=== PATIENT | female | born 1970 | race Caucasian/White ===

== ENCOUNTER 2017-01-29 22:20 | Emergency (ER) | payer SELFPAY ==
--- OUTSIDE RECORDS SUMMARY | 2017-01-31 17:41 | XMS REPORT | Continuity of Care Document ---
Author Author [facility] Organization [facility] Address Unknown Phone Unavailable Care Team Providers Care Restrike Hammer Operator Name Role Phone Self, Referral PCP Unavailable Source Comments Some departments are not documenting in the electronic medical record. If you do not see the information that you expected, contact Release of Information in the Health Information Management department at [phone] for further assistance in locating additional records.[facility] Active Allergies and Adverse Reactions Allergen Noted Date Severity Reactions Comments Hydrocodone 10/17/2008 ITCHING Percocet 10/29/2008 Current Medications Prescription Sig. Disp. Refills Start End Date Status Date DEPAKOTE ER 500 mg Tb24 Take 750 mg by mouth Active Daily. simvastatin (ZOCOR) 40 mg Take 1 Tab by mouth At 30 1 06/24/20 Active tablet Bedtime Daily. [address] (CYMBALTA) Take 1 Cap by mouth 30 0 06/24/20 Active 30 mg capsule Daily. 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 Complex Partial Tremor 06/19/2009 Accidental falls 06/19/2009 Resolved Problems Problem Noted Date Resolved Date Cocaine dependence in remission (HCC) 06/19/2009 06/24/2009 Alcohol dependence, in remission 06/19/2009 06/24/2009 Nocturnal enuresis 06/19/2009 06/24/2009 Social History Tobacco Use Types Packs/Day Years Used Date Former Smoker Cigarettes 0.25 18 Comments: Jun 16 Alcohol Use Drinks/Week oz/Week Comments No Last Filed Vital Signs Vital Sign Reading Time Taken Blood Pressure 137/76 08/05/2009 10:02 AM FISHER CLAM Pulse 82 08/05/2009 10:02 AM FISHER CLAM Temperature 36.6 C (97.8 F) 08/05/2009 8:00 AM FISHER CLAM Respiratory Rate - - Height 1.651 m (5' 5") 06/17/2009 10:14 PM FISHER CLAM Weight 120.5 kg (265 lb 10.5 oz) 06/17/2009 10:14 PM FISHER CLAM Body Mass Index 44.21 06/17/2009 10:14 PM FISHER CLAM Oxygen Saturation 94% 08/05/2009 10:02 AM FISHER CLAM Plan of Care Health Maintenance Due Date Last Done Comments Physical (Comprehensive) 1979 Exam Pertussis Vaccine 1983 Tetanus Vaccine 1989 Cervical Cancer Screening 1993 Breast Cancer Screening 2012 Influenza Vaccine 04/08/2017 Results from Last 3 Months Not on file
== END 2017-01-29 22:43 | disposition left against medical advice (07) ==
LOC: ER 22:24
DX: K31.9 Disease of stomach and duodenum, unspecified (principal); Z53.21 Procedure and treatment not carried out due to patient leaving prior to being seen by health care provider

== ENCOUNTER 2017-03-26 23:32 | Emergency (ER) | payer SELFPAY ==
[~2017-03-26] VITALS: Ht 165.1 cm; Wt 108.9 kg
[2017-03-27 00:42] LABS: BASOPHILS % (AUTO) 0 % (0-10); EOSINOPHILS # (AUTO) 0.2 10^3/uL (0.0-0.3); EOSINOPHILS % (AUTO) 2 % (0-10); LYMPHOCYTES # (AUTO) 1.5 X 10^3 (1.0-4.0); LYMPHOCYTES % (AUTO) 17 % (12-44); MEAN CORPUSCULAR HEMOGLOBIN 27 PG (25-34); MEAN CORPUSCULAR HGB CONC 32 G/DL (32-36); MEAN CORPUSCULAR VOLUME 85 FL (80-99); MEAN PLATELET VOLUME 11.3 FL (7.4-10.4); MONOCYTES # (AUTO) 0.5 X 10^3 (0.0-1.0); MONOCYTES % (AUTO) 6 % (0-12); NEUTROPHILS # (AUTO) 6.6 X 10^3 (1.8-7.8); NEUTROPHILS % (AUTO) 76 % (42-75); PLATELET COUNT 245 10^3/uL (130-400); RED BLOOD COUNT 4.71 10^6/uL (4.35-5.85); RED CELL DISTRIBUTION WIDTH 15.1 % (10.0-14.5); WHITE BLOOD COUNT 8.7 10^3/uL (4.3-11.0)
[2017-03-27] MEDS ORDERED: ONDANSETRON 4 MG/2 ML (SDV) Z0FRAN IVP ONE (00:45)
[2017-03-27 00:57] LABS: ALANINE AMINOTRANSFERASE 38 U/L (0-55); ALBUMIN 3.9 GM/DL (3.2-4.5); ANION GAP 15 MMOL/L (5-14); ASPARTATE AMINO TRANSFERASE 26 U/L (5-34); BILIRUBIN,TOTAL 0.2 MG/DL (0.1-1.0); BLOOD UREA NITROGEN 16 MG/DL (7-18); BUN/CREATININE RATIO 21; CALCIUM 9.1 MG/DL (8.5-10.1); CARBON DIOXIDE 19 MMOL/L (21-32); CHLORIDE 103 MMOL/L (98-107); CREATININE SERUM 0.77 MG/DL (0.60-1.30); GFR ESTIMATED > 60; GLUCOSE 100 MG/DL (70-105); POTASSIUM 4.2 MMOL/L (3.6-5.0); SODIUM 137 MMOL/L (135-145); TOTAL PROTEIN 7.5 GM/DL (6.4-8.2)
[2017-03-27] MEDS ORDERED: HYOSCYAMINE 0.125 MG (LEVSIN) TAB SL ONE (01:00)
[2017-03-27 01:20] LABS: hs C REACTIVE PROTEIN 2.27 MG/DL (0.00-0.50)
[2017-03-27] MEDS ORDERED: KETOROLAC 30 MG/ML VIAL IVP ONE (02:00)
[2017-03-27] MEDS ORDERED: methylPREDNISolone 125 MG (Solu-MEDROL) VIAL IVP ONE (02:00)
[2017-03-27] MEDS ORDERED: metroNIDAZOLE 500 MG (FLAGYL) TAB PO ONE (02:00)
[2017-03-27] MEDS ORDERED: CIPROFLOXACIN 500 MG (CIPRO) TABLET PO ONE (02:00)
[2017-03-27] MEDS ORDERED: METR500T PO (02:04)
[2017-03-27] MEDS ORDERED: CIPR-225 PO (02:04)
[2017-03-27] MEDS ORDERED: PRD20T PO (02:05)
--- NOTE | 2017-03-27 02:05 | ED GI ---
General Chief Complaint: Abdominal/GI Problems Stated Complaint: AB PAIN DIARRHEA VOMTING Nursing Triage Note: PT C/O N/V/D AND ABD PAIN X 7 DAYS. SHE REPORTS SHE HAS BEEN SEEN AND TX BY CHRISTOPHER POOL LAST NOC. PT REPORTS NO IMPROVEMENT. Sepsis Screen: No Definite Risk Source of Information: Patient, Old Records Exam Limitations: No Limitations History of Present Illness Time Seen By Provider: 00:34 Initial Comments This 46-year-old woman presents to the emergency room with complaints of diarrhea, nausea, vomiting, abdominal cramping, and belching 1 week. She denies any fever. She was evaluated at [facility] yesterday. She questions gallbladder disease. Labs and CT were performed. She states she had a bad urinary tract infection. She received an injection of antibiotic but no prescription to go home according to her report. Patient denies sexual activity with men. She reports that her doctor questions Crohn's disease but no official diagnosis has been made. Allergies and Home Medications Allergies Coded Allergies: ondansetron (Verified Allergy, Mild, 03/27/17) Itching at injection site with injectable form only. Oral form well tolerated. hydrocodone (Verified Allergy, Unknown, 03/27/17) Home Medications Ciprofloxacin HCl 500 Mg Tablet, 500 MG PO BID, #14 Prescribed by: LATIA BERGER on 03/27/17 0204 Hyoscyamine Sulfate 0.125 Mg Tab.subl, 0.125 MG SL Q4H PRN for CRAMPS, #10 Prescribed by: LATIA BERGER on 03/27/17 0216 Metronidazole 500 Mg Tablet, 500 MG PO TID, #20 Prescribed by: LATIA BERGER on 03/27/17 0204 Ondansetron 4 Mg Tab.rapdis, 4 MG SL Q4H PRN for NAUSEA/VOMITING-1ST LINE, #10 Prescribed by: LATIA BERGER on 03/27/17 0216 Prednisone 20 Mg Tab, 20 MG PO DAILY, #4 Prescribed by: LATIA BERGER on 03/27/17 0205 Review of Systems Constitutional: no symptoms reported EENTM: No Symptoms Reported Respiratory: No Symptoms Reported Cardiovascular: No Symptoms Reported Gastrointestinal: See HPI Genitourinary: No Symptoms Reported Musculoskeletal: no symptoms reported Skin: no symptoms reported Psychiatric/Neurological: No Symptoms Reported Endocrine: No Symptoms Reported Past Aigwosr-Wbvikz-Cngnlj Hx Patient Social History Alcohol Use: Denies Use Recreational Drug Use: No Smoking Status: Never a Smoker 2nd Hand Smoke Exposure: No Recent Foreign Travel: No Contact w/Someone Who Travel: No Recent Infectious Disease Expo: No Surgeries HX Surgeries: Yes Surgeries: Tonsillectomy Respiratory Hx Respiratory Disorders: No Cardiovascular Hx Cardiac Disorders: Yes Cardiac Disorders: Hypertension Neurological Hx Neurological Disorders: No Reproductive System : No Genitourinary Hx Genitourinary Disorders: No Gastrointestinal Hx Gastrointestinal Disorders: Yes (Questionable Crohn's disease) Musculoskeletal Hx Musculoskeletal Disorders: No Endocrine Hx Endocrine Disorders: No HEENT HX ENT Disorders: No Cancer Hx Cancer: No Psychosocial Hx Psychiatric Problems: Yes Behavioral Health Disorders: ADD/ADHD, Anxiety, Depression Integumentary HX Skin/Integumentary Disorder: No Family Medical History Significant Family History: GI Disease (Crohn's disease) Physical Exam Vital Signs Capillary Refill : Less Than 3 Seconds General Appearance: WD/WN, no apparent distress HEENT: PERRL/EOMI, normal ENT inspection, pharynx normal Neck: normal inspection Respiratory: lungs clear, normal breath sounds, no respiratory distress, no accessory muscle use Cardiovascular: regular rate, rhythm, no edema, no murmur Gastrointestinal: normal bowel sounds, soft, tenderness Extremities: normal inspection, no pedal edema, normal capillary refill Back: normal inspection Neurologic/Psychiatric: secretary of state II-XII nml as tested, no motor/sensory deficits, alert, normal mood/affect, oriented x 3 Skin: normal color, warm/dry Progress/Results/Core Measures Results/Orders Lab Results Laboratory Tests Test 03/26/17 23:53 Range/Units White Blood Count 8.7 4.3-11.0 10^3/uL Red Blood Count 4.71 4.35-5.85 10^6/uL Hemoglobin 12.7 11.5-16.0 G/DL Hematocrit 40 35-52 % Mean Corpuscular Volume 85 80-99 FL Mean Corpuscular Hemoglobin 27 25-34 PG Mean Corpuscular Hemoglobin Concent 32 32-36 G/DL Red Cell Distribution Width 15.1 H 10.0-14.5 % Platelet Count 245 130-400 10^3/uL Mean Platelet Volume 11.3 H 7.4-10.4 FL Neutrophils (%) (Auto) 76 H 42-75 % Lymphocytes (%) (Auto) 17 12-44 % Monocytes (%) (Auto) 6 0-12 % Eosinophils (%) (Auto) 2 0-10 % Basophils (%) (Auto) 0 0-10 % Neutrophils # (Auto) 6.6 1.8-7.8 X 10^3 Lymphocytes # (Auto) 1.5 1.0-4.0 X 10^3 Monocytes # (Auto) 0.5 0.0-1.0 X 10^3 Eosinophils # (Auto) 0.2 0.0-0.3 10^3/uL Basophils # (Auto) 0.0 0.0-0.1 10^3/uL Erythrocyte Sedimentation Rate 23 H 0-20 MM/HR Sodium Level 137 135-145 MMOL/L Potassium Level 4.2 3.6-5.0 MMOL/L Chloride Level 103 98-107 MMOL/L Carbon Dioxide Level 19 L 21-32 MMOL/L Anion Gap 15 H 5-14 MMOL/L Blood Urea Nitrogen 16 7-18 MG/DL Creatinine 0.77 0.60-1.30 MG/DL Estimat Glomerular Filtration Rate > 60 BUN/Creatinine Ratio 21 Glucose Level 100 70-105 MG/DL Calcium Level 9.1 8.5-10.1 MG/DL Magnesium Level 2.0 1.8-2.4 MG/DL Total Bilirubin 0.2 0.1-1.0 MG/DL Aspartate Amino Transf (AST/SGOT) 26 5-34 U/L Alanine Aminotransferase (ALT/SGPT) 38 0-55 U/L Alkaline Phosphatase 91 40-136 U/L C-Reactive Protein High Sensitivity 2.27 H 0.00-0.50 MG/DL Total Protein 7.5 6.4-8.2 GM/DL Albumin 3.9 3.2-4.5 GM/DL Lipase 15 8-78 U/L Micro Results Microbiology 03/27/17 Fecal Leukocyte Stain - Final, Complete 03/27/17 Stool Culture - Final, Complete Negative for Salmonella... 03/27/17 C. difficile GDH Antigen & Toxins - Final, Complete My Orders Orders - LATIA ROYAL MD Cbc With Automated Diff (03/27/17 00:34) Comprehensive Metabolic Panel (03/27/17 00:34) Magnesium (03/27/17 00:34) Saline Lock/Iv-Start (03/27/17 00:34) Ondansetron Injection (Zofran Injectio (03/27/17 00:45) Hs C Reactive Protein (03/27/17 01:00) Lipase (03/27/17 01:00) Erythrocyte Sedimentation Rate (03/27/17 01:00) Hyoscyamine Sl Tablet (Levsin Sl Tablet) (03/27/17 01:00) Stool Culture (03/27/17 01:00) Fecal Wbc (03/27/17 01:00) C Difficile Ag + Toxin A/B. (03/27/17 01:00) Ciprofloxacin Tablet (Cipro Tablet) (03/27/17 02:00) Metronidazole Tablet (Flagyl Tablet) (03/27/17 02:00) Ketorolac Injection (Toradol Injection) (03/27/17 02:00) Methylprednisolone Sod Succ (Solu-Medrol (03/27/17 02:00) Iv Push Gate Technician Ed (03/26/17 ) Medications Given in ED Vital Signs/I&O Blood Pressure Mean: 97 Progress Note : Progress Note She was treated with Levsin, Zofran, and Toradol. Patient was thought to possibly have inflammatory bowel disease. She was given Cipro, Flagyl, and Solu -Medrol. Departure Impression Impression: Primary Impression: Diarrhea Qualified Codes: R19.7 - Diarrhea, unspecified Additional Impressions: Abdominal pain Qualified Codes: R10.9 - Unspecified abdominal pain Nausea and vomiting Qualified Codes: R11.2 - Nausea with vomiting, unspecified Disposition: 01 HOME, SELF-CARE Condition: Improved Departure-Patient Inst. Decision time for Depature: 01:50 Referrals: NO,LOCAL PHYSICIAN (PCP/Family) Primary Care Physician Patient Instructions: Acute Abdomen (Belly Pain), Adult (DC), Diarrhea in Adolescents and Adults Add. Discharge Instructions: Drink plenty of clear liquids. Gradually advance your diet with small quantities of bland food as tolerated. Use your antibiotics and steroids ( prednisone) as prescribed. Follow-up with your primary care provider as soon as possible and review of culture results. Discuss screening for Crohn's disease and colonoscopy with your primary care provider. Return to the emergency room if symptoms worsen. For management of symptoms, you may use Zofran (ondansetron) for nausea and vomiting and Levsin (hyoscyamine) to slow diarrhea and treat cramping. Use Tylenol up to 1000 mg every 6 hours as needed for pain. All discharge instructions reviewed with patient and/or family. Voiced understanding. Scripts Ondansetron (Zofran Odt) 4 Mg Tab.rapdis 4 MG SL Q4H Y for NAUSEA/VOMITING-1ST LINE, #10 TAB Prov: LATIA ROYAL MD 03/27/17 Hyoscyamine Sulfate (Levsin-Sl) 0.125 Mg Tab.subl 0.125 MG SL Q4H Y for CRAMPS, #10 TAB Prov: LATIA ROYAL MD 03/27/17 Prednisone (Prednisone) 20 Mg Tab 20 MG PO DAILY, #4 TAB Prov: LATIA ROYAL MD 03/27/17 Metronidazole (Flagyl) 500 Mg Tablet 500 MG PO TID, #20 TAB Prov: LATIA ROYAL MD 03/27/17 Ciprofloxacin HCl (Cipro) 500 Mg Tablet 500 MG PO BID, #14 TAB Prov: LATIA ROYAL MD 03/27/17 LATIA ROYAL MD Mar 27, 2017 02:05
[2017-03-27 02:16] VITALS: BP 131/80
[2017-03-27] MEDS ORDERED: HYOS0.1283 SL (02:16)
[2017-03-27] MEDS ORDERED: ONDA4TAB8 SL (02:16)
== END 2017-03-27 02:16 | disposition home or self-care (01) ==
LOC: EDUNIT# 23:32 → ER 23:35
DX: R11.12 Projectile vomiting (principal); R10.9 Unspecified abdominal pain; R19.7 Diarrhea, unspecified
CPT/HCPCS: 36415; 80053; 83690; 83735; 85025; 85652; 86141; 87045; 87046; 87324; 87449; 89055; 96374; 96375

== ENCOUNTER 2017-04-24 18:35 | Emergency (ER) | payer SELFPAY ==
[~2017-04-24] VITALS: Ht 165.1 cm; Wt 108.9 kg
[~2017-04-24 18:35] MED LIST: CIPR-225 PO; HYOS0.1283 SL; METR500T PO; ONDA4TAB8 SL; PRD20T PO
--- OUTSIDE RECORDS SUMMARY | 2017-04-24 18:40 | XMS REPORT | Referral Summary ---
Author Author [facility] Organization [facility] Address Unknown Phone Unavailable Encounter [facility] [id number] Date(s): 02/19/17 - 02/19/17 [facility] [address] [place] [id number] Discharge Diagnosis: Strain of cervical portion of right trapezius muscle Discharge Disposition: 01 O/P Home Attending Physician: Jacobo Chua MD Admitting Physician: Jacobo Chua MD Vital Signs 1 2 3 Most recent to oldest [Reference Range]: 5.41 ft (02/19/17 5:41 AM) Height FT 165 cm (02/19/17 8:38 AM) 165 cm (02/19/17 7:51 AM) 165 cm (02/19/17 7:02 AM) Height 247.14 lb (02/19/17 5:41 AM) Weight LBS 112.1 kg (02/19/17 5:41 AM) Weight, Measured 138 / 88 (02/19/17 8:38 AM) 127 / 89 (02/19/17 7:51 AM) 144 / 93 (02/19/17 7:03 AM) Blood Pressure Display 41.18 (02/19/17 8:38 AM) 41.18 (02/19/17 7:51 AM) 41.18 (02/19/17 7:03 AM) BMI 58 bpm *LOW* (02/19/17 8:38 AM) 65 bpm (02/19/17 7:51 AM) 61 bpm (02/19/17 7:02 AM) Peripheral Pulse Rate [60-100 bpm] 36.3 DegC (02/19/17 5:41 AM) Temperature Oral [35.8-37.3 DegC] Problem List No data available for this section Allergies, Adverse Reactions, Alerts Substance Reaction Severity Status HYDROcodone Active Medications Cymbalta 60 mg oral delayed release capsule Start Date: 09/16/11 Status: Ordered Depakote ER 500 mg oral tablet, extended release 1,000 mg=2 tab, PO, qDay, # 90 tab Start Date: 09/16/11 Status: Ordered Flexeril 10 mg oral tablet 10 mg=1 tab, PO, TID, for spasm, # 20 tab, 0 Refill(s) Start Date: 02/19/17 Stop Date: 03/21/17 Status: Ordered lisinopril 20 mg, PO, BID, # 60 tab, 0 Refill(s) Start Date: 02/19/17 Status: Ordered Percocet 5/325 oral tablet See Instructions, 1-2 tabs PO q4-6hrs as needed for pain, # 15 tab, 0 Refill(s) Start Date: 02/19/17 Stop Date: 02/21/17 Status: Ordered traZODone Start Date: 09/16/11 Status: Ordered Xanax Start Date: 09/16/11 Status: Ordered Results No data available for this section Immunizations No data available for this section Procedures No data available for this section Social History Social History Type Response Smoking Status Never smoker Functional Status COGNITIVE 02/19/17 Orientation Oriented x 3 Assessment and Plan No data available for this section Hospital Discharge Instructions Patient Education Cervical Sprain, Nuzr-[id number] Follow Up Care 02/19/2017 05:36:34 With: Follow up with primary care provider Address: Unknown When: 7-10 days Comments: Call the office to schedule follow up if needed for persistant pain. Return to ED for worsening symptoms/any numbness or tingling or weakness or vision changes/fever/chills. Ibuprofen 800mg by mouth every 8 hours as needed for pain.
--- OUTSIDE RECORDS SUMMARY | 2017-04-24 18:40 | XMS REPORT | Clinical Summary ---
Author Author [facility] Organization [facility] Address Unknown Phone Unavailable Care Team Providers Care Turntable Worker Name Role Phone PCP Unavailable Source Comments Some departments are not documenting in the electronic medical record. If you do not see the information that you expected, contact Release of Information in the Health Information Management department at [phone] for further assistance in locating additional records.[facility] Allergies Active Allergy Reactions Severity Noted Date Comments Hydrocodone ITCHING 10/17/2008 Oxycodone-Acetaminophen 10/29/2008 Current Medications Prescription Sig. Disp. Refills [...] 16 Alcohol Use Drinks/Week oz/Week Comments No Sex Assigned at Date Recorded Not on file Last Filed Vital Signs Vital Sign Reading Time Taken Blood Pressure 137/76 08/05/2009 10:02 AM CRAFT DEMONSTRATOR Pulse 82 08/05/2009 10:02 AM CRAFT DEMONSTRATOR Temperature 36.6 C (97.8 F) 08/05/2009 8:00 AM CRAFT DEMONSTRATOR Respiratory Rate - - Oxygen Saturation 94% 08/05/2009 10:02 AM CRAFT DEMONSTRATOR Inhaled Oxygen - - Concentration Weight 120.5 kg (265 lb 10.5 oz) 06/17/2009 10:14 PM CRAFT DEMONSTRATOR Height 165.1 cm (5' 5") 06/17/2009 10:14 PM CRAFT DEMONSTRATOR Body Mass Index 44.21 06/17/2009 10:14 PM CRAFT DEMONSTRATOR Plan of Treatment Health Maintenance Due Date Last Done Comments PHYSICAL (COMPREHENSIVE) 1979 EXAM PERTUSSIS VACCINE 1983 TETANUS VACCINE 1989 CERVICAL CANCER SCREENING 2002 BREAST CANCER SCREENING 2012 INFLUENZA VACCINE 05/08/2017 Results Not on filefrom Last 3 Months
[2017-04-24] MEDS ORDERED: KETOROLAC 30 MG/ML VIAL ONE (19:24)
--- NOTE | 2017-04-24 19:28 | ED Abdominal Pain ---
General Chief Complaint: Abdominal/GI Problems Stated Complaint: ABD/SIDE PAIN Source of Information: Patient Exam Limitations: No Limitations History of Present Illness Time Seen By Provider: 19:23 Initial Comments Patient presents to ER by private conveyance with her significant other with chief complaint that she is having abdominal pain all over. Mild amount of nausea and anorexia. She's been having this off and on no pattern since September 2016. She's been seen in the ER had a CAT scan that was told that time she had 2 polyps. 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 She is been told that she probably has irritable bowel versus inflammatory bowel disease. She is not on any medications at the moment. She is not sexually active with men. She is not on control. She denies any dysuria or fevers however persisted she's been chilling today. She was seen earlier today and [place], [place] at the ER and was told they were concerned for her gallbladder but they did not have the ability to do an ultrasound so she came down here to get an ultrasound. She's never had her gallbladder ultrasounded and does not remember anything about it being said on the CAT scan in the past. She denies being distended, diarrhea or constipation although she has occasional bouts of diarrhea and constipation. She took some MiraLAX today to see if that would help her abdominal pain. The patient states Allergies and Home Medications Allergies Coded Allergies: ondansetron (Verified Allergy, Mild, 03/27/17) Itching at injection site with injectable form only. Oral form well tolerated. hydrocodone (Verified Allergy, Unknown, 03/27/17) Home Medications No Active Prescriptions or Reported Meds Review of Systems Constitutional: chills, No diaphoresis, No fever, No malaise EENTM: No Blurred Vision, No Double Vision Respiratory: Denies Cough, SOA With Exertion Cardiovascular: Denies Chest Pain Gastrointestinal: See HPI, Denies Abdomen Distended, Abdominal Pain, Constipated, Diarrhea, Nausea, Poor Appetite, Denies Vomiting Genitourinary: Denies Burning, Denies Discharge Musculoskeletal: No back pain, No joint pain Skin: No pruritus, No rash Psychiatric/Neurological: Denies Headache, Denies Numbness, Denies Paresthesia Past Vwzwbbx-Qiimdx-Mlchfm Hx Patient Social History Alcohol Use: Denies Use Recreational Drug Use: No Smoking Status: Never a Smoker 2nd Hand Smoke Exposure: No Recent Foreign Travel: No Contact w/Someone Who Travel: No Recent Hopitalizations: Yes ([facility] visits) Immunizations Up To Date Tetanus Booster (TDap): Unknown Seasonal Allergies Seasonal Allergies: No Surgeries History of Surgeries: Yes (egd/colonoscopy) Surgeries: Tonsillectomy Respiratory History of Respiratory Disorde: No Cardiovascular History of Cardiac Disorders: Yes Cardiac Disorders: Hypertension Neurological History of Neurological Disord: No Genitourinary History of Genitourinary Disor: No Gastrointestinal History of Gastrointestinal Di: Yes (Questionable Crohn's disease) Gastrointestinal Disorders: Colitis, Chronic Constipation, Chronic Diarrhea Musculoskeletal History of Musculoskeletal Dis: No Endocrine History of Endocrine Disorders: No HEENT History of HEENT Disorders: No Cancer History of Cancer: No Psychosocial History of Psychiatric Problem: Yes Behavioral Health Disorders: ADD/ADHD, Anxiety, Depression Integumentary History of Skin or Integumenta: No Family Medical History Significant Family History: GI Disease Physical Exam Vital Signs VS - Last 72 Hours, by Label 04/24/17 04/24/17 19:19 19:34 Temp 97.8 97.8 Pulse 72 Resp 16 B/P (MAP) 149/92 Pulse Ox 95 O2 Delivery Room Air Capillary Refill : General Appearance: WD/WN, mild distress HEENT: PERRL/EOMI, pharynx normal Neck: non-tender, normal inspection Respiratory: chest non-tender, lungs clear, normal breath sounds, no respiratory distress Cardiovascular: normal peripheral pulses, regular rate, rhythm, no edema Peripheral Pulses: 2+ Radial Pulses (R), 2+ Radial Pulses (L) Gastrointestinal: normal bowel sounds, soft, tenderness (right upper quadrant, epigastric, left upper quadrant, left lower quadrant.) Extremities: normal range of motion, normal inspection, no pedal edema, normal capillary refill Back: normal inspection, CVA tenderness (R) Neurologic/Psychiatric: alert, oriented x 3 Skin: normal color, warm/dry Progress/Results/Core Measures Results/Orders Lab Results Laboratory Tests Test 04/24/17 19:25 04/24/17 19:35 Range/Units Urine Color YELLOW Urine Clarity CLEAR Urine pH 5 5-9 Urine Specific [place] 1.025 H 1.016-1.022 Urine Protein 1+ H NEGATIVE Urine Glucose (UA) NEGATIVE NEGATIVE Urine Ketones NEGATIVE NEGATIVE Urine Nitrite NEGATIVE NEGATIVE Urine Bilirubin NEGATIVE NEGATIVE Urine Urobilinogen NORMAL NORMAL MG/DL Urine Leukocyte Esterase 1+ H NEGATIVE Urine RBC (Auto) NEGATIVE NEGATIVE Urine RBC NONE /HPF Urine WBC 0-2 /HPF Urine Squamous Epithelial Cells 5-10 /HPF Urine Crystals NONE /LPF Urine Bacteria TRACE /HPF Urine Casts NONE /LPF Urine Mucus NEGATIVE /LPF Urine Culture Indicated NO White Blood Count 8.8 4.3-11.0 10^3/uL Red Blood Count 4.15 L 4.35-5.85 10^6/uL Hemoglobin 11.3 L 11.5-16.0 G/DL Hematocrit 36 35-52 % Mean Corpuscular Volume 86 80-99 FL Mean Corpuscular Hemoglobin 27 25-34 PG Mean Corpuscular Hemoglobin Concent 32 32-36 G/DL Red Cell Distribution Width 14.5 10.0-14.5 % Platelet Count 253 130-400 10^3/uL Mean Platelet Volume 10.7 H 7.4-10.4 FL Neutrophils (%) (Auto) 61 42-75 % Lymphocytes (%) (Auto) 30 12-44 % Monocytes (%) (Auto) 7 0-12 % Eosinophils (%) (Auto) 2 0-10 % Basophils (%) (Auto) 0 0-10 % Neutrophils # (Auto) 5.3 1.8-7.8 X 10^3 Lymphocytes # (Auto) 2.6 1.0-4.0 X 10^3 Monocytes # (Auto) 0.6 0.0-1.0 X 10^3 Eosinophils # (Auto) 0.2 0.0-0.3 10^3/uL Basophils # (Auto) 0.0 0.0-0.1 10^3/uL Sodium Level 138 135-145 MMOL/L Potassium Level 3.9 3.6-5.0 MMOL/L Chloride Level 103 98-107 MMOL/L Carbon Dioxide Level 26 21-32 MMOL/L Anion Gap 9 5-14 MMOL/L Blood Urea Nitrogen 21 H 7-18 MG/DL Creatinine 0.88 0.60-1.30 MG/DL Estimat Glomerular Filtration Rate > 60 BUN/Creatinine Ratio 24 Glucose Level 131 H 70-105 MG/DL Calcium Level 8.6 8.5-10.1 MG/DL Total Bilirubin 0.2 0.1-1.0 MG/DL Aspartate Amino Transf (AST/SGOT) 28 5-34 U/L Alanine Aminotransferase (ALT/SGPT) 52 0-55 U/L Alkaline Phosphatase 82 40-136 U/L Total Protein 6.6 6.4-8.2 GM/DL Albumin 3.5 3.2-4.5 GM/DL Lipase 25 8-78 U/L My Orders Orders - ZAINAB LANCE Ketorolac Injection (Toradol Injection) (04/24/17 19:30) Promethazine Injection (Phenergan Injec (04/24/17 19:30) Ct Abdomen/Pelvis W (04/24/17 19:23) Cbc With Automated Diff (04/24/17 19:23) Comprehensive Metabolic Panel (04/24/17 19:23) Lipase (04/24/17 19:23) Ua Culture If Indicated (04/24/17 19:23) Urine Bedside (04/24/17 19:23) Iohexol Injection (Omnipaque 350 Mg/Ml 1 (04/24/17 19:30) Ns (Ivpb) (Sodium Chloride 0.9% Ivpb Bag (04/24/17 19:30) Ketorolac Injection (Toradol Injection) (04/24/17 19:30) Saline Lock/Iv-Start (04/24/17 19:28) Ketorolac Injection (Toradol Injection) (04/24/17 19:24) Medications Given in ED Current Medications Medications Dose Ordered Sig/Angeles Route Start Time Stop Time Status Last Admin Dose Admin Iohexol 100 ml ONCE ONCE IV 04/24/17 19:30 04/24/17 19:31 UNV 04/24/17 19:57 100 ML Ketorolac Tromethamine 15 mg ONCE ONCE IVP 04/24/17 19:30 04/24/17 19:31 DC 04/24/17 19:34 15 MG Promethazine HCl 25 mg ONCE ONCE IM 04/24/17 19:30 04/24/17 19:31 DC 04/24/17 19:34 25 MG Sodium Chloride 100 ml ONCE ONCE IV 04/24/17 19:30 04/24/17 19:31 UNV 04/24/17 19:57 100 ML Vital Signs/I&O Vital Sign - Last 12Hours 04/24/17 04/24/17 19:19 19:34 Temp 97.8 97.8 Pulse 72 Resp 16 B/P (MAP) 149/92 Pulse Ox 95 O2 Delivery Room Air Progress Note : Time: 20:04 Progress Note Clinical exam is not very consistent with gallbladder however she has Antony's positive and you could be to treat is unrelated that she has IBD/IBS and gallbladder disease so we'll obtain a CAT scan as her body habitus may limit the usefulness of an ultrasound at this time. The things in the differential include colitis, pancreatitis. Diagnostic Imaging Diagonstic Imaging: CT Plain Films/CT/US/NM/MRI: abdomen, pelvis (with contrast) Comments VIA [facility]. [place], [place] NAME: KLEVER RODRIGUEZ [facility] REC#: [id number] PT STATUS: REG ER : 1970 PHYSICIAN: ZAINAB LANCE MD ADMIT DATE: 04/24/17/ER Draft Date of Exam:04/24/17 CT ABDOMEN/PELVIS W PROCEDURE: CT abdomen and pelvis with contrast. TECHNIQUE: Multiple contiguous axial images were obtained through the abdomen and pelvis after administration of intravenous contrast. INDICATION: Nausea, abdominal pain, diarrhea COMPARISON: None FINDINGS: There is some thickening of the pleura posterior lung bases. There is a 10 mm benign-appearing nodule left lung base. Recommend followup in [address] chest. There is no pleural effusion. There is fatty liver present. The gallbladder, spleen, pancreas, adrenal glands, kidneys, vascular structures and small bowel are normal. There is no significant constipation. There is no inflammatory process. The appendix is normal. Distal ureters and urinary bladder are grossly normal. The uterus is intact. No inflammatory change or lymphadenopathy is seen. There is no free air or free fluid. Osseous structures are age-appropriate. IMPRESSION: 1. Nonspecific pleural thickening with a 10 mm benign-appearing nodule left lung base. Recommend [address] chest. 2. No acute abnormalities within the abdomen or pelvis. Specifically, no inflammatory change identified. 3. Normal appendix. 4. No significant constipation. Dictated on workstation # [id number] Dict: 04/24/172008 Trans: 04/24/17 [facility] [id number] Interpreted by: RENATE QUINTEROS Electronically signed by: Reviewed: Reviewed by Me Departure Impression Impression: Primary Impression: Abdominal pain Qualified Codes: R10.84 - Generalized abdominal pain Disposition: HOME, SELF-CARE Condition: Stable Departure-Patient Inst. Decision time for Depature: 20:33 Referrals: NO,LOCAL PHYSICIAN (PCP/Family) Primary Care Physician Patient Instructions: Irritable Bowel Syndrome (DC) Add. Discharge Instructions: Ibuprofen 800 mg every 8 hours, or Tylenol 1000 g every 8 hours, or Naprosyn 2 capsules twice a day for your pain. Do not mix Naprosyn and ibuprofen as the same class. If he started having bad acid reflux you need to discontinue the use of your Naprosyn and ibuprofen and just rule out Tylenol and then see your primary care physician for regular medications. You'll need to follow up with your primary care physician as soon as possible to get your workup done so that you can get your discomfort under control. Her gallbladder and appendix look okay on the scan today. Continue to use your home Zofran as it is prescribed to control your nausea. Plan on following up the one centimeter nodule in your lung in about 3-4 months with another scan that you can get scheduled at your primary care physician's office. All discharge instructions reviewed with patient and/or family. Voiced understanding. Scripts No Active Prescriptions or Reported Meds ZAINAB LANCE Apr 24, 2017 19:28
[2017-04-24] MEDS ORDERED: KETOROLAC 15 MG/ML VIAL IVP ONE (19:30)
[2017-04-24] MEDS ORDERED: KETOROLAC 30 MG/ML VIAL IVP ONE (19:30)
[2017-04-24] MEDS ORDERED: NS 100 ML (IVPB) BAG IV ONE (19:30)
[2017-04-24] MEDS ORDERED: PROMETHAZINE INJ 25 MG/ML (PHENERGAN) AMP IM ONE (19:30)
[2017-04-24] MEDS ORDERED: IOHEXOL 350 MG/ML 100 ML (OMNIPAQUE 350) VIAL IV ONE (19:30)
[2017-04-24 19:33] LABS: BILIRUBIN,URINE NEGATIVE (NEGATIVE); KETONES,URINE NEGATIVE (NEGATIVE); LEUKOCYTE ESTERASE ,URINE 1+ (NEGATIVE); NITRITE,URINE NEGATIVE (NEGATIVE); PH,URINE 5 (5-9); PROTEIN,URINE 1+ (NEGATIVE); UROBILINOGEN,URINE NORMAL (NORMAL)
[2017-04-24 19:44] LABS: WBC,URINE 0-2 /HPF
[2017-04-24 19:52] LABS: BASOPHILS % (AUTO) 0 % (0-10); EOSINOPHILS # (AUTO) 0.2 10^3/uL (0.0-0.3); EOSINOPHILS % (AUTO) 2 % (0-10); LYMPHOCYTES # (AUTO) 2.6 X 10^3 (1.0-4.0); LYMPHOCYTES % (AUTO) 30 % (12-44); MEAN CORPUSCULAR HEMOGLOBIN 27 PG (25-34); MEAN CORPUSCULAR HGB CONC 32 G/DL (32-36); MEAN CORPUSCULAR VOLUME 86 FL (80-99); MEAN PLATELET VOLUME 10.7 FL (7.4-10.4); MONOCYTES # (AUTO) 0.6 X 10^3 (0.0-1.0); MONOCYTES % (AUTO) 7 % (0-12); NEUTROPHILS # (AUTO) 5.3 X 10^3 (1.8-7.8); NEUTROPHILS % (AUTO) 61 % (42-75); PLATELET COUNT 253 10^3/uL (130-400); RED BLOOD COUNT 4.15 10^6/uL (4.35-5.85); RED CELL DISTRIBUTION WIDTH 14.5 % (10.0-14.5); WHITE BLOOD COUNT 8.8 10^3/uL (4.3-11.0)
[2017-04-24 20:12] LABS: ALANINE AMINOTRANSFERASE 52 U/L (0-55); ALBUMIN 3.5 GM/DL (3.2-4.5); ANION GAP 9 MMOL/L (5-14); ASPARTATE AMINO TRANSFERASE 28 U/L (5-34); BILIRUBIN,TOTAL 0.2 MG/DL (0.1-1.0); BLOOD UREA NITROGEN 21 MG/DL (7-18); BUN/CREATININE RATIO 24; CALCIUM 8.6 MG/DL (8.5-10.1); CARBON DIOXIDE 26 MMOL/L (21-32); CHLORIDE 103 MMOL/L (98-107); CREATININE SERUM 0.88 MG/DL (0.60-1.30); GFR ESTIMATED > 60; GLUCOSE 131 MG/DL (70-105); LIPASE 25 U/L (8-78); POTASSIUM 3.9 MMOL/L (3.6-5.0); SODIUM 138 MMOL/L (135-145); TOTAL PROTEIN 6.6 GM/DL (6.4-8.2)
--- NOTE | 2017-04-24 20:19 | Diagnostic Imaging Report ---
PROCEDURE: CT abdomen and pelvis with contrast. TECHNIQUE: Multiple contiguous axial images were obtained through the abdomen and pelvis after administration of intravenous contrast. INDICATION: Nausea, abdominal pain, diarrhea COMPARISON: None FINDINGS: There is some thickening of the pleura posterior lung bases. There is a 10 mm benign-appearing nodule left lung base. Recommend followup in [address] chest. There is no pleural effusion. There is fatty liver present. The gallbladder, spleen, pancreas, adrenal glands, kidneys, vascular structures and small bowel are normal. There is no significant constipation. There is no inflammatory process. The appendix is normal. Distal ureters and urinary bladder are grossly normal. The uterus is intact. No inflammatory change or lymphadenopathy is seen. There is no free air or free fluid. Osseous structures are age-appropriate. IMPRESSION: 1. Nonspecific pleural thickening with a 10 mm benign-appearing nodule left lung base. Recommend [address] chest. 2. No acute abnormalities within the abdomen or pelvis. Specifically, no inflammatory change identified. 3. Normal appendix. 4. No significant constipation. Dictated by: Dictated on workstation # [id number]
[2017-04-24 21:08] VITALS: BP 148/97
== END 2017-04-24 20:50 | disposition home or self-care (01) ==
LOC: EDUNIT# 18:35 → ER 18:36
DX: R10.11 Right upper quadrant pain (principal); R10.13 Epigastric pain; R10.12 Left upper quadrant pain; R10.32 Left lower quadrant pain; I10 Essential (primary) hypertension; F90.9 Attention-deficit hyperactivity disorder, unspecified type; F41.9 Anxiety disorder, unspecified; F32.9 Major depressive disorder, single episode, unspecified; Z87.19 Personal history of other diseases of the digestive system; Z90.89 Acquired absence of other organs
CPT/HCPCS: 36415; 74177; 80053; 81000; 83690; 84703; 85025

== ENCOUNTER → 2018-01-06 | Outpatient (CLI) | payer SELFPAY ==
[~2018-01-06] MED LIST changes: +CATHETER FLUSH 10 ML SYR IV PRN; +IOHEXOL 350 MG/ML 100 ML (OMNIPAQUE 350) VIAL IV ONE; +NS 250 ML (IVPB) BAG IV ONE; +RECEIVED CONTRAST (Hold Metformin) IV SCH
--- NOTE | 2018-01-06 12:51 | Diagnostic Imaging Report ---
PROCEDURE: CT abdomen and pelvis with contrast. TECHNIQUE: Multiple contiguous axial images were obtained through the abdomen and pelvis after administration of intravenous contrast. INDICATION: Right-sided abdominal pain. COMPARISON: Comparison is made with prior CT abdomen and pelvis from 04/24/2017. FINDINGS: The lung bases are clear. There is generalized low density throughout the liver, consistent with hepatic steatosis. No discrete liver mass is identified. The gallbladder is unremarkable. The pancreas and spleen are unremarkable. No adrenal mass is detected. The kidneys are unremarkable. The aorta is nonaneurysmal. No abdominal or pelvic lymphadenopathy is seen. The small and large bowel loops are normal in caliber. There is no ascites. The bladder and uterus are unremarkable. Bony structures appear nonacute. IMPRESSION: 1. Hepatic steatosis. 2. No acute feature in the abdomen or pelvis is identified. Attempts were made to call this report to Dalia Katz, nurse practitioner, however this was unsuccessful. Dictated by: Dictated on workstation # [id number]
== END ==
LOC: RAD 11:35
PROVIDERS: ATTEND Nurse Practitioner Primary Care
DX: K76.0 Fatty (change of) liver, not elsewhere classified (principal); K56.7 Ileus, unspecified
CPT/HCPCS: 74177

== ENCOUNTER 2018-01-09 21:46 | Emergency (ER) | payer SELFPAY ==
[~2018-01-09] VITALS: Ht 165.1 cm; Wt 113.4 kg
[~2018-01-09 21:46] MED LIST changes: -CATHETER FLUSH 10 ML SYR IV PRN; -IOHEXOL 350 MG/ML 100 ML (OMNIPAQUE 350) VIAL IV ONE; -NS 250 ML (IVPB) BAG IV ONE; -RECEIVED CONTRAST (Hold Metformin) IV SCH
--- OUTSIDE RECORDS SUMMARY | 2018-01-09 21:51 | XMS REPORT | Clinical Summary ---
Author Author [facility] Organization [facility] Address Unknown Phone Unavailable Care Team Providers Care Health Insurance Sales Agent Name Role Phone Self, Referral PCP Unavailable Ariana Dempsey Unavailable Sanna Fields RN Unavailable Unavailable Puma Lyles RN Unavailable Unavailable Damaris Ragsdale RN Unavailable Unavailable Source Comments Some departments are not documenting in the electronic medical record. If you do not see the information that you expected, contact Release of Information in the Health Information Management department at [phone] for further assistance in locating additional records.[facility] Allergies Active Allergy Reactions Severity Noted Date [...] Taken Blood Pressure 137/76 08/05/2009 10:02 AM DRAFTER PATENT Pulse 82 08/05/2009 10:02 AM DRAFTER PATENT Temperature 36.6 C (97.8 F) 08/05/2009 8:00 AM DRAFTER PATENT Respiratory Rate - - Oxygen Saturation 94% 08/05/2009 10:02 AM DRAFTER PATENT Inhaled Oxygen - - Concentration Weight 120.5 kg (265 lb 10.5 oz) 06/17/2009 10:14 PM DRAFTER PATENT Height 165.1 cm (5' 5") 06/17/2009 10:14 PM DRAFTER PATENT Body Mass Index 44.21 06/17/2009 10:14 PM DRAFTER PATENT Plan of Treatment Health Maintenance Due Date Last Done Comments PHYSICAL (COMPREHENSIVE) 1979 EXAM PERTUSSIS VACCINE 1983 HIV SCREENING 1987 TETANUS VACCINE 1989 CERVICAL CANCER SCREENING 2002 BREAST CANCER SCREENING 2012 INFLUENZA VACCINE 05/08/2018 Results Not on filefrom Last 3 Months
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
[2018-01-09] MEDS ORDERED: LACTATED RINGERS 1,000 ML IV ONE (22:10)
[2018-01-09] MEDS ORDERED: KETOROLAC 30 MG/ML VIAL ONE (22:19)
[2018-01-09 22:21] LABS: BASOPHILS % (AUTO) 0 % (0-10); EOSINOPHILS # (AUTO) 0.3 10^3/uL (0.0-0.3); EOSINOPHILS % (AUTO) 3 % (0-10); HEMATOCRIT 42 % (35-52); LYMPHOCYTES # (AUTO) 2.4 X 10^3 (1.0-4.0); LYMPHOCYTES % (AUTO) 24 % (12-44); MEAN CORPUSCULAR HEMOGLOBIN 29 PG (25-34); MEAN CORPUSCULAR HGB CONC 34 G/DL (32-36); MEAN CORPUSCULAR VOLUME 87 FL (80-99); MEAN PLATELET VOLUME 10.5 FL (7.4-10.4); MONOCYTES # (AUTO) 0.5 X 10^3 (0.0-1.0); MONOCYTES % (AUTO) 5 % (0-12); NEUTROPHILS # (AUTO) 6.7 X 10^3 (1.8-7.8); NEUTROPHILS % (AUTO) 68 % (42-75); PLATELET COUNT 301 10^3/uL (130-400); RED BLOOD COUNT 4.81 10^6/uL (4.35-5.85); RED CELL DISTRIBUTION WIDTH 14.9 % (10.0-14.5); WHITE BLOOD COUNT 9.9 10^3/uL (4.3-11.0)
--- NOTE | 2018-01-09 22:21 | ED Abdominal Pain ---
General Stated Complaint: GI PROBLEMS, KNOTS ON L SIDE Source of Information: Patient, Other (gf) Exam Limitations: No Limitations History of Present Illness Date Seen by Provider: Jan 09, 2018 Time Seen by Provider: 22:08 Initial Comments Patient presents to ER by private conveyance with a chief complaint that she is having some abdominal pain started tonight and feeling of a new not on the left abdominal wall wasn't there before. She says she's been having problems with her bowels for the past year and a half. She was told she might have irritable bowel versus inflammatory bowel disease. Her primary care provider is setting her up to get an colonoscopy done. She's had no surgeries on her abdomen nor she ever had a scope. She says last week from Tuesday to Tuesday she did not bowel movements today started some MiraLAX and that got her to have bowel movements. Her last bowel moment was this morning and normal formed. She's not having any nausea or vomiting although in the past she has had ileus 2. Because of this and having vomited feculent material in the past she does not have an appetite and has not wanted to eat or drink when her belly hurts. She has a history of neck pain for which she's been using gabapentin in the past as well as NSAIDs which led to some gastritis so she doesn't use NSAIDs anymore. She does however use topical Voltaren. She's not having any fevers or chills, chest pain, cough or shortness of breath. She admits to a history of hypertension. Her pain is made worse by bending over on the left side, jarring her belly or pushing on the abdominal wall the left side. Allergies and Home Medications Allergies Coded Allergies: ondansetron (Verified Allergy, Mild, 03/27/17) Itching at injection site with injectable form only. Oral form well tolerated. hydrocodone (Verified Allergy, Unknown, 03/27/17) Patient Home Medication List Home Medication List Reviewed: Yes Review of Systems Constitutional: No chills, No fever, No malaise EENTM: No Blurred Vision, No Double Vision Respiratory: Denies Cough, Denies Shortness of Air Cardiovascular: Denies Chest Pain, Denies Edema, Denies Syncope Gastrointestinal: Denies Constipated, Denies Diarrhea, Denies Nausea; Poor Appetite, Poor Fluid Intake Genitourinary: Denies Burning, Denies Discharge, Denies Drainage Musculoskeletal: No back pain, No joint pain Skin: No pruritus, No rash Psychiatric/Neurological: Denies Headache, Denies Numbness, Denies Paresthesia Past Jkuerzn-Mxwisy-Ypjakk Hx Patient Social History Alcohol Use: Denies Use Recreational Drug Use: No Smoking Status: Former Smoker 2nd Hand Smoke Exposure: No Recent Foreign Travel: No Contact w/Someone Who Travel: No Recent Hopitalizations: Yes (multple e.d. visits) Immunizations Up To Date Tetanus Booster (TDap): Unknown Seasonal Allergies Seasonal Allergies: No Past Medical History Surgeries: Yes (egd/colonoscopy) Tonsillectomy Respiratory: No Cardiac: Yes Hypertension Neurological: No Genitourinary: No Gastrointestinal: Yes (Questionable Crohn's disease) Colitis, Chronic Constipation, Chronic Diarrhea Musculoskeletal: No Endocrine: No HEENT: No Cancer: No Psychosocial: Yes ADD/ADHD, Anxiety, Depression Integumentary: No Family Medical History GI Disease Physical Exam Vital Signs Vital Signs - First Documented 01/09/18 21:56 Temp 98.5 Pulse 96 Resp 20 B/P (MAP) 139/108 (118) Pulse Ox 96 O2 Delivery Room Air Capillary Refill : General Appearance: WD/WN, no apparent distress, obese HEENT: PERRL/EOMI, normal ENT inspection, TMs normal, pharynx normal Neck: non-tender, full range of motion, supple, normal inspection Respiratory: chest non-tender, lungs clear, normal breath sounds, no respiratory distress, no accessory muscle use Cardiovascular: normal peripheral pulses, regular rate, rhythm, no edema Peripheral Pulses: 2+ Radial Pulses (R), 2+ Radial Pulses (L) Gastrointestinal: normal bowel sounds, soft, no organomegaly, tenderness ( Tenderness palpable over the left upper quadrant. She has a small nodule on the abdominal wall that could be a fat containing hernial sac approximately 3 x 4 centimeter) Back: normal inspection, no vertebral tenderness Neurologic/Psychiatric: alert, normal mood/affect, oriented x 3 Skin: normal color, warm/dry Focused Exam Lactate Level 01/09/18 22:12: Lactic Acid Level 1.64 Lactic Acid Level Laboratory Tests Test 01/09/18 22:12 Lactic Acid Level 1.64 MMOL/L (0.50-2.00) Progress/Results/Core Measures Results/Orders Lab Results Laboratory Tests Test 01/09/18 22:12 01/09/18 22:14 Range/Units White Blood Count 9.9 4.3-11.0 10^3/uL Red Blood Count 4.81 4.35-5.85 10^6/uL Hemoglobin 14.0 11.5-16.0 G/DL Hematocrit 42 35-52 % Mean Corpuscular Volume 87 80-99 FL Mean Corpuscular Hemoglobin 29 25-34 PG Mean Corpuscular Hemoglobin Concent 34 32-36 G/DL Red Cell Distribution Width 14.9 H 10.0-14.5 % Platelet Count 301 130-400 10^3/uL Mean Platelet Volume 10.5 H 7.4-10.4 FL Neutrophils (%) (Auto) 68 42-75 % Lymphocytes (%) (Auto) 24 12-44 % Monocytes (%) (Auto) 5 0-12 % Eosinophils (%) (Auto) 3 0-10 % Basophils (%) (Auto) 0 0-10 % Neutrophils # (Auto) 6.7 1.8-7.8 X 10^3 Lymphocytes # (Auto) 2.4 1.0-4.0 X 10^3 Monocytes # (Auto) 0.5 0.0-1.0 X 10^3 Eosinophils # (Auto) 0.3 0.0-0.3 10^3/uL Basophils # (Auto) 0.0 0.0-0.1 10^3/uL Sodium Level 136 135-145 MMOL/L Potassium Level 4.0 3.6-5.0 MMOL/L Chloride Level 102 98-107 MMOL/L Carbon Dioxide Level 21 21-32 MMOL/L Anion Gap 13 5-14 MMOL/L Blood Urea Nitrogen 17 7-18 MG/DL Creatinine 0.81 0.60-1.30 MG/DL Estimat Glomerular Filtration Rate > 60 BUN/Creatinine Ratio 21 Glucose Level 105 70-105 MG/DL Lactic Acid Level 1.64 0.50-2.00 MMOL/L Calcium Level 9.5 8.5-10.1 MG/DL Magnesium Level 2.5 H 1.8-2.4 MG/DL Total Bilirubin 0.3 0.1-1.0 MG/DL Aspartate Amino Transf (AST/SGOT) 13 5-34 U/L Alanine Aminotransferase (ALT/SGPT) 17 0-55 U/L Alkaline Phosphatase 99 40-136 U/L C-Reactive Protein High Sensitivity 0.75 H 0.00-0.50 MG/DL Total Protein 7.9 6.4-8.2 GM/DL Albumin 4.3 3.2-4.5 GM/DL Lipase 42 8-78 U/L Serum Test, Qualitative NEGATIVE NEGATIVE Monoscreen NEGATIVE NEGATIVE Urine Color YELLOW Urine Clarity SLIGHTLY CLOUDY Urine pH 6 5-9 Urine Specific Provencal 1.015 L 1.016-1.022 Urine Protein 1+ H NEGATIVE Urine Glucose (UA) NEGATIVE NEGATIVE Urine Ketones NEGATIVE NEGATIVE Urine Nitrite NEGATIVE NEGATIVE Urine Bilirubin NEGATIVE NEGATIVE Urine Urobilinogen NORMAL NORMAL MG/DL Urine Leukocyte Esterase 1+ H NEGATIVE Urine RBC (Auto) 5+ H NEGATIVE Urine RBC 5-10 H /HPF Urine WBC 2-5 /HPF Urine Squamous Epithelial Cells 25-50 H /HPF Urine Crystals NONE /LPF Urine Bacteria FEW H /HPF Urine Casts NONE /LPF Urine Mucus NEGATIVE /LPF Urine Culture Indicated NO Urine Opiates Screen NEGATIVE NEGATIVE Urine Oxycodone Screen NEGATIVE NEGATIVE Urine Methadone Screen NEGATIVE NEGATIVE Urine Propoxyphene Screen NEGATIVE NEGATIVE Urine Barbiturates Screen NEGATIVE NEGATIVE Ur Tricyclic Antidepressants Screen NEGATIVE NEGATIVE Urine Phencyclidine Screen NEGATIVE NEGATIVE Urine Amphetamines Screen NEGATIVE NEGATIVE Urine Methamphetamines Screen NEGATIVE NEGATIVE Urine Benzodiazepines Screen POSITIVE H NEGATIVE Urine Cocaine Screen NEGATIVE NEGATIVE Urine Cannabinoids Screen POSITIVE H NEGATIVE My Orders Orders - ZAINAB LANCE Cbc With Automated Diff (01/09/18 22:10) Comprehensive Metabolic Panel (01/09/18 22:10) Hs C Reactive Protein (01/09/18 22:10) Drug Screen Stat (Urine) (01/09/18 22:10) Hcg,Qualitative Serum (01/09/18 22:10) Lactic Acid Analyzer (01/09/18 22:10) Lipase (01/09/18 22:10) Magnesium (01/09/18 22:10) Monotest (01/09/18 22:10) Ua Culture If Indicated (01/09/18 22:10) Abdomen/Kub 1view (01/09/18 22:10) Saline Lock/Iv-Start (01/09/18 22:10) Lactated Ringers (Lr 1000 Ml Iv Solution (01/09/18 22:10) Ketorolac Injection (Toradol Injection) (01/09/18 22:19) Ketorolac Injection (Toradol Injection) (01/09/18 22:30) Medications Given in ED Current Medications Medications Dose Ordered Sig/Angeles Route Start Time Stop Time Status Last Admin Dose Admin Ketorolac Tromethamine 15 mg ONCE ONCE IVP 01/09/18 22:30 01/09/18 22:31 DC 01/09/18 22:20 15 MG Lactated Ringer's 1,000 ml @ 0 mls/hr Q0M ONCE IV 01/09/18 22:10 01/09/18 22:16 DC 01/09/18 22:20 1,000 MLS/HR Vital Signs/I&O 01/09/18 21:56 Temp 98.5 Pulse 96 Resp 20 B/P (MAP) 139/108 (118) Pulse Ox 96 O2 Delivery Room Air Progress Progress Note #1: Time: :20 Progress Note Possible abdominal wall hernia which could contribute to her history of ileus or obstruction. We'll obtain some labs and if they are unremarkable and her pain is improved with Toradol and we'll let her go home and do an outpatient workup. We have discussed doing a CT scan and she says she was just at [facility] last week and they did a CT scan for abdominal pain and was negative. We'll do a set of plain films to assess bowel shadows. Progress Note #2: Time: 23:20 Progress Note Her pain did improve. She's not having any nausea. Her labs are unremarkable. I think it be reasonable for her to follow up outpatient with her primary care doctor and if the mass in her abdominal wall persist she can consider an ultrasound. Diagnostic Imaging Diagonstic Imaging: Xray Plain Films/CT/US/NM/MRI: abdomen (kub) Comments Nonspecific bowel gas pattern. No acute osseous abdomen only. No obvious transition point or evidence of ileus/bowel obstruction. Reviewed: Reviewed by Me Departure Impression Primary Impression: Abdominal wall pain Disposition: 01 HOME, SELF-CARE Condition: Improved Departure-Patient Inst. Decision time for Depature: 23:21 Referrals: [facility]/JARAD (PCP) Primary Care Physician EZEQUIEL CHAVIRA APRN (Family) Primary Care Physician Patient Instructions: Abdominal Wall Defect Add. Discharge Instructions: Please follow-up with your primary care doctor for further evaluation and outpatient of your abdominal wall tenderness. We could consider an ultrasound. Copy Copies To 1: ELEAZAR CORTÉS TITUS J Jan 09, 2018 22:21
[2018-01-09 22:30] LABS: BILIRUBIN,URINE NEGATIVE (NEGATIVE); CLARITY,URINE SLIGHTLY CLOUDY; COLOR,URINE YELLOW; GLUCOSE, URINE (UA) NEGATIVE (NEGATIVE); KETONES,URINE NEGATIVE (NEGATIVE); LEUKOCYTE ESTERASE ,URINE 1+ (NEGATIVE); NITRITE,URINE NEGATIVE (NEGATIVE); PH,URINE 6 (5-9); PROTEIN,URINE 1+ (NEGATIVE); UROBILINOGEN,URINE NORMAL (NORMAL)
[2018-01-09] MEDS ORDERED: KETOROLAC 30 MG/ML VIAL IVP ONE (22:30)
[2018-01-09 22:39] LABS: ALANINE AMINOTRANSFERASE 17 U/L (0-55); ALBUMIN 4.3 GM/DL (3.2-4.5); ALKALINE PHOSPHATASE 99 U/L (40-136); BILIRUBIN,TOTAL 0.3 MG/DL (0.1-1.0); BUN/CREATININE RATIO 21; CALCIUM 9.5 MG/DL (8.5-10.1); CARBON DIOXIDE 21 MMOL/L (21-32); CHLORIDE 102 MMOL/L (98-107); CREATININE SERUM 0.81 MG/DL (0.60-1.30); GFR ESTIMATED > 60; GLUCOSE 105 MG/DL (70-105); LIPASE 42 U/L (8-78); MAGNESIUM 2.5 MG/DL (1.8-2.4); SODIUM 136 MMOL/L (135-145); TOTAL PROTEIN 7.9 GM/DL (6.4-8.2)
[2018-01-09 22:46] LABS: AMPHETAMINE SCREEN, URINE NEGATIVE (NEGATIVE); BARBITURATE SCREEN URINE NEGATIVE (NEGATIVE); BENZODIAZEPINES SCREEN URINE POSITIVE (NEGATIVE); CANNABINOID SCREEN, URINE POSITIVE (NEGATIVE); COCAINE SCREEN URINE NEGATIVE (NEGATIVE); METHADONE STAT NEGATIVE (NEGATIVE); METHAMPHETAMINE SCREEN URINE S NEGATIVE (NEGATIVE); OPIATE SCREEN URINE NEGATIVE (NEGATIVE); OXYCODONE STAT NEGATIVE (NEGATIVE); PROPOXYPHENE STAT NEGATIVE (NEGATIVE); TRICYCLIC ANTIDEPRESSANTS SCRE NEGATIVE (NEGATIVE)
[2018-01-09 22:49] LABS: BACTERIA,URINE FEW /HPF; SQUAMOUS EPITHELIAL CELL,UR 25-50 /HPF
[2018-01-09 23:27] VITALS: BP 109/79
--- NOTE | 2018-01-10 07:04 | Diagnostic Imaging Report ---
Indication: Left-sided abdominal pain. Comparison: None. Findings: Two views demonstrate minimal constipation. There is no obstruction or ileus. No abnormal calcifications are seen. No large pockets of free air are identified Impression: Minimal constipation. Dictated by: Dictated on workstation # [id number]
== END 2018-01-09 23:27 | disposition home or self-care (01) ==
LOC: EDUNIT# 21:46 → ER 21:48
DX: R10.84 Generalized abdominal pain (principal); F12.90 Cannabis use, unspecified, uncomplicated; I10 Essential (primary) hypertension; F90.9 Attention-deficit hyperactivity disorder, unspecified type; F41.9 Anxiety disorder, unspecified; F32.9 Major depressive disorder, single episode, unspecified; Z90.89 Acquired absence of other organs; Z87.891 Personal history of nicotine dependence; Z88.5 Allergy status to narcotic agent; Z87.19 Personal history of other diseases of the digestive system
CPT/HCPCS: 36415; 74018; 80053; 80306; 81000; 83605; 83690; 83735; 84703; 85025; 86141; 86308; 96361; 96374

== ENCOUNTER 2018-08-25 14:52 | Emergency (ER) | payer SELFPAY ==
[~2018-08-25] VITALS: Ht 162.6 cm; Wt 122.5 kg
--- OUTSIDE RECORDS SUMMARY | 2018-08-25 14:57 | XMS REPORT | Referral Summary ---
Author Author [facility] Organization [facility] Address Unknown Phone Unavailable Care Team Providers Care Incident Analyst Name Role Phone Stefano Chaudhry PCP Encounter Hospital Date(s): 05/02/18 - 05/02/18 [facility] [address] [place] [address] [phone] Encounter Diagnosis Strain of left trapezius muscle (Discharge Diagnosis) - 05/02/18 Discharge Disposition: 01 O/P Home Attending Physician: Nataly Thayer Admitting Physician: Nataly Thayer Vital Signs Most recent to 1 2 oldest [Reference Range]: Height FT 5.41 ft (05/02/18 5:08 PM) Height 165 cm (05/02/18 5:08 PM) Weight LBS 272.05 lb (05/02/18 5:08 PM) Blood Pressure 120 / 81 159 / 96 Display (05/02/18 6:54 PM) (05/02/18 5:11 PM) BMI 45.33 (05/02/18 5:11 PM) Peripheral Pulse 87 bpm 93 bpm Rate [60-100 bpm] (05/02/18 6:52 PM) (05/02/18 5:08 PM) Temperature Oral 36.9 DegC 36.7 DegC [35.8-37.3 DegC] (05/02/18 6:52 PM) (05/02/18 5:08 PM) Problem List No data available for this section Allergies, Adverse Reactions, Alerts Substance Reaction Severity Status Zofran1 Active HYDROcodone Active 1Zofran IV push. Medications Adderall 0 Refill(s) Start Date: 09/30/17 Status: Ordered Effexor XR 0 Refill(s) Start Date: 09/30/17 Status: Ordered hyoscyamine 0 Refill(s) Start Date: 09/08/17 Status: Ordered lisinopril 20 mg, PO, BID, # 60 tab, 0 Refill(s) Start Date: 02/19/17 Status: Ordered Ultram 50 mg oral tablet 50 mg=1 tab, PO, q6hr, for pain, # 10 tab, 0 Refill(s) Start Date: 05/02/18 Stop Date: 06/01/18 Status: Ordered Xanax Start Date: 09/16/11 Status: Ordered Zofran 0 Refill(s) Start Date: 09/30/17 Status: Ordered Results No data available for this section Immunizations No data available for this section Procedures No data available for this section Social History Social History Type Response Smoking Status Never smoker entered on: 05/02/18 Functional Status COGNITIVE 05/02/18 Orientation Oriented x 3 Assessment and Plan No data available for this section Hospital Discharge Instructions Patient Education Muscle Strain Follow Up Care 05/02/2018 16:47:02 With: Stefano Chaudhry Address: [address] [place] [address] [place] [address] [phone] Business (1) When: This week Comments: Call the office to schedule follow up TAKE FLEXERIL 1/2 TAB EVERY 8 HOURS FOR 2-3 DAYS ULTRAM PRESCRIBED IBUPROFEN, TAKE ONLY DIRECTED Return to ED IF SYMPTOMS CHANGE, WORSEN, PERSIST OR CONCERNS HEAT, REST AVOID ACTIVITIES THAT CAUSE WORSENING PAIN
--- OUTSIDE RECORDS SUMMARY | 2018-08-25 14:57 | XMS REPORT | Referral Summary ---
Author Author [facility] Organization [facility] Address Unknown Phone Unavailable Care Team Providers Care Foundation Drill Operator Name Role Phone Stefano Chaudhry PCP Encounter Hospital Date(s): 09/07/17 - 09/08/17 [facility] [address] [place] [address] Discharge Diagnosis: Neck strain Discharge Disposition: O/P Home Attending Physician: Denny De Admitting Physician: Denny De Vital Signs Most recent to 1 2 oldest [Reference Range]: Height FT 5.41 ft (09/07/17 10:10 PM) Height 165 cm (09/07/17 10:10 PM) Weight LBS 261.91 lb (09/07/17 10:10 PM) Weight, Measured 118.8 kg (09/07/17 10:10 PM) Blood Pressure 132 / 89 Display (09/07/17 10:15 PM) BMI 43.64 (09/07/17 10:15 PM) Peripheral Pulse 67 bpm 81 bpm Rate [60-100 bpm] (09/08/17 1:17 AM) (09/07/17 10:10 PM) Temperature Oral 36.1 DegC 36.6 DegC [35.8-37.3 DegC] (09/08/17 1:17 AM) (09/07/17 10:10 PM) Problem List No data available for this section Allergies, Adverse Reactions, Alerts Substance Reaction Severity Status HYDROcodone Active Medications Cymbalta 60 mg oral delayed release capsule Start Date: 09/16/11 Status: Ordered Depakote ER 500 mg oral tablet, extended release 1,000 mg=2 tab, PO, qDay, # 90 tab Start Date: 09/16/11 Status: Ordered esoMEPRAZOLE 0 Refill(s) Start Date: 09/08/17 Status: Ordered Flexeril 10 mg oral tablet 10 mg=1 tab, PO, TID, X 5 day, # 15 tab, 0 Refill(s) Start Date: 09/08/17 Stop Date: 09/13/17 Status: Ordered hyoscyamine 0 Refill(s) Start Date: 09/08/17 Status: Ordered lisinopril 20 mg, PO, BID, # 60 tab, 0 Refill(s) Start Date: 02/19/17 Status: Ordered traMADol 50 mg oral tablet 50 mg=1 tab, PO, q8hr, for pain, X 5 day, # 15 tab, 0 Refill(s) Start Date: 09/08/17 Stop Date: 09/13/17 Status: Ordered traZODone Start Date: 09/16/11 Status: Ordered Xanax Start Date: 09/16/11 Status: Ordered Results No data available for this section Immunizations No data available for this section Procedures No data available for this section Social History Social History Type Response Smoking Status Never smoker Functional Status COGNITIVE 09/08/17 Orientation Oriented x 3 Assessment and Plan No data available for this section Hospital Discharge Instructions Patient Education Cervical Sprain Follow Up Care 09/07/2017 21:53:29 With: Return to Emergency Department Address: Unknown When: As Needed With: Stefano Chaudhry Address: [address] [place] [address] [place] [address] [phone] Business (1) When: 7-10 days Comments: Medications as directed. Rest and ice affected area.
--- OUTSIDE RECORDS SUMMARY | 2018-08-25 14:57 | XMS REPORT ---
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 Active 407229716 Problem Constipation, unspecified constipation type K59.00 Active 70877870 Problem Generalized anxiety disorder F41.1 Active 88004688 Problem Other chronic pain G89.29 Active 32950669 Problem Cervical spondylitis M46.92 Active 063955054 Problem Bipolar affective disorder, currently depressed, mild F31.31 Active 182143894 Problem Cannabis use disorder, mild, abuse F12.10 Active 05125587 Problem Cocaine use disorder F14.10 Active 169858330 Problem Right upper quadrant abdominal pain R10.11 Active 326005194 Problem Obesities, morbid E66.01 Active 408759132 Problem Alcohol use disorder, severe, 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 Active 77319011 ALLERGIES Substance Reaction Event Type Date Status Zofran IV use caused rash Drug Allergy Jan, Active Hydrocodone-Acetaminophen itching Drug Allergy Jan, Active ENCOUNTERS Encounter Location Date Diagnosis [facility] [id number] [place] [phone] Jan, Bipolar affective disorder, currently depressed, mild F31.31 ; Obesities, morbid E66.01 ; Cocaine use disorder F14.10 ; Alcohol use disorder, severe, 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 ; Cannabis use disorder, mild, abuse F12.10 and BMI 40.0-44.9, adult Z68.41 [facility] [id number] [address] Jan, [facility] [id number] [place] [address] Jan, Right lower quadrant abdominal pain R10.31 ; Right upper quadrant abdominal pain R10.11 ; Ileus K56.7 ; Constipation, unspecified constipation type K59.00 and BMI 40.0-44.9, adult Z68.41 [place] [id number] [place] [address] December, [place] [address] [address] December, Cervicalgia M54.2 ; Other chronic pain G89.29 ; Cervical radiculopathy M54.12 ; Constipation, unspecified constipation type K59.00 ; Generalized anxiety disorder F41.1 ; Moderate depressive disorder F32.9 and BMI 40.0-44.9, adult Z68.41 [place] [address] [address] December, [facility] [place] [address] [address] December, Rib pain on right side R07.81 [facility] [address] [address] December, Acute pain of left shoulder M25.512 ; Left wrist pain M25.532 and Syncope and collapse R55 [place] [address] [address] December, [place] [address] [address] Nov, BMI 40.0-44.9, adult Z68.41 ; Other chronic pain G89.29 ; Cervicalgia M54.2 and Cervical spondylitis M46.92 [facility] [address] [address] Sep, Acute pain of left shoulder M25.512 ; Fall, initial encounter W19.XXXA ; Cervical pain (neck) M54.2 and BMI 45.0-49.9, adult Z68.42 [facility] [address] [facility] [id number] [place] [address] May, Acute nonintractable headache, unspecified headache type R51 [facility] [address] [facility] [id number] [place] [id number] May, Contusion of rib on right side, initial encounter S20.211A and Mild concussion, without loss of consciousness, initial encounter S06.0X0A IMMUNIZATIONS No Known Immunizations SOCIAL HISTORY Never Assessed REASON FOR VISIT intake-Jeff HERNANDEZ, CONTRACT- if stimulant is continued PLAN OF CARE Activity Details Follow Up 4 Weeks Reason: VITAL SIGNS Height 65 in 2018-02-01 Weight 256.8 lbs 2018-02-01 Heart Rate 94 bpm 2018-02-01 Respiratory Rate 20 2018-02-01 BMI 42.73 kg/m2 2018-02-01 Blood pressure systolic 122 mmHg 2018-02-01 Blood pressure diastolic 80 mmHg 2018-02-01 MEDICATIONS Medication Instructions Dosage Frequency Start Date End Date Duration Status Gabapentin 100 mg Orally 2 times a day 1 capsule 12h Active Zofran 4 MG Orally Once a day 2 tablets 24h Active Lisinopril 10 MG Orally Once a day 1 tablet 24h Active Venlafaxine HCl ER 150 MG Orally Once a day 1 capsule with food 24h Active Voltaren 1 % Active Polyethylene Glycol 3350 17 gm/dose Orally Once a day, disolved in liquid 17 gram Jan, Jun, 30 days Active L-Methylfolate Active Ranitidine HCl 150 MG Orally twice a day 1 capsule 12h Jan, 90 days Active Trileptal 300 MG Orally Twice a day 1 tablet Jan, 30 day(s ) Active RESULTS No Results PROCEDURES No Known procedures INSTRUCTIONS MEDICATIONS ADMINISTERED No Known Medications MEDICAL (GENERAL) HISTORY Type Description Date Medical History Degenerated cervical vertebrae Medical History Arthritis Medical History Suicidal ideation-attempt by asphyxiation 2008-[facility] admit Medical History hx of seizures and per previous records has had one alcohol withdrawal seizure Medical History HTN Medical History hypercholesterolemia Surgical History tonsillectomy 1975 Hospitalization History Psychiatric Hospitalization 06/2017
--- OUTSIDE RECORDS SUMMARY | 2018-08-25 14:57 | XMS REPORT | Referral Summary ---
Author Author [facility] Organization [facility] Address Unknown Phone Unavailable Care Team Providers Care Senior Accounting Manager Name Role Phone Stefano Chaudhry PCP Encounter Hospital [facility] [phone] Date(s): 09/30/17 - 09/30/17 [facility] [address] [place] [address] Discharge Diagnosis: Trapezius muscle spasm Discharge Diagnosis: Neck pain Discharge Diagnosis: History of obesity Discharge Diagnosis: History of depression Discharge Diagnosis: History of anxiety Discharge Disposition: 01 O/P Home Attending Physician: Deacon Bar MD Admitting Physician: Deacon Bar MD Vital Signs 1 2 3 Most recent to oldest [Reference Range]: 254.19 lb (09/30/17 5:13 AM) Weight LBS 115.3 kg (09/30/17 5:13 AM) Weight, Measured 143 / 77 (09/30/17 5:53 AM) 135 / 76 (09/30/17 5:16 AM) Blood Pressure Display 89 bpm (09/30/17 6:59 AM) 85 bpm (09/30/17 6:53 AM) 90 bpm (09/30/17 6:48 AM) Peripheral Pulse Rate [60-100 bpm] 36.7 DegC (09/30/17 5:13 AM) Temperature Oral [35.8-37.3 DegC] Problem List No data available for this section Allergies, Adverse Reactions, Alerts Substance Reaction Severity Status HYDROcodone Active Zofran1 Active 1Zofran IV push. Medications Adderall 0 Refill(s) Start Date: 09/30/17 Status: Ordered Effexor XR 0 Refill(s) Start Date: 09/30/17 Status: Ordered Flexeril 10 mg oral tablet 10 mg=1 tab, PO, TID, for spasm, X 3 day, # 9 tab, 0 Refill(s) Start Date: 09/30/17 Stop Date: 10/03/17 Status: Ordered hyoscyamine 0 Refill(s) Start Date: 09/08/17 Status: Ordered lisinopril 20 mg, PO, BID, # 60 tab, 0 Refill(s) Start Date: 02/19/17 Status: Ordered Percocet 5/325 oral tablet 1 to 2 tab, PO, q6hr, X 3 Day(s) day, # 12 tab, 0 Refill(s) Start Date: 09/30/17 Stop Date: 10/03/17 Status: Ordered Xanax Start Date: 09/16/11 Status: Ordered Zofran 0 Refill(s) Start Date: 09/30/17 Status: Ordered Results No data available for this section Immunizations No data available for this section Procedures No data available for this section Social History Social History Type Response Smoking Status Never smoker Functional Status COGNITIVE 09/30/17 Orientation Oriented x 3 Assessment and Plan No data available for this section Hospital Discharge Instructions Patient Education Muscle Cramps and Spasms Follow Up Care 09/30/2017 05:07:39 With: Efra Pizano Address: [address] [place], [place] [address] [place] [phone] Business (1) When: 7-10 days Comments: SPINE SURGEON for surgical eval With: Anthony Pressley Address: [address] [facility] [address] [place] [address] Business (1) When: 7-10 days Comments: PAIN MANAGEMENT for evaluation of injections With: Stefano Chaudhry Address: [facility] [place] [phone] Business (1) When: 7-10 days
--- OUTSIDE RECORDS SUMMARY | 2018-08-25 14:57 | XMS REPORT | Clinical Summary ---
Author Author [facility] Organization [facility] Address Unknown Phone Unavailable Care Team Providers Care Plant Supervisor Name Role Phone Self, Referral PCP Unavailable Ariana Dempsey Unavailable Sanna Fields RN Unavailable Unavailable Puma Lyles RN Unavailable Unavailable Damaris Ragsdale RN Unavailable Unavailable Source Comments Some departments are not documenting in the electronic medical record. If you do not see the information that you expected, contact Release of Information in the Health Information Management department at [phone] for further assistance in locating additional records.[facility] Allergies Comments Active Allergy Reactions Severity Noted Date Hydrocodone ITCHING 10/17/2008 Oxycodone-Acetaminophen 10/29/2008 Medications End Date Status Medication Sig Dispensed Refills Start Date Active DEPAKOTE ER 500 mg Tb24 Take 750 mg 0 by mouth Daily. Active simvastatin (ZOCOR) 40 mg Take 1 Tab by 30 1 tablet mouth At 9 Bedtime Daily. Active duloxetine DR (CYMBALTA) Take 1 Cap by 30 0 30 mg capsule mouth Daily. 9 Active Problems Problem Noted Date Spells 06/27/2009 Dyslipidemia 06/19/2009 Nicotine dependence 06/19/2009 Mood disorder in conditions classified elsewhere 06/19/2009 Seizure disorder 06/19/2009 Overview: Likely Non-Epileptic Seizure vs. Complex Partial Tremor 06/19/2009 Accidental falls 06/19/2009 Resolved Problems Problem Noted Date Resolved Date Cocaine dependence in remission 06/19/2009 06/24/2009 Alcohol dependence, in remission 06/19/2009 06/24/2009 Nocturnal enuresis 06/19/2009 06/24/2009 Social History Date Tobacco Use Types Packs/Day Years Used Former Smoker Cigarettes 0.25 18 Comments: Jun 16 Alcohol Use Drinks/Week oz/Week Comments No Sex Assigned at Date Recorded Not on file Industry Job Start Date Occupation Not on file Not on file Not on file Travel End Travel History Travel Start No recent travel history available. Last Filed Vital Signs Time Taken Vital Sign Reading 08/05/2009 10:02 AM METAL CONTROL COORDINATOR Blood Pressure 137/76 08/05/2009 10:02 AM METAL CONTROL COORDINATOR Pulse 82 08/05/2009 8:00 AM METAL CONTROL COORDINATOR Temperature 36.6 C (97.8 F) - Respiratory Rate - 08/05/2009 10:02 AM METAL CONTROL COORDINATOR Oxygen Saturation 94% - Inhaled Oxygen - Concentration 06/17/2009 10:14 PM METAL CONTROL COORDINATOR Weight 120.5 kg (265 lb 10.5 oz) 06/17/2009 10:14 PM METAL CONTROL COORDINATOR Height 165.1 cm (5' 5") 06/17/2009 10:14 PM METAL CONTROL COORDINATOR Body Mass Index 44.21 Plan of Treatment Health Maintenance Due Date Last Done Comments PHYSICAL (COMPREHENSIVE) 1979 EXAM HIV SCREENING 1987 DTAP/TDAP VACCINES (1 - 1990 Tdap) CERVICAL CANCER SCREENING 2002 BREAST CANCER SCREENING 2012 INFLUENZA VACCINE 03/08/2018 Results Not on filefrom Last 3 Months
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
--- OUTSIDE RECORDS SUMMARY | 2018-08-25 14:58 | XMS REPORT ---
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 Active 277147693 Problem Constipation, unspecified constipation type K59.00 Active 73023141 Problem Generalized anxiety disorder F41.1 Active 41428044 Problem Other chronic pain G89.29 Active 39902557 Problem Cervical spondylitis M46.92 Active 462472467 Problem Bipolar affective disorder, currently depressed, mild F31.31 Active 683192681 Problem Cannabis use disorder, mild, abuse F12.10 Active 91413194 Problem Cocaine use disorder F14.10 Active 033985693 Problem Right upper quadrant abdominal pain R10.11 Active 256619260 Problem Obesities, morbid E66.01 Active 493756500 Problem Alcohol use disorder, severe, 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 Active 58391768 ALLERGIES Substance Reaction Event Type Date Status Zofran rash Drug Allergy Nov, Active Hydrocodone-Acetaminophen itching Drug Allergy Nov, Active ENCOUNTERS Encounter Location Date Diagnosis [facility] [id number] [place] [address] Jan, Bipolar affective disorder, currently depressed, mild F31.31 ; Obesities, morbid E66.01 ; Cocaine use disorder F14.10 ; Alcohol use disorder, severe, 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 ; Cannabis use disorder, mild, abuse F12.10 and BMI 40.0-44.9, adult Z68.41 [facility] [id number] [address] Jan, [facility] [id number] [place] [address] Jan, Right lower quadrant abdominal pain R10.31 ; Right upper quadrant abdominal pain R10.11 ; Ileus K56.7 ; Constipation, unspecified constipation type K59.00 and BMI 40.0-44.9, adult Z68.41 [place] [id number] [place] [address] December, [address] [address] December, Cervicalgia M54.2 ; Other chronic pain G89.29 ; Cervical radiculopathy M54.12 ; Constipation, unspecified constipation type K59.00 ; Generalized anxiety disorder F41.1 ; Moderate depressive disorder F32.9 and BMI 40.0-44.9, adult Z68.41 [place] [id number] [place] [address] December, [facility] [address] [address] December, Rib pain on right side R07.81 [facility] [address] [address] December, Acute pain of left shoulder M25.512 ; Left wrist pain M25.532 and Syncope and collapse R55 [place] [place] [id number] [place] [address] December, [address] [address] Nov, BMI 40.0-44.9, adult Z68.41 ; Other chronic pain G89.29 ; Cervicalgia M54.2 and Cervical spondylitis M46.92 [facility] [address] [address] Sep, Acute pain of left shoulder M25.512 ; Fall, initial encounter W19.XXXA ; Cervical pain (neck) M54.2 and BMI 45.0-49.9, adult Z68.42 [facility] [address] [place] [address] May, Acute nonintractable headache, unspecified headache type R51 [facility] [address] [facility] [id number] [address] May, Contusion of rib on right side, initial encounter S20.211A and Mild concussion, without loss of consciousness, initial encounter S06.0X0A IMMUNIZATIONS Vaccine Route Administration Date Status DEXAMETHASONE 4MG/ML (PER 1 MG) IM Intramuscular December 05, 2017 Administered KENALOG 40 MG/ML (PER 10 MG) IM Intramuscular December 05, 2017 Administered SOCIAL HISTORY Never Assessed REASON FOR VISIT Neck pain x5 months. Currently taking Diclofenac and Tylenol for pain. Last took Diclofenac at 09:00 this am. When patient was 32 years of age she was given injections in her neck for pain related to the herniation of her cervical vertebrae - pt states the effect of the injections have worn off and she is experiencing pain. One month ago pt was seen by physician who diagnosed degeneration of her cervical vertebrae - pt can not identify which vertebrae. delfin PLAN OF CARE Activity Details Follow Up 2-4 weeks Reason:establish care VITAL SIGNS Height 65 in 2017-12-05 Weight 260.9 lbs 2017-12-05 Temperature 98.2 degrees Fahrenheit 2017-12-05 Heart Rate 90 bpm 2017-12-05 Respiratory Rate 18 2017-12-05 BMI 43.41 kg/m2 2017-12-05 Blood pressure systolic 128 mmHg 2017-12-05 Blood pressure diastolic 88 mmHg 2017-12-05 MEDICATIONS Medication Instructions Dosage Frequency Start Date End Date Duration Status Adderall 10 MG Orally Once a day 1 tablet in the morning 24h Active Voltaren 1 % Active Cyclobenzaprine HCl 10 MG Orally Three times a day 1 tablet as needed 8h December, 30 days Active Diclofenac Active Lisinopril 10 MG Orally Once a day 1 tablet 24h Active Alprazolam Active Diazepam Active Zofran 4 MG Orally Once a day 2 tablets 24h Active RESULTS No Results PROCEDURES Procedure Date Ordered Result Body Site DEXAMETHASONE 4MG/ML (PER 1 MG) December 05, 2017 THER/PROPH/DIAG INJ, SC/IM December 05, 2017 KENALOG 40 MG/ML (PER 10 MG) December 05, 2017 INSTRUCTIONS MEDICATIONS ADMINISTERED No Known Medications MEDICAL (GENERAL) HISTORY Type Description Date Medical History Degenerated cervical vertebrae Medical History Arthritis Medical History Suicidal ideation-attempt by asphyxiation 2008-[facility] admit Medical History hx of seizures and per previous records has had one alcohol withdrawal seizure Medical History HTN Medical History hypercholesterolemia Surgical History tonsillectomy 1975 Hospitalization History Psychiatric Hospitalization 06/2017
--- OUTSIDE RECORDS SUMMARY | 2018-08-25 14:58 | XMS REPORT ---
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 Active 010557263 Problem Constipation, unspecified constipation type K59.00 Active 51739300 Problem Generalized anxiety disorder F41.1 Active 49087950 Problem Other chronic pain G89.29 Active 62565714 Problem Cervical spondylitis M46.92 Active 650838556 Problem Bipolar affective disorder, currently depressed, mild F31.31 Active 910028949 Problem Cannabis use disorder, mild, abuse F12.10 Active 66115101 Problem Cocaine use disorder F14.10 Active 288079105 Problem Right upper quadrant abdominal pain R10.11 Active 994702489 Problem Obesities, morbid E66.01 Active 181828135 Problem Alcohol use disorder, severe, 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 Active 22056542 ALLERGIES Substance Reaction Event Type Date Status Zofran rash Drug Allergy December, Active Hydrocodone-Acetaminophen itching Drug Allergy December, Active ENCOUNTERS Encounter Location Date Diagnosis [facility] [address] [place] [address] Jan, Bipolar affective disorder, currently depressed, mild F31.31 ; Obesities, morbid E66.01 ; Cocaine use disorder F14.10 ; Alcohol use disorder, severe, 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 ; Cannabis use disorder, mild, abuse F12.10 and BMI 40.0-44.9, adult Z68.41 [facility] [id number] [address] Jan, [facility] [address] [place] [address] Jan, Right lower quadrant abdominal pain R10.31 ; Right upper quadrant abdominal pain R10.11 ; Ileus K56.7 ; Constipation, unspecified constipation type K59.00 and BMI 40.0-44.9, adult Z68.41 [place] [id number] [place] [address] December, [place] [address] [address] December, Cervicalgia M54.2 ; Other chronic pain G89.29 ; Cervical radiculopathy M54.12 ; Constipation, unspecified constipation type K59.00 ; Generalized anxiety disorder F41.1 ; Moderate depressive disorder F32.9 and BMI 40.0-44.9, adult Z68.41 [place] [id number] [place] [address] December, [facility] [place] [address] [address] December, Rib pain on right side R07.81 [facility] [address] [address] December, Acute pain of left shoulder M25.512 ; Left wrist pain M25.532 and Syncope and collapse R55 [place] [id number] [place] [address] December, [place] [address] [address] Nov, BMI 40.0-44.9, adult Z68.41 ; Other chronic pain G89.29 ; Cervicalgia M54.2 and Cervical spondylitis M46.92 [facility] [address] [address] Sep, Acute pain of left shoulder M25.512 ; Fall, initial encounter W19.XXXA ; Cervical pain (neck) M54.2 and BMI 45.0-49.9, adult Z68.42 [facility] [address] [facility] [place] [id number] [address] May, Acute nonintractable headache, unspecified headache type R51 [facility] [address] [facility] [place] [place] [id number] [place] [address] May, Contusion of rib on right side, initial encounter S20.211A and Mild concussion, without loss of consciousness, initial encounter S06.0X0A IMMUNIZATIONS No Known Immunizations SOCIAL HISTORY Never Assessed REASON FOR VISIT side pain Pt fell this morning and hit her R side against a table she is now having pain on that right side, states it even hurts to take a deep breath DAVID Betancourt PLAN OF CARE Activity Details Follow Up has appointment to establish on January 03 Reason: VITAL SIGNS Height 65 in 2017-12-29 Weight 257.4 lbs 2017-12-29 Temperature 97.5 degrees Fahrenheit 2017-12-29 Heart Rate 96 bpm 2017-12-29 Respiratory Rate 20 2017-12-29 Oximetry 97 % 2017-12-29 BMI 42.83 kg/m2 2017-12-29 Blood pressure systolic 122 mmHg 2017-12-29 Blood pressure diastolic 80 mmHg 2017-12-29 MEDICATIONS Medication Instructions Dosage Frequency Start Date End Date Duration Status Ibuprofen 800 MG Orally Three times a day 1 tablet with food or milk as needed 8h December, Active Adderall 10 MG Orally Once a day 1 tablet in the morning 24h Active Lisinopril 10 MG Orally Once a day 1 tablet 24h Active Alprazolam 1 MG Orally Twice a day 1 tablet 12h Active Cyclobenzaprine HCl 10 MG Orally Three times a day 1 tablet as needed 8h December, 30 days Active Diazepam 10 MG Orally at bedtime 1 tablet as needed Active Voltaren 1 % Active Zofran 4 MG Orally Once a day 2 tablets 24h Active RESULTS Name Result Date Reference Range Xray : Rib Series, Right (IN HOUSE) 2017-12-29 PROCEDURES Procedure Date Ordered Result Body Site X-RAY EXAM OF RIBS December 29, 2017 INSTRUCTIONS MEDICATIONS ADMINISTERED No Known Medications MEDICAL (GENERAL) HISTORY Type Description Date Medical History Degenerated cervical vertebrae Medical History Arthritis Medical History Suicidal ideation-attempt by asphyxiation 2008-[facility] admit Medical History hx of seizures and per previous records has had one alcohol withdrawal seizure Medical History HTN Medical History hypercholesterolemia Surgical History tonsillectomy 1975 Hospitalization History Psychiatric Hospitalization 06/2017
--- OUTSIDE RECORDS SUMMARY | 2018-08-25 14:58 | XMS REPORT ---
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 Active 908546017 Problem Constipation, unspecified constipation type K59.00 Active 07703487 Problem Generalized anxiety disorder F41.1 Active 33490127 Problem Other chronic pain G89.29 Active 01315670 Problem Cervical spondylitis M46.92 Active 028515687 Problem Bipolar affective disorder, currently depressed, mild F31.31 Active 869441525 Problem Cannabis use disorder, mild, abuse F12.10 Active 66809057 Problem Cocaine use disorder F14.10 Active 923765819 Problem Right upper quadrant abdominal pain R10.11 Active 390323409 Problem Obesities, morbid E66.01 Active 977483662 Problem Alcohol use disorder, severe, 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 Active 43016232 ALLERGIES No Information ENCOUNTERS Encounter Location Date Diagnosis [facility] [address] [place] [address] Jan, Bipolar affective disorder, currently depressed, mild F31.31 ; Obesities, morbid E66.01 ; Cocaine use disorder F14.10 ; Alcohol use disorder, severe, 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 ; Cannabis use disorder, mild, abuse F12.10 and BMI 40.0-44.9, adult Z68.41 [facility] [id number] [place] [address] Jan, [facility] [id number] [place] [address] Jan, Right lower quadrant abdominal pain R10.31 ; Right upper quadrant abdominal pain R10.11 ; Ileus K56.7 ; Constipation, unspecified constipation type K59.00 and BMI 40.0-44.9, adult Z68.41 [place] [id number] [place] [address] December, [place] [address] [address] December, Cervicalgia M54.2 ; Other chronic pain G89.29 ; Cervical radiculopathy M54.12 ; Constipation, unspecified constipation type K59.00 ; Generalized anxiety disorder F41.1 ; Moderate depressive disorder F32.9 and BMI 40.0-44.9, adult Z68.41 [place] [address] [address] December, [facility] [address] [address] December, Rib pain on right side R07.81 [facility] [address] [address] December, Acute pain of left shoulder M25.512 ; Left wrist pain M25.532 and Syncope and collapse R55 [address] [address] December, [place] [id number] [place] [address] Nov, BMI 40.0-44.9, adult Z68.41 ; Other chronic pain G89.29 ; Cervicalgia M54.2 and Cervical spondylitis M46.92 [facility] [place] [id number] [place] [address] Sep, Acute pain of left shoulder M25.512 ; Fall, initial encounter W19.XXXA ; Cervical pain (neck) M54.2 and BMI 45.0-49.9, adult Z68.42 [facility] [address] [address] May, Acute nonintractable headache, unspecified headache type R51 [facility] [address] [facility] [id number] [place] [address] May, 2017 Contusion of rib on right side, initial encounter S20.211A and Mild concussion, without loss of consciousness, initial encounter S06.0X0A IMMUNIZATIONS No Known Immunizations SOCIAL HISTORY Never Assessed REASON FOR VISIT Medication question PLAN OF CARE VITAL SIGNS MEDICATIONS No Known Medications RESULTS No Results PROCEDURES No Known procedures INSTRUCTIONS MEDICATIONS ADMINISTERED No Known Medications MEDICAL (GENERAL) HISTORY Type Description Date Medical History Degenerated cervical vertebrae Medical History Arthritis Medical History Suicidal ideation-attempt by asphyxiation 2008-[facility] admit Medical History hx of seizures and per previous records has had one alcohol withdrawal seizure Medical History HTN Medical History hypercholesterolemia Surgical History tonsillectomy 1975 Hospitalization History Psychiatric Hospitalization 06/2017
--- OUTSIDE RECORDS SUMMARY | 2018-08-25 14:58 | XMS REPORT ---
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 Active 628976449 Problem Constipation, unspecified constipation type K59.00 Active 39296042 Problem Generalized anxiety disorder F41.1 Active 56421554 Problem Other chronic pain G89.29 Active 44996253 Problem Cervical spondylitis M46.92 Active 841435839 Problem Bipolar affective disorder, currently depressed, mild F31.31 Active 124228327 Problem Cannabis use disorder, mild, abuse F12.10 Active 93270263 Problem Cocaine use disorder F14.10 Active 959481985 Problem Right upper quadrant abdominal pain R10.11 Active 157330982 Problem Obesities, morbid E66.01 Active 126377165 Problem Alcohol use disorder, severe, 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 Active 84024898 ALLERGIES No Information ENCOUNTERS Encounter Location Date Diagnosis [facility] [id number] [place] [address] Jan, Bipolar affective disorder, currently depressed, mild F31.31 ; Obesities, morbid E66.01 ; Cocaine use disorder F14.10 ; Alcohol use disorder, severe, 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 ; Cannabis use disorder, mild, abuse F12.10 and BMI 40.0-44.9, adult Z68.41 [facility] [address] [place] [id number] [place] [address] Jan, [facility] [id number] [place] [address] Jan, Right lower quadrant abdominal pain R10.31 ; Right upper quadrant abdominal pain R10.11 ; Ileus K56.7 ; Constipation, unspecified constipation type K59.00 and BMI 40.0-44.9, adult Z68.41 [place] [address] [address] December, [place] [address] [address] December, Cervicalgia M54.2 ; Other chronic pain G89.29 ; Cervical radiculopathy M54.12 ; Constipation, unspecified constipation type K59.00 ; Generalized anxiety disorder F41.1 ; Moderate depressive disorder F32.9 and BMI 40.0-44.9, adult Z68.41 [place] [address] [address] December, [facility] [address] [address] December, Rib pain on right side R07.81 [facility] [address] [address] December, Acute pain of left shoulder M25.512 ; Left wrist pain M25.532 and Syncope and collapse R55 [address] [address] December, [place] [address] [address] Nov, BMI 40.0-44.9, adult Z68.41 ; Other chronic pain G89.29 ; Cervicalgia M54.2 and Cervical spondylitis M46.92 [facility] [address] [address] Sep, Acute pain of left shoulder M25.512 ; Fall, initial encounter W19.XXXA ; Cervical pain (neck) M54.2 and BMI 45.0-49.9, adult Z68.42 [facility] [address] [address] May, Acute nonintractable headache, unspecified headache type R51 [facility] [address] [facility] [id number] [address] May, Contusion of rib on right side, initial encounter S20.211A and Mild concussion, without loss of consciousness, initial encounter S06.0X0A IMMUNIZATIONS No Known Immunizations SOCIAL HISTORY Never Assessed REASON FOR VISIT CT Results PLAN OF CARE VITAL SIGNS MEDICATIONS No Known Medications RESULTS No Results PROCEDURES No Known procedures INSTRUCTIONS MEDICATIONS ADMINISTERED No Known Medications MEDICAL (GENERAL) HISTORY Type Description Date Medical History Degenerated cervical vertebrae Medical History Arthritis Medical History Suicidal ideation-attempt by asphyxiation 2008-[facility] admit Medical History hx of seizures and per previous records has had one alcohol withdrawal seizure Medical History HTN Medical History hypercholesterolemia Surgical History tonsillectomy 1975 Hospitalization History Psychiatric Hospitalization 06/2017
--- OUTSIDE RECORDS SUMMARY | 2018-08-25 14:58 | XMS REPORT ---
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 Active 159777449 Problem Constipation, unspecified constipation type K59.00 Active 13107219 Problem Generalized anxiety disorder F41.1 Active 30367444 Problem Other chronic pain G89.29 Active 09906998 Problem Cervical spondylitis M46.92 Active 047208227 Problem Bipolar affective disorder, currently depressed, mild F31.31 Active 235265982 Problem Cannabis use disorder, mild, abuse F12.10 Active 86570623 Problem Cocaine use disorder F14.10 Active 371485972 Problem Right upper quadrant abdominal pain R10.11 Active 047896887 Problem Obesities, morbid E66.01 Active 806855609 Problem Alcohol use disorder, severe, 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 Active 54280615 ALLERGIES Substance Reaction Event Type Date Status Zofran rash Drug Allergy December, Active Hydrocodone-Acetaminophen itching Drug Allergy December, Active ENCOUNTERS Encounter Location Date Diagnosis [facility] [place] [address] [place] [address] Jan, Bipolar affective disorder, currently depressed, mild F31.31 ; Obesities, morbid E66.01 ; Cocaine use disorder F14.10 ; Alcohol use disorder, severe, 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 ; Cannabis use disorder, mild, abuse F12.10 and BMI 40.0-44.9, adult Z68.41 [facility] [place] [address] [place] [address] [id number] [address] Jan, [facility] [place] [address] [place] [address] [id number] [place] [address] Jan, Right lower quadrant abdominal pain R10.31 ; Right upper quadrant abdominal pain R10.11 ; Ileus K56.7 ; Constipation, unspecified constipation type K59.00 and BMI 40.0-44.9, adult Z68.41 [place] [address] [place] [id number] [place] [address] December, [place] [address] [address] December, Cervicalgia M54.2 ; Other chronic pain G89.29 ; Cervical radiculopathy M54.12 ; Constipation, unspecified constipation type K59.00 ; Generalized anxiety disorder F41.1 ; Moderate depressive disorder F32.9 and BMI 40.0-44.9, adult Z68.41 [place] [address] [address] December, [facility] [place] [address] [address] December, Rib pain on right side R07.81 [facility] [address] [address] December, Acute pain of left shoulder M25.512 ; Left wrist pain M25.532 and Syncope and collapse R55 [place] [address] [address] December, [place] [address] [address] Nov, BMI 40.0-44.9, adult Z68.41 ; Other chronic pain G89.29 ; Cervicalgia M54.2 and Cervical spondylitis M46.92 [facility] [address] [address] Sep, Acute pain of left shoulder M25.512 ; Fall, initial encounter W19.XXXA ; Cervical pain (neck) M54.2 and BMI 45.0-49.9, adult Z68.42 [facility] [address] [facility] [id number] [place] [address] May, Acute nonintractable headache, unspecified headache type R51 [facility] [address] [facility] [id number] [place] [address] May, Contusion of rib on right side, initial encounter S20.211A and Mild concussion, without loss of consciousness, initial encounter S06.0X0A IMMUNIZATIONS No Known Immunizations SOCIAL HISTORY Never Assessed REASON FOR VISIT Establish care----DBennettRN, joint pain, neck, back, bilateral knees PLAN OF CARE Activity Details Follow Up 2 Months Reason:Neck pain Pending Test MRI : Cervical w/o Contrast VITAL SIGNS Height 65 in 2018-01-03 Weight 260 lbs 2018-01-03 Temperature 98.2 degrees Fahrenheit 2018-01-03 Heart Rate 70 bpm 2018-01-03 Respiratory Rate 20 2018-01-03 BMI 43.26 kg/m2 2018-01-03 Blood pressure systolic 138 mmHg 2018-01-03 Blood pressure diastolic 86 mmHg 2018-01-03 MEDICATIONS Medication Instructions Dosage Frequency Start Date End Date Duration Status Zofran 4 MG Orally Once a day 2 tablets 24h Active Voltaren 1 % Active Adderall 10 MG Orally Once a day 1 tablet in the morning 24h Active Ibuprofen 800 MG Orally Three times a day 1 tablet with food or milk as needed 8h December, Active Lisinopril 10 MG Orally Once a day 1 tablet 24h Active Venlafaxine HCl ER 150 MG Orally Once a day 1 capsule with food 24h Active Gabapentin 100 mg Orally 2 times a day 1 capsule 12h Active Cyclobenzaprine HCl 10 MG Orally Three times a day 1 tablet as needed 8h December, 30 days Active Alprazolam 1 MG Orally Twice a day 1 tablet 12h Active Diazepam 10 MG Orally at bedtime 1 tablet as needed Active RESULTS No Results PROCEDURES No Known [...]
--- OUTSIDE RECORDS SUMMARY | 2018-08-25 14:58 | XMS REPORT ---
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 Active 528485709 Problem Constipation, unspecified constipation type K59.00 Active 11077138 Problem Generalized anxiety disorder F41.1 Active 70363787 Problem Other chronic pain G89.29 Active 16454859 Problem Cervical spondylitis M46.92 Active 865570938 Problem Bipolar affective disorder, currently depressed, mild F31.31 Active 890804927 Problem Cannabis use disorder, mild, abuse F12.10 Active 18079729 Problem Cocaine use disorder F14.10 Active 429662222 Problem Right upper quadrant abdominal pain R10.11 Active 603111293 Problem Obesities, morbid E66.01 Active 612014539 Problem Alcohol use disorder, severe, 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 Active 00398868 ALLERGIES No Information ENCOUNTERS Encounter Location Date Diagnosis [address] [place] [address] Jan, Bipolar affective disorder, currently depressed, mild F31.31 ; Obesities, morbid E66.01 ; Cocaine use disorder F14.10 ; Alcohol use disorder, severe, 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 ; Cannabis use disorder, mild, abuse F12.10 and BMI 40.0-44.9, adult Z68.41 [address] [place] [address] Jan, [address] [place] [address] Jan, Right lower quadrant abdominal pain R10.31 ; Right upper quadrant abdominal pain R10.11 ; Ileus K56.7 ; Constipation, unspecified constipation type K59.00 and BMI 40.0-44.9, adult Z68.41 [place] [address] [address] December, [place] [address] [address] December, Cervicalgia M54.2 ; Other chronic pain G89.29 ; Cervical radiculopathy M54.12 ; Constipation, unspecified constipation type K59.00 ; Generalized anxiety disorder F41.1 ; Moderate depressive disorder F32.9 and BMI 40.0-44.9, adult Z68.41 [place] [address] [address] December, [facility] [address] [address] December, Rib pain on right side R07.81 [facility] [address] [address] December, Acute pain of left shoulder M25.512 ; Left wrist pain M25.532 and Syncope and collapse R55 [address] [address] December, [place] [address] [address] Nov, BMI 40.0-44.9, adult Z68.41 ; Other chronic pain G89.29 ; Cervicalgia M54.2 and Cervical spondylitis M46.92 [facility] [address] [address] Sep, Acute pain of left shoulder M25.512 ; Fall, initial encounter W19.XXXA ; Cervical pain (neck) M54.2 and BMI 45.0-49.9, adult Z68.42 [facility] [address] [address] May, Acute nonintractable headache, unspecified headache type R51 [facility] IN [facility] [address] [facility] [id number] [place] [address] May, Contusion of rib on right side, initial encounter S20.211A and Mild concussion, without loss of consciousness, initial encounter S06.0X0A IMMUNIZATIONS No Known Immunizations SOCIAL HISTORY Never Assessed REASON FOR VISIT xray results PLAN OF CARE VITAL SIGNS MEDICATIONS No Known Medications RESULTS No Results PROCEDURES No Known procedures INSTRUCTIONS MEDICATIONS ADMINISTERED No Known Medications MEDICAL (GENERAL) HISTORY Type Description Date Medical History Degenerated cervical vertebrae Medical History Arthritis Medical History Suicidal ideation-attempt by asphyxiation 2008-[facility] admit Medical History hx of seizures and per previous records has had one alcohol withdrawal seizure Medical History HTN Medical History hypercholesterolemia Surgical History tonsillectomy 1975 Hospitalization History Psychiatric Hospitalization 06/2017
--- OUTSIDE RECORDS SUMMARY | 2018-08-25 14:58 | XMS REPORT ---
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 Active 190078190 Problem Constipation, unspecified constipation type K59.00 Active 26838163 Problem Generalized anxiety disorder F41.1 Active 11139620 Problem Other chronic pain G89.29 Active 74409774 Problem Cervical spondylitis M46.92 Active 909363849 Problem Bipolar affective disorder, currently depressed, mild F31.31 Active 151382568 Problem Cannabis use disorder, mild, abuse F12.10 Active 05901965 Problem Cocaine use disorder F14.10 Active 366366999 Problem Right upper quadrant abdominal pain R10.11 Active 957427742 Problem Obesities, morbid E66.01 Active 349701572 Problem Alcohol use disorder, severe, 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 Active 74065206 ALLERGIES Substance Reaction Event Type Date Status Zofran rash Drug Allergy Jan, Active Hydrocodone-Acetaminophen itching Drug Allergy Jan, Active ENCOUNTERS Encounter Location Date Diagnosis [facility] [address] [place] [address] Jan, Bipolar affective disorder, currently depressed, mild F31.31 ; Obesities, morbid E66.01 ; Cocaine use disorder F14.10 ; Alcohol use disorder, severe, 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 ; Cannabis use disorder, mild, abuse F12.10 and BMI 40.0-44.9, adult Z68.41 [facility] [address] [id number] [address] Jan, [facility] [address] [place] [id number] [place] [address] Jan, Right lower quadrant abdominal pain R10.31 ; Right upper quadrant abdominal pain R10.11 ; Ileus K56.7 ; Constipation, unspecified constipation type K59.00 and BMI 40.0-44.9, adult Z68.41 [place] [address] [place] [id number] [place] [address] December, [place] [address] [address] December, Cervicalgia M54.2 ; Other chronic pain G89.29 ; Cervical radiculopathy M54.12 ; Constipation, unspecified constipation type K59.00 ; Generalized anxiety disorder F41.1 ; Moderate depressive disorder F32.9 and BMI 40.0-44.9, adult Z68.41 [place] [address] [address] December, [facility] [place] [address] [address] December, Rib pain on right side R07.81 [facility] [address] [address] December, Acute pain of left shoulder M25.512 ; Left wrist pain M25.532 and Syncope and collapse R55 [place] [address] [address] December, [place] [address] [address] Nov, BMI 40.0-44.9, adult Z68.41 ; Other chronic pain G89.29 ; Cervicalgia M54.2 and Cervical spondylitis M46.92 [facility] [address] [address] Sep, Acute pain of left shoulder M25.512 ; Fall, initial encounter W19.XXXA ; Cervical pain (neck) M54.2 and BMI 45.0-49.9, adult Z68.42 [facility] [address] [facility] [id number] [place] [address] May, Acute nonintractable headache, unspecified headache type R51 [facility] [address] [facility] [id number] [place] [address] May, Contusion of rib on right side, initial encounter S20.211A and Mild concussion, without loss of consciousness, initial encounter S06.0X0A IMMUNIZATIONS No Known Immunizations SOCIAL HISTORY Never Assessed REASON FOR VISIT Liz VALLECILLO f/u-DAVID Ying, another illius PLAN OF CARE Activity Details Follow Up 2 Weeks, unl;ess CT + Reason: VITAL SIGNS Height 65 in 2018-01-06 Weight 258 lbs 2018-01-06 Temperature 98.6 degrees Fahrenheit 2018-01-06 Heart Rate 88 bpm 2018-01-06 Respiratory Rate 20 2018-01-06 BMI 42.93 kg/m2 2018-01-06 Blood pressure systolic 116 mmHg 2018-01-06 Blood pressure diastolic 90 mmHg 2018-01-06 MEDICATIONS Medication Instructions Dosage Frequency Start Date End Date Duration Status Adderall 10 MG Orally Once a day 1 tablet in the morning 24h Active Venlafaxine HCl ER 150 MG Orally Once a day 1 capsule with food 24h Active Lisinopril 10 MG Orally Once a day 1 tablet 24h Active Diazepam 10 MG Orally at bedtime 1 tablet as needed Active Ranitidine HCl 150 MG Orally twice a day 1 capsule 12h Jan, 90 days Active Voltaren 1 % Active Polyethylene Glycol 3350 17 gm/dose Orally Once a day, disolved in liquid 17 gram Jan, Jun, 30 days Active Gabapentin 100 mg Orally 2 times a day 1 capsule 12h Active Zofran 4 MG Orally Once a day 2 tablets 24h Active Alprazolam 1 MG Orally Twice a day 1 tablet 12h Active RESULTS Name Result Date Reference Range CT Scan : Abdomen & Pelvis w/ Contrast 2018-01-06 PROCEDURES No Known procedures INSTRUCTIONS MEDICATIONS ADMINISTERED No Known Medications MEDICAL (GENERAL) HISTORY Type Description Date Medical History Degenerated cervical vertebrae Medical History Arthritis Medical History Suicidal ideation-attempt by asphyxiation 2008-[facility] admit Medical History hx of seizures and per previous records has had one alcohol withdrawal seizure Medical History HTN Medical History hypercholesterolemia Surgical History tonsillectomy 1975 Hospitalization History Psychiatric Hospitalization 06/2017
--- OUTSIDE RECORDS SUMMARY | 2018-08-25 14:58 | XMS REPORT ---
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 Active 347599247 Problem Constipation, unspecified constipation type K59.00 Active 11772185 Problem Generalized anxiety disorder F41.1 Active 17365057 Problem Other chronic pain G89.29 Active 11790812 Problem Cervical spondylitis M46.92 Active 157092557 Problem Bipolar affective disorder, currently depressed, mild F31.31 Active 973100413 Problem Cannabis use disorder, mild, abuse F12.10 Active 52880929 Problem Cocaine use disorder F14.10 Active 691827525 Problem Right upper quadrant abdominal pain R10.11 Active 050869103 Problem Obesities, morbid E66.01 Active 302427695 Problem Alcohol use disorder, severe, 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 Active 83420236 ALLERGIES Substance Reaction Event Type Date Status Zofran rash Drug Allergy December, Active Hydrocodone-Acetaminophen itching Drug Allergy December, Active ENCOUNTERS Encounter Location Date Diagnosis [facility] [id number] [place] [phone] Jan, Bipolar affective disorder, currently depressed, mild F31.31 ; Obesities, morbid E66.01 ; Cocaine use disorder F14.10 ; Alcohol use disorder, severe, 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 ; Cannabis use disorder, mild, abuse F12.10 and BMI 40.0-44.9, adult Z68.41 [facility] [address] [place] [id number] [place] [address] Jan, [facility] [id number] [place] [address] Jan, Right lower quadrant abdominal pain R10.31 ; Right upper quadrant abdominal pain R10.11 ; Ileus K56.7 ; Constipation, unspecified constipation type K59.00 and BMI 40.0-44.9, adult Z68.41 [place] [address] [place] [id number] [place] [address] December, [address] [address] December, Cervicalgia M54.2 ; Other chronic pain G89.29 ; Cervical radiculopathy M54.12 ; Constipation, unspecified constipation type K59.00 ; Generalized anxiety disorder F41.1 ; Moderate depressive disorder F32.9 and BMI 40.0-44.9, adult Z68.41 [place] [address] [address] December, [facility] [address] [address] December, Rib pain on right side R07.81 [facility] [address] [address] December, Acute pain of left shoulder M25.512 ; Left wrist pain M25.532 and Syncope and collapse R55 [address] [address] December, [address] [address] Nov, BMI 40.0-44.9, adult Z68.41 ; Other chronic pain G89.29 ; Cervicalgia M54.2 and Cervical spondylitis M46.92 [facility] [address] [address] Sep, Acute pain of left shoulder M25.512 ; Fall, initial encounter W19.XXXA ; Cervical pain (neck) M54.2 and BMI 45.0-49.9, adult Z68.42 [facility] [address] [facility] [id number] [place] [address] May, Acute nonintractable headache, unspecified headache type R51 [facility] [address] [facility] [id number] [place] [address] May, Contusion of rib on right side, initial encounter S20.211A and Mild concussion, without loss of consciousness, initial encounter S06.0X0A IMMUNIZATIONS No Known Immunizations SOCIAL HISTORY Never Assessed REASON FOR VISIT Dizziness---things are off balance not spinning, fallen 3 times in 4 days, pain in left wrist and shoulder, light headed---SEVERO pérez PLAN OF CARE Activity Details Follow Up keep scheduled establish care appointment Reason: VITAL SIGNS Height 65 in 2017-12-24 Weight 258.2 lbs 2017-12-24 Temperature 98.2 degrees Fahrenheit 2017-12-24 Heart Rate 94 bpm 2017-12-24 Respiratory Rate 18 2017-12-24 BMI 42.96 kg/m2 2017-12-24 Blood pressure systolic 158 mmHg 2017-12-24 Blood pressure diastolic 82 mmHg 2017-12-24 MEDICATIONS Medication Instructions Dosage Frequency Start Date End Date Duration Status Cyclobenzaprine HCl 10 MG Orally Three times a day 1 tablet as needed 8h December, 30 days Active Lisinopril 10 MG Orally Once a day 1 tablet 24h Active Diazepam 10 MG Orally at bedtime 1 tablet as needed Active Adderall 10 MG Orally Once a day 1 tablet in the morning 24h Active Zofran 4 MG Orally Once a day 2 tablets 24h Active Alprazolam 1 MG Orally Twice a day 1 tablet 12h Active Voltaren 1 % Active RESULTS No Results PROCEDURES No Known procedures INSTRUCTIONS MEDICATIONS ADMINISTERED No Known Medications MEDICAL (GENERAL) HISTORY Type Description Date Medical History Degenerated cervical vertebrae Medical History Arthritis Medical History Suicidal ideation-attempt by asphyxiation 2008-[facility] admit Medical History hx of seizures and per previous records has had one alcohol withdrawal seizure Medical History HTN Medical History hypercholesterolemia Surgical History tonsillectomy 1975 Hospitalization History Psychiatric Hospitalization 06/2017
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
[2018-08-25] MEDS ORDERED: KETOROLAC 60 MG/2 ML VIAL IM ONE (15:15)
[2018-08-25] MEDS ORDERED: ORPHENADRINE 60 MG/2 ML (NORFLEX) AMP IM ONE (15:15)
--- NOTE | 2018-08-25 15:36 | ED Neck-Back Pain/Injury ---
General Chief Complaint: Head/Cervical Problems Stated Complaint: NECK PAIN Source of Information: Patient Exam Limitations: No Limitations History of Present Illness Date Seen by Provider: Aug 25, 2018 Time Seen by Provider: 15:10 Initial Comments 47-year-old female who presents to the emergency room with complaints of neck soreness and stiffness that she woke up with this morning. She reports she's been doing a little bit more physical activity with moving into her new home and reports that she thinks she strained her neck picking up boxes. Denies traumatic injury. Denies hitting her head. Location: C-Spine Timing/Duration: 12 Hours Pain/Injury Location: Neck Associated Symptoms: denies symptoms Allergies and Home Medications Allergies Coded Allergies: ondansetron (Verified Allergy, Mild, 03/27/17) Itching at injection site with injectable form only. Oral form well tolerated. hydrocodone (Verified Allergy, Unknown, 03/27/17) Home Medications Cyclobenzaprine HCl 10 Mg Tablet, 10 MG PO Q8H Prescribed by: CINDY NAYLOR on 08/25/18 1645 Prednisone 20 Mg Tab, 40 MG PO DAILY Prescribed by: CINDY NAYLOR on 08/25/18 1645 Patient Home Medication List Home Medication List Reviewed: Yes Review of Systems Constitutional: no symptoms reported, see HPI Musculoskeletal: see HPI, muscle stiffness, neck pain All Other Systems Reviewed Negative Unless Noted: Yes Past Pwfnmaz-Ydsuvg-Unwjhx Hx Past Med/Social Hx: Reviewed Nursing Past Med/Soc Hx Patient Social History 2nd Hand Smoke Exposure: No Recent Foreign Travel: No Contact w/Someone Who Travel: No Recent Hopitalizations: Yes (multple e.d. visits) Immunizations Up To Date Tetanus Booster (TDap): Unknown Seasonal Allergies Seasonal Allergies: No Past Medical History Surgeries: Yes (egd/colonoscopy) Tonsillectomy Respiratory: No Cardiac: Yes Hypertension Neurological: No Genitourinary: No Gastrointestinal: Yes (Questionable Crohn's disease) Colitis, Chronic Constipation, Chronic Diarrhea Musculoskeletal: No Endocrine: No HEENT: No Cancer: No Psychosocial: Yes ADD/ADHD, Anxiety, Depression Integumentary: No Family Medical History Reviewed Nursing Family Hx GI Disease Physical Exam Vital Signs Vital Signs - First Documented 08/25/18 15:00 Temp 97.5 Pulse 102 Resp 20 B/P (MAP) 163/105 (124) Pulse Ox 96 Capillary Refill : Height, Weight, BMI Height: 5'5.00" Weight: 250lbs. oz. 113.014502eu; BMI Method:Stated General Appearance: No Apparent Distress, WD/WN Neck: Normal Inspection, Non Tender, Limited Range of Motion (muscle stiffness) ; No Tender Lateral, No Tender Midline Cardiovascular: Regular Rate, Rhythm, No Edema, No Gallop, No JVD, No Murmur, Normal Peripheral Pulses Respiratory: Chest Non Tender, Lungs Clear, Normal Breath Sounds, No Accessory Muscle Use, No Respiratory Distress, Accessory Muscle Use Neurologic/Psychiatric: Alert, Oriented x3, Normal Mood/Affect Skin: Normal Color, Warm/Dry Progress/Results/Core Measures Results/Orders My Orders Orders - BERNOT,CINDY Orphenadrine Injection (Norflex Injectio (08/25/18 15:15) Ketorolac Injection (Toradol Injection) (08/25/18 15:15) Medications Given in ED Vital Signs/I&O 08/25/18 08/25/18 15:00 16:52 Temp 97.5 97.5 Pulse 102 102 Resp 20 20 B/P (MAP) 163/105 (124) 163/105 (124) Pulse Ox 96 96 Progress Progress Note : Time: 16:44 Progress Note I have seen and evaluated the patient. She had mild relief of muscle stiffness after medication administration. She agrees with plans to go home and rest. Plan of care, plans for discharge, return precautions were all discussed and she is in agreement. Departure Impression Primary Impression: Sprain of cervical neck Disposition: 01 HOME, SELF-CARE Condition: Stable/Unchanged Departure-Patient Inst. Decision time for Depature: 16:44 Ref[place]: [facility] [place] Primary Care Physician EZEQUIEL CHAVIRA APRN (Family) Primary Care Physician Patient Instructions: Cervical Muscle Strain (DC) Add. Discharge Instructions: Tylenol and ibuprofen as directed by the bottle for pain relief. Take medications as directed. You may alternate ice and heat at 20 minute intervals. Topical icy hot may be also beneficial. Follow-up with her primary care provider within 1 week for recheck. Return back to the emergency room for worsening symptoms or concerns as needed. All discharge instructions reviewed with patient and/or family. Voiced understanding. Scripts Cyclobenzaprine HCl (Cyclobenzaprine HCl) 10 Mg Tablet 10 MG PO Q8H, #10 TAB Prov: CINDY NAYLOR 08/25/18 Prednisone (Prednisone) 20 Mg Tab 40 MG PO DAILY, #10 TAB Prov: CINDY NAYLOR 08/25/18 CINDY NAYLOR Aug 25, 2018 15:36
[2018-08-25] MEDS ORDERED: CYCL10TA9 PO (16:45)
[2018-08-25] MEDS ORDERED: PRD20T PO (16:45)
[2018-08-25 16:52] VITALS: BP 163/105
== END 2018-08-25 17:00 | disposition home or self-care (01) ==
LOC: EDUNIT# 14:52 → ER 14:53
DX: S13.4XXA Sprain of ligaments of cervical spine, initial encounter (principal); I10 Essential (primary) hypertension; F90.9 Attention-deficit hyperactivity disorder, unspecified type; F98.8 Other specified behavioral and emotional disorders with onset usually occurring in childhood and adolescence; F41.9 Anxiety disorder, unspecified; F32.9 Major depressive disorder, single episode, unspecified; Z87.19 Personal history of other diseases of the digestive system; Z88.5 Allergy status to narcotic agent; Z88.8 Allergy status to other drugs, medicaments and biological substances; Z79.52 Long term (current) use of systemic steroids; Z90.89 Acquired absence of other organs; X58.XXXA Exposure to other specified factors, initial encounter
CPT/HCPCS: 99284

== ENCOUNTER 2018-09-28 02:03 | Emergency (ER) | payer SELFPAY ==
[~2018-09-28] VITALS: Ht 162.6 cm; Wt 127.0 kg
[~2018-09-28 02:03] MED LIST changes: +CYCL10TA9 PO
--- OUTSIDE RECORDS SUMMARY | 2018-09-28 02:09 | XMS REPORT | Clinical Summary ---
Author Author [facility] Organization [facility] Address Unknown Phone Unavailable Care Team Providers Care Pigment Pumper Name Role Phone Self, Referral PCP Unavailable Ariana Dempsey Unavailable Sanna Fields RN Unavailable Unavailable Puma Lyles RN Unavailable Unavailable Damaris Ragsdale RN Unavailable Unavailable Source Comments Some departments are not documenting in the electronic medical record. If you do not see the information that you expected, contact Release of Information in the Health Information Management department at [phone] for further assistance in locating additional records.[facility] Allergies Comments Active Allergy Reactions Severity Noted [...] Taken Vital Sign Reading 08/05/2009 10:02 AM SAMPLE DYE MIXER Blood Pressure 137/76 08/05/2009 10:02 AM SAMPLE DYE MIXER Pulse 82 08/05/2009 8:00 AM SAMPLE DYE MIXER Temperature 36.6 C (97.8 F) - Respiratory Rate - 08/05/2009 10:02 AM SAMPLE DYE MIXER Oxygen Saturation 94% - Inhaled Oxygen - Concentration 06/17/2009 10:14 PM SAMPLE DYE MIXER Weight 120.5 kg (265 lb 10.5 oz) 06/17/2009 10:14 PM SAMPLE DYE MIXER Height 165.1 cm (5' 5") 06/17/2009 10:14 PM SAMPLE DYE MIXER Body Mass Index 44.21 Plan of Treatment Health Maintenance Due Date Last Done Comments PHYSICAL (COMPREHENSIVE) 1979 EXAM HIV SCREENING 1987 DTAP/TDAP VACCINES (1 - 1990 Tdap) CERVICAL CANCER SCREENING 2002 BREAST CANCER SCREENING 2012 INFLUENZA VACCINE 03/08/2018 Results Not on filefrom Last 3 Months
--- OUTSIDE RECORDS SUMMARY | 2018-09-28 02:10 | XMS REPORT | Continuity of Care Document ---
Author Author [facility] Address Unknown Phone Unavailable Allergies Active Description Code Type Severity Reaction Onset Reported/Identified Relationship to Patient Clinical Status Yes HYDROcodone Drug N/A N/A Yes Zofran Drug N/A N/ A Yes hydrocodone [id number] Drug Allergy Unknown N/A 03/27/2017 Yes ondansetron [id number] Drug Allergy Mild N/A 03/27/2017 Medications Medication [...] LIVER, NOT ELSEWHERE C 05/15/2018 EZEQUIEL CHAVIRA ARC FURNACE OPERATOR Ot K56.7 ILEUS, UNSPECIFIED 05/15/2018 EZEQUIEL CHAVIRA ARC FURNACE OPERATOR Ot K76.0 FATTY (CHANGE OF) LIVER, NOT ELSEWHERE C 05/15/2018 EZEQUIEL CHAVIRA ARC FURNACE OPERATOR Ot K56.7 ILEUS, UNSPECIFIED 05/15/2018 EZEQUIEL CHAVIRA ARC FURNACE OPERATOR Ot K76.0 FATTY (CHANGE OF) LIVER, NOT ELSEWHERE C 08/25/2018 EZEQUIEL CHAVIRA ARC FURNACE OPERATOR Ot K56.7 ILEUS, UNSPECIFIED 08/25/2018 EZEQUIEL CHAVIRA ARC FURNACE OPERATOR Ot K76.0 FATTY (CHANGE OF) LIVER, NOT ELSEWHERE C 08/28/2018 CINDY NAYLOR Ot F32.9 MAJOR DEPRESSIVE DISORDER, SINGLE EPISOD 08/28/2018 CINDY NAYLOR Ot F41.9 ANXIETY DISORDER, UNSPECIFIED 08/28/2018 CINDY NAYLOR Ot F90.9 ATTENTION-DEFICIT HYPERACTIVITY DISORDER 08/28/2018 CINDY NAYLOR Ot F98.8 OT BEHAV/EMOTN DISORD W ONSET USLY OCCU 08/28/2018 CINDY NAYLOR Ot I10 ESSENTIAL (PRIMARY) HYPERTENSION 08/28/2018 CINDY NAYLOR Ot M54.2 CERVICALGIA 08/28/2018 CINDY NAYLOR Ot S13.4XXA SPRAIN OF LIGAMENTS OF CERVICAL SPINE, I 08/28/2018 CINDY NAYLOR Ot X58.XXXA EXPOSURE TO OTHER SPECIFIED FACTORS, INI 08/28/2018 CINDY NAYLOR Ot Z79.52 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 BODY DETAILER (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 STER 08/28/2018 CINDY NAYLOR Ot Z87.19 PERSONAL HISTORY OF OTHER DISEASES OF TH 08/28/2018 CINDY NAYLOR Ot Z88.5 ALLERGY STATUS TO NARCOTIC AGENT STATUS 08/28/2018 CINDY NAYLOR Ot Z88.8 ALLERGY STATUS TO OT DRUG/MEDS/BIOL SUB 08/28/2018 CINDY NAYLOR Ot Z90.89 ACQUIRED ABSENCE OF OTHER ORGANS Procedures Code [place] [address] Therapeutic, prophylactic, or diagnostic URSULA POLK 02/19/2017 77986 Therapeutic, prophylactic, or diagnostic URSULA POLK 02/19/2017 73246 Therapeutic, prophylactic, or diagnostic URSULA POLK 02/19/2017 14438 Emergency department visit for the ruiz POLK, URSULA 02/19/2017 73641 Emergency department visit for the ruiz POLK URSULA 09/07/2017 03762 Therapeutic, prophylactic, or diagnostic URSULA POLK 09/30/2017 10720 Emergency department visit for the ruiz POLK URSULA 09/30/2017 99718 Emergency department visit for the ruiz POLK URSULA 05/02/2018 61302 Dressings and/or debridement of partial- URSULA POLK 2017 43640 Immunization administration (includes pe URSULA POLK 05/10/2018 38412 Therapeutic, prophylactic, or diagnostic URSULA POLK 05/10/2018 50007 Emergency department visit for the ruiz POLK URSULA 05/10/2018 Results Test Result Range Complete [...] Status Pt. Type Provider Facility Loc./Unit Complaint [id number] 05/10/2018 09:43:00 05/10/2018 11:45:00 DIS Emergency [facility] ER Burn [id number] 05/02/2018 16:45:00 05/02/2018 18:54:00 [id number] 09/30/2017 05:07:00 09/30/2017 07:12:00 DIS Emergency [facility] ER General Medical [id number] 09/07/2017 21:53:00 09/08/2017 02:12:00 DIS Emergency Luis [facility] General Medical [id number] 02/19/2017 05:35:00 02/19/2017 08:40:00 DIS Emergency [facility] ER Back Pain [id number] 09/30/2017 05:33:28 Document Registration [id number] 08/25/2018 14:53:00 08/25/2018 17:00:00 DIS Outpatient CINDY NAYLOR [facility] ER NECK PAIN [id number] 01/09/2018 21:48:00 01/09/2018 23:27:00 DIS Emergency ZAINAB LANCE MD [facility] ER GI PROBLEMS, KNOTS ON L SIDE [id number] 01/06/2018 11:35:00 01/06/2018 23:59:59 CLS Outpatient EZEQUIEL CHAVIRA APRN [facility] RAD RLQ ABD PAIN,RUQ ABD PAIN,LLEUS,CONSTIPATION [id number] 04/24/2017 18:36:00 04/24/2017 20:50:00 DIS Emergency ZAINAB LANCE MD [facility] ER ABD/SIDE PAIN [id number] 03/26/2017 23:35:00 03/27/2017 02:16:00 DIS Emergency GENNY ENG, LATIA Bernard [facility] ER AB PAIN DIARRHEA VOMTING [id number] 01/29/2017 22:24:00 01/29/2017 22:43:00 DIS Emergency NIDHI DOKRISH [facility] ER STOMACH ISSUES [id number] 02/01/2018 16:00:00 02/01/2018 23:59:59 CLS Outpatient EZEQUIEL CHAVIRA [facility]
[2018-09-28] MEDS ORDERED: ANTACID SUSP 30 ML UDC (MYLANTA) PO ONE (02:30)
[2018-09-28] MEDS ORDERED: ONDANSETRON 4 MG (ZOFRAN) ORAL DISSOLVE TAB PO ONE (02:30)
[2018-09-28] MEDS ORDERED: LIDOCAINE 2% VISCOUS 15 ML UDC PO ONE (02:30)
[2018-09-28] MEDS ORDERED: DICY20TA10 PO (03:07)
[2018-09-28] MEDS ORDERED: FAMO-119 PO (03:07)
[2018-09-28 03:18] VITALS: BP 165/76
--- NOTE | 2018-09-28 09:18 | ED Respiratory ---
General Chief Complaint: Respiratory Problems Stated Complaint: CONGESTION,SOA Nursing Triage Note: Sternal pain and shortness of air Exam Limitations: no limitations History of Present Illness Date Seen by Provider: Sep 28, 2018 Time Seen by Provider: 21:50 Initial Comments Patient is a 48-year-old female who presents with multiple complaints. Reports intermittent abdominal pain and epigastric region radiating to chest the past 3 hours. Symptoms began after eating dinner and lying down for sleep. Also reports nausea and vomiting with diarrhea which is been ongoing for approximately 10 days. She's been I and twice at [facility] for the same. She was prescribed Zofran and states her nausea is now improved but has had occasional diarrhea. Has long-standing history of irritable bowel syndrome and reflux disease. Patient is not currently on medications for either. Denies fever chills, sweats. No urinary frequency urgency or burning. No dysuria or hematuria. No other acute symptoms or complaints. No prior abdominal surgeries. Timing/Duration: changing over time, intermittent Severity: mild Prior Episodes/Possible Cause: no prior episodes Modifying Factors: Improves With Lying Down Allergies and Home Medications Allergies Coded Allergies: ondansetron (Verified Allergy, Mild, 03/27/17) Itching at injection site with injectable form only. Oral form well tolerated. hydrocodone (Verified Allergy, Unknown, 03/27/17) Home Medications Cyclobenzaprine HCl 10 Mg Tablet, 10 MG PO Q8H Prescribed by: CINDY NAYLOR on 08/25/18 1645 Dicyclomine HCl 20 Mg Tablet, 20 MG PO Q6H Prescribed by: WAQAS BENZ on 09/28/18 0307 Famotidine 20 Mg Tablet, 20 MG PO BID Prescribed by: WAQAS BENZ on 09/28/18 030 Prednisone 20 Mg Tab, 40 MG PO DAILY Prescribed by: CINDY NAYLOR on 08/25/18 1645 Patient Home Medication List Home Medication List Reviewed: Yes Review of Systems Review of Systems Constitutional: no symptoms reported; No dizziness, No malaise, No weakness EENTM: see HPI, throat pain Respiratory: cough Cardiovascular: chest pain; No palpitations Gastrointestinal: abdominal pain (RLQ), constipation, diarrhea, heartburn; No melena; nausea, vomiting Genitourinary: no symptoms reported : No Musculoskeletal: back pain (chronic) Skin: no symptoms reported Psychiatric/Neurological: Anxiety, Depressed, Other Hematologic/Lymphatic: No Symptoms Reported All Other Systems Reviewed Negative Unless Noted: Yes Past Ytbjaiw-Omoggy-Aftgcx Hx Patient Social History Alcohol Use: Occasionally Uses Recreational Drug Use: No Smoking Status: Never a Smoker 2nd Hand Smoke Exposure: No Recent Foreign Travel: No Contact w/Someone Who Travel: No Recent Infectious Disease Expo: No Recent Hopitalizations: Yes (multple e.d. visits) Physical Abuse: No Sexual Abuse: No Mistreated: No Fear: No Immunizations Up To Date Tetanus Booster (TDap): Unknown Seasonal Allergies Seasonal Allergies: No Past Medical History Surgeries: Yes (egd/colonoscopy) Tonsillectomy Respiratory: No Cardiac: Yes Hypertension Neurological: No : No Last Menstrual Period: Sep 28, 2018 Sexually Transmitted Disease: No HIV/AIDS: No Genitourinary: No Gastrointestinal: Yes (Questionable Crohn's disease) Colitis, Chronic Constipation, Chronic Diarrhea Musculoskeletal: No Endocrine: No HEENT: No Cancer: No Psychosocial: Yes ADD/ADHD, Anxiety, Depression Integumentary: No Blood Disorders: No Family Medical History GI Disease Physical Exam Vital Signs - First Documented 09/28/18 02:08 Temp 99.2 Pulse 89 Resp 20 B/P (MAP) 166/81 (109) Pulse Ox 96 O2 Delivery Room Air Capillary Refill : Less Than 3 Seconds Height: 5'4.00" Weight: 280lbs. 0oz. 127.822418hl; BMI Method:Stated General Appearance: obese HEENT: normal ENT inspection, TMs normal, scleral icterus (R); No scleral icterus (L), No pale conjunctivae (R), No pale conjunctivae (L) Neck: non-tender, full range of motion, supple Respiratory: chest non-tender, lungs clear, normal breath sounds, no respiratory distress, no accessory muscle use Cardiovascular: normal peripheral pulses, regular rate, rhythm, no edema Gastrointestinal: normal bowel sounds; No abnormal bowel sounds, No distended, No guarding; tenderness (epigastric); No hernia, No mass Extremities: normal range of motion Neurologic/Psychiatric: kerrick kleaner operator II-XII nml as tested, no motor/sensory deficits, alert, oriented x 3 Skin: normal color Lymphatic: no adenopathy Progress/Results/Core Measures Suspected Sepsis Recent Fever Within 48 Hours: No Infection Criteria Present: None New/Unexplained Altered Menta: No Sepsis Screen: No Definite Risk SIRS Temperature:98.9 Pulse: 95 Respiratory Rate: 20 Blood Pressure 165 /76 Mean: 105 Results/Orders My Orders Orders - WAQAS BENZ DO Ondansetron Oral Dissolve Tab (Zofran (09/28/18 02:30) Antacid Suspension (Mylanta Suspension (09/28/18 02:30) Lidocaine 2% Viscous 15 Ml (Xylocaine Vi (09/28/18 02:30) Medications Given in ED Current Medications Medications Dose Ordered Sig/Angeles Route Start Time Stop Time Status Last Admin Dose Admin Al Hydrox/Mg Hydrox/Simethicone 30 ml ONCE ONCE PO 09/28/18 02:30 09/28/18 02:31 DC 09/28/18 02:36 30 ML Lidocaine HCl 5 ml ONCE ONCE PO 09/28/18 02:30 09/28/18 02:31 DC 09/28/18 02:36 5 ML Ondansetron HCl 4 mg ONCE ONCE PO 09/28/18 02:30 09/28/18 02:31 DC 09/28/18 02:36 4 MG Vital Signs/I&O 09/28/18 09/28/18 02:08 03:18 Temp 99.2 98.9 Pulse 89 95 Resp 20 20 B/P (MAP) 166/81 (109) 165/76 (105) Pulse Ox 96 95 O2 Delivery Room Air Room Air Capillary Refill : Less Than 3 Seconds Blood Pressure Mean: 105 Progress Note : Time: 03:00 Progress Note Patient given Zofran and GI cocktail. Significantly for symptoms with the same. Patient has history of irritable bowel syndrome and reflux disease and it is difficult to tell which disease is causing symptoms. Currently not on medications for either. will treat supportively.. Return precautions reviewed Departure Impression Primary Impression: GERD with esophagitis Additional Impression: Epigastric abdominal pain Disposition: HOME, SELF-CARE Condition: Improved Departure-Patient Inst. Patient Instructions: Acid Reflux (Gastroesophageal Reflux Disease), Adult (DC) Add. Discharge Instructions: Please take newly prescribed medications as directed. Avoid aspirin, all NSAIDs , spicy foods and caffeine. Follow-up with your PCP as scheduled. All discharge instructions reviewed with patient and/or family. Voiced understanding. Scripts Dicyclomine HCl (Dicyclomine HCl) 20 Mg Tablet 20 MG PO Q6H, #20 TAB Prov: WAAQS BENZ DO 09/28/18 Famotidine (Pepcid) 20 Mg Tablet 20 MG PO BID for 30 Days, TAB Prov: WAQAS BENZ DO 09/28/18 WAQAS BENZ DO Sep 28, 2018 09:18
== END 2018-09-28 03:18 | disposition home or self-care (01) ==
LOC: EDUNIT# 02:03 → ER FS 02:05
DX: K21.0 Gastro-esophageal reflux disease with esophagitis (principal); K58.9 Irritable bowel syndrome, unspecified; I10 Essential (primary) hypertension; F98.8 Other specified behavioral and emotional disorders with onset usually occurring in childhood and adolescence; F90.9 Attention-deficit hyperactivity disorder, unspecified type; F41.9 Anxiety disorder, unspecified; F32.9 Major depressive disorder, single episode, unspecified; Z88.8 Allergy status to other drugs, medicaments and biological substances; Z87.19 Personal history of other diseases of the digestive system; Z88.5 Allergy status to narcotic agent; Z79.52 Long term (current) use of systemic steroids; Z90.89 Acquired absence of other organs
CPT/HCPCS: 99282

== ENCOUNTER → 2018-10-25 | Emergency (ER) | payer OTHER ==
[~2018-10-25] VITALS: Ht 165.1 cm; Wt 127.0 kg
[~2018-10-25] MED LIST changes: +DICY20TA10 PO; +FAMO-119 PO
--- OUTSIDE RECORDS SUMMARY | 2018-10-25 15:51 | XMS REPORT | Clinical Summary ---
Author Author [facility] Organization [facility] Address Unknown Phone Unavailable Care Team Providers Care Stitch Bonding Machine Tender Helper Name Role Phone Self, Referral PCP Unavailable Ariana Dempsey Unavailable Sanna Fields RN Unavailable Unavailable Puma Lyles RN Unavailable Unavailable Damaris Ragsdale RN Unavailable Unavailable Source Comments Some departments are not documenting in the electronic medical record. If you do not see the information that you expected, contact Release of Information in the Health Information Management department at [phone] for further assistance in locating additional records.[facility] Allergies Comments Active Allergy Reactions Severity Noted [...] Taken Vital Sign Reading 08/05/2009 10:02 AM ROLL OR TAPE EDGE MACHINE OPERATOR Blood Pressure 137/76 08/05/2009 10:02 AM ROLL OR TAPE EDGE MACHINE OPERATOR Pulse 82 08/05/2009 8:00 AM ROLL OR TAPE EDGE MACHINE OPERATOR Temperature 36.6 C (97.8 F) - Respiratory Rate - 08/05/2009 10:02 AM ROLL OR TAPE EDGE MACHINE OPERATOR Oxygen Saturation 94% - Inhaled Oxygen - Concentration 06/17/2009 10:14 PM ROLL OR TAPE EDGE MACHINE OPERATOR Weight 120.5 kg (265 lb 10.5 oz) 06/17/2009 10:14 PM ROLL OR TAPE EDGE MACHINE OPERATOR Height 165.1 cm (5' 5") 06/17/2009 10:14 PM ROLL OR TAPE EDGE MACHINE OPERATOR Body Mass Index 44.21 Plan of Treatment Health Maintenance Due Date Last Done Comments PHYSICAL (COMPREHENSIVE) 1979 EXAM HIV SCREENING 1987 DTAP/TDAP VACCINES (1 - 1990 Tdap) CERVICAL CANCER SCREENING 2002 BREAST CANCER SCREENING 2012 INFLUENZA VACCINE 03/08/2018 Results Not on filefrom Last 3 Months
--- OUTSIDE RECORDS SUMMARY | 2018-10-25 15:53 | XMS REPORT | Continuity of Care Document ---
Author Author [facility] Address Unknown Phone Unavailable Allergies Active Description Code Type Severity Reaction Onset Reported/Identified Relationship to Patient Clinical Status Yes HYDROcodone Drug N/A N/A Yes Zofran Drug N/A N/ A Yes hydrocodone [id number] Drug Allergy Unknown N/A 03/27/2017 Yes ondansetron [id number] Drug Allergy Mild N/A 03/27/2017 Medications Medication [...] Type Code Diagnosis Diagnosed By 01/29/2017 KRISH ETRRELL DO Ot K31.9 DISEASE OF STOMACH AND [...] LIVER, NOT ELSEWHERE C 05/15/[address] SWEEPER OPERATOR Ot K56.7 ILEUS, UNSPECIFIED 05/15/[address] SWEEPER OPERATOR Ot K76.0 FATTY (CHANGE OF) LIVER, NOT ELSEWHERE C 05/15/[address] SWEEPER OPERATOR Ot K56.7 ILEUS, UNSPECIFIED 05/15/[address] SWEEPER OPERATOR Ot K76.0 FATTY (CHANGE OF) LIVER, NOT ELSEWHERE C 08/25/2018 CINDY NAYLOR Ot F32.9 MAJOR DEPRESSIVE DISORDER, SINGLE EPISOD 08/25/2018 JARED NAYLORIS Ot F41.9 ANXIETY DISORDER, UNSPECIFIED 08/25/2018 JARED NAYLORIS Ot F90.9 ATTENTION-DEFICIT HYPERACTIVITY DISORDER 08/25/2018 JARED NAYLORIS Ot F98.8 OT BEHAV/EMOTN DISORD W ONSET USLY OCCU 08/25/2018 CINDY NAYLOR Ot I10 ESSENTIAL (PRIMARY) HYPERTENSION 08/25/2018 CINDY NAYLOR Ot M54.2 CERVICALGIA 08/25/2018 JARED NAYLORIS Ot S13.4XXA SPRAIN OF LIGAMENTS OF CERVICAL SPINE, I 08/25/2018 JARED NAYLORIS Ot X58.XXXA EXPOSURE TO OTHER SPECIFIED FACTORS, INI 08/25/2018 CINDY NAYLOR Ot 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.52 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 PACKER (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 STER 08/25/2018 JARED NAYLORIS Ot Z87.19 PERSONAL HISTORY OF OTHER DISEASES OF TH 08/25/2018 CINDY NAYLOR Ot Z88.5 ALLERGY STATUS TO NARCOTIC AGENT STATUS 08/25/2018 JARED NAYLORIS Ot Z88.8 ALLERGY STATUS TO OT DRUG/MEDS/BIOL SUB 08/25/2018 JARED NAYLORIS Ot Z90.89 ACQUIRED ABSENCE OF OTHER ORGANS 08/25/[address] SWEEPER OPERATOR Ot K56.7 ILEUS, UNSPECIFIED 08/25/[address] SWEEPER OPERATOR Ot K76.0 FATTY (CHANGE OF) LIVER, NOT ELSEWHERE C 08/28/2018 JARED NAYLORIS Ot F32.9 MAJOR DEPRESSIVE DISORDER, SINGLE EPISOD 08/28/2018 JARED NAYLORIS Ot F41.9 ANXIETY DISORDER, UNSPECIFIED 08/28/2018 CINDY NAYLOR Ot F90.9 ATTENTION-DEFICIT HYPERACTIVITY DISORDER 08/28/2018 CINDY NAYLOR Ot F98.8 OTH BEHAV/EMOTN DISORD W ONSET USLY OCCU 08/28/2018 CINDY NAYLOR Ot I10 ESSENTIAL (PRIMARY) HYPERTENSION 08/28/2018 CINDY NAYLOR Ot M54.2 CERVICALGIA 08/28/2018 CINDY NAYLOR Ot S13.4XXA SPRAIN OF LIGAMENTS OF CERVICAL SPINE, I 08/28/2018 CINDY NAYLOR Ot X58.XXXA EXPOSURE TO OTHER SPECIFIED FACTORS, INI 08/28/2018 CINDY NAYLOR Ot Z79.52 SHINGLE PACKER (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 STER 08/28/2018 CINDY NAYLOR Ot Z87.19 PERSONAL HISTORY OF OTHER DISEASES OF 08/28/2018 CINDY NAYLOR Ot Z88.5 ALLERGY STATUS TO NARCOTIC AGENT STATUS 08/28/2018 CINDY NAYLOR Ot Z88.8 ALLERGY STATUS TO OTH DRUG/MEDS/BIOL SUB 08/28/2018 CINDY NAYLOR Ot Z90.89 ACQUIRED ABSENCE OF OTHER ORGANS 09/28/2018 EZEQUIEL CHAVIRA APRN Ot K56.7 ILEUS, UNSPECIFIED 09/28/2018 EZEQUIEL CHAVIRA APRN Ot K76.0 FATTY (CHANGE OF) LIVER, NOT ELSEWHERE C 10/04/2018 WAQAS BENZ DO, Ot F32.9 MAJOR DEPRESSIVE DISORDER, SINGLE EPISOD 10/04/2018 WAQAS BENZ DO, Ot F41.9 ANXIETY DISORDER, UNSPECIFIED 10/04/2018 WAQAS BENZ DO, Ot F90.9 ATTENTION-DEFICIT HYPERACTIVITY DISORDER 10/04/2018 WAQAS BENZ DO Ot F98.8 OTH BEHAV/EMOTN DISORD W ONSET USLY OCCU 10/04/2018 WAQAS BENZ DO Ot I10 ESSENTIAL (PRIMARY) HYPERTENSION 10/04/2018 WAQAS BENZ DO Ot K21.0 GASTRO-ESOPHAGEAL REFLUX DISEASE WITH ES 10/04/2018 WAQAS BENZ DO, Ot K58.9 IRRITABLE BOWEL SYNDROME WITHOUT DIARRHE 10/04/2018 WAQAS BENZ DO Ot R10.13 EPIGASTRIC PAIN 10/04/2018 WAQAS BENZ DO Ot Z79.52 SHELTER (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 STER 10/04/2018 WAQAS BENZ DO Ot Z87.19 PERSONAL HISTORY OF OTHER DISEASES OF TH 10/04/2018 TUYET WALLER, WAQAS Ot Z88.5 ALLERGY STATUS TO NARCOTIC AGENT STATUS 10/04/2018 TUYET WALLER, WAQAS Ot Z88.8 ALLERGY STATUS TO OTH DRUG/MEDS/BIOL SUB 10/04/2018 TUYET WALLER, WAQAS Ot Z90.89 ACQUIRED ABSENCE OF OTHER ORGANS 10/06/2018 WAQAS BENZ DO Ot F32.9 MAJOR DEPRESSIVE DISORDER, SINGLE EPISOD 10/06/2018 TUYET WALLER, WAQAS Ot F41.9 ANXIETY DISORDER, UNSPECIFIED 10/06/2018 TUYET WALLER, WAQAS Ot F90.9 ATTENTION-DEFICIT HYPERACTIVITY DISORDER 10/06/2018 TUYET WALLER, WAQAS Ot F98.8 OTH BEHAV/EMOTN DISORD W ONSET USLY OCCU 10/06/2018 WAQAS BENZ DO Ot I10 ESSENTIAL (PRIMARY) HYPERTENSION 10/06/2018 WAQAS BENZ DO Ot K21.0 GASTRO-ESOPHAGEAL REFLUX DISEASE WITH ES 10/06/2018 WAQAS BENZ DO Ot K58.9 IRRITABLE BOWEL SYNDROME WITHOUT DIARRHE 10/06/2018 WAQAS BENZ DO Ot R10.13 EPIGASTRIC PAIN 10/06/2018 WAQAS BENZ DO Ot Z79.52 SHINGLE PACKER (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 STER 10/06/2018 WAQAS BENZ DO Ot Z87.19 PERSONAL HISTORY OF OTHER DISEASES OF 10/06/2018 WAQAS BENZ DO Ot Z88.5 ALLERGY STATUS TO NARCOTIC AGENT STATUS 10/06/2018 WAQAS BENZ DO Ot Z88.8 ALLERGY STATUS TO OTH DRUG/MEDS/BIOL SUB 10/06/2018 WAQAS BENZ DO Ot Z90.89 ACQUIRED ABSENCE OF OTHER ORGANS Procedures Code Description [place] [address] Therapeutic, prophylactic, or diagnostic URSULA POLK 02/19/2017 50071 Therapeutic, prophylactic, or diagnostic URSULA POLK 02/19/2017 43860 Therapeutic, prophylactic, or diagnostic URSULA POLK 02/19/2017 24913 Emergency department visit for the URSULA Matias 02/19/2017 89411 Emergency department visit for the URSULA Matias 09/07/2017 19289 Therapeutic, prophylactic, or diagnostic URSULA POLK 09/30/2017 68346 Emergency department visit for the URSULA Matias 09/30/2017 21521 Emergency department visit for the URSULA Matias 05/02/2018 27052 Dressings and/or debridement of partial- URSULA POLK 2017 10496 Immunization administration (includes pe URSULA POLK 05/10/2018 60640 Therapeutic, prophylactic, or diagnostic URSULA POLK 05/10/2018 24181 Emergency department visit for the evalu FELICITASURSULA 05/10/2018 Results Test Result Range Complete blood [...] measurement (mass/volume) 3.5 g/dL 3.2-4.5 Lipase - 09/17/17 19:35 Lipase 25 U/L 8-78 Complete blood [...] Status Pt. Type Provider Facility Loc./Unit Complaint [id number] 05/10/2018 09:43:00 05/10/2018 11:45:00 DIS Emergency [facility] ER Burn [id number] 05/02/2018 16:45:00 05/02/2018 18:54:00 DIS Emergency [facility]AL[facility] ER Orthopedic [id number] 09/30/2017 05:07:00 09/30/2017 07:12:00 DIS Emergency [facility] ER General Medical [id number] 09/07/2017 21:53:00 09/08/2017 02:12:00 DIS Emergency [facility] ER General Medical [id number] 02/19/2017 05:35:00 02/19/2017 08:40:00 DIS Emergency [facility] ER Back Pain [id number] 09/30/2017 05:33:28 Document Registration [id number] 09/28/2018 02:05:00 09/28/2018 03:18:00 DIS Outpatient WAQAS BENZ DO [facility] ER FS CONGESTION,SOA [id number] 08/25/2018 14:53:00 08/25/2018 17:00:00 DIS Emergency CINDY NAYLOR [facility] ER NECK PAIN [id number] 01/09/2018 21:48:00 01/09/2018 23:27:00 DIS Emergency ZAINAB LANCE MD [facility] ER GI PROBLEMS, KNOTS ON L SIDE [id number] 01/06/2018 11:35:00 01/06/2018 23:59:59 CLS Outpatient EZEQUIEL CHAVIRA APRN [facility] RAD RLQ ABD PAIN,RUQ ABD PAIN,LLEUS,CONSTIPATION [id number] 04/24/2017 18:36:00 04/24/2017 20:50:00 DIS Emergency ZAINAB LANCE MD [facility] ER ABD/SIDE PAIN [id number] 03/26/2017 23:35:00 03/27/2017 02:16:00 DIS Emergency GENNY ENG, LATIA Bernard [facility] ER AB PAIN DIARRHEA VOMTING [id number] 01/29/2017 22:24:00 01/29/2017 22:43:00 DIS Emergency KRISH TERRELL DO [facility] ER STOMACH ISSUES [id number] 02/01/2018 16:00:00 02/01/2018 23:59:59 CLS Outpatient EZEQUIEL CHAVIRA [facility]
[2018-10-25 16:57] VITALS: BP 172/93
--- NOTE | 2018-10-25 17:48 | ED Psychosocial ---
General Chief Complaint: Psych/Social Disorder Stated Complaint: PER PT MOTHER SUICIDAL THOUGHTS Source: patient, other (girlfriend) Exam Limitations: no limitations (ZAINAB LANCE) History of Present Illness Date Seen by Provider: Oct 25, 2018 Time Seen by Provider: 17:27 Initial Comments The patient presents to ER by private conveyance with chief complaint of feelings of hopelessness and depression and saying that she wants to part from her present girlfriend. She says if she has to stay with her any longer she is going to kill herself. She has a lot of anxiety and takes Xanax, trazodone, venlafaxine, prazosin, Vraylar, Trintellix. She doesn't feel like she needs her medicines adjusted as much as she says she just wants a her counselor. She follows with a counselor, psychologist and psychiatrist. She says the counselor' s not being very effective and she is planning to get a new one. She because she said she was suicidal and thought about jumping off a bridge rather than staying with her present girlfriend her girlfriend called the [facility] and they requested she come to the ER to be screened. She does not want to go inpatient psychiatry. She's has been there once before in 2016 at [place], [place] for suicidal ideation without attempt. She has no history of suicide attempt. She has no plan to kill herself today. She says she just wants out of her relationship because apparently her girlfriend's pushing her to finish her degree and she does not want to do it because she has fear related to this. She said when she was in [place] [facility] unit all she did was play solitaire and she did not find it to be a very therapeutic environment or helpful. (ZAINAB LANCE) Allergies and Home Medications Allergies Coded Allergies: ondansetron (Verified Allergy, Mild, 03/27/17) Itching at injection site with injectable form only. Oral form well tolerated. hydrocodone (Verified Allergy, Unknown, 03/27/17) Home Medications Cyclobenzaprine HCl 10 Mg Tablet, 10 MG PO Q8H Prescribed by: CINDY NAYLOR on 08/25/18 7185 Dicyclomine HCl 20 Mg Tablet, 20 MG PO Q6H Prescribed by: WAQAS BENZ on 09/28/18306 Famotidine 20 Mg Tablet, 20 MG PO BID Prescribed by: WAQAS BENZ on 09/28/18306 Prednisone 20 Mg Tab, 40 MG PO DAILY Prescribed by: CINDY NAYLOR on 08/25/18 9915 Patient Home Medication List Home Medication List Reviewed: Yes (WAQAS BENZ DO) Review of Systems Constitutional: no symptoms reported (WAQAS BENZ DO) Past Beyfjdq-Kgbcgv-Wufrpg Hx Patient Social History 2nd Hand Smoke Exposure: No Recent Foreign Travel: No Contact w/Someone Who Travel: No Recent Hopitalizations: Yes (multple e.d. visits) (ZAINAB LANCE) Immunizations Up To Date Tetanus Booster (TDap): Unknown (ZAINAB LANCE) Seasonal Allergies Seasonal Allergies: No (ZAINAB LANCE) Past Medical History Surgeries: Yes (egd/colonoscopy) Tonsillectomy Respiratory: No Cardiac: Yes Hypertension Neurological: No Sexually Transmitted Disease: No HIV/AIDS: No Genitourinary: No Gastrointestinal: Yes (Questionable Crohn's disease) Colitis, Chronic Constipation, Chronic Diarrhea Musculoskeletal: No Endocrine: No HEENT: No Cancer: No Psychosocial: Yes ADD/ADHD, Anxiety, Depression Integumentary: No Blood Disorders: No (ZAINAB LANCE) Family Medical History GI Disease (ZAINAB LANCE) Physical Exam Vital Signs - First Documented 10/25/18 16:57 Temp 98.4 Pulse 88 Resp 16 B/P (MAP) 172/93 (119) Pulse Ox 97 (WAQAS BENZ DO) Capillary Refill : (ZAINAB LANCE) Height, Weight, BMI Height: 5'4.00" Weight: 280lbs. 0oz. 127.613866jx; BMI Method:Stated (ZAINAB LANCE) General Appearance: obese, other (WAQAS BENZ DO) Progress/Results/Core Measures Results/Orders Lab Results Laboratory Tests Test 10/25/18 17:50 10/25/18 18:14 Range/Units Urine Color YELLOW Urine Clarity CLEAR Urine pH 5.5 5-9 Urine Specific Hamer 1.010 L 1.016-1.022 Urine Protein NEGATIVE NEGATIVE Urine Glucose (UA) NEGATIVE NEGATIVE Urine Ketones NEGATIVE NEGATIVE Urine Nitrite NEGATIVE NEGATIVE Urine Bilirubin NEGATIVE NEGATIVE Urine Urobilinogen 0.2 NORMAL MG/DL Urine Leukocyte Esterase NEGATIVE NEGATIVE Urine RBC (Auto) 1+ H NEGATIVE Urine RBC 2-5 H /HPF Urine WBC NONE /HPF Urine Squamous Epithelial Cells 5-10 /HPF Urine Crystals NONE /LPF Urine Bacteria NONE /HPF Urine Casts NONE /LPF Urine Mucus NEGATIVE /LPF Urine Culture Indicated NO Urine Test NEGATIVE NEGATIVE Urine Opiates Screen NEGATIVE NEGATIVE Urine Oxycodone Screen NEGATIVE NEGATIVE Urine Methadone Screen NEGATIVE NEGATIVE Urine Propoxyphene Screen NEGATIVE NEGATIVE Urine Barbiturates Screen NEGATIVE NEGATIVE Ur Tricyclic Antidepressants Screen NEGATIVE NEGATIVE Urine Phencyclidine Screen NEGATIVE NEGATIVE Urine Amphetamines Screen NEGATIVE NEGATIVE Urine Methamphetamines Screen NEGATIVE NEGATIVE Urine Benzodiazepines Screen POSITIVE H NEGATIVE Urine Cocaine Screen NEGATIVE NEGATIVE Urine Cannabinoids Screen NEGATIVE NEGATIVE White Blood Count 6.7 4.3-11.0 10^3/uL Red Blood Count 4.48 4.35-5.85 10^6/uL Hemoglobin 12.2 11.5-16.0 G/DL Hematocrit 40 35-52 % Mean Corpuscular Volume 88 80-99 FL Mean Corpuscular Hemoglobin 27 25-34 PG Mean Corpuscular Hemoglobin Concent 31 L 32-36 G/DL Red Cell Distribution Width 14.2 10.0-14.5 % Platelet Count 243 130-400 10^3/uL Mean Platelet Volume 10.7 H 7.4-10.4 FL Neutrophils (%) (Auto) 59 42-75 % Lymphocytes (%) (Auto) 28 12-44 % Monocytes (%) (Auto) 7 0-12 % Eosinophils (%) (Auto) 5 0-10 % Basophils (%) (Auto) 1 0-10 % Neutrophils # (Auto) 4.0 1.8-7.8 X 10^3 Lymphocytes # (Auto) 1.9 1.0-4.0 X 10^3 Monocytes # (Auto) 0.4 0.0-1.0 X 10^3 Eosinophils # (Auto) 0.3 0.0-0.3 10^3/uL Basophils # (Auto) 0.1 0.0-0.1 10^3/uL Sodium Level 136 135-145 MMOL/L Potassium Level 4.3 3.6-5.0 MMOL/L Chloride Level 101 98-107 MMOL/L Carbon Dioxide Level 21 21-32 MMOL/L Anion Gap 14 5-14 MMOL/L Blood Urea Nitrogen 7 7-18 MG/DL Creatinine 0.68 0.60-1.30 MG/DL Estimat Glomerular Filtration Rate > 60 BUN/Creatinine Ratio 10 Glucose Level 121 H 70-105 MG/DL Calcium Level 9.1 8.5-10.1 MG/DL Corrected Calcium 9.0 8.5-10.1 MG/DL Total Bilirubin 0.2 0.1-1.0 MG/DL Aspartate Amino Transf (AST/SGOT) 21 5-34 U/L Alanine Aminotransferase (ALT/SGPT) 23 0-55 U/L Alkaline Phosphatase 98 40-136 U/L Total Protein 7.2 6.4-8.2 GM/DL Albumin 4.1 3.2-4.5 GM/DL Salicylates Level 0.4 L 5.0-20.0 MG/DL Acetaminophen Level < 10 L 10-30 UG/ML Serum Alcohol < 10 <10 MG/DL (WAQAS BENZ DO) Vital Signs/I&O 10/25/18 16:57 Temp 98.4 Pulse 88 Resp 16 B/P (MAP) 172/93 (119) Pulse Ox 97 (WAQAS BENZ DO) Progress Progress Note : Time: 21:48 Progress Note Patient denies SI, HI, hallucinations and delusions. Awaiting psychiatric consult. Patient states she is tired of waiting and wishes to leave and requests discharge from the emergency department. Attempts are made to persuade patient to stay including offering the patient a meal which she declined. Patient will be discharged at her request AGAINST MEDICAL ADVICE with instructions to follow-up with her local counselor and family independence case manager. She is to return to the emergency department should she change her mind or symptoms worsen. (WAQAS BENZ DO) Departure Impression Primary Impression: Mood disorder Disposition: 07 AGAINST MEDICAL ADVICE Condition: Against Medical Advice Departure-Patient Inst. Decision time for Depature: 21:50 (WAQAS BENZ DO) Referrals: [facility] (PCP/Family) Primary Care Physician Add. Discharge Instructions: Follow up with your his traffic manager and mental health worker. Follow-up with your PCP for reevaluation. Return to the ED if you change her mind regarding further evaluation. All discharge instructions reviewed with patient and/or family. Voiced understanding. ZAINAB LANCE Oct 25, 2018 17:48 WAQAS BENZ DO Oct 25, 2018 21:52
[2018-10-25 18:05] LABS: BILIRUBIN,URINE NEGATIVE (NEGATIVE); CLARITY,URINE CLEAR; COLOR,URINE YELLOW; GLUCOSE, URINE (UA) NEGATIVE (NEGATIVE); HCG,QUALITATIVE URINE NEGATIVE (NEGATIVE); KETONES,URINE NEGATIVE (NEGATIVE); LEUKOCYTE ESTERASE ,URINE NEGATIVE (NEGATIVE); NITRITE,URINE NEGATIVE (NEGATIVE); PH,URINE 5.5 (5-9); PROTEIN,URINE NEGATIVE (NEGATIVE); UROBILINOGEN,URINE 0.2 MG/DL (NORMAL)
[2018-10-25 18:15] LABS: BENZODIAZEPINES SCREEN URINE POSITIVE (NEGATIVE)
[2018-10-25 18:16] LABS: AMPHETAMINE SCREEN, URINE NEGATIVE (NEGATIVE); BARBITURATE SCREEN URINE NEGATIVE (NEGATIVE); CANNABINOID SCREEN, URINE NEGATIVE (NEGATIVE); COCAINE SCREEN URINE NEGATIVE (NEGATIVE); METHADONE STAT NEGATIVE (NEGATIVE); METHAMPHETAMINE SCREEN URINE S NEGATIVE (NEGATIVE); OPIATE SCREEN URINE NEGATIVE (NEGATIVE); OXYCODONE STAT NEGATIVE (NEGATIVE); PROPOXYPHENE STAT NEGATIVE (NEGATIVE); TRICYCLIC ANTIDEPRESSANTS SCRE NEGATIVE (NEGATIVE)
[2018-10-25 18:22] LABS: BASOPHILS % (AUTO) 1 % (0-10); EOSINOPHILS % (AUTO) 5 % (0-10); HEMATOCRIT 40 % (35-52); HEMOGLOBIN 12.2 G/DL (11.5-16.0); LYMPHOCYTES % (AUTO) 28 % (12-44); MEAN CORPUSCULAR HEMOGLOBIN 27 PG (25-34); MEAN CORPUSCULAR HGB CONC 31 G/DL (32-36); MEAN CORPUSCULAR VOLUME 88 FL (80-99); MEAN PLATELET VOLUME 10.7 FL (7.4-10.4); MONOCYTES % (AUTO) 7 % (0-12); NEUTROPHILS % (AUTO) 59 % (42-75); PLATELET COUNT 243 10^3/uL (130-400); RED CELL DISTRIBUTION WIDTH 14.2 % (10.0-14.5); WHITE BLOOD COUNT 6.7 10^3/uL (4.3-11.0)
[2018-10-25 18:23] LABS: BASOPHILS # (AUTO) 0.1 10^3/uL (0.0-0.1); EOSINOPHILS # (AUTO) 0.3 10^3/uL (0.0-0.3); LYMPHOCYTES # (AUTO) 1.9 X 10^3 (1.0-4.0); MONOCYTES # (AUTO) 0.4 X 10^3 (0.0-1.0)
[2018-10-25 18:48] LABS: BILIRUBIN,TOTAL 0.2 MG/DL (0.1-1.0); BUN/CREATININE RATIO 10; CALCIUM 9.1 MG/DL (8.5-10.1); CARBON DIOXIDE 21 MMOL/L (21-32); CHLORIDE 101 MMOL/L (98-107); CREATININE SERUM 0.68 MG/DL (0.60-1.30); GFR ESTIMATED > 60; GLUCOSE 121 MG/DL (70-105); POTASSIUM 4.3 MMOL/L (3.6-5.0); SODIUM 136 MMOL/L (135-145)
[2018-10-25 18:49] LABS: ACETAMINOPHEN < 10 UG/ML (10-30); ALANINE AMINOTRANSFERASE 23 U/L (0-55); ALBUMIN 4.1 GM/DL (3.2-4.5); ALKALINE PHOSPHATASE 98 U/L (40-136); SALICYLATE 0.4 MG/DL (5.0-20.0); TOTAL PROTEIN 7.2 GM/DL (6.4-8.2)
--- NOTE | 2018-10-25 19:15 | NUR ---
Called [facility] mental health screener for Natalie Harry at 1915.
--- NOTE | 2018-10-25 21:50 | NUR ---
Dr Frances talking with pt, pt leaving ama.
== END | disposition left against medical advice (07) ==
LOC: EDUNIT# 15:44 → ER FS 15:47
DX: F39 Unspecified mood [affective] disorder (principal); F41.9 Anxiety disorder, unspecified; F98.8 Other specified behavioral and emotional disorders with onset usually occurring in childhood and adolescence; F90.9 Attention-deficit hyperactivity disorder, unspecified type; F32.9 Major depressive disorder, single episode, unspecified; I10 Essential (primary) hypertension; Z87.19 Personal history of other diseases of the digestive system; Z88.8 Allergy status to other drugs, medicaments and biological substances; Z88.5 Allergy status to narcotic agent; Z79.52 Long term (current) use of systemic steroids; Z90.89 Acquired absence of other organs
CPT/HCPCS: 36415; 80053; 80306; 80320; 80329; 81000; 84443; 84703; 85025; 93005

== ENCOUNTER 2018-12-14 01:06 | Emergency (ER) | payer SELFPAY ==
[~2018-12-14] VITALS: Ht 165.1 cm; Wt 127.0 kg
--- NOTE | 2018-12-14 01:50 | ED Back Pain ---
General Chief Complaint: Back Problems Stated Complaint: LOWER BACK PAIN Source of Information: Patient History of Present Illness Date Seen by Provider: December 14, 2018 Time Seen by Provider: 01:50 Initial Comments 48-year-old female presenting with complaints of low back pain. She states that this is been progressing over the last 4-5 days. She denies any direct trauma or injury to her back. She states that this chest developed. She denies having pain like this in the past. She has no numbness or tingling into her legs. She has had difficulty controlling her bowels or bladder. She has no abdominal pain with this. She's had no nausea or vomiting. There is no radiation of the pain into her legs. The pain is across the lower area of her back. She states that she went camping over the weekend and was in a hammock and since then she has had this low back pain that has been getting worse. She has an appointment on December 14 to be seen in the clinic for this but felt that the pain was so severe tonight that she came to the emergency department. She also is concerned about the swelling that she has in her legs. She states that this is new when she's not sure what was causing it. The swelling is equal and present to both legs. Allergies and Home Medications Allergies Coded Allergies: ondansetron (Verified Allergy, Mild, 03/27/17) Itching at injection site with injectable form only. Oral form well tolerated. hydrocodone (Verified Allergy, Unknown, 03/27/17) Home Medications Cyclobenzaprine HCl 10 Mg Tablet, 10 MG PO Q8H Prescribed by: CINDY NAYLOR on 08/25/181644 Dicyclomine HCl 20 Mg Tablet, 20 MG PO Q6H Prescribed by: WAQAS BENZ on 09/28/18306 Famotidine 20 Mg Tablet, 20 MG PO BID Prescribed by: WAQAS BENZ on 09/28/18306 Prednisone 20 Mg Tab, 40 MG PO DAILY Prescribed by: CINDY NAYLOR on 08/25/181644 Patient Home Medication List Home Medication List Reviewed: Yes Review of Systems Constitutional: No chills, No fever, No malaise, No weakness EENTM: no symptoms reported Respiratory: no symptoms reported Cardiovascular: see HPI; No chest pain; edema; No palpitations Gastrointestinal: No abdominal pain, No constipation, No diarrhea, No nausea, No vomiting Genitourinary: No dysuria; frequency; No incontinence : No Musculoskeletal: see HPI, back pain Skin: no symptoms reported Past Rfchvoh-Qfkcod-Uwphhj Hx Past Med/Social Hx: Reviewed Nursing Past Med/Soc Hx Patient Social History 2nd Hand Smoke Exposure: No Recent Foreign Travel: No Contact w/Someone Who Travel: No Recent Hopitalizations: Yes (multple e.d. visits) Immunizations Up To Date Tetanus Booster (TDap): Unknown Seasonal Allergies Seasonal Allergies: No Past Medical History Surgeries: Yes (egd/colonoscopy) Tonsillectomy Respiratory: No Cardiac: Yes Hypertension Neurological: No Sexually Transmitted Disease: No HIV/AIDS: No Genitourinary: No Gastrointestinal: Yes (Questionable Crohn's disease) Colitis, Chronic Constipation, Chronic Diarrhea Musculoskeletal: No Endocrine: No HEENT: No Cancer: No Psychosocial: Yes ADD/ADHD, Anxiety, Depression Integumentary: No Blood Disorders: No Family Medical History GI Disease Physical Exam Vital Signs Vital Signs - First Documented 12/14/18 01:22 Temp 99.2 Pulse 93 Resp 18 B/P (MAP) 161/86 (111) Pulse Ox 95 Capillary Refill : Height, Weight, BMI Height: 5'5.00" Weight: 280lbs. 0oz. 127.342266im; BMI Method:Stated General Appearance: No Apparent Distress, WD/WN, Obese HEENT: PERRL/EOMI, Pharynx Normal Neck: Full Range of Motion, Normal Inspection, Non Tender, Supple Cardiovascular: Regular Rate, Rhythm, Normal Peripheral Pulses Respiratory: Chest Non Tender, Lungs Clear, Normal Breath Sounds, No Accessory Muscle Use, No Respiratory Distress Gastrointestinal: Normal Bowel Sounds, No Pulsatile Mass, Non Tender, Soft Back: No Vertebral Tenderness; No Vertebral Tenderness; Other (lumbar paraspinal tenderness) Extremity: Normal Capillary Refill, Normal Range of Motion, No Calf Tenderness , Pedal Edema (2 plus pitting edema to BLE) Neurologic/Psychiatric: Alert, Oriented x3, No Motor/Sensory Deficits, Normal Mood/Affect, slot ambassador II-XII Norm as Tested Skin: Normal Color, Warm/Dry Progress/Results/Core Measures Results/Orders Lab Results Laboratory Tests Test 12/14/18 02:00 12/14/18 03:03 Range/Units Urine Color YELLOW Urine Clarity SL CLOUDY Urine pH 6.0 5-9 Urine Specific [place] >=1.030 1.016-1.022 Urine Protein NEGATIVE NEGATIVE Urine Glucose (UA) NEGATIVE NEGATIVE Urine Ketones TRACE H NEGATIVE Urine Nitrite NEGATIVE NEGATIVE Urine Bilirubin NEGATIVE NEGATIVE Urine Urobilinogen 0.2 NORMAL MG/DL Urine Leukocyte Esterase NEGATIVE NEGATIVE Urine RBC (Auto) 3+ H NEGATIVE Urine RBC 2-5 H /HPF Urine WBC 5-10 H /HPF Urine Squamous Epithelial Cells 25-50 H /HPF Urine Crystals NONE /LPF Urine Bacteria FEW H /HPF Urine Casts NONE /LPF Urine Mucus LARGE H /LPF Urine Culture Indicated NO White Blood Count 5.9 4.3-11.0 10^3/uL Red Blood Count 4.01 L 4.35-5.85 10^6/uL Hemoglobin 10.9 L 11.5-16.0 G/DL Hematocrit 35 35-52 % Mean Corpuscular Volume 87 80-99 FL Mean Corpuscular Hemoglobin 27 25-34 PG Mean Corpuscular Hemoglobin Concent 31 L 32-36 G/DL Red Cell Distribution Width 14.9 H 10.0-14.5 % Platelet Count 231 130-400 10^3/uL Mean Platelet Volume 10.5 H 7.4-10.4 FL Neutrophils (%) (Auto) 59 42-75 % Lymphocytes (%) (Auto) 28 12-44 % Monocytes (%) (Auto) 9 0-12 % Eosinophils (%) (Auto) 3 0-10 % Basophils (%) (Auto) 1 0-10 % Neutrophils # (Auto) 3.5 1.8-7.8 X 10^3 Lymphocytes # (Auto) 1.7 1.0-4.0 X 10^3 Monocytes # (Auto) 0.5 0.0-1.0 X 10^3 Eosinophils # (Auto) 0.2 0.0-0.3 10^3/uL Basophils # (Auto) 0.0 0.0-0.1 10^3/uL Sodium Level 137 135-145 MMOL/L Potassium Level 4.0 3.6-5.0 MMOL/L Chloride Level 98 98-107 MMOL/L Carbon Dioxide Level 21 21-32 MMOL/L Anion Gap 18 H 5-14 MMOL/L Blood Urea Nitrogen 14 7-18 MG/DL Creatinine 0.71 0.60-1.30 MG/DL Estimat Glomerular Filtration Rate > 60 BUN/Creatinine Ratio 20 Glucose Level 148 H 70-105 MG/DL Calcium Level 8.9 8.5-10.1 MG/DL Corrected Calcium 9.1 8.5-10.1 MG/DL Total Bilirubin 0.2 0.1-1.0 MG/DL Aspartate Amino Transf (AST/SGOT) 18 5-34 U/L Alanine Aminotransferase (ALT/SGPT) 21 0-55 U/L Alkaline Phosphatase 88 40-136 U/L Total Protein 6.9 6.4-8.2 GM/DL Albumin 3.7 3.2-4.5 GM/DL Lipase 19 8-78 U/L My Orders Orders - KIRSTIE CHAUDHARI MD Ua Culture If Indicated (12/14/18 01:58) Comprehensive Metabolic Panel (12/14/18 02:43) Lipase (12/14/18 02:43) Ed Iv/Invasive Line Start (12/14/18 02:43) Cbc With Automated Diff (12/14/18 02:43) Ct Abdomen/Pelvis Wo (12/14/18 02:43) Ns Iv 1000 Ml (Sodium Chloride 0.9%) (12/14/18 02:43) Morphine Injection (Morphine Injection (12/14/18 02:43) Ketorolac Injection (Toradol Injection) (12/14/18 02:43) Cyclobenzaprine Tablet (Flexeril Tablet) (12/14/18 02:43) Morphine Injection (Morphine Injection (12/14/18 05:03) Vital Signs/I&O 12/14/18 12/14/18 01:22 05:47 Temp 99.2 98.7 Pulse 93 87 Resp 18 20 B/P (MAP) 161/86 (111) 145/86 (105) Pulse Ox 95 97 Progress Progress Note #1: Progress Note check labs and CT scan of abd/pelvis to look into her low back pain and kidneys for possible sources of her pain and swelling in her legs Try Morphine with Toradol and Flexeril for pain and spasms. Since her UA shows trace amount of blood and she had elevated specific gravity will try IVF for hydration. Progress Note #2: Time: 05:00 Progress Note Labs are stable without acute significant abnormality in her CBC or chemistry. She has some improvement in her pain but it is still present especially with movement. The CT scan did not demonstrate any acute significant abnormality. She has similar findings to 2017 when she was found to have enlarged fatty liver and a pulmonary nodule in the left lobe. This is stable from April. She has no bowel obstruction or focal intra-abdominal inflammatory process. We will update patient about the results and encouraged her to keep her appointment with the clinic during the day. Will try another dose of pain medicine and have patient follow-up through the clinic. She may need additional testing to look into the edema in her legs as well as the low back pain but nothing acute shows up on her testing here in the emergency department. Diagnostic Imaging Diagonstic Imaging: CT Plain Films/CT/US/NM/MRI: abdomen, pelvis Comments No bowel obstruction or focal intra-abdominal inflammatory process. Enlarged fatty liver. 11 mm pulmonary nodule in the left lower lobe that is unchanged from April 242016. Study was read at 0337. Initial results transmitted at 0350. Reviewed: [facility] Departure Impression Primary Impression: Acute lumbar back pain Qualified Codes: M54.5 - Low back pain Additional Impression: Leg edema Disposition: HOME, SELF-CARE Condition: Stable Departure-Patient Inst. Decision time for Depature: 05:14 Referrals: [facility] (PCP/Family) Primary Care Physician Patient Instructions: Dependent Edema (DC), Low Back Pain in Adults Add. Discharge Instructions: Keep your appointment with the clinic today to see what they want to do for further evaluation and treatment of your back pain and swelling/edema in your legs. All discharge instructions reviewed with patient and/or family. Voiced understanding. KIRSTIE CHAUDHARI MD December 14, 2018 01:50
[2018-12-14 02:11] LABS: CLARITY,URINE SL CLOUDY; COLOR,URINE YELLOW
[2018-12-14 02:12] LABS: BACTERIA,URINE FEW /HPF; BILIRUBIN,URINE NEGATIVE (NEGATIVE); GLUCOSE, URINE (UA) NEGATIVE (NEGATIVE); KETONES,URINE TRACE (NEGATIVE); LEUKOCYTE ESTERASE ,URINE NEGATIVE (NEGATIVE); NITRITE,URINE NEGATIVE (NEGATIVE); PROTEIN,URINE NEGATIVE (NEGATIVE); SQUAMOUS EPITHELIAL CELL,UR 25-50 /HPF; UROBILINOGEN,URINE 0.2 MG/DL (NORMAL)
[2018-12-14] MEDS ORDERED: morphine INJ 10 MG/ML 1ML (SYR OR VIAL) IVP STA ×2 (02:43→05:03)
[2018-12-14] MEDS ORDERED: CYCLOBENZAPRINE 10 MG (FLEXERIL) TAB PO STA (02:43)
[2018-12-14] MEDS ORDERED: KETOROLAC 30 MG/ML VIAL IVP STA (02:43)
[2018-12-14] MEDS ORDERED: NS IV 1000 ML 1,000 ML IV STA (02:43)
[2018-12-14 04:12] LABS: BASOPHILS % (AUTO) 1 % (0-10); EOSINOPHILS # (AUTO) 0.2 10^3/uL (0.0-0.3); EOSINOPHILS % (AUTO) 3 % (0-10); HEMATOCRIT 35 % (35-52); HEMOGLOBIN 10.9 G/DL (11.5-16.0); LYMPHOCYTES # (AUTO) 1.7 X 10^3 (1.0-4.0); LYMPHOCYTES % (AUTO) 28 % (12-44); MEAN CORPUSCULAR HEMOGLOBIN 27 PG (25-34); MEAN CORPUSCULAR HGB CONC 31 G/DL (32-36); MEAN CORPUSCULAR VOLUME 87 FL (80-99); MEAN PLATELET VOLUME 10.5 FL (7.4-10.4); MONOCYTES # (AUTO) 0.5 X 10^3 (0.0-1.0); MONOCYTES % (AUTO) 9 % (0-12); NEUTROPHILS # (AUTO) 3.5 X 10^3 (1.8-7.8); NEUTROPHILS % (AUTO) 59 % (42-75); PLATELET COUNT 231 10^3/uL (130-400); RED CELL DISTRIBUTION WIDTH 14.9 % (10.0-14.5); WHITE BLOOD COUNT 5.9 10^3/uL (4.3-11.0)
[2018-12-14 04:33] LABS: ALANINE AMINOTRANSFERASE 21 U/L (0-55); ALBUMIN 3.7 GM/DL (3.2-4.5); ALKALINE PHOSPHATASE 88 U/L (40-136); BILIRUBIN,TOTAL 0.2 MG/DL (0.1-1.0); BUN/CREATININE RATIO 20; CALCIUM 8.9 MG/DL (8.5-10.1); CARBON DIOXIDE 21 MMOL/L (21-32); CHLORIDE 98 MMOL/L (98-107); CREATININE SERUM 0.71 MG/DL (0.60-1.30); GFR ESTIMATED > 60; GLUCOSE 148 MG/DL (70-105); SODIUM 137 MMOL/L (135-145); TOTAL PROTEIN 6.9 GM/DL (6.4-8.2)
[2018-12-14 04:34] LABS: LIPASE 19 U/L (8-78)
[2018-12-14 05:47] VITALS: BP 145/86
--- NOTE | 2018-12-14 07:04 | Diagnostic Imaging Report ---
PROCEDURE: CT abdomen and pelvis without contrast. TECHNIQUE: Multiple contiguous axial images were obtained through the abdomen and pelvis without the use of intravenous contrast. Auto Exposure Controls were utilized during the CT exam to meet ALARA standards for radiation dose reduction. INDICATION: Back pain. COMPARISON: 01/06/2018 FINDINGS: Included portions of the lung bases show a 1.1 cm juxtapleural nodule within the posterior margins of the left lower lobe. This is stable compared to 04/24/2017. CT abdomen: Normal appendix cannot be adequately identified, but there is no pericecal inflammation. Small bowel loops are nondistended. Liver is diffusely hypodense consistent with background of hepatic steatosis. Otherwise, the liver, spleen, pancreas, adrenal glands, and kidneys have an unremarkable noncontrast CT appearance. There is no loculated fluid collection, free fluid, nor free air within the abdomen. No abnormal mesenteric or retroperitoneal adenopathy is seen. Bony structures show no acute abnormalities. CT pelvis: Urinary bladder is unopacified. No calculi are seen within urinary bladder. There is no loculated fluid collection, free fluid, nor free air within the pelvis. No abnormal adenopathy is seen. Bony structures show no acute abnormalities. Impression: 1. No acute abnormalities are seen within the abdomen or pelvis. 2. Hepatic steatosis. 3. Stable pulmonary nodule within the included portions of the left lower lobe. Dictated by: Dictated on workstation # [id number]
== END 2018-12-14 05:50 | disposition home or self-care (01) ==
LOC: EDUNIT# 01:06 → ER FS 01:08
DX: M54.5 Low back pain (principal); R60.0 Localized edema; I10 Essential (primary) hypertension; F90.9 Attention-deficit hyperactivity disorder, unspecified type; F41.9 Anxiety disorder, unspecified; F32.9 Major depressive disorder, single episode, unspecified; Z87.19 Personal history of other diseases of the digestive system; Z88.8 Allergy status to other drugs, medicaments and biological substances; Z88.5 Allergy status to narcotic agent; Z79.52 Long term (current) use of systemic steroids; Z90.89 Acquired absence of other organs
CPT/HCPCS: 36415; 74176; 80053; 81000; 83690; 85025; 96361; 96374; 96375; 96376

== ENCOUNTER 2019-02-10 15:19 | Emergency (ER) | payer SELFPAY ==
[~2019-02-10] VITALS: Ht 165.1 cm; Wt 130.2 kg
--- NOTE | 2019-02-10 16:13 | ED Neck-Back Pain/Injury ---
General Chief Complaint: Head/Cervical Problems Stated Complaint: NECK PAIN Nursing Triage Note: Pt ambulatory to ED assisted in via WC. Pt reports neck pain after moving items around inside her refrigerator. Nursing Sepsis Screen: No Definite Risk Source of Information: Patient, Family History of Present Illness Date Seen by Provider: Feb 10, 2019 Time Seen by Provider: 16:11 Initial Comments This 48-year-old female presents with a complaint of neck pain that began earlier today while she was trying to unload her freezer. She is complaining of pain over the right side of the neck. There has been forcefully no associated paresthesias or weakness. The patient denies associated head injury. The patient has had no other injuries today. Patient has had similar neck strains and spasm in the past. Allergies and Home Medications Allergies Coded Allergies: ondansetron (Verified Allergy, Mild, 03/27/17) Itching at injection site with injectable form only. Oral form well tolerated. hydrocodone (Verified Allergy, Unknown, 03/27/17) Home Medications Cyclobenzaprine HCl 10 Mg Tablet, 10 MG PO Q8H Prescribed by: CINDY NAYLOR on 08/25/18 1645 Dicyclomine HCl 20 Mg Tablet, 20 MG PO Q6H Prescribed by: WAQAS BENZ on 09/28/18 0307 Famotidine 20 Mg Tablet, 20 MG PO BID Prescribed by: WAQAS BENZ on 09/28/18 0307 Oxycodone HCl/Acetaminophen 1 Each Tablet, 1 TAB PO Q4H PRN for PAIN-MILD TO MODERATE Prescribed by: EDUARDO QUESADA MD on 02/10/19 1711 Prednisone 20 Mg Tab, 40 MG PO DAILY Prescribed by: CINDY NAYLOR on 08/25/18 1645 Patient Home Medication List Home Medication List Reviewed: Yes Review of Systems Constitutional: No chills EENTM: see HPI, other Respiratory: no symptoms reported (right-sided neck pain) Cardiovascular: no symptoms reported Gastrointestinal: no symptoms reported Genitourinary: no symptoms reported Musculoskeletal: see HPI, muscle pain, neck pain Skin: no symptoms reported Psychiatric/Neurological: No Symptoms Reported Past Sxdupei-Ffubdb-Xoybxl Hx Past Med/Social Hx: Reviewed Nursing Past Med/Soc Hx Patient Social History Alcohol Use: Denies Use Recreational Drug Use: No Smoking Status: Never a Smoker 2nd Hand Smoke Exposure: No Recent Foreign Travel: No Contact w/Someone Who Travel: No Recent Infectious Disease Expo: No Recent Hopitalizations: No Physical Abuse: No Sexual Abuse: No Mistreated: No Fear: No Immunizations Up To Date Tetanus Booster (TDap): Unknown Seasonal Allergies Seasonal Allergies: No Past Medical History Surgeries: Yes Tonsillectomy Respiratory: No Cardiac: Yes Hypertension Neurological: No Sexually Transmitted Disease: No HIV/AIDS: No Genitourinary: No Gastrointestinal: Yes Colitis, Chronic Constipation, Chronic Diarrhea Musculoskeletal: No Endocrine: No HEENT: Yes (corrective lenses) Hearing Impairment: Denies Cancer: No Psychosocial: Yes Sleep Difficulties, Anxiety, Depression Integumentary: No Blood Disorders: No Family Medical History GI Disease Physical Exam Vital Signs Vital Signs - First Documented 02/10/19 15:30 Temp 98.9 Pulse 88 Resp 20 B/P (MAP) 163/99 (120) Pulse Ox 97 O2 Delivery Room Air Capillary Refill : Less Than 3 Seconds Height, Weight, BMI Height: 5'5.00" Weight: 287lbs. 0oz. 130.417325sn; BMI Method:Stated General Appearance: WD/WN, Mild Distress HEENT: Normal ENT Inspection Neck: Limited Range of Motion, Tender Lateral Cardiovascular: Regular Rate, Rhythm (in the right paracervical region) Respiratory: Lungs Clear Gastrointestinal: Normal Bowel Sounds Extremity: Normal Capillary Refill, Normal Inspection, Normal Range of Motion, Non Tender Neurologic/Psychiatric: Oriented x3, No Motor/Sensory Deficits Skin: Normal Color, Warm/Dry Progress/Results/Core Measures Results/Orders My Orders Orders - EDUARDO QUESADA MD Fentanyl Injection (Sublimaze Injection (02/10/19 16:15) Cervical Spine 4 Or 5 View (02/10/19 16:10) Hydromorphone Injection (Dilaudid Inject (02/10/19 17:15) Medications Given in ED Current Medications Medications Dose Ordered Sig/Angeles Route Start Time Stop Time Status Last Admin Dose Admin Fentanyl Citrate 50 mcg ONCE ONCE IM 02/10/19 16:15 02/10/19 16:16 DC 02/10/19 16:18 50 MCG Vital Signs/I&O 02/10/19 15:30 Temp 98.9 Pulse 88 Resp 20 B/P (MAP) 163/99 (120) Pulse Ox 97 O2 Delivery Room Air Blood Pressure Mean: 120 Progress Progress Note : Time: 17:04 Progress Note The patient's pain was initially treated with 50 g of fentanyl IM. Cervical spine films demonstrated no evidence of fracture or dislocation. Patient's pain was only temporarily improved with the fentanyl. Patient rec eived a milligram of Dilaudid prior to discharge. Departure Impression Primary Impression: Cervical paraspinal muscle spasm Disposition: HOME, SELF-CARE Condition: Improved Departure-Patient Inst. Decision time for Depature: 17:09 Referrals: [facility] (PCP/Family) Primary Care Physician Patient Instructions: Cervical Muscle Strain (DC) Add. Discharge Instructions: Percocet and Flexeril as prescribed. Rest at home. Ice pack to the neck. Follow-up with her doctor Tuesday. Return if any problems or questions. All discharge instructions reviewed with patient and/or family. Voiced understanding. Scripts Cyclobenzaprine HCl (Cyclobenzaprine HCl) 10 Mg Tablet 10 MG PO TID for 7 Days, #20 TAB Prov: EDUARDO QUESADA MD 02/10/19 Oxycodone HCl/Acetaminophen (Percocet 5-325 mg Tablet) 1 Each Tablet 1 TAB PO Q4H PRN for PAIN-MILD TO MODERATE MDD 6 TABS for 7 Days, #14 TAB Prov: EDUARDO QUESADA MD 02/10/19 EDUARDO QUESADA MD Feb 10, 2019 16:13
[2019-02-10] MEDS ORDERED: fentaNYL INJECTION 100 MCG/2 ML AMP IM ONE (16:15)
--- NOTE | 2019-02-10 16:42 | Diagnostic Imaging Report ---
INDICATION: Neck pain. EXAMINATION: Six views of the cervical spine were obtained. FINDINGS: Straightening of the normal cervical lordosis. There is some multilevel degenerative disc disease. There is no fracture or traumatic subluxation. The odontoid is intact. The alignment is well aligned. Prevertebral soft tissues are within normal limits. IMPRESSION: Mild cervical spondylosis without acute fracture or traumatic subluxation. Dictated by: Dictated on workstation # [id number]
[2019-02-10] MEDS ORDERED: OXYC1TAB87 PO (17:11)
[2019-02-10] MEDS ORDERED: CYCL10TA9 PO (17:14)
[2019-02-10] MEDS ORDERED: HYDROmorphone 2 MG/ML VIAL (DILAUDID) IVP ONE (17:15)
[2019-02-10 17:41] VITALS: BP 155/90
[2019-02-11] MEDS ORDERED: KETO10TA PO (10:32)
== END 2019-02-10 17:41 | disposition home or self-care (01) ==
LOC: EDUNIT# 15:19 → ER FS 15:21
DX: M62.838 Other muscle spasm (principal); I10 Essential (primary) hypertension; F41.9 Anxiety disorder, unspecified; F32.9 Major depressive disorder, single episode, unspecified; Z87.19 Personal history of other diseases of the digestive system; Z88.5 Allergy status to narcotic agent; Z90.89 Acquired absence of other organs
CPT/HCPCS: 72050; 96372; 96374

== ENCOUNTER 2019-02-11 10:00 | Emergency (ER) | payer SELFPAY ==
[~2019-02-11] VITALS: Ht 165.1 cm; Wt 130.2 kg
[~2019-02-11 10:00] MED LIST changes: +OXYC1TAB87 PO
--- OUTSIDE RECORDS SUMMARY | 2019-02-11 10:05 | XMS REPORT | Clinical Summary ---
Author Author [facility] Organization [facility] Address Unknown Phone Unavailable Care Team Providers Care Therapist Name Role Phone Self, Referral PCP Unavailable Ariana Dempsey Unavailable Sanna Fields RN Unavailable Unavailable Puma Lyles RN Unavailable Unavailable Damaris Ragsdale RN Unavailable Unavailable Source Comments Some departments are not documenting in the electronic medical record. If you d o not see the information that you expected, contact Release of Information in [facility] [employer] Information Management department at [phone] for further assistan ce in locating additional records.[facility] Allergies Comments Active Allergy Reactions [...] Used Former Smoker Cigarettes 0.25 18 Comments: Nov 09 Drinks/Week oz/Week Comments Alcohol Use No Sex Assigned at Date Recorded Not on file Industry Job Start Date Occupation Not on file Not on file Not on file Travel End Travel History Travel Start No recent travel history available. Last Filed Vital Signs Reading Time Taken Comments Vital Sign 137/76 08/05/2009 10:02 AM [employer] Blood Pressure 82 08/05/2009 10:02 AM [employer] Pulse 36.6 C (97.8 F) 08/05/2009 8:00 AM [employer] Temperature - - Respiratory Rate 94% 08/05/2009 10:02 AM [employer] Oxygen Saturation - - Inhaled Oxygen Concentration 120.5 kg (265 lb 10.5 oz) 06/17/2009 10:14 PM [employer] Weight 165.1 cm (5' 5") 06/17/2009 10:14 PM [employer] Height 44.21 06/17/2009 10:14 PM [employer] Body Mass Index Plan of Treatment Health Maintenance Due Date Last Done Comments PHYSICAL (COMPREHENSIVE) 1979 EXAM HIV SCREENING 1987 DTAP/TDAP VACCINES (1 - 1990 Tdap) CERVICAL CANCER SCREENING 2002 BREAST CANCER SCREENING 2012 INFLUENZA VACCINE 05/08/2019 Results Not on filefrom Last 3 Months
--- OUTSIDE RECORDS SUMMARY | 2019-02-11 10:07 | XMS REPORT | Continuity of Care Document ---
Author Organization Unknown Address Unknown Allergies Active Description Code Type Severity Reaction Onset Reported/Identified Relationship to Patient Clinical Status Yes HYDROcodone Drug N/A N/A Yes Zofran Drug N/A N/A Yes hydrocodone [id number] Drug Allergy Unknown N/A 03/27/2017 Yes ondansetron [id number] Drug Allergy Mild N/A 03/27/2017 Medications Medication Packaging Start Date Stop Date Route Dosage Sig divalproex sodium 09/16/2011 09/30/2017 PO 1000 mg / 2 tab lisinopril 02/19/2017 PO lisinopril cyclobenzaprine 02/19/2017 03/21/2017 PO 10 mg / 1 tab hyoscyamine 09/08/2017 hyoscyamine cyclobenzaprine 09/08/2017 09/13/2017 PO 10 mg / 1 tab traMADol 09/08/2017 09/13/2017 PO 50 mg / 1 tab venlafaxine 09/30/2017 Effexor XR ondansetron 09/30/2017 Zofran amphetamine-dextroamphetamine 09/30/2017 Adderall cyclobenzaprine 09/30/2017 10/03/2017 PO 10 mg / 1 tab traMADol 05/02/2018 06/01/2018 PO 50 mg / 1 tab traMADol 05/10/2018 06/09/2018 PO 50 mg / 1 tab Problems [...] OUT D/T PT [facility] SEE 02/04/2017 NIDHI WALLER KRISH Vance Ot K31.9 DISEASE OF STOMACH AND DUODENUM, UNSPECI 02/04/2017 KRISH TERRELL DO Ot Z53.21 PROC/TRTMT NOT CRD OUT D/T PT [facility] SEE 02/19/2017 Jacobo Chua Admitting M54.2 Cervicalgia 02/19/2017 HarshilJacobo cornelius Final S16.1XXA Strain of muscle, fascia and tendon at neck level, initial e 02/19/2017 BurneyJacobo cornelius Final X58.XXXA Exposure to other specified factors, [...] Ot F90.9 ATTENTION-DEFICIT HYPERACTIVITY DISORDER 04/24/2017 ZAINAB LACNE MD Ot I10 ESSENTIAL (PRIMARY) HYPERTENSION 04/24/2017 [...] F32.9 MAJOR DEPRESSIVE DISORDER, SINGLE EPISOD 04/29/2017 ZAINAB LANCE MD Ot F41.9 ANXIETY DISORDER, UNSPECIFIED 04/29/2017 ZAINAB LANCE MD Ot F90.9 ATTENTION-DEFICIT HYPERACTIVITY DISORDER 04/29/2017 ZAINAB LANCE MD Ot I10 ESSENTIAL (PRIMARY) HYPERTENSION 04/29/2017 ZAINAB LANCE MD Ot R10.11 RIGHT UPPER QUADRANT PAIN 04/29/2017 ZAINAB LANCE MD Ot R10.12 LEFT UPPER QUADRANT PAIN 04/29/2017 ZAINAB LANCE MD Ot R10.13 EPIGASTRIC PAIN 04/29/2017 ZAINAB LANCE MD Ot R10.32 LEFT LOWER QUADRANT PAIN 04/29/2017 ZAINAB LANCE MD Ot R10.9 UNSPECIFIED ABDOMINAL PAIN 04/29/2017 ZAINAB LANCE MD Ot Z87.19 PERSONAL HISTORY [...] LIVER, NOT ELSEWHERE C 05/15/2018 EZEQUIEL CHAVIRA ELECTRICAL INSTRUMENT TECHNICIAN Ot K56.7 ILEUS, UNSPECIFIED 05/15/2018 EZEQUIEL CHAVIRA ELECTRICAL INSTRUMENT TECHNICIAN Ot K76.0 FATTY (CHANGE OF) LIVER, NOT ELSEWHERE C 05/15/2018 EZEQUIEL CHAVIRA ELECTRICAL INSTRUMENT TECHNICIAN Ot K56.7 ILEUS, UNSPECIFIED 05/15/2018 EZEQUIEL CHAVIRA ELECTRICAL INSTRUMENT TECHNICIAN Ot K76.0 FATTY (CHANGE OF) LIVER, NOT ELSEWHERE C 08/25/2018 JARED NAYLORIS Ot F32.9 MAJOR DEPRESSIVE DISORDER, SINGLE EPISOD 08/25/2018 JARED NAYLORIS Ot F41.9 ANXIETY DISORDER, UNSPECIFIED 08/25/2018 JARED NAYLORIS Ot F90.9 ATTENTION- DEFICIT HYPERACTIVITY DISORDER 08/25/2018 JARED NAYLORIS Ot F98.8 OT BEHAV/EMOTN DISORD W ONSET USLY OCCU 08/25/2018 JARED NAYLORIS Ot I10 ESSENTIAL (PRIMARY) HYPERTENSION 08/25/2018 JARED NAYLORIS Ot M54.2 CERVICALGIA 08/25/2018 JARED NAYLORIS Ot S13.4XXA SPRAIN OF LIGAMENTS OF CERVICAL SPINE, I 08/25/2018 JARED NAYLORIS Ot X58.XXXA EXPOSURE TO OTHER SPECIFIED FACTORS, INI 08/25/2018 JARED NAYLORIS Ot Z79.52 [employer]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 08/25/2018 JARED NAYLORIS Ot Z87.19 PERSONAL HISTORY OF OTHER DISEASES OF TH 08/25/2018 CINDY NAYLOR Ot Z88.5 ALLERGY STATUS TO NARCOTIC AGENT STATUS 08/25/2018 JARED NAYLORIS Ot Z88.8 ALLERGY STATUS TO OT DRUG/MEDS/BIOL SUB 08/25/2018 JARED NAYLORIS Ot Z90.89 ACQUIRED ABSENCE OF OTHER ORGANS 08/25/2018 EZEQUIEL CHAVIRA ELECTRICAL INSTRUMENT TECHNICIAN Ot K56.7 ILEUS, UNSPECIFIED 08/25/2018 EZEQUIEL CHAVIRA ELECTRICAL INSTRUMENT TECHNICIAN Ot K76.0 FATTY (CHANGE OF) LIVER, NOT ELSEWHERE C 08/28/2018 JARDE NAYLORIS Ot F32.9 MAJOR DEPRESSIVE DISORDER, SINGLE EPISOD 08/28/2018 JARED NAYLORIS Ot F41.9 ANXIETY DISORDER, UNSPECIFIED 08/28/2018 CINDY NAYLOR Ot F90.9 ATTENTION- DEFICIT HYPERACTIVITY DISORDER 08/28/2018 CINDY NAYLOR Ot F98.8 OTH BEHAV/EMOTN DISORD W ONSET USLY OCCU 08/28/2018 CINDY NAYLOR Ot I10 ESSENTIAL (PRIMARY) HYPERTENSION 08/28/2018 CINDY NAYLOR Ot M54.2 CERVICALGIA 08/28/2018 CINDY NAYLOR Ot S13.4XXA SPRAIN OF LIGAMENTS OF CERVICAL SPINE, I 08/28/2018 CINDY NAYLOR Ot X58.XXXA EXPOSURE TO OTHER SPECIFIED FACTORS, INI 08/28/2018 CINDY NAYLOR Ot 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 [employer]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 08/28/2018 CINDY [...] FATTY (CHANGE OF) LIVER, NOT ELSEWHERE C 09/28/2018 WAQAS BENZ DO, Ot F32.9 MAJOR DEPRESSIVE DISORDER, SINGLE EPISOD 09/28/2018 WAQAS BENZ DO, Ot F41.9 ANXIETY DISORDER, UNSPECIFIED 09/28/2018 WAQAS BENZ DO, Ot F90.9 ATTENTION- DEFICIT HYPERACTIVITY DISORDER 09/28/2018 WAQAS BENZ DO Ot F98.8 OTH BEHAV/EMOTN DISORD W ONSET USLY OCCU 09/28/2018 WAQAS BENZ DO Ot I10 ESSENTIAL (PRIMARY) HYPERTENSION 09/28/2018 WAQAS BENZ DO Ot K21.0 GASTRO- ESOPHAGEAL REFLUX DISEASE WITH ES 09/28/2018 WAQAS BENZ DO, Ot K58.9 IRRITABLE BOWEL SYNDROME WITHOUT DIARRHE 09/28/2018 WAQAS BENZ DO Ot R10.13 EPIGASTRIC PAIN 09/28/2018 WAQAS BENZ DO Ot Z79.52 [employer]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 09/28/2018 WAQAS BENZ DO Ot Z87.19 PERSONAL HISTORY OF OTHER DISEASES OF 09/28/2018 BENZ DO, WAQAS Ot Z88.5 ALLERGY STATUS TO NARCOTIC AGENT STATUS 09/28/2018 BENZ DO, WAQAS Ot Z88.8 ALLERGY STATUS TO OTH DRUG/MEDS/BIOL SUB 09/28/2018 BENZ DO, WAQAS Ot Z90.89 ACQUIRED ABSENCE OF OTHER ORGANS 10/04/2018 BENZ DO, WAQAS Ot F32.9 MAJOR DEPRESSIVE DISORDER, SINGLE EPISOD 10/04/2018 BENZ DO, WAQAS Ot F41.9 ANXIETY DISORDER, UNSPECIFIED 10/04/2018 BENZ DO, WAQAS Ot F90.9 ATTENTION- DEFICIT HYPERACTIVITY DISORDER 10/04/2018 BENZ DO, WAQAS Ot F98.8 OTH BEHAV/EMOTN DISORD W ONSET USLY OCCU 10/04/2018 BENZ DO, WAQAS Ot I10 ESSENTIAL (PRIMARY) HYPERTENSION 10/04/2018 BENZ DO, WAQAS Ot K21.0 GASTRO- ESOPHAGEAL REFLUX DISEASE WITH ES 10/04/2018 BENZ DO, WAQAS Ot K58.9 IRRITABLE BOWEL SYNDROME WITHOUT DIARRHE 10/04/2018 BENZ DO, WAQAS Ot R10.13 EPIGASTRIC PAIN 10/04/2018 BENZ DO, WAQAS Ot Z79.52 [facility] (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 STER 10/04/2018 BENZ DO, WAQAS Ot Z87.19 PERSONAL HISTORY OF OTHER DISEASES OF 10/04/2018 BENZ DO, WAQAS Ot Z88.5 ALLERGY STATUS TO NARCOTIC AGENT STATUS 10/04/2018 BENZ DO, WAQAS Ot Z88.8 ALLERGY STATUS TO OTH DRUG/MEDS/BIOL SUB 10/04/2018 BENZ DO, WAQAS Ot Z90.89 ACQUIRED ABSENCE OF OTHER ORGANS 10/06/2018 BENZ DO, WAQAS Ot F32.9 MAJOR DEPRESSIVE DISORDER, SINGLE EPISOD 10/06/2018 BENZ DO, WAQAS Ot F41.9 ANXIETY DISORDER, UNSPECIFIED 10/06/2018 BENZ DO, WAQAS Ot F90.9 ATTENTION- DEFICIT HYPERACTIVITY DISORDER 10/06/2018 BENZ DO, WAQAS Ot F98.8 OTH BEHAV/EMOTN DISORD W ONSET USLY OCCU 10/06/2018 BENZ DO, WAQAS Ot I10 ESSENTIAL (PRIMARY) HYPERTENSION 10/06/2018 BENZ DO, WAQAS Ot K21.0 GASTRO- ESOPHAGEAL REFLUX DISEASE WITH ES 10/06/2018 BENZ DO, WAQAS Ot K58.9 IRRITABLE BOWEL SYNDROME WITHOUT DIARRHE 10/06/2018 BENZ DO, WAQAS Ot R10.13 EPIGASTRIC PAIN 10/06/2018 BENZ WAQAS Ot Z79.52 [employer]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 10/06/2018 BENZ WAQAS Ot Z87.19 PERSONAL HISTORY OF OTHER DISEASES OF 10/06/2018 BENZ WAQAS Ot Z88.5 ALLERGY STATUS TO NARCOTIC AGENT STATUS 10/06/2018 BENZ WAQAS Ot Z88.8 ALLERGY STATUS TO OTH DRUG/MEDS/BIOL SUB 10/06/2018 WAQAS BENZ DO Ot Z90.89 ACQUIRED ABSENCE OF OTHER ORGANS 11/26/2018 ZAINAB LANCE MD Ot F32.9 MAJOR DEPRESSIVE DISORDER, SINGLE EPISOD 11/26/2018 ZAINAB LANCE MD Ot F39 UNSPECIFIED MOOD [AFFECTIVE] DISORDER 11/26/2018 ZAINAB LANCE MD Ot F41.9 ANXIETY DISORDER, UNSPECIFIED 11/26/2018 ZAINAB LANCE MD Ot F90.9 ATTENTION-DEFICIT HYPERACTIVITY DISORDER 11/26/2018 ZAINAB LANCE MD Ot F98.8 OTH BEHAV/EMOTN DISORD W ONSET USLY OCCU 11/26/2018 ZAINAB LANCE MD Ot I10 ESSENTIAL (PRIMARY) HYPERTENSION 11/26/2018 ZAINAB LANCE MD Ot Z79.52 [employer]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 11/26/2018 ZAINAB LANEC MD Ot Z87.19 PERSONAL HISTORY OF OTHER DISEASES OF 11/26/2018 ZAINAB LANCE MD Ot Z88.5 ALLERGY STATUS TO NARCOTIC AGENT STATUS 11/26/2018 ZAINAB LANCE MD Ot Z88.8 ALLERGY STATUS TO OTH DRUG/MEDS/BIOL SUB 11/26/2018 ZAINAB LANCE MD Ot Z90.89 ACQUIRED ABSENCE OF OTHER ORGANS 11/30/2018 ZAINAB LANCE MD Ot F32.9 MAJOR DEPRESSIVE DISORDER, SINGLE EPISOD 11/30/2018 ZAINAB LANCE MD Ot F39 UNSPECIFIED MOOD [AFFECTIVE] DISORDER 11/30/2018 ZAINAB LANCE MD Ot F41.9 ANXIETY DISORDER, UNSPECIFIED 11/30/2018 ZAINAB LANCE MD Ot F90.9 ATTENTION-DEFICIT HYPERACTIVITY DISORDER 11/30/2018 ZAINAB LANCE MD Ot F98.8 OTH BEHAV/EMOTN DISORD W ONSET USLY OCCU 11/30/2018 ZAINAB LANCE MD Ot I10 ESSENTIAL (PRIMARY) HYPERTENSION 11/30/2018 ZAINAB LANCE MD Ot 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 [employer]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 11/30/2018 ZAINAB LANCE MD Ot Z87.19 PERSONAL HISTORY OF OTHER DISEASES OF TH 11/30/2018 ZAINAB LANCE MD Ot Z88.5 ALLERGY STATUS TO NARCOTIC AGENT STATUS 11/30/2018 ZAINAB LANCE MD Ot Z88.8 ALLERGY STATUS TO OTH DRUG/MEDS/BIOL SUB 11/30/2018 ZAINAB LANCE MD Ot Z90.89 ACQUIRED ABSENCE OF OTHER ORGANS 11/30/2018 ZAINAB LANCE MD Ot F32.9 MAJOR DEPRESSIVE DISORDER, SINGLE EPISOD 11/30/2018 ZAINAB LANCE MD Ot F39 UNSPECIFIED MOOD [AFFECTIVE] DISORDER 11/30/2018 ZAINAB LANCE MD Ot F41.9 ANXIETY DISORDER, UNSPECIFIED 11/30/2018 ZAINAB LANCE MD Ot F90.9 ATTENTION-DEFICIT HYPERACTIVITY DISORDER 11/30/2018 ZAINAB LANCE MD Ot F98.8 OTH BEHAV/EMOTN DISORD W ONSET USLY OCCU 11/30/2018 ZAINAB LANCE MD Ot I10 ESSENTIAL (PRIMARY) HYPERTENSION 11/30/2018 ZAINAB LANCE MD Ot Z79.52 [facility] (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 STER 11/30/2018 ZAINAB LANCE MD Ot Z87.19 PERSONAL HISTORY OF OTHER DISEASES OF TH 11/30/2018 ZAINAB LANCE MD Ot Z88.5 ALLERGY STATUS TO NARCOTIC AGENT STATUS 11/30/2018 ZAINAB LANCE MD Ot Z88.8 ALLERGY STATUS TO OTH DRUG/MEDS/BIOL SUB 11/30/2018 ZAINAB LANCE MD Ot Z90.89 ACQUIRED ABSENCE OF OTHER ORGANS 12/01/2018 ZAINAB LANCE MD Ot F32.9 MAJOR DEPRESSIVE DISORDER, SINGLE EPISOD 12/01/2018 ZAINAB LANCE MD Ot F39 UNSPECIFIED MOOD [AFFECTIVE] DISORDER 12/01/2018 ZAIANB LANCE MD Ot F41.9 ANXIETY DISORDER, UNSPECIFIED 12/01/2018 ZAINAB LANCE MD Ot F90.9 ATTENTION-DEFICIT HYPERACTIVITY DISORDER 12/01/2018 ZAINAB LANCE MD Ot F98.8 OTH BEHAV/EMOTN DISORD W ONSET USLY OCCU 12/01/2018 ZAINAB LANCE MD Ot I10 ESSENTIAL (PRIMARY) HYPERTENSION 12/01/2018 ZAINAB LANCE MD Ot 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 [employer]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 12/01/2018 ZAINAB LANCE MD Ot Z87.19 PERSONAL HISTORY OF OTHER DISEASES OF TH 12/01/2018 ZAINAB LANCE MD Ot Z88.5 ALLERGY STATUS TO NARCOTIC AGENT STATUS 12/01/2018 ZAINAB LANCE MD Ot Z88.8 ALLERGY STATUS TO OTH DRUG/MEDS/BIOL SUB 12/01/2018 ZAINAB LANCE MD Ot Z90.89 ACQUIRED ABSENCE OF OTHER ORGANS 12/06/2018 ZAINAB LANCE MD Ot F32.9 MAJOR DEPRESSIVE DISORDER, SINGLE EPISOD 12/06/2018 ZAINAB LANCE MD Ot F39 UNSPECIFIED MOOD [AFFECTIVE] DISORDER 12/06/2018 ZAINAB LANCE MD Ot F41.9 ANXIETY DISORDER, UNSPECIFIED 12/06/2018 ZAINAB LANCE MD Ot F90.9 ATTENTION-DEFICIT HYPERACTIVITY DISORDER 12/06/2018 ZAINAB LANCE MD Ot F98.8 OTH BEHAV/EMOTN DISORD W ONSET USLY OCCU 12/06/2018 ZAINAB LANCE MD Ot I10 ESSENTIAL (PRIMARY) HYPERTENSION 12/06/2018 ZAINAB LANCE MD Ot Z79.52 [facility] (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 STER 12/06/2018 ZAINAB LANCE MD Ot Z87.19 PERSONAL HISTORY OF OTHER DISEASES OF TH 12/06/2018 ZAINAB LANCE MD Ot Z88.5 ALLERGY STATUS TO NARCOTIC AGENT STATUS 12/06/2018 ZAINAB LANCE MD Ot Z88.8 ALLERGY STATUS TO OTH DRUG/MEDS/BIOL SUB 12/06/2018 ZAINAB LANCE MD Ot Z90.89 ACQUIRED ABSENCE OF OTHER ORGANS 12/19/2018 KIRSTIE CHAUDHARI MD Ot F32.9 MAJOR DEPRESSIVE DISORDER, SINGLE EPISOD 12/19/2018 KIRSTIE CHAUDHARI MD Ot F41.9 ANXIETY DISORDER, UNSPECIFIED 12/19/2018 KIRSTIE CHAUDHARI MD, Ot F90.9 ATTENTION-DEFICIT HYPERACTIVITY DISORDER 12/19/2018 KIRSTIE CHAUDHARI MD, Ot I10 ESSENTIAL (PRIMARY) HYPERTENSION 12/19/2018 KIRSTIE CHAUDHARI MD, Ot M54.5 LOW BACK PAIN 12/19/2018 KIRSTIE CHAUDHARI MD, Ot R60.0 LOCALIZED EDEMA 12/19/2018 KIRSTIE CHAUDHARI MD, Ot Z79.52 [facility] (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 STER 12/19/2018 KIRSTIE CHAUDHARI MD, Ot Z87.19 PERSONAL HISTORY OF OTHER DISEASES OF 12/19/2018 KIRSTIE CHAUDHARI MD, Ot Z88.5 ALLERGY STATUS TO NARCOTIC AGENT STATUS 12/19/2018 KIRSTIE CHAUDHARI MD, Ot Z88.8 ALLERGY STATUS TO OTH DRUG/MEDS/BIOL SUB 12/19/2018 KIRSTIE CHAUDHARI MD, Ot Z90.89 ACQUIRED ABSENCE OF OTHER ORGANS Procedures Code [place] [id number] Therapeutic, prophylactic, or diagnostic URSULA POLK 02/19/2017 70635 Therapeutic, prophylactic, or diagnostic URSULA POLK 02/19/2017 96834 Therapeutic, prophylactic, or diagnostic URSULA POLK 02/19/2017 10030 Emergency department visit for the URSULA Matias 02/19/2017 [id number] Emergency department visit for the URSULA Matias 09/07/2017 20585 Therapeutic, prophylactic, or diagnostic URSULA POLK 09/30/2017 57763 Emergency department visit for the URSULA Matias 09/30/2017 82053 Emergency department visit for the URSULA Matias 05/02/2018 48572 Dressings and/or debridement of partial- URSULA POLK 05/10/2018 57495 Immunization administration (includes URSULA Rowell 05/10/2018 38372 Therapeutic, prophylactic, or diagnostic URSULA POLK 05/10/2018 79661 Emergency department visit for the URSULA Matias 05/10/2018 Results Test Result Range Complete blood [...] Automated erythrocyte mean corpuscular hemoglobin concentration measurement (mass/volume) 32 g/dL 32-36 Automated erythrocyte distribution width ratio 15.1 % 10.0- 14.5 Automated blood platelet count (count/volume) 245 10*3/uL [...] Blood monocytes automated count (number/volume) 0.5 10*3 0.0- 1.0 Automated eosinophil count 0.2 10*3/uL 0.0-0.3 Automated [...] Serum or plasma aspartate aminotransferase measurement (enzymatic activity/volume) 26 U/L 5-34 Serum or plasma alanine aminotransferase measurement (enzymatic activity/volume) 38 U/L 0-55 Serum or plasma protein measurement (mass/volume) 7.5 g/dL 6.4-8.2 Serum or plasma albumin measurement (mass/volume) 3.9 g/dL 3.2-4.5 Magnesium - 03/26/17 23:53 Magnesium 2.0 mg/dL 1.8-2.4 Lipase - 03/26/17 23:53 Lipase 15 U/L 8-78 Serum or plasma C reactive protein measurement (mass/volume) - 03/26/17 23:53 Serum or plasma C reactive protein measurement (mass/volume) 2.27 mg/dL 0.00-0.50 Erythrocyte sedimentation rate by westergren method [...] gravity of urine by test strip 1.025 1.016-1.022 Urine protein assay by test strip, semi-quantitative [...] sediment leukocyte count by microscopy (number/high power field) [HPF] NRG Bacteria detection in urine sediment [...] Automated erythrocyte mean corpuscular hemoglobin concentration measurement (mass/volume) 32 g/dL 32-36 Automated erythrocyte distribution width ratio 14.5 % 10.0- 14.5 Automated blood platelet count (count/volume) 253 10*3/uL [...] Blood monocytes automated count (number/volume) 0.6 10*3 0.0- 1.0 Automated eosinophil count 0.2 10*3/uL 0.0-0.3 Automated [...] Serum or plasma aspartate aminotransferase measurement (enzymatic activity/volume) 28 U/L 5-34 Serum or plasma alanine aminotransferase measurement (enzymatic activity/volume) 52 U/L 0-55 Serum or plasma protein [...] Automated erythrocyte mean corpuscular hemoglobin concentration measurement (mass/volume) 34 g/dL 32-36 Automated erythrocyte distribution width ratio 14.9 % 10.0- 14.5 Automated blood platelet count (count/volume) 301 10*3/uL [...] Blood monocytes automated count (number/volume) 0.5 10*3 0.0- 1.0 Automated eosinophil count 0.3 10*3/uL 0.0-0.3 Automated blood basophil count (count/volume) 0.0 10*3/uL 0.0-0.1 Blood lactic acid measurement (moles/volume) - 01/09/18 22:12 Blood lactic acid measurement (moles/volume) 1.64 mmol/L 0.50- 2.00 Serum or plasma choriogonadotropin ( test) detection [...] Serum or plasma aspartate aminotransferase measurement (enzymatic activity/volume) 13 U/L 5-34 Serum or plasma alanine aminotransferase measurement (enzymatic activity/volume) 17 U/L 0-55 Serum or plasma protein measurement (mass/volume) 7.9 g/dL 6.4-8.2 Serum or plasma albumin measurement (mass/volume) 4.3 g/dL 3.2-4.5 Magnesium - 01/09/18 22:12 Magnesium 2.5 mg/dL 1.8-2.4 Lipase - 01/09/18 22:12 Lipase 42 U/L 8-78 Serum or plasma C reactive protein measurement (mass/volume) - 01/09/18 22:12 Serum or plasma C reactive protein measurement (mass/volume) 0.75 mg/dL 0.00-0.50 Urine drug screening test - 01/09/18 [...] gravity of urine by test strip 1.015 1.016-1.022 Urine protein assay by test strip, semi-quantitative [...] sediment leukocyte count by microscopy (number/high power field) [HPF] NRG Bacteria detection in urine sediment by light microscopy FEW NRG Squamous epithelial cells detection in urine sediment by light microscopy 25-50 NRG Crystals detection in urine sediment by light microscopy NONE NRG Casts detection in urine sediment by light microscopy NONE NRG Mucus detection in urine sediment by light microscopy NEGATIVE NRG Complete urinalysis with reflex to culture NO NRG Urine beta human chorionic gonadotropin (hCG) measurement - 10/25/18 17:50 Urine beta human chorionic gonadotropin (hCG) measurement NEGATIVE NEGATIVE Complete urinalysis with reflex to culture - 10/25/18 17:50 Urine color determination YELLOW NRG Urine clarity determination CLEAR NRG Urine pH measurement by test strip 5.5 5-9 Specific gravity of urine by test strip 1.010 1.016-1.022 Urine protein assay by test strip, semi-quantitative NEGATIVE NEGATIVE Urine glucose detection by automated test strip NEGATIVE NEGATIVE Erythrocytes detection in urine sediment by light microscopy 1+ NEGATIVE Urine ketones detection by automated test strip NEGATIVE NEGATIVE Urine nitrite detection by test strip NEGATIVE NEGATIVE Urine total bilirubin detection by test strip NEGATIVE NEGATIVE Urine urobilinogen measurement by automated test strip (mass/volume) 0.2 mg/dL NORMAL Urine leukocyte esterase detection by dipstick NEGATIVE NEGATIVE Automated urine sediment erythrocyte count by microscopy (number/high power field) [HPF] NRG Automated urine sediment leukocyte count by microscopy (number/high power field) NONE NRG Bacteria detection in urine sediment by light microscopy NONE NRG Squamous epithelial cells detection in urine sediment by light microscopy 5-10 NRG Crystals detection in urine sediment by light microscopy NONE NRG Casts detection in urine sediment by light microscopy NONE NRG Mucus detection in urine sediment by light microscopy NEGATIVE NRG Complete urinalysis with reflex to culture NO NRG Urine drug screening test - 10/25/18 17:50 Urine phencyclidine detection by screening method NEGATIVE NEGATIVE Urine benzodiazepines detection by screening method POSITIVE NEGATIVE Urine cocaine detection NEGATIVE NEGATIVE Urine amphetamines detection by screening method NEGATIVE NEGATIVE Urine methamphetamine detection by screening method NEGATIVE NEGATIVE Urine cannabinoids detection by screening method NEGATIVE NEGATIVE Urine opiates detection by screening method NEGATIVE NEGATIVE Urine barbiturates detection NEGATIVE NEGATIVE Screening urine tricyclic antidepressants detection NEGATIVE NEGATIVE Urine methadone detection by screening method NEGATIVE NEGATIVE Urine oxycodone detection NEGATIVE NEGATIVE Urine propoxyphene detection NEGATIVE NEGATIVE Complete blood count (CBC) with automated white blood cell (WBC) differential - 10/25/18 18:14 Blood leukocytes automated count (number/volume) 6.7 10*3/uL 4.3-11.0 Blood erythrocytes automated count (number/volume) 4.48 10*6/uL 4.35-5.85 Venous blood hemoglobin measurement (mass/volume) 12.2 g/dL 11.5-16.0 Blood hematocrit (volume fraction) 40 % 35-52 Automated erythrocyte mean corpuscular volume 88 [foz_us] 80-99 Automated erythrocyte mean corpuscular hemoglobin (mass per erythrocyte) 27 pg 25-34 Automated erythrocyte mean corpuscular hemoglobin concentration measurement (mass/volume) 31 g/dL 32-36 Automated erythrocyte distribution width ratio 14.2 % 10.0- 14.5 Automated blood platelet count (count/volume) 243 10*3/uL 130-400 Automated blood platelet mean volume measurement 10.7 [foz_us] 7.4-10.4 Automated blood neutrophils/100 leukocytes 59 % 42-75 Automated blood lymphocytes/100 leukocytes 28 % 12-44 Blood monocytes/100 leukocytes 7 % 0-12 Automated blood eosinophils/100 leukocytes 5 % 0-10 Automated blood basophils/100 leukocytes 1 % 0-10 Blood neutrophils automated count (number/volume) 4.0 10*3 1.8-7.8 Blood lymphocytes automated count (number/volume) 1.9 10*3 1.0-4.0 Blood monocytes automated count (number/volume) 0.4 10*3 0.0- 1.0 Automated eosinophil count 0.3 10*3/uL 0.0-0.3 Automated blood basophil count (count/volume) 0.1 10*3/uL 0.0-0.1 Comprehensive metabolic panel - 10/25/18 18:14 Serum or plasma sodium measurement (moles/volume) 136 mmol/L 135-145 Serum or plasma potassium measurement (moles/volume) 4.3 mmol/L 3.6-5.0 Serum or plasma chloride measurement (moles/volume) 101 mmol/L 98-107 Carbon dioxide 21 mmol/L 21-32 Serum or plasma anion gap determination (moles/volume) 14 mmol/L 5-14 Serum or plasma urea nitrogen measurement (mass/volume) 7 mg/dL 7-18 Serum or plasma creatinine measurement (mass/volume) 0.68 mg/dL 0.60-1.30 Serum or plasma urea nitrogen/creatinine mass ratio 10 NRG Serum or plasma creatinine measurement with calculation of estimated glomerular filtration rate > NRG Serum or plasma glucose measurement (mass/volume) 121 mg/dL 70-105 Serum or plasma calcium measurement (mass/volume) 9.1 mg/dL 8.5-10.1 Serum or plasma total bilirubin measurement (mass/volume) 0.2 mg/dL 0.1-1.0 Serum or plasma alkaline phosphatase measurement (enzymatic activity/volume) 98 U/L 40-136 Serum or plasma aspartate aminotransferase measurement (enzymatic activity/volume) 21 U/L 5-34 Serum or plasma alanine aminotransferase measurement (enzymatic activity/volume) 23 U/L 0-55 Serum or plasma protein measurement (mass/volume) 7.2 g/dL 6.4-8.2 Serum or plasma albumin measurement (mass/volume) 4.1 g/dL 3.2-4.5 CALCIUM CORRECTED 9.0 mg/dL 8.5-10.1 Serum or plasma salicylates measurement (mass/volume) - 10/25/18 18:14 Serum or plasma salicylates measurement (mass/volume) 0.4 mg/dL 5.0-20.0 Serum or plasma acetaminophen measurement (mass/volume) - 10/25/18 18:14 Serum or plasma acetaminophen measurement (mass/volume) < ug/mL 10-30 Serum or plasma ethanol measurement (mass/volume) - 10/25/18 18:14 Serum or plasma ethanol measurement (mass/volume) < mg/dL <10 Serum or plasma thyrotropin measurement by detection limit <=0.05 miu/l (units/volume) - 10/25/18 18:14 Serum or plasma thyrotropin measurement by detection limit <=0.05 miu/l (units/volume) 1.54 u[iU]/mL 0.35-4.94 Complete urinalysis with reflex to culture - 12/14/18 02:00 Urine color determination YELLOW NRG Urine clarity determination SL CLOUDY NRG Urine pH measurement by test strip 6.0 5-9 Specific gravity of urine by test strip >= 1.016-1.022 Urine protein assay by test strip, semi-quantitative NEGATIVE NEGATIVE Urine glucose detection by automated test strip NEGATIVE NEGATIVE Erythrocytes detection in urine sediment by light microscopy 3+ NEGATIVE Urine ketones detection by automated test strip TRACE NEGATIVE Urine nitrite detection by test strip NEGATIVE NEGATIVE Urine total bilirubin detection by test strip NEGATIVE NEGATIVE Urine urobilinogen measurement by automated test strip (mass/volume) 0.2 mg/dL NORMAL Urine leukocyte esterase detection by dipstick NEGATIVE NEGATIVE Automated urine sediment erythrocyte count by microscopy (number/high power field) [HPF] NRG Automated urine sediment leukocyte count by microscopy (number/high power field) [HPF] NRG Bacteria detection in urine sediment by light microscopy FEW NRG Squamous epithelial cells detection in urine sediment by light microscopy 25-50 NRG Crystals detection in urine sediment by light microscopy NONE NRG Casts detection in urine sediment by light microscopy NONE NRG Mucus detection in urine sediment by light microscopy LARGE NRG Complete urinalysis with reflex to culture NO NRG Complete blood count (CBC) with automated white blood cell (WBC) differential - 12/14/18 03:03 Blood leukocytes automated count (number/volume) 5.9 10*3/uL 4.3-11.0 Blood erythrocytes automated count (number/volume) 4.01 10*6/uL 4.35-5.85 Venous blood hemoglobin measurement (mass/volume) 10.9 g/dL 11.5-16.0 Blood hematocrit (volume fraction) 35 % 35-52 Automated erythrocyte mean corpuscular volume 87 [foz_us] 80-99 Automated erythrocyte mean corpuscular hemoglobin (mass per erythrocyte) 27 pg 25-34 Automated erythrocyte mean corpuscular hemoglobin concentration measurement (mass/volume) 31 g/dL 32-36 Automated erythrocyte distribution width ratio 14.9 % 10.0- 14.5 Automated blood platelet count (count/volume) 231 10*3/uL 130-400 Automated blood platelet mean volume measurement 10.5 [foz_us] 7.4-10.4 Automated blood neutrophils/100 leukocytes 59 % 42-75 Automated blood lymphocytes/100 leukocytes 28 % 12-44 Blood monocytes/100 leukocytes 9 % 0-12 Automated blood eosinophils/100 leukocytes 3 % 0-10 Automated blood basophils/100 leukocytes 1 % 0-10 Blood neutrophils automated count (number/volume) 3.5 10*3 1.8-7.8 Blood lymphocytes automated count (number/volume) 1.7 10*3 1.0-4.0 Blood monocytes automated count (number/volume) 0.5 10*3 0.0- 1.0 Automated eosinophil count 0.2 10*3/uL 0.0-0.3 Automated blood basophil count (count/volume) 0.0 10*3/uL 0.0-0.1 Comprehensive metabolic panel - 12/14/18 03:03 Serum or plasma sodium measurement (moles/volume) 137 mmol/L 135-145 Serum or plasma potassium measurement (moles/volume) 4.0 mmol/L 3.6-5.0 Serum or plasma chloride measurement (moles/volume) 98 mmol/L 98-107 Carbon dioxide 21 mmol/L 21-32 Serum or plasma anion gap determination (moles/volume) 18 mmol/L 5-14 Serum or plasma urea nitrogen measurement (mass/volume) 14 mg/dL 7-18 Serum or plasma creatinine measurement (mass/volume) 0.71 mg/dL 0.60-1.30 Serum or plasma urea nitrogen/creatinine mass ratio 20 NRG Serum or plasma creatinine measurement with calculation of estimated glomerular filtration rate > NRG Serum or plasma glucose measurement (mass/volume) 148 mg/dL 70-105 Serum or plasma calcium measurement (mass/volume) 8.9 mg/dL 8.5-10.1 Serum or plasma total bilirubin measurement (mass/volume) 0.2 mg/dL 0.1-1.0 Serum or plasma alkaline phosphatase measurement (enzymatic activity/volume) 88 U/L 40-136 Serum or plasma aspartate aminotransferase measurement (enzymatic activity/volume) 18 U/L 5-34 Serum or plasma alanine aminotransferase measurement (enzymatic activity/volume) 21 U/L 0-55 Serum or plasma protein measurement (mass/volume) 6.9 g/dL 6.4-8.2 Serum or plasma albumin measurement (mass/volume) 3.7 g/dL 3.2-4.5 CALCIUM CORRECTED 9.1 mg/dL 8.5-10.1 Lipase - 12/14/18 03:03 Lipase 19 U/L 8-78 BMP - 12/18/18 11:15 GLUCOSE 152 mg/dL 65-139 UREA NITROGEN (BUN) 15 mg/dL 7-25 CREATININE 0.76 mg/dL 0.50-1.10 eGFR NON-AFR. ECUADOREAN 94 mL/min/1.73m2 > OR=60 eGFR 109 mL/min/1.73m2 > OR=60 BUN/CREATININE RATIO NOT APPLICABLE (calc) 6-22 SODIUM 137 mmol/L 135-146 POTASSIUM 4.3 mmol/L 3.5-5.3 CHLORIDE 99 mmol/L 98-110 CARBON DIOXIDE 28 mmol/L 20-32 CALCIUM 9.8 mg/dL 8.6-10.2 Encounters ACCT No. Visit Date/Time Discharge Status Pt. Type Provider Facility Loc./Unit Complaint [id number] 12/18/2018 10:20:00 12/18/2018 23:59:59 CLS Outpatient FABIANO KUMAR [facility] [id number] 12/18/2018 10:20:00 Document Registration [id number] 12/14/2018 01:08:00 12/14/2018 05:50:00 DIS Outpatient KIRSTIE CHAUDHARI MD [facility] ER FS LOWER BACK PAIN [id number] 10/25/2018 15:47:00 10/25/2018 21:57:00 DIS Emergency ZAINAB LANCE MD [facility] ER FS PER PT MOTHER SUICIDAL THOUGHTS [id number] 09/28/2018 02:05:00 09/28/2018 03:18:00 DIS Emergency WAQAS BENZ DO [facility] ER FS CONGESTION,SOA [id number] 08/25/2018 14:53:00 08/25/2018 17:00:00 DIS Emergency CINDY NAYLOR [facility] ER NECK PAIN [id number] 01/09/2018 21:48:00 01/09/2018 23:27:00 DIS Emergency ZAINAB LANCE MD [facility] ER GI PROBLEMS, KNOTS ON L SIDE [id number] 01/06/2018 11:35:00 01/06/2018 23:59:59 CLS Outpatient EZEQUIEL CHAVIRA APRN [facility] RAD RLQ ABD PAIN,RUQ ABD PAIN,LLEUS,CONSTIPATION [id number] 04/24/2017 18:36:00 04/24/2017 20:50:00 DIS Emergency CASI ENG, ZAINAB Alva [facility] ER ABD/SIDE PAIN [id number] 03/26/2017 23:35:00 03/27/2017 02:16:00 DIS Emergency GENNY ENG, LATIA Bernard [facility] ER AB PAIN DIARRHEA VOMTING [id number] 01/29/2017 22:24:00 01/29/2017 22:43:00 DIS Emergency KRISH TERRELL DO [facility] ER STOMACH ISSUES [id number] 05/10/2018 09:43:00 05/10/2018 11:45:00 DIS Emergency [facility] ER Burn [id number] 05/02/2018 16:45:00 05/02/2018 18:54:00 [id number] 09/30/2017 05:07:00 09/30/2017 07:12:00 DIS Emergency Deacon Bar [facility] ER General Medical [id number] 09/07/2017 21:53:00 09/08/2017 02:12:00 DIS Emergency GoLuis sifuentes [facility] ER General Medical [id number] 02/19/2017 05:35:00 02/19/2017 08:40:00 DIS Emergency Jacobo Chua [facility] ER Back Pain [id number] 09/30/2017 05:33:28 Document Registration
[2019-02-11] MEDS ORDERED: KETOROLAC 60 MG/2 ML VIAL IM ONE (10:15)
--- NOTE | 2019-02-11 10:28 | ED Neck-Back Pain/Injury ---
General Chief Complaint: Head/Cervical Problems Stated Complaint: NECK PAIN Nursing Triage Note: Patient c/o neck pain. Was seen in the ED yesterday and prescribed oxycodone and flexeril but states that her pain is 10 times worse today. Nursing Sepsis Screen: No Definite Risk Source of Information: Patient, Family Exam Limitations: No Limitations History of Present Illness Date Seen by Provider: Feb 11, 2019 Time Seen by Provider: 10:24 Initial Comments This 48-year-old white female returns for persistent cervical pain. She was seen yesterday for cervical strain that occurred while moving food in her chest freezer at home. The patient was treated yesterday with narcotics and muscle relaxants. She was improved but then her pain recurred this morning causing her to return to the emergency department. Patient is not having paresthesias or weakness in the extremities, she denies fever or chills, photophobia or headache, associated palpitations chest pain shortness of breath, nausea or vomiting, dysuria or flank pain. Next The patient is able to take nonsteroidals for pain. Allergies and Home Medications Allergies Coded Allergies: ondansetron (Verified Allergy, Mild, 03/27/17) Itching at injection site with injectable form only. Oral form well tolerated. hydrocodone (Verified Allergy, Unknown, 03/27/17) Home Medications Cyclobenzaprine HCl 10 Mg Tablet, 10 MG PO Q8H Prescribed by: CINDY NAYLOR on 08/25/181644 Cyclobenzaprine HCl 10 Mg Tablet, 10 MG PO TID Prescribed by: EDUARDO QUESADA MD on 02/10/19 171 Dicyclomine HCl 20 Mg Tablet, 20 MG PO Q6H Prescribed by: WAQAS BENZ on 09/28/18 030 Famotidine 20 Mg Tablet, 20 MG PO BID Prescribed by: WAQAS BENZ on 09/28/18 030 Oxycodone HCl/Acetaminophen 1 Each Tablet, 1 TAB PO Q4H PRN for PAIN-MILD TO MODERATE Prescribed by: EDUARDO QUESADA MD on 02/10/19 171 Prednisone 20 Mg Tab, 40 MG PO DAILY Prescribed by: CINDY NAYLOR on 08/25/18 164 Patient Home Medication List Home Medication List Reviewed: Yes Review of Systems Constitutional: no symptoms reported EENTM: other (right sided paracervical muscle pain and spasm) Respiratory: no symptoms reported Cardiovascular: no symptoms reported Gastrointestinal: abdominal pain Genitourinary: no symptoms reported Musculoskeletal: neck pain Skin: no symptoms reported; No rash Psychiatric/Neurological: No Symptoms Reported Past Fydrgbv-Iykdfa-Foschd Hx Past Med/Social Hx: Reviewed Nursing Past Med/Soc Hx Patient Social History Alcohol Use: Denies Use Recreational Drug Use: No Smoking Status: Never a Smoker 2nd Hand Smoke Exposure: No Recent Foreign Travel: No Contact w/Someone Who Travel: No Recent Infectious Disease Expo: No Recent Hopitalizations: No Physical Abuse: No Sexual Abuse: No Mistreated: No Fear: No Immunizations Up To Date Tetanus Booster (TDap): Unknown Seasonal Allergies Seasonal Allergies: No Past Medical History Surgeries: Yes Tonsillectomy Respiratory: No Cardiac: Yes Hypertension Neurological: No Sexually Transmitted Disease: No HIV/AIDS: No Genitourinary: No Gastrointestinal: Yes Colitis, Chronic Constipation, Chronic Diarrhea Musculoskeletal: No Endocrine: No HEENT: Yes (corrective lenses) Hearing Impairment: Denies Cancer: No Psychosocial: Yes Sleep Difficulties, Anxiety, Depression Integumentary: No Blood Disorders: No Family Medical History GI Disease Physical Exam Vital Signs Vital Signs - First Documented 02/11/19 10:05 Temp 99.5 Pulse 108 Resp 20 B/P (MAP) 156/92 (113) Pulse Ox 96 O2 Delivery Room Air Capillary Refill : Less Than 3 Seconds Height, Weight, BMI Height: 5'5.00" Weight: 287lbs. 0oz. 130.130594ym; BMI Method:Stated General Appearance: WD/WN, Mild Distress HEENT: Normal ENT Inspection Neck: Tender Lateral (in the right paracervical region) Cardiovascular: Regular Rate, Rhythm Respiratory: No Respiratory Distress Extremity: Normal Inspection Neurologic/Psychiatric: No Motor/Sensory Deficits Skin: Normal Color, Warm/Dry Progress/Results/Core Measures Results/Orders My Orders Orders - EDUARDO QUESADA MD Ketorolac Injection (Toradol Injection) (02/11/19 10:15) Vital Signs/I&O 02/11/19 10:05 Temp 99.5 Pulse 108 Resp 20 B/P (MAP) 156/92 (113) Pulse Ox 96 O2 Delivery Room Air Blood Pressure Mean: 113 Progress Progress Note : Time: 10:29 Progress Note Patient was treated with 60 mg of Toradol IM. I discussed using ketorolac as opposed to the narcotic pain medications. I recommended that she continue on the cyclobenzaprine for muscle relaxation. I asked that she follow-up with her doctor tomorrow. Departure Impression Primary Impression: Cervical muscle pain Disposition: 01 HOME, SELF-CARE Condition: Improved Departure-Patient Inst. Decision time for Depature: 10:30 Referrals: [facility] (PCP) Primary Care Physician FABIANO KUMAR APRN (Family) Primary Care Physician Patient Instructions: Cervical Muscle Strain (DC) Add. Discharge Instructions: [place] lack for pain. Continue with Flexeril for spasm. Follow-up with her doctor tomorrow. Return of any problems or questions. All discharge instructions reviewed with patient and/or family. Voiced understanding. Scripts Ketorolac Tromethamine (Ketorolac Tromethamine) 10 Mg Tablet 10 MG PO Q6H PRN for PAIN-MODERATE TO SEVERE, #20 TAB Prov: EDUARDO QUESADA MD 02/11/19 EDUARDO QUESADA MD Feb 11, 2019 10:28
[2019-02-11] MEDS ORDERED: KETO10TA PO (10:32)
[2019-02-11 10:39] VITALS: BP 156/92
== END 2019-02-11 10:39 | disposition home or self-care (01) ==
LOC: EDUNIT# 10:00 → ER FS 10:01
DX: M54.2 Cervicalgia (principal); I10 Essential (primary) hypertension; F41.9 Anxiety disorder, unspecified; F32.9 Major depressive disorder, single episode, unspecified; Z87.19 Personal history of other diseases of the digestive system; Z88.5 Allergy status to narcotic agent; Z90.89 Acquired absence of other organs
CPT/HCPCS: 96372; 99284

== ENCOUNTER 2019-02-15 14:14 | Emergency (ER) | payer SELFPAY ==
[~2019-02-15] VITALS: Ht 165.1 cm; Wt 124.7 kg
[~2019-02-15 14:14] MED LIST changes: +KETO10TA PO
--- OUTSIDE RECORDS SUMMARY | 2019-02-15 14:20 | XMS REPORT | Clinical Summary ---
Author Author [facility] Organization [facility] Address Unknown Phone Unavailable Care Team Providers Care Child Development Associate Teacher Name Role Phone Self, Referral PCP Unavailable Ariana Dempsey Unavailable Sanna Fields RN Unavailable Unavailable Puma Lyles RN Unavailable Unavailable Damaris Ragsdale RN Unavailable Unavailable Source Comments Some departments are not documenting in the electronic medical record. If you d o not see the information that you expected, contact Release of Information in [facility] [employer] Information Management department at [phone] for further assistan ce in locating additional records.[facility] Allergies Comments Active Allergy Reactions Severity [...] Comments Vital Sign 137/76 08/05/2009 10:02 AM POWER BARKER OPERATOR Blood Pressure 82 08/05/2009 10:02 AM POWER BARKER OPERATOR Pulse 36.6 C (97.8 F) 08/05/2009 8:00 AM POWER BARKER OPERATOR Temperature - - Respiratory Rate 94% 08/05/2009 10:02 AM POWER BARKER OPERATOR Oxygen Saturation - - Inhaled Oxygen Concentration 120.5 kg (265 lb 10.5 oz) 06/17/2009 10:14 PM POWER BARKER OPERATOR Weight 165.1 cm (5' 5") 06/17/2009 10:14 PM POWER BARKER OPERATOR Height 44.21 06/17/2009 10:14 PM POWER BARKER OPERATOR Body Mass Index Plan of Treatment Health Maintenance Due Date Last Done Comments PHYSICAL (COMPREHENSIVE) 1979 EXAM HIV SCREENING 1987 DTAP/TDAP VACCINES (1 - 1990 Tdap) CERVICAL CANCER SCREENING 2002 BREAST CANCER SCREENING 2012 INFLUENZA VACCINE 05/08/2019 Results Not on filefrom Last 3 Months
--- OUTSIDE RECORDS SUMMARY | 2019-02-15 14:21 | XMS REPORT | Continuity of Care Document ---
Author Organization Unknown Address Unknown Allergies Active Description Code Type Severity Reaction Onset Reported/Identified Relationship to Patient Clinical Status Yes HYDROcodone Drug N/A N/A Yes Zofran Drug N/A N/A Yes hydrocodone [id number] Drug Allergy Unknown N/A 03/27/2017 Yes ondansetron [id number] Drug Allergy Mild N/A 03/27/2017 Medications Medication [...] tendon at neck level, initial e 02/19/2017 [place] Final X58.XXXA Exposure to other specified [...] LIVER, NOT ELSEWHERE C 05/15/2018 EZEQUIEL CHAVIRA RFID STRATEGIST Ot K56.7 ILEUS, UNSPECIFIED 05/15/2018 EZEQUIEL CHAVIRA RFID STRATEGIST Ot K76.0 FATTY (CHANGE OF) LIVER, NOT ELSEWHERE C 05/15/2018 EZEQUIEL CHAVIRA RFID STRATEGIST Ot K56.7 ILEUS, UNSPECIFIED 05/15/2018 EZEQUIEL CHAVIRA RFID STRATEGIST Ot K76.0 FATTY (CHANGE OF) LIVER, NOT [...] FACTORS, INI 08/25/2018 JARED NAYLORIS Ot 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 08/25/2018 JARED NAYLORIS Ot Z87.19 PERSONAL HISTORY OF OTHER DISEASES OF TH 08/25/2018 CINDY NAYLOR Ot Z88.5 ALLERGY STATUS TO NARCOTIC AGENT STATUS 08/25/2018 JARED NAYLORIS Ot Z88.8 ALLERGY STATUS TO OT DRUG/MEDS/BIOL SUB 08/25/2018 JARED NAYLORIS Ot Z90.89 ACQUIRED ABSENCE OF OTHER ORGANS 08/25/2018 EZEQUIEL CHAVIRA RFID STRATEGIST Ot K56.7 ILEUS, UNSPECIFIED 08/25/2018 EZEQUIEL CHAVIRA RFID STRATEGIST Ot K76.0 FATTY (CHANGE OF) LIVER, NOT [...] FACTORS, INI 08/28/2018 CINDY NAYLOR Ot 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 08/28/2018 CINDY [...] PAIN 09/28/2018 WAQAS BENZ DO Ot 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 09/28/2018 WAQAS [...] I10 ESSENTIAL (PRIMARY) HYPERTENSION 10/04/2018 BENZ DO, WQAAS Ot K21.0 GASTRO- ESOPHAGEAL REFLUX DISEASE WITH ES 10/04/2018 BENZ DO, WAQAS Ot K58.9 IRRITABLE BOWEL SYNDROME WITHOUT DIARRHE 10/04/2018 BENZ DO, WAQAS Ot R10.13 EPIGASTRIC PAIN 10/04/2018 BENZ DO, WAQAS Ot Z79.52 INTERMEDIATE (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 STER 10/04/2018 BENZ [...] EPIGASTRIC PAIN 10/06/2018 BENZ WAQAS Ot 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 10/06/2018 BENZ [...] HYPERTENSION 11/26/2018 ZAINAB LANCE MD Ot 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 11/26/2018 ZAINAB LANCE MD Ot Z87.19 PERSONAL HISTORY [...] HYPERTENSION 11/30/2018 ZAINAB LANCE MD Ot 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 11/30/2018 ZAINAB [...] HYPERTENSION 11/30/2018 ZAINAB LANCE MD Ot Z79.52 INTERMEDIATE (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 STER 11/30/2018 ZAINAB [...] Ot F39 UNSPECIFIED MOOD [AFFECTIVE] DISORDER 12/01/2018 ZAINAB LANCE MD Ot F41.9 ANXIETY DISORDER, UNSPECIFIED 12/01/2018 ZAINAB LANCE MD Ot F90.9 ATTENTION-DEFICIT HYPERACTIVITY DISORDER 12/01/2018 ZAINAB LANCE MD Ot F98.8 OTH BEHAV/EMOTN DISORD W ONSET USLY OCCU 12/01/2018 ZAINAB LANCE MD Ot I10 ESSENTIAL (PRIMARY) HYPERTENSION 12/01/2018 ZAINAB LANCE MD Ot 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 12/01/2018 ZAINAB [...] HYPERTENSION 12/06/2018 ZAINAB LANCE MD Ot Z79.52 INTERMEDIATE (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 STER 12/06/2018 ZAINAB [...] EDEMA 12/19/2018 KIRSTIE CHAUDHARI MD, Ot Z79.52 INTERMEDIATE (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 STER 12/19/2018 KIRSTIE CHAUDHARI MD, Ot Z87.19 PERSONAL HISTORY OF OTHER DISEASES OF 12/19/2018 KIRSTIE CHAUDHARI MD, Ot Z88.5 ALLERGY STATUS TO NARCOTIC AGENT STATUS 12/19/2018 KIRSTIE CHAUDHARI MD, Ot Z88.8 ALLERGY STATUS TO OTH DRUG/MEDS/BIOL SUB 12/19/2018 KIRSTIE CHAUDHARI MD, Ot Z90.89 ACQUIRED ABSENCE OF OTHER ORGANS Procedures Code [place] [address] Therapeutic, prophylactic, or diagnostic URSULA POLK 02/19/2017 30144 Therapeutic, prophylactic, or diagnostic URSULA POLK 02/19/2017 19449 Therapeutic, prophylactic, or diagnostic URSULA POLK 02/19/2017 82918 Emergency department visit for the URSULA Matias 02/19/2017 19624 Emergency department visit for the URSULA Matias 09/07/2017 27549 Therapeutic, prophylactic, or diagnostic URSULA POLK 09/30/2017 13797 Emergency department visit for the URSULA Matias 09/30/2017 02563 Emergency department visit for the URSULA Matias 05/02/2018 31128 Dressings and/or debridement of partial- URSULA POLK 05/10/2018 24431 Immunization administration (includes URSULA Rowell 05/10/2018 68674 Therapeutic, prophylactic, or diagnostic URSULA POLK 05/10/2018 63622 Emergency department visit for the URSULA Matias [...] 7-25 CREATININE 0.76 mg/dL 0.50-1.10 eGFR NON-AFR. MONTS[place] 94 mL/min/1.73m2 > OR=60 eGFR 109 mL/min/1.73m2 > OR=60 BUN/CREATININE RATIO NOT APPLICABLE (calc) 6-22 SODIUM 137 mmol/L 135-146 POTASSIUM 4.3 mmol/L 3.5-5.3 CHLORIDE 99 mmol/L 98-110 CARBON DIOXIDE 28 mmol/L 20-32 CALCIUM 9.8 mg/dL 8.6-10.2 Encounters ACCT No. Visit Date/Time Discharge Status Pt. Type Provider Facility Loc./Unit Complaint [id number] 12/18/2018 10:20:00 12/18/2018 23:59:59 [facility] Outpatient FABIANO KUMAR [facility] [id number] 12/18/2018 10:20:00 Document Registration [id number] 02/11/2019 10:01:00 02/11/2019 10:39:00 DIS Emergency EDUARDO QUESADA MD [facility] ER FS NECK PAIN [id number] 02/10/2019 15:21:00 02/10/2019 17:41:00 DIS Emergency EDUARDO QUESADA MD [facility] ER FS NECK PAIN [id number] 12/14/2018 01:08:00 12/14/2018 05:50:00 DIS Outpatient KIRSTIE CHAUDHARI MD [facility] ER FS LOWER BACK PAIN [id number] 10/25/2018 15:47:00 10/25/2018 21:57:00 DIS Emergency ZAINAB LANCE MD [facility] ER FS PER PT MOTHER SUICIDAL THOUGHTS [id number] 09/28/2018 02:05:00 09/28/2018 03:18:00 DIS Emergency WAQAS BENZ DO [facility] ER FS CONGESTION,SOA [id number] 08/25/2018 14:53:00 08/25/2018 17:00:00 DIS Emergency CINDY NAYLOR [facility] ER NECK PAIN [id number] 01/09/2018 21:48:00 01/09/2018 23:27:00 DIS Emergency ZAINAB LANCE MD [facility] ER GI PROBLEMS, KNOTS ON L SIDE [id number] 01/06/2018 11:35:00 01/06/2018 23:59:59 [facility] Outpatient EZEQUIEL CHAVIRA APRN [facility] RAD RLQ ABD PAIN,RUQ ABD PAIN,LLEUS,CONSTIPATION [id number] 04/24/2017 18:36:00 04/24/2017 20:50:00 DIS Emergency CASI ENG, ZAINAB Alva [facility] ER ABD/SIDE PAIN [id number] 03/26/2017 23:35:00 03/27/2017 02:16:00 DIS Emergency GENNY ENG, LATIA Bernard [facility] ER AB PAIN DIARRHEA VOMTING [id number] 01/29/2017 22:24:00 01/29/2017 22:43:00 DIS Emergency KRISH TERRELL DO [facility] ER STOMACH ISSUES [id number] 05/10/2018 09:43:00 05/10/2018 11:45:00 DIS Emergency Pamella Majored [facility] ER Burn [id number] 05/02/2018 16:45:00 05/02/2018 18:54:00 DIS Emergency KALIE SOTO [facility] ER Orthopedic [id number] 09/30/2017 05:07:00 09/30/2017 07:12:00 DIS Emergency Deacon Bar [facility] ER General Medical [id number] 09/07/2017 21:53:00 09/08/2017 02:12:00 DIS Emergency GoLuis sifuentes [facility] ER General Medical [id number] 02/19/2017 05:35:00 02/19/2017 08:40:00 DIS Emergency [place] [facility] ER Back Pain [id number] 09/30/2017 05:33:28 Document Registration
--- NOTE | 2019-02-15 14:41 | ED General ---
General Stated Complaint: SWOLLEN FEET History of Present Illness Date Seen by Provider: Feb 15, 2019 Time Seen by Provider: 14:30 Initial Comments The patient is a pleasant 48-year-old female who presents for evaluation of bilateral lower extremity edema which started 2 days ago. Patient states that something similar happen in the past but was not quite as severe and spontaneously resolved. The patient tried some Lasix from a friend but it did not do much aside from the patient urinate more. She does mention that her urine has been slightly darker/orange color today. She reports a history of hypertension and her pressure upon arrival is in the 150s over 80s. She denies chest pain, shortness of breath, fevers or chills, back or flank pain, abdominal pain, or posterior knee tenderness, dizziness or syncope. She did notice some slight skin erythema on the left inner upper thigh area she reports that the swelling appears equal in both of her legs. She denies any recent dietary changes. She states she is under a lot of work seated at a desk that this is normal for her and she did not get a new chair. She denies standing for a prolonged amount time. Allergies and Home Medications Allergies Coded Allergies: ondansetron (Verified Allergy, Mild, 03/27/17) Itching at injection site with injectable form only. Oral form well tolerated. Sulfa (Sulfonamide Antibiotics) (Verified Allergy, Unknown, 02/15/19) hydrocodone (Verified Allergy, Unknown, 03/27/17) Home Medications Cyclobenzaprine HCl 10 Mg Tablet, 10 MG PO Q8H Prescribed by: CINDY NAYLOR on 08/25/18 1645 Cyclobenzaprine HCl 10 Mg Tablet, 10 MG PO TID Prescribed by: EDUARDO QUESADA MD on 02/10/19 1714 Dicyclomine HCl 20 Mg Tablet, 20 MG PO Q6H Prescribed by: WAQAS BENZ on 09/28/18 0307 Famotidine 20 Mg Tablet, 20 MG PO BID Prescribed by: WAQAS BENZ on 09/28/18 0307 Ketorolac Tromethamine 10 Mg Tablet, 10 MG PO Q6H PRN for PAIN-MODERATE TO SEVERE Prescribed by: EDUARDO QUESADA MD on 02/11/19 1032 Oxycodone HCl/Acetaminophen 1 Each Tablet, 1 TAB PO Q4H PRN for PAIN-MILD TO MODERATE Prescribed by: EDUARDO QUESADA MD on 02/10/19 1711 Prednisone 20 Mg Tab, 40 MG PO DAILY Prescribed by: CINDY NAYLOR on 08/25/18 1288 Patient Home Medication List Home Medication List Reviewed: Yes Review of Systems Review of Systems Constitutional: no symptoms reported EENTM: no symptoms reported Respiratory: no symptoms reported Cardiovascular: edema (bilateral lower extremity edema) Gastrointestinal: no symptoms reported Genitourinary: no symptoms reported Musculoskeletal: no symptoms reported Skin: no symptoms reported, change in color (left inner upper thigh slightly erythematous) Psychiatric/Neurological: No Symptoms Reported Hematologic/Lymphatic: No Symptoms Reported Immunological/Allergic: no symptoms reported All Other Systems Reviewed Negative Unless Noted: Yes Past Tnnhzbb-Amaudx-Pyrzbi Hx Past Med/Social Hx: Reviewed Nursing Past Med/Soc Hx Patient Social History 2nd Hand Smoke Exposure: No Recent Hopitalizations: No Immunizations Up To Date Tetanus Booster (TDap): Unknown Seasonal Allergies Seasonal Allergies: No Past Medical History Surgeries: Yes Tonsillectomy Respiratory: No Cardiac: Yes Hypertension Neurological: No Sexually Transmitted Disease: No HIV/AIDS: No Genitourinary: No Gastrointestinal: Yes Colitis, Chronic Constipation, Chronic Diarrhea Musculoskeletal: No Endocrine: No HEENT: Yes (corrective lenses) Hearing Impairment: Denies Cancer: No Psychosocial: Yes Sleep Difficulties, Anxiety, Depression Integumentary: No Blood Disorders: No Family Medical History GI Disease Physical Exam Vital Signs Vital Signs - First Documented 02/15/19 14:20 Temp 98.3 Pulse 97 Resp 18 B/P (MAP) 154/81 (105) Pulse Ox 93 O2 Delivery Room Air Capillary Refill : Height, Weight, BMI Height: 5'5.00" Weight: 287lbs. 0oz. 130.162813pn; BMI Method:Stated General Appearance: No Apparent Distress, WD/WN, Obese HEENT: PERRL/EOMI, TMs Normal, Normal ENT Inspection, Pharynx Normal Neck: Full Range of Motion, Normal Inspection, Non Tender, Supple Respiratory: Chest Non Tender, Lungs Clear, Normal Breath Sounds, No Accessory Muscle Use, No Respiratory Distress Cardiovascular: No Gallop, No JVD, No Murmur, Other (pedal edema present bilaterally and equally) Gastrointestinal: Normal Bowel Sounds, No Organomegaly, Non Tender, Soft Rectal: Normal Exam Extremity: Normal Capillary Refill, Normal Range of Motion, No Calf Tenderness, Pedal Edema, Other (b/l legs slightly tender, moderate edema - equal b/l) Neurologic/Psychiatric: Alert, Oriented x3, No Motor/Sensory Deficits, Normal Mood/Affect, shade cutter II-XII Norm as Tested Skin: Warm/Dry, Erythema (mild erythema on the upper inner, this area is not more tender than the surrounding areas) Lymphatic: No Adenopathy Progress/Results/Core Measures Suspected Sepsis SIRS Temperature: Pulse: Respiratory Rate: Laboratory Tests 02/15/19 14:40: White Blood Count 6.0 Blood Pressure / Mean: Laboratory Tests 02/15/19 14:40: Creatinine 0.70, Platelet Count 228, Total Bilirubin 0.2 Results/Orders Lab Results Laboratory Tests Test 02/15/19 14:40 02/15/19 16:24 Range/Units White Blood Count 6.0 4.3-11.0 10^3/uL Red Blood Count 4.39 4.35-5.85 10^6/uL Hemoglobin 11.8 11.5-16.0 G/DL Hematocrit 37 35-52 % Mean Corpuscular Volume 85 80-99 FL Mean Corpuscular Hemoglobin 27 25-34 PG Mean Corpuscular Hemoglobin Concent 32 32-36 G/DL Red Cell Distribution Width 14.9 H 10.0-14.5 % Platelet Count 228 130-400 10^3/uL Mean Platelet Volume 10.7 H 7.4-10.4 FL Neutrophils (%) (Auto) 69 42-75 % Lymphocytes (%) (Auto) 22 12-44 % Monocytes (%) (Auto) 7 0-12 % Eosinophils (%) (Auto) 2 0-10 % Basophils (%) (Auto) 0 0-10 % Neutrophils # (Auto) 4.2 1.8-7.8 X 10^3 Lymphocytes # (Auto) 1.3 1.0-4.0 X 10^3 Monocytes # (Auto) 0.4 0.0-1.0 X 10^3 Eosinophils # (Auto) 0.1 0.0-0.3 10^3/uL Basophils # (Auto) 0.0 0.0-0.1 10^3/uL Sodium Level 136 135-145 MMOL/L Potassium Level 3.9 3.6-5.0 MMOL/L Chloride Level 91 L 98-107 MMOL/L Carbon Dioxide Level 28 21-32 MMOL/L Anion Gap 17 H 5-14 MMOL/L Blood Urea Nitrogen 14 7-18 MG/DL Creatinine 0.70 0.60-1.30 MG/DL Estimat Glomerular Filtration Rate > 60 BUN/Creatinine Ratio 20 Glucose Level 298 H 70-105 MG/DL Calcium Level 9.6 8.5-10.1 MG/DL Corrected Calcium 9.7 8.5-10.1 MG/DL Total Bilirubin 0.2 0.1-1.0 MG/DL Aspartate Amino Transf (AST/SGOT) 28 5-34 U/L Alanine Aminotransferase (ALT/SGPT) 42 0-55 U/L Alkaline Phosphatase 120 40-136 U/L Pro-B-Type Natriuretic Peptide 22.3 <75.0 PG/ML Total Protein 7.4 6.4-8.2 GM/DL Albumin 3.9 3.2-4.5 GM/DL Urine Color YELLOW Urine Clarity CLEAR Urine pH 6.5 5-9 Urine Specific [place] 1.010 L 1.016-1.022 Urine Protein NEGATIVE NEGATIVE Urine Glucose (UA) 1+ H NEGATIVE Urine Ketones NEGATIVE NEGATIVE Urine Nitrite NEGATIVE NEGATIVE Urine Bilirubin NEGATIVE NEGATIVE Urine Urobilinogen 0.2 NORMAL MG/DL Urine Leukocyte Esterase NEGATIVE NEGATIVE Urine RBC (Auto) NEGATIVE NEGATIVE Urine RBC NONE /HPF Urine WBC NONE /HPF Urine Squamous Epithelial Cells 2-5 /HPF Urine Crystals NONE /LPF Urine Bacteria NONE /HPF Urine Casts NONE /LPF Urine Mucus NEGATIVE /LPF Urine Culture Indicated NO My Orders Orders - JODY CROOKS DO Cbc With Automated Diff (02/15/19 14:32) Comprehensive Metabolic Panel (02/15/19 14:32) Probnp Fs (02/15/19 14:32) Ed Iv/Invasive Line Start (02/15/19 14:32) Urinalysis (02/15/19 14:32) Furosemide Injection (Lasix Injection) (02/15/19 16:00) Ketorolac Injection (Toradol Injection) (02/15/19 16:00) Ceftriaxone For Iv Use (Rocephin For I (02/15/19 16:15) Morphine Injection (Morphine Injection (02/15/19 16:35) Medications Given in ED Current Medications Medications Dose Ordered Sig/Angeles Route Start Time Stop Time Status Last Admin Dose Admin Ceftriaxone Sodium 1000 mg/ Sterile Water 10 ml @ 200 mls/hr ONCE ONCE IV 02/15/19 16:15 02/15/19 16:17 DC 02/15/19 16:41 200 MLS/HR Furosemide 40 mg ONCE ONCE IVP 02/15/19 16:00 02/15/19 16:01 DC 02/15/19 16:07 40 MG Ketorolac Tromethamine 30 mg ONCE ONCE IVP 02/15/19 16:00 02/15/19 16:01 DC 02/15/19 16:07 30 MG Vital Signs/I&O 02/15/19 14:20 Temp 98.3 Pulse 97 Resp 18 B/P (MAP) 154/81 (105) Pulse Ox 93 O2 Delivery Room Air Capillary Refill : Progress Note : Progress Note @1600 - Erythema does appear slightly worse on both legs from ankles to knees, warm to touch, also multiple scratches are noted and pt states these are from her cat. Rocephin ordered for likely cellulitis. Pt's BG is noted to be elevated, she denies h/o diabetes.Advised pt to return to the ER immediately for new or worsening symptoms. Awaiting UA at this time. @1645 - urinalysis unremarkable other than glucose. Strongly advised patient to follow up with her PCP given a 1-2 days, avoid concentrated sweets, and to return the emergency Department immediately for new or worsening symptoms. Departure Impression Primary Impression: Lower extremity cellulitis Additional Impressions: Hyperglycemia Leg pain Disposition: 01 HOME, SELF-CARE Condition: Stable Departure-Patient Inst. Decision time for Depature: 16:45 Referrals: [facility] [place] Primary Care Physician FABIANO KUMAR APRN (Family) Primary Care Physician Patient Instructions: Cellulitis (Skin Infection), Adult (DC), Dependent Edema (DC), Hyperglycemia, Adult (DC) Add. Discharge Instructions: Follow-up with your doctor in the next 1-2 days to have her blood sugar repeated. Take the prescribed antibiotic as directed. Return to the emergency Department immediately for new or worsening symptoms. Avoid concentrated sugars and carbohydrates such as bread and pasta. Scripts Furosemide (Lasix) 40 Mg Tablet 40 MG PO DAILY for 5 Days, #5 TAB Prov: JODY CROOKS DO 02/15/19 Tramadol HCl (Tramadol HCl) 50 Mg Tablet 50 MG PO Q6H PRN for PAIN for 3 Days, #12 TAB 0 Refills Prov: JODY CROOKS DO 02/15/19 Clindamycin HCl (Clindamycin HCl) 300 Mg Capsule 300 MG PO Q6H for 10 Days, #40 CAP Prov: JODY CROOKS DO 02/15/19 JODY CROOKS DO Feb 15, 2019 14:41
[2019-02-15 14:56] LABS: BASOPHILS % (AUTO) 0 % (0-10); EOSINOPHILS % (AUTO) 2 % (0-10); HEMATOCRIT 37 % (35-52); HEMOGLOBIN 11.8 G/DL (11.5-16.0); LYMPHOCYTES # (AUTO) 1.3 X 10^3 (1.0-4.0); LYMPHOCYTES % (AUTO) 22 % (12-44); MEAN CORPUSCULAR HEMOGLOBIN 27 PG (25-34); MEAN CORPUSCULAR HGB CONC 32 G/DL (32-36); MEAN CORPUSCULAR VOLUME 85 FL (80-99); MEAN PLATELET VOLUME 10.7 FL (7.4-10.4); MONOCYTES # (AUTO) 0.4 X 10^3 (0.0-1.0); MONOCYTES % (AUTO) 7 % (0-12); NEUTROPHILS # (AUTO) 4.2 X 10^3 (1.8-7.8); NEUTROPHILS % (AUTO) 69 % (42-75); PLATELET COUNT 228 10^3/uL (130-400); RED CELL DISTRIBUTION WIDTH 14.9 % (10.0-14.5)
[2019-02-15 14:57] LABS: EOSINOPHILS # (AUTO) 0.1 10^3/uL (0.0-0.3)
[2019-02-15 15:23] LABS: ALANINE AMINOTRANSFERASE 42 U/L (0-55); ALBUMIN 3.9 GM/DL (3.2-4.5); ALKALINE PHOSPHATASE 120 U/L (40-136); BILIRUBIN,TOTAL 0.2 MG/DL (0.1-1.0); BUN/CREATININE RATIO 20; CALCIUM 9.6 MG/DL (8.5-10.1); CARBON DIOXIDE 28 MMOL/L (21-32); CHLORIDE 91 MMOL/L (98-107); GFR ESTIMATED > 60; GLUCOSE 298 MG/DL (70-105); POTASSIUM 3.9 MMOL/L (3.6-5.0); SODIUM 136 MMOL/L (135-145); TOTAL PROTEIN 7.4 GM/DL (6.4-8.2)
[2019-02-15] MEDS ORDERED: FUROSEMIDE 40 MG/4 ML INJ (LASIX) IVP ONE (16:00)
[2019-02-15] MEDS ORDERED: KETOROLAC 30 MG/ML VIAL IVP ONE (16:00)
[2019-02-15] MEDS ORDERED: cefTRIAXone FOR IV USE 1,000 MG in WATER (STERILE) FOR INJECTION 10 ML IV ONE (16:15)
[2019-02-15 16:35] LABS: CLARITY,URINE CLEAR; COLOR,URINE YELLOW
[2019-02-15] MEDS ORDERED: morphine INJ 10 MG/ML 1ML (SYR OR VIAL) IVP STA (16:35)
[2019-02-15 16:36] LABS: BILIRUBIN,URINE NEGATIVE (NEGATIVE); GLUCOSE, URINE (UA) 1+ (NEGATIVE); KETONES,URINE NEGATIVE (NEGATIVE); LEUKOCYTE ESTERASE ,URINE NEGATIVE (NEGATIVE); NITRITE,URINE NEGATIVE (NEGATIVE); PH,URINE 6.5 (5-9); PROTEIN,URINE NEGATIVE (NEGATIVE); UROBILINOGEN,URINE 0.2 MG/DL (NORMAL)
[2019-02-15] MEDS ORDERED: CLIN300C11 PO (16:46)
[2019-02-15] MEDS ORDERED: TRAM50TA2 PO (16:46)
[2019-02-15] MEDS ORDERED: FURO-124 PO (16:48)
[2019-02-15 17:04] VITALS: BP 149/88
[2019-02-18] MEDS ORDERED: CLIN300C11 PO (10:05)
[2019-02-18] MEDS ORDERED: SENN-20 PO (10:05)
== END 2019-02-15 17:19 | disposition home or self-care (01) ==
LOC: EDUNIT# 14:14 → ER FS 14:15
DX: L03.115 Cellulitis of right lower limb (principal); L03.116 Cellulitis of left lower limb; R73.9 Hyperglycemia, unspecified; I10 Essential (primary) hypertension; F32.9 Major depressive disorder, single episode, unspecified; F41.9 Anxiety disorder, unspecified; Z87.19 Personal history of other diseases of the digestive system; Z90.89 Acquired absence of other organs; Z88.2 Allergy status to sulfonamides; Z88.5 Allergy status to narcotic agent
CPT/HCPCS: 36415; 80053; 81000; 83880; 85025; 96374; 96375

== ENCOUNTER 2019-02-17 05:47 | Inpatient (IN) | payer SELFPAY ==
[~2019-02-17] VITALS: Ht 165.1 cm; Wt 125.2 kg
[~2019-02-17 05:47] MED LIST changes: +CLIN300C11 PO; +FURO-124 PO; +TRAM50TA2 PO
--- NOTE | 2019-02-17 05:58 | ED Abdominal Pain ---
General Stated Complaint: SWOLLEN FEET, NO BOWEL MOVEMENT 3 DAYS Source of Information: Patient Exam Limitations: No Limitations (EDUARDO QUESADA MD) History of Present Illness Date Seen by Provider: Feb 17, 2019 Time Seen by Provider: 05:53 Initial Comments This 48-year-old white female presents with swollen feet and constipation 3 days duration. (EDUARDO QUESADA MD) Initial Comments Worsening pain redness and swelling to bilateral lower extremities despite clindamycin and Lasix prescribed a few days ago. (BG ZHOU MD) Allergies and Home Medications Allergies Coded Allergies: gabapentin (Verified Allergy, Mild, 02/17/19) ondansetron (Verified Allergy, Mild, 03/27/17) Itching at injection site with injectable form only. Oral form well tolerated. Sulfa (Sulfonamide Antibiotics) (Verified Allergy, Unknown, 02/15/19) hydrocodone (Verified Allergy, Unknown, 03/27/17) prednisone (Verified Allergy, Unknown, 02/17/19) Home Medications Clindamycin HCl 300 Mg Capsule, 300 MG PO Q6H Prescribed by: JODY CROOKS on 02/15/19 1646 Cyclobenzaprine HCl 10 Mg Tablet, 10 MG PO Q8H Prescribed by: CINDY NAYLOR on 08/25/18 1645 Cyclobenzaprine HCl 10 Mg Tablet, 10 MG PO TID Prescribed by: EDUARDO QUESADA MD on 02/10/19 1714 Dicyclomine HCl 20 Mg Tablet, 20 MG PO Q6H Prescribed by: WAQAS BENZ on 09/28/18 0307 Famotidine 20 Mg Tablet, 20 MG PO BID Prescribed by: WAQAS BENZ on 09/28/18 0307 Furosemide 40 Mg Tablet, 40 MG PO DAILY Prescribed by: JODY CROOKS on 02/15/19 1648 Ketorolac Tromethamine 10 Mg Tablet, 10 MG PO Q6H PRN for PAIN-MODERATE TO SEVERE Prescribed by: EDUARDO QUESADA MD on 02/11/19 1032 Oxycodone HCl/Acetaminophen 1 Each Tablet, 1 TAB PO Q4H PRN for PAIN-MILD TO MODERATE Prescribed by: EDUARDO QUESADA MD on 02/10/19 1711 Prednisone 20 Mg Tab, 40 MG PO DAILY Prescribed by: CINDY NAYLOR on 08/25/18 1645 Tramadol HCl 50 Mg Tablet, 50 MG PO Q6H PRN for PAIN Prescribed by: JODY CROOKS on 02/15/19 7410 Patient Home Medication List Home Medication List Reviewed: Yes (EDUARDO QUESADA MD) Review of Systems Review of Systems Constitutional: no symptoms reported; No chills EENTM: No Symptoms Reported; No Blurred Vision Respiratory: No Symptoms Reported; Denies Cough Cardiovascular: No Symptoms Reported; Denies Chest Pain Gastrointestinal: Constipated Genitourinary: No Symptoms Reported Musculoskeletal: no symptoms reported Skin: no symptoms reported Psychiatric/Neurological: No Symptoms Reported Endocrine: No Symptoms Reported Hematologic/Lymphatic: No Symptoms Reported (EDUARDO QUESADA MD) Past Cvytsws-Ribhmu-Nbyyyu Hx Past Med/Social Hx: Reviewed Nursing Past Med/Soc Hx (EDUARDO QUESADA MD) Patient Social History 2nd Hand Smoke Exposure: No Recent Hopitalizations: No (EDUARDO QUESADA MD) Immunizations Up To Date Tetanus Booster (TDap): Unknown (EDUARDO QUESADA MD) Seasonal Allergies Seasonal Allergies: No (EDUARDO QUESADA MD) Past Medical History Surgeries: Yes Tonsillectomy Respiratory: No Cardiac: Yes Hypertension Neurological: No Sexually Transmitted Disease: No HIV/AIDS: No Genitourinary: No Gastrointestinal: Yes Colitis, Chronic Constipation, Chronic Diarrhea Musculoskeletal: No Endocrine: No HEENT: Yes (corrective lenses) Hearing Impairment: Denies Cancer: No Psychosocial: Yes Sleep Difficulties, Anxiety, Depression Integumentary: No Blood Disorders: No (EDUARDO QUESADA MD) Family Medical History GI Disease (EDUARDO QUESADA MD) Physical Exam Vital Signs Vital Signs - First Documented 02/17/19 05:58 Temp 98.3 Pulse 99 Resp 18 B/P (MAP) 143/76 (98) Pulse Ox 95 O2 Delivery Room Air (BG ZHOU MD) Vital Signs Capillary Refill : (EDUARDO QUESADA MD) Height/Weight/BMI Height: 5'5.00" Weight: 275lbs. 0oz. 124.016238iq; BMI Method:Stated General Appearance: WD/WN, no apparent distress, obese HEENT: normal ENT inspection Neck: normal inspection Respiratory: lungs clear, normal breath sounds Cardiovascular: normal peripheral pulses, regular rate, rhythm Gastrointestinal: normal bowel sounds, non tender, soft Extremities: normal range of motion, pedal edema (3+) Neurologic/Psychiatric: no motor/sensory deficits, alert, normal mood/affect Skin: normal color, warm/dry (EDUARDO QUESADA MD) General Appearance: obese Gastrointestinal: soft Rectal: other (impaction, partially disimpacted with my finger.) Extremities: pedal edema (3+, redness warmth and tenderness and swelling from dorsum of foot up the medial thigh bilaterally.) Neurologic/Psychiatric: alert, normal mood/affect Skin: normal color, warm/dry (BG ZHOU MD) Progress/Results/Core Measures Results/Orders Lab Results Laboratory Tests Test 02/17/19 06:10 Range/Units White Blood Count 6.0 4.3-11.0 10^3/uL Red Blood Count 4.49 4.35-5.85 10^6/uL Hemoglobin 11.8 11.5-16.0 G/DL Hematocrit 39 35-52 % Mean Corpuscular Volume 86 80-99 FL Mean Corpuscular Hemoglobin 26 25-34 PG Mean Corpuscular Hemoglobin Concent 31 L 32-36 G/DL Red Cell Distribution Width 14.6 H 10.0-14.5 % Platelet Count 227 130-400 10^3/uL Mean Platelet Volume 10.8 H 7.4-10.4 FL Neutrophils (%) (Auto) 68 42-75 % Lymphocytes (%) (Auto) 23 12-44 % Monocytes (%) (Auto) 6 0-12 % Eosinophils (%) (Auto) 3 0-10 % Basophils (%) (Auto) 1 0-10 % Neutrophils # (Auto) 4.0 1.8-7.8 X 10^3 Lymphocytes # (Auto) 1.4 1.0-4.0 X 10^3 Monocytes # (Auto) 0.4 0.0-1.0 X 10^3 Eosinophils # (Auto) 0.2 0.0-0.3 10^3/uL Basophils # (Auto) 0.0 0.0-0.1 10^3/uL Sodium Level 136 135-145 MMOL/L Potassium Level 3.8 3.6-5.0 MMOL/L Chloride Level 92 L 98-107 MMOL/L Carbon Dioxide Level 28 21-32 MMOL/L Anion Gap 16 H 5-14 MMOL/L Blood Urea Nitrogen 22 H 7-18 MG/DL Creatinine 0.76 0.60-1.30 MG/DL Estimat Glomerular Filtration Rate > 60 BUN/Creatinine Ratio 29 Glucose Level 235 H 70-105 MG/DL Calcium Level 8.9 8.5-10.1 MG/DL Corrected Calcium 9.2 8.5-10.1 MG/DL Total Bilirubin 0.2 0.1-1.0 MG/DL Aspartate Amino Transf (AST/SGOT) 30 5-34 U/L Alanine Aminotransferase (ALT/SGPT) 41 0-55 U/L Alkaline Phosphatase 121 40-136 U/L Pro-B-Type Natriuretic Peptide 19.8 <75.0 PG/ML Total Protein 7.2 6.4-8.2 GM/DL Albumin 3.6 3.2-4.5 GM/DL (BG ZHOU MD) My Orders Orders - BG ZHOU MD Probnp Fs (02/17/19 06:20) Urinalysis (02/17/19 06:22) Hemoglobin A1c (02/17/19 07:13) Vancomycin Injection (Vancomycin Injecti (02/17/19 07:15) Blood Culture (02/17/19 07:13) Vancomycin Injection (Vancomycin Injecti (02/17/19 07:19) Ns (Ivpb) (Sodium Chloride 0.9%) (02/17/19 07:20) Oxycodone/Apap 5/325mg Tablet (Percocet (02/17/19 07:45) (BG ZHOU MD) Medications Given in ED Current Medications Medications Dose Ordered Sig/Angeles Route Start Time Stop Time Status Last Admin Dose Admin Oxycodone/ Acetaminophen 1 tab ONCE ONCE PO 02/17/19 07:45 02/17/19 07:46 DC 02/17/19 07:47 1 TAB (BG ZHOU MD) Vital Signs/I&O 02/17/19 05:58 Temp 98.3 Pulse 99 Resp 18 B/P (MAP) 143/76 (98) Pulse Ox 95 O2 Delivery Room Air (BG ZHOU MD) Departure Communication (Admissions) Time/Spoke to Admitting Phy: 07:[address] Quevedo who agreed to admit. (BG ZHOU MD) Impression Primary Impression: Bilateral cellulitis of lower leg Additional Impressions: Fecal impaction New onset type 2 diabetes mellitus Disposition: 09 ADMITTED INPATIENT Condition: Stable Admissions Decision to Admit Reason: Admit from ER (General) Decision to Admit/Date: Feb 17, 2019 Time/Decision to Admit Time: 07:50 (BG ZHOU MD) Departure-Patient Inst. Referrals: [facility] [place]) Primary Care Physician FABIANO KUMAR APRN (Family) Primary Care Physician EDUARDO QUESADA MD Feb 17, 2019 05:58 BG ZHOU MD Feb 17, 2019 07:48
[2019-02-17 06:33] LABS: HEMATOCRIT 39 % (35-52); HEMOGLOBIN 11.8 G/DL (11.5-16.0); MEAN CORPUSCULAR HEMOGLOBIN 26 PG (25-34); MEAN CORPUSCULAR HGB CONC 31 G/DL (32-36); MEAN CORPUSCULAR VOLUME 86 FL (80-99); PLATELET COUNT 227 10^3/uL (130-400); RED CELL DISTRIBUTION WIDTH 14.6 % (10.0-14.5)
[2019-02-17 06:34] LABS: BASOPHILS % (AUTO) 1 % (0-10); EOSINOPHILS # (AUTO) 0.2 10^3/uL (0.0-0.3); EOSINOPHILS % (AUTO) 3 % (0-10); LYMPHOCYTES # (AUTO) 1.4 X 10^3 (1.0-4.0); LYMPHOCYTES % (AUTO) 23 % (12-44); MEAN PLATELET VOLUME 10.8 FL (7.4-10.4); MONOCYTES # (AUTO) 0.4 X 10^3 (0.0-1.0); MONOCYTES % (AUTO) 6 % (0-12); NEUTROPHILS % (AUTO) 68 % (42-75)
[2019-02-17 06:52] LABS: ALANINE AMINOTRANSFERASE 41 U/L (0-55); ALBUMIN 3.6 GM/DL (3.2-4.5); ALKALINE PHOSPHATASE 121 U/L (40-136); BILIRUBIN,TOTAL 0.2 MG/DL (0.1-1.0); BUN/CREATININE RATIO 29; CALCIUM 8.9 MG/DL (8.5-10.1); CARBON DIOXIDE 28 MMOL/L (21-32); CHLORIDE 92 MMOL/L (98-107); CREATININE SERUM 0.76 MG/DL (0.60-1.30); GFR ESTIMATED > 60; GLUCOSE 235 MG/DL (70-105); POTASSIUM 3.8 MMOL/L (3.6-5.0); SODIUM 136 MMOL/L (135-145); TOTAL PROTEIN 7.2 GM/DL (6.4-8.2)
[2019-02-17] MEDS ORDERED: VANCOMYCIN INJECTION 1,000 MG in NS (IVPB) 250 ML IV SCH (07:15)
[2019-02-17] MEDS ORDERED: VANCOMYCIN 1000 MG/VIAL ONE (07:19)
[2019-02-17] MEDS ORDERED: NS (IVPB) 250 ML ONE (07:20)
[2019-02-17] MEDS ORDERED: oxyCODONE/APAP 5/325MG (PERCOCET 5) TABLET PO ONE (07:45)
--- NOTE | 2019-02-17 08:10 | Diagnostic Imaging Report ---
PATIENT HISTORY: Abdominal pain and constipation. TECHNIQUE: Frontal view of the chest. Supine and upright frontal views of the abdomen. COMPARISON: 01/09/2018 FINDINGS: Lung volumes are normal. No focal consolidation is seen. There is no pleural effusion or pneumothorax. The cardiac silhouette is normal in size. There is [id number] stool seen throughout the colon. No distended loops of small bowel are seen. There is no large collection of free air. No acute osseous abnormality is seen. IMPRESSION: [id number] stool seen throughout the colon, consistent with history of constipation. No small bowel obstruction is seen. Dictated by: Dictated on workstation # [id number]
--- OUTSIDE RECORDS SUMMARY | 2019-02-17 08:14 | XMS REPORT | Clinical Summary ---
Author [facility] Address Unknown Phone Unavailable Care Team Providers Care Freelance Art Director Name Role Phone Self, Referral PCP Unavailable Ariana Dempsey Unavailable Sanna Fields RN Unavailable Unavailable Puma Lyles RN Unavailable Unavailable Damaris Ragsdale RN Unavailable Unavailable Source Comments Some departments are not documenting in the electronic medical record. If you d o not see the information that you expected, contact Release of Information in [facility] Information Management department at [phone] for further assistan ce in locating additional records.[facility] Allergies Comments Active Allergy Reactions Severity [...] Comments Vital Sign 137/76 08/05/2009 10:02 AM [employer]IV[employer] TRADER Blood Pressure 82 08/05/2009 10:02 AM [employer] Pulse 36.6 C (97.8 F) 08/05/2009 8:00 AM [employer]IV[employer]ADER Temperature - - Respiratory Rate 94% 08/05/2009 10:02 AM [employer] TR[employer]ER Oxygen Saturation - - Inhaled Oxygen Concentration 120.5 kg (265 lb 10.5 oz) 06/17/2009 10:14 PM [employer] Weight 165.1 cm (5' 5") 06/17/2009 10:14 PM [employer]IV[employer]ER Height 44.21 06/17/2009 10:14 PM [employer]ER Body Mass Index Plan of Treatment Health Maintenance Due Date Last Done Comments PHYSICAL (COMPREHENSIVE) 1979 EXAM HIV SCREENING 1987 DTAP/TDAP VACCINES (1 - 1990 Tdap) CERVICAL CANCER SCREENING 2002 BREAST CANCER SCREENING 2012 INFLUENZA VACCINE 05/08/2019 Results Not on filefrom Last 3 Months
--- OUTSIDE RECORDS SUMMARY | 2019-02-17 08:16 | XMS REPORT | Continuity of Care Document ---
Author Organization Unknown Address Unknown Allergies Active Description Code Type Severity Reaction Onset Reported/Identified Relationship to Patient Clinical Status Yes HYDROcodone Drug N/A N/A Yes Zofran Drug N/A N/A Yes ondansetron [id number] Drug Allergy Mild N/A 03/27/2017 Yes hydrocodone [id number] Drug Allergy Unknown N/A 03/27/2017 Yes Sulfa (Sulfonamide Antibiotics) [id number] Drug Allergy Unknown N/A 02/15/2019 Medications Medication Packaging Start Date Stop Date [...] Code Diagnosis Diagnosed By 01/29/2017 KRISH TERRELL DO, Ot K31.9 DISEASE OF STOMACH AND DUODENUM, UNSPECI 01/29/2017 KRISH TERRELL DO, Ot Z53.21 PROC/TRTMT NOT CRD OUT D/T PT [facility] SEE 01/31/2017 KRISH TERRELL DO, Ot K31.9 DISEASE OF STOMACH AND DUODENUM, UNSPECI 01/31/2017 KRISH TERRELL DO, Ot Z53.21 PROC/TRTMT NOT CRD OUT D/T PT LV BEF SEE 02/04/2017 KRISH TERRELL DO Ot K31.9 DISEASE OF STOMACH AND DUODENUM, UNSPECI 02/04/2017 KRISH TERRELL DO Ot Z53.21 PROC/TRTMT NOT CRD OUT D/T PT LV BEF SEE 02/19/2017 Jacobo Chua Admitting M54.2 Cervicalgia 02/19/2017 Jacobo Chua Final S16.1XXA Strain of muscle, fascia and tendon at neck level, initial e 02/19/2017 Jacobo Chua Final X58.XXXA Exposure to other specified factors, initial encounter 02/19/2017 Jacobo Chua Final Y92.[address] in unspecified non-institutional [...] R10.11 RIGHT UPPER QUADRANT PAIN 04/29/2017 ZAINAB LANEC MD Ot R10.12 LEFT UPPER QUADRANT PAIN [...] other hot tap-water, initial encounter 05/10/2018 Rommel Maojr Final Y92.[address] of occurrence of the external cause 05/15/2018 EZEQUIEL CHAVIRA APRN Ot K56.7 ILEUS, UNSPECIFIED 05/15/2018 FAN, EZEQUIEL J [place] PLANNER Ot K76.0 FATTY (CHANGE OF) LIVER, NOT ELSEWHERE C 05/15/2018 EZEQUIEL CHAVIRA [employer] PLANNER Ot K56.7 ILEUS, UNSPECIFIED 05/15/2018 EZEQUIEL CHAVIRA [employer]ING PLANNER Ot K76.0 FATTY (CHANGE OF) LIVER, NOT ELSEWHERE C 05/15/2018 EZEQUIEL CHAVIRA [employer] PLANNER Ot K56.7 ILEUS, UNSPECIFIED 05/15/2018 EZEQUIEL CHAVIRA [employer]ING PLANNER Ot K76.0 FATTY (CHANGE OF) LIVER, NOT ELSEWHERE C 08/25/2018 JARED NAYLORIS Ot F32.9 MAJOR DEPRESSIVE DISORDER, SINGLE EPISOD 08/25/2018 CINDY NAYLOR Ot F41.9 ANXIETY DISORDER, UNSPECIFIED 08/25/2018 JARED NAYLORIS Ot F90.9 ATTENTION- DEFICIT HYPERACTIVITY DISORDER 08/25/2018 JARED NAYLORIS Ot F98.8 OTH BEHAV/EMOTN DISORD W ONSET USLY OCCU 08/25/2018 CINDY NAYLOR Ot I10 ESSENTIAL (PRIMARY) HYPERTENSION 08/25/2018 JARED NAYLORIS Ot M54.2 CERVICALGIA 08/25/2018 JARED NAYLORIS Ot S13.4XXA SPRAIN OF LIGAMENTS OF CERVICAL SPINE, I 08/25/2018 CINDY NAYLOR Ot X58.XXXA EXPOSURE TO OTHER SPECIFIED FACTORS, INI 08/25/2018 JARED NAYLORIS Ot Z79.52 MCC (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 STER 08/25/2018 CINDY NAYLOR Ot Z87.19 PERSONAL HISTORY OF OTHER DISEASES OF TH 08/25/2018 CINDY NAYLOR Ot Z88.5 ALLERGY STATUS TO NARCOTIC AGENT STATUS 08/25/2018 JARED NAYLORIS Ot Z88.8 ALLERGY STATUS TO OTH DRUG/MEDS/BIOL SUB 08/25/2018 JARED NAYLORIS Ot Z90.89 ACQUIRED ABSENCE OF OTHER ORGANS 08/25/2018 EZEQUIEL CHAVIRA [employer]EDDING PLANNER Ot K56.7 ILEUS, UNSPECIFIED 08/25/2018 EZEQUIEL CHAVIRA [employer]ING PLANNER Ot K76.0 FATTY (CHANGE OF) LIVER, NOT ELSEWHERE C 08/28/2018 CINDY NAYLOR Ot F32.9 MAJOR DEPRESSIVE DISORDER, SINGLE EPISOD 08/28/2018 CINDY NAYLOR Ot F41.9 ANXIETY DISORDER, UNSPECIFIED 08/28/2018 JARED NAYLORIS Ot F90.9 ATTENTION- DEFICIT HYPERACTIVITY DISORDER 08/28/2018 JARED NAYLORIS Ot F98.8 OTH BEHAV/EMOTN DISORD W ONSET USLY OCCU 08/28/2018 JARED NAYLORIS Ot I10 ESSENTIAL (PRIMARY) HYPERTENSION 08/28/2018 CINDY NAYLOR Ot M54.2 CERVICALGIA 08/28/2018 CINDY NAYLOR Ot S13.4XXA SPRAIN OF LIGAMENTS OF CERVICAL SPINE, I 08/28/2018 CINDY NAYLOR Ot X58.XXXA EXPOSURE TO OTHER SPECIFIED FACTORS, INI 08/28/2018 CINDY NAYLOR Ot Z79.52 INVOICE CLERK (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 STER 08/28/2018 CINDY [...] F41.9 ANXIETY DISORDER, UNSPECIFIED 09/28/2018 WAQAS BENZ DO Ot F90.9 ATTENTION- DEFICIT HYPERACTIVITY DISORDER 09/28/2018 WAQAS BENZ DO Ot F98.8 OTH BEHAV/EMOTN DISORD W ONSET USLY OCCU 09/28/2018 WAQAS BENZ DO Ot I10 ESSENTIAL (PRIMARY) HYPERTENSION 09/28/2018 WAQAS BENZ DO, Ot K21.0 GASTRO- ESOPHAGEAL REFLUX DISEASE WITH ES 09/28/2018 WAQAS BENZ DO, Ot K58.9 IRRITABLE BOWEL SYNDROME WITHOUT DIARRHE 09/28/2018 WAQAS BENZ DO, Ot R10.13 EPIGASTRIC PAIN 09/28/2018 WAQAS BENZ DO, Ot Z79.52 MCC (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 STER 09/28/2018 BENZ DO, WAQAS Ot Z87.19 PERSONAL HISTORY [...] GASTRO- ESOPHAGEAL REFLUX DISEASE WITH ES 10/04/2018 [place] DO, WAQAS Ot K58.9 IRRITABLE BOWEL SYNDROME WITHOUT DIARRHE 10/04/2018 [place] DO, WAQAS Ot R10.13 EPIGASTRIC PAIN 10/04/2018 BENZ DO, WAQAS Ot Z79.52 MCC (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 STER 10/04/2018 BENZ [...] IRRITABLE BOWEL SYNDROME WITHOUT DIARRHE 10/06/2018 BENZ WAQAS Ot R10.13 EPIGASTRIC PAIN 10/06/2018 BENZ WAQAS Ot Z79.52 MCC (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 STER 10/06/2018 BENZ WAQAS Ot Z87.19 PERSONAL HISTORY OF OTHER DISEASES OF 10/06/2018 TUYET WALLER, WAQAS Ot Z88.5 ALLERGY STATUS TO NARCOTIC AGENT STATUS 10/06/2018 TUYET WALLER WAQAS Ot Z88.8 ALLERGY STATUS TO OTH DRUG/MEDS/BIOL SUB 10/06/2018 BENZ WAQAS Ot Z90.89 ACQUIRED ABSENCE OF OTHER ORGANS 10/25/2018 ZAINAB LANCE MD Ot F32.9 MAJOR DEPRESSIVE DISORDER, SINGLE EPISOD 10/25/2018 ZAINAB LANCE MD Ot F39 UNSPECIFIED MOOD [AFFECTIVE] DISORDER 10/25/2018 ZAINAB LANCE MD Ot F41.9 ANXIETY DISORDER, UNSPECIFIED 10/25/2018 ZAINAB LANCE MD Ot F90.9 ATTENTION-DEFICIT HYPERACTIVITY DISORDER 10/25/2018 ZAINAB LANCE MD Ot F98.8 OTH BEHAV/EMOTN DISORD W ONSET USLY OCCU 10/25/2018 ZAINAB LANCE MD Ot I10 ESSENTIAL (PRIMARY) HYPERTENSION 10/25/2018 ZAINAB LANCE MD Ot Z79.52 INVOICE CLERK (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 STER 10/25/2018 ZAINAB LANCE MD Ot Z87.19 PERSONAL HISTORY OF OTHER DISEASES OF 10/25/2018 ZAINAB LANCE MD Ot Z88.5 ALLERGY STATUS TO NARCOTIC AGENT STATUS 10/25/2018 ZAINAB LANCE MD Ot Z88.8 ALLERGY STATUS TO OTH DRUG/MEDS/BIOL SUB 10/25/2018 ZAINAB LANCE MD Ot Z90.89 ACQUIRED ABSENCE [...] HYPERTENSION 11/26/2018 ZAINAB LANCE MD Ot Z79.52 INVOICE CLERK (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 STER 11/26/2018 ZAINAB LANCE MD Ot Z87.19 PERSONAL HISTORY OF OTHER DISEASES OF TH 11/26/2018 ZAINAB LANCE MD Ot Z88.5 ALLERGY [...] HYPERTENSION 11/30/2018 ZAINAB LANCE MD Ot Z79.52 INVOICE CLERK (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 STER 11/30/2018 ZAINAB [...] HYPERTENSION 11/30/2018 ZAINAB LANCE MD Ot Z79.52 MCC (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 STER 11/30/2018 ZAINAB [...] HYPERTENSION 12/01/2018 ZAINAB LANCE MD Ot Z79.52 MCC (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 STER 12/01/2018 ZAINAB [...] W ONSET USLY OCCU 12/06/2018 ZAINAB LANCE MD, Ot I10 ESSENTIAL (PRIMARY) HYPERTENSION 12/06/2018 ZAINAB LANCE MD Ot Z79.52 INVOICE CLERK (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 STER 12/06/2018 ZAINAB LANCE MD, Ot Z87.19 PERSONAL HISTORY OF OTHER DISEASES OF 12/06/2018 ZAINAB LANCE MD, Ot Z88.5 ALLERGY STATUS TO NARCOTIC AGENT STATUS 12/06/2018 ZAINAB LANCE MD, Ot Z88.8 ALLERGY STATUS TO OTH DRUG/MEDS/BIOL SUB 12/06/2018 ZAINAB LANCE MD, Ot Z90.89 ACQUIRED ABSENCE OF OTHER ORGANS 12/14/2018 KIRSTIE CHAUDHARI MD, Ot F32.9 MAJOR DEPRESSIVE DISORDER, SINGLE EPISOD 12/14/2018 KIRSTIE CHAUDHARI MD, Ot F41.9 ANXIETY DISORDER, UNSPECIFIED 12/14/2018 KIRSTIE CHAUDHARI MD, Ot F90.9 ATTENTION-DEFICIT HYPERACTIVITY DISORDER 12/14/2018 KIRSTIE CHAUDHARI MD, Ot I10 ESSENTIAL (PRIMARY) HYPERTENSION 12/14/2018 KIRSTIE CHAUDHARI MD, Ot M54.5 LOW BACK PAIN 12/14/2018 KIRSTIE CHAUDHARI MD, Ot R60.0 LOCALIZED EDEMA 12/14/2018 KIRSTIE CHAUDHARI MD, Ot Z79.52 INVOICE CLERK (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 STER 12/14/2018 KIRSTIE CHAUDHARI MD, Ot Z87.19 PERSONAL HISTORY OF OTHER DISEASES OF 12/14/2018 KIRSTIE CHAUDHARI MD, Ot Z88.5 ALLERGY STATUS TO NARCOTIC AGENT STATUS 12/14/2018 KIRSTIE CHAUDHARI MD, Ot Z88.8 ALLERGY STATUS TO OTH DRUG/MEDS/BIOL SUB 12/14/2018 KIRTSIE CHAUDHARI MD, Ot Z90.89 ACQUIRED ABSENCE OF OTHER ORGANS 12/19/2018 FARA ENG, KIRSTIE Ram Ot F32.9 MAJOR DEPRESSIVE DISORDER, SINGLE EPISOD 12/19/2018 FARA ENG, KIRSTIE Ram Ot F41.9 ANXIETY DISORDER, UNSPECIFIED 12/19/2018 KIRSTIE CHAUDHARI MD Ot F90.9 ATTENTION-DEFICIT HYPERACTIVITY DISORDER 12/19/2018 KIRSTIE CHAUDHARI MD Ot I10 ESSENTIAL (PRIMARY) HYPERTENSION 12/19/2018 KIRSTIE CHAUDHARI MD Ot M54.5 LOW BACK PAIN 12/19/2018 KIRSTIE CHAUDHARI MD Ot R60.0 LOCALIZED EDEMA 12/19/2018 FARA ENG, KIRSTIE Ram Ot Z79.52 MCC (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 STER 12/19/2018 KIRSTIE CHAUDHARI MD Ot Z87.19 PERSONAL HISTORY OF OTHER DISEASES OF 12/19/2018 FARA ENG, KIRSTIE Ram Ot Z88.5 ALLERGY STATUS TO NARCOTIC AGENT STATUS 12/19/2018 FARA ENG, KIRSTIE Ram Ot Z88.8 ALLERGY STATUS TO OTH DRUG/MEDS/BIOL SUB 12/19/2018 FARA ENG, KIRSTIE Ram Ot Z90.89 ACQUIRED ABSENCE OF OTHER ORGANS 02/16/2019 SANGITA ENG, EDUARDO Lilly Ot F32.9 MAJOR DEPRESSIVE DISORDER, SINGLE EPISOD 02/16/2019 SANGITA ENG, EDUARDO Lilly Ot F41.9 ANXIETY DISORDER, UNSPECIFIED 02/16/2019 SANGITA ENG, EDUARDO Lilly Ot I10 ESSENTIAL (PRIMARY) HYPERTENSION 02/16/2019 SANGITA ENG, EDUARDO Lilly Ot M54.2 CERVICALGIA 02/16/2019 SANGITA ENG, EDUARDO Lilly Ot M62.838 OTHER MUSCLE SPASM 02/16/2019 SANGITA ENG, EDUARDO Lilly Ot Z87.19 PERSONAL HISTORY OF OTHER DISEASES OF 02/16/2019 SANGITA ENG, EDUARDO Lilly Ot Z88.5 ALLERGY STATUS TO NARCOTIC AGENT STATUS 02/16/2019 SANGITA ENG, EDUARDO Lilly Ot Z90.89 ACQUIRED ABSENCE OF OTHER ORGANS 02/16/2019 SANGITA ENG, EDUARDO Lilly Ot F32.9 MAJOR DEPRESSIVE DISORDER, SINGLE EPISOD 02/16/2019 SANGITA ENG, EDUARDO Lilly Ot F41.9 ANXIETY DISORDER, UNSPECIFIED 02/16/2019 SANGITA ENG, EDUARDO Lilly Ot I10 ESSENTIAL (PRIMARY) HYPERTENSION 02/16/2019 EDUARDO QUESADA MD Ot M54.2 CERVICALGIA 02/16/2019 EDUARDO QUESADA MD Ot Z87.19 PERSONAL HISTORY OF OTHER DISEASES OF TH 02/16/2019 EDUARDO QUESADA MD Ot Z88.5 ALLERGY STATUS TO NARCOTIC AGENT STATUS 02/16/2019 EDUARDO QUESADA MD Ot Z90.89 ACQUIRED ABSENCE OF OTHER ORGANS Procedures Code [place] [address] Therapeutic, prophylactic, or diagnostic FELICITAS URSULA 02/19/2017 03541 Therapeutic, prophylactic, or diagnostic FELICITAS URSULA 02/19/2017 80356 Therapeutic, prophylactic, or diagnostic FELICITAS URSULA 02/19/2017 32684 Emergency department visit for the ruiz FELICITAS URSULA 02/19/2017 15019 Emergency department visit for the ruiz FELICITAS URSULA 09/07/2017 57395 Therapeutic, prophylactic, or diagnostic FELICITAS URSULA 09/30/2017 39938 Emergency department visit for the ruiz FELICITAS URSULA 09/30/2017 19859 Emergency department visit for the ruiz FELICITAS USRULA 05/02/2018 66098 Dressings and/or debridement of partial- FELICITAS URSULA 05/10/2018 15617 Immunization administration (includes pe FELICITAS URSULA 05/10/2018 20524 Therapeutic, prophylactic, or diagnostic FELICITAS URSULA 05/10/2018 46569 Emergency department visit for the ruiz FELICITAS [...] 7-25 CREATININE 0.76 mg/dL 0.50-1.10 eGFR NON-AFR. GAMBIAN 94 mL/min/1.73m2 > OR=60 eGFR 109 mL/min/1.73m2 > OR=60 BUN/CREATININE RATIO NOT APPLICABLE (calc) 6-22 SODIUM 137 mmol/L 135-146 POTASSIUM 4.3 mmol/L 3.5-5.3 CHLORIDE 99 mmol/L 98-110 CARBON DIOXIDE 28 mmol/L 20-32 CALCIUM 9.8 mg/dL 8.6-10.2 Complete blood count (CBC) with automated white blood cell (WBC) differential - 02/15/19 14:40 Blood leukocytes automated count (number/volume) 6.0 10*3/uL 4.3-11.0 Blood erythrocytes automated count (number/volume) 4.39 10*6/uL 4.35-5.85 Venous blood hemoglobin measurement (mass/volume) 11.8 g/dL 11.5-16.0 Blood hematocrit (volume fraction) 37 % 35-52 Automated erythrocyte mean corpuscular volume 85 [foz_us] 80-99 Automated erythrocyte mean corpuscular hemoglobin (mass per erythrocyte) 27 pg 25-34 Automated erythrocyte mean corpuscular hemoglobin concentration measurement (mass/volume) 32 g/dL 32-36 Automated erythrocyte distribution width ratio 14.9 % 10.0- 14.5 Automated blood platelet count (count/volume) 228 10*3/uL 130-400 Automated blood platelet mean volume measurement 10.7 [foz_us] 7.4-10.4 Automated blood neutrophils/100 leukocytes 69 % 42-75 Automated blood lymphocytes/100 leukocytes 22 % 12-44 Blood monocytes/100 leukocytes 7 % 0-12 Automated blood eosinophils/100 leukocytes 2 % 0-10 Automated blood basophils/100 leukocytes 0 % 0-10 Blood neutrophils automated count (number/volume) 4.2 10*3 1.8-7.8 Blood lymphocytes automated count (number/volume) 1.3 10*3 1.0-4.0 Blood monocytes automated count (number/volume) 0.4 10*3 0.0- 1.0 Automated eosinophil count 0.1 10*3/uL 0.0-0.3 Automated blood basophil count (count/volume) 0.0 10*3/uL 0.0-0.1 Comprehensive metabolic panel - 02/15/19 14:40 Serum or plasma sodium measurement (moles/volume) 136 mmol/L 135-145 Serum or plasma potassium measurement (moles/volume) 3.9 mmol/L 3.6-5.0 Serum or plasma chloride measurement (moles/volume) 91 mmol/L 98-107 Carbon dioxide 28 mmol/L 21-32 Serum or plasma anion gap determination (moles/volume) 17 mmol/L 5-14 Serum or plasma urea nitrogen measurement (mass/volume) 14 mg/dL 7-18 Serum or plasma creatinine measurement (mass/volume) 0.70 mg/dL 0.60-1.30 Serum or plasma urea nitrogen/creatinine mass ratio 20 NRG Serum or plasma creatinine measurement with calculation of estimated glomerular filtration rate > NRG Serum or plasma glucose measurement (mass/volume) 298 mg/dL 70-105 Serum or plasma calcium measurement (mass/volume) 9.6 mg/dL 8.5-10.1 Serum or plasma total bilirubin measurement (mass/volume) 0.2 mg/dL 0.1-1.0 Serum or plasma alkaline phosphatase measurement (enzymatic activity/volume) 120 U/L 40-136 Serum or plasma aspartate aminotransferase measurement (enzymatic activity/volume) 28 U/L 5-34 Serum or plasma alanine aminotransferase measurement (enzymatic activity/volume) 42 U/L 0-55 Serum or plasma protein measurement (mass/volume) 7.4 g/dL 6.4-8.2 Serum or plasma albumin measurement (mass/volume) 3.9 g/dL 3.2-4.5 CALCIUM CORRECTED 9.7 mg/dL 8.5-10.1 PROBNP FS - 02/15/19 14:40 PROBNP FS 22.3 pg/mL <75.0 Complete urinalysis with reflex to culture - 02/15/19 16:24 Urine color determination YELLOW NRG Urine clarity determination CLEAR NRG Urine pH measurement by test strip 6.5 5-9 Specific gravity of urine by test strip 1.010 1.016-1.022 Urine protein assay by test strip, semi-quantitative NEGATIVE NEGATIVE Urine glucose detection by automated test strip 1+ NEGATIVE Erythrocytes detection in urine sediment by [...] detection in urine sediment by light microscopy 2-5 NRG Crystals detection in urine sediment by light microscopy NONE NRG Casts detection in urine sediment by light microscopy NONE NRG Mucus detection in urine sediment by light microscopy NEGATIVE NRG Complete urinalysis with reflex to culture NO NRG Complete blood count (CBC) with automated white blood cell (WBC) differential - 02/17/19 06:10 Blood leukocytes automated count (number/volume) 6.0 10*3/uL 4.3-11.0 Blood erythrocytes automated count (number/volume) 4.49 10*6/uL 4.35-5.85 Venous blood hemoglobin measurement (mass/volume) 11.8 g/dL 11.5-16.0 Blood hematocrit (volume fraction) 39 % 35-52 Automated erythrocyte mean corpuscular volume 86 [foz_us] 80-99 Automated erythrocyte mean corpuscular hemoglobin (mass per erythrocyte) 26 pg 25-34 Automated erythrocyte mean corpuscular hemoglobin concentration measurement (mass/volume) 31 g/dL 32-36 Automated erythrocyte distribution width ratio 14.6 % 10.0- 14.5 Automated blood platelet count (count/volume) 227 10*3/uL 130-400 Automated blood platelet mean volume measurement 10.8 [foz_us] 7.4-10.4 Automated blood neutrophils/100 leukocytes 68 % 42-75 Automated blood lymphocytes/100 leukocytes 23 % 12-44 Blood monocytes/100 leukocytes 6 % 0-12 Automated blood eosinophils/100 leukocytes 3 % 0-10 Automated blood basophils/100 leukocytes 1 % 0-10 Blood neutrophils automated count (number/volume) 4.0 10*3 1.8-7.8 Blood lymphocytes automated count (number/volume) 1.4 10*3 1.0-4.0 Blood monocytes automated count (number/volume) 0.4 10*3 0.0- 1.0 Automated eosinophil count 0.2 10*3/uL 0.0-0.3 Automated blood basophil count (count/volume) 0.0 10*3/uL 0.0-0.1 Comprehensive metabolic panel - 02/17/19 06:10 Serum or plasma sodium measurement (moles/volume) 136 mmol/L 135-145 Serum or plasma potassium measurement (moles/volume) 3.8 mmol/L 3.6-5.0 Serum or plasma chloride measurement (moles/volume) 92 mmol/L 98-107 Carbon dioxide 28 mmol/L 21-32 Serum or plasma anion gap determination (moles/volume) 16 mmol/L 5-14 Serum or plasma urea nitrogen measurement (mass/volume) 22 mg/dL 7-18 Serum or plasma creatinine measurement (mass/volume) 0.76 mg/dL 0.60-1.30 Serum or plasma urea nitrogen/creatinine mass ratio 29 NRG Serum or plasma creatinine measurement with calculation of estimated glomerular filtration rate > NRG Serum or plasma glucose measurement (mass/volume) 235 mg/dL 70-105 Serum or plasma calcium measurement (mass/volume) 8.9 mg/dL 8.5-10.1 Serum or plasma total bilirubin measurement (mass/volume) 0.2 mg/dL 0.1-1.0 Serum or plasma alkaline phosphatase measurement (enzymatic activity/volume) 121 U/L 40-136 Serum or plasma aspartate aminotransferase measurement (enzymatic activity/volume) 30 U/L 5-34 Serum or plasma alanine aminotransferase measurement (enzymatic activity/volume) 41 U/L 0-55 Serum or plasma protein measurement (mass/volume) 7.2 g/dL 6.4-8.2 Serum or plasma albumin measurement (mass/volume) 3.6 g/dL 3.2-4.5 CALCIUM CORRECTED 9.2 mg/dL 8.5-10.1 PROBNP FS - 02/17/19 06:10 PROBNP FS 19.8 pg/mL <75.0 Encounters ACCT No. Visit Date/Time Discharge Status Pt. Type Provider Facility Loc./Unit Complaint [id number] 12/18/2018 10:20:00 12/18/2018 23:59:59 [id number] 12/18/2018 10:20:00 Document Registration [id number] 02/15/2019 14:15:00 02/15/2019 17:19:00 DIS Emergency VALERIY VERA DO [facility] ER FS SWOLLEN FEET [id number] 02/11/2019 10:01:00 02/11/2019 10:39:00 DIS Outpatient EDUARDO QUESADA MD [facility] ER FS NECK PAIN [id number] 02/10/2019 15:21:00 02/10/2019 17:41:00 DIS Outpatient EDUARDO QUESADA MD [facility] ER FS NECK PAIN [id number] 12/14/2018 01:08:00 12/14/2018 05:50:00 DIS Emergency KIRSTIE CHAUDHARI MD [facility] ER FS LOWER BACK PAIN [id number] 10/25/2018 15:47:00 10/25/2018 21:57:00 DIS Emergency ZAINAB LANCE MD [facility] ER FS PER PT MOTHER SUICIDAL THOUGHTS [id number] 09/28/2018 02:05:00 09/28/2018 03:18:00 DIS Emergency TUYET WALLER WAQAS [facility] ER FS CONGESTION,SOA [id number] 08/25/2018 14:53:00 08/25/2018 17:00:00 DIS Emergency CINDY NAYLOR [facility] ER NECK PAIN [id number] 01/09/2018 21:48:00 01/09/2018 23:27:00 DIS Emergency ZAINAB LANCE MD [facility] ER GI PROBLEMS, KNOTS ON L SIDE [id number] 01/06/2018 11:35:00 01/06/2018 23:59:59 CLS Outpatient EZEQUIEL CHAVIRA APRN [facility] RAD RLQ ABD PAIN,RUQ ABD PAIN,LLEUS,CONSTIPATION [id number] 04/24/2017 18:36:00 04/24/2017 20:50:00 DIS Emergency ZAINAB LANCE MD [facility] ER ABD/SIDE PAIN [id number] 03/26/2017 23:35:00 03/27/2017 02:16:00 DIS Emergency LATIA ROYAL MD [facility] ER AB PAIN DIARRHEA VOMTING [id number] 01/29/2017 22:24:00 01/29/2017 22:43:00 DIS Emergency KRISH TERRELL DO [facility] ER STOMACH ISSUES [id number] 02/17/2019 06:34:00 Document Registration [id number] 05/10/2018 09:43:00 05/10/2018 11:45:00 DIS Emergency Rommel Major [facility] ER Burn [id number] 05/02/2018 16:45:00 05/02/2018 18:54:00 DIS Emergency KALIE SOTO [facility] ER Orthopedic [id number] 09/30/2017 05:07:00 09/30/2017 07:12:00 DIS Emergency Yosvany Deacon [facility] ER General Medical [id number] 09/07/2017 21:53:00 09/08/2017 02:12:00 DIS Emergency Luis Cuello [facility] General Medical [id number] 02/19/2017 05:35:00 02/19/2017 08:40:00 [facility] [id number] 09/30/2017 05:33:28 Document Registration
[2019-02-17 09:18] VITALS: BP 119/76
[2019-02-17] MEDS ORDERED: MAGNESIUM CITRATE 300 ML BTL PO NR (10:22)
[2019-02-17] MEDS ORDERED: PIPERACILLIN/TAZO 4.5 GM/NS 100 ML IV NR ×2 (10:22)
[2019-02-17] MEDS ORDERED: VANCOMYCIN 1500 MG/NS 500 ML IVPB IV NR ×2 (10:25)
[2019-02-17 11:57] VITALS: BP 136/71
--- NOTE | 2019-02-17 13:40 | NUR ---
Dr Blake notified by this staff genetic counselor patient had pain in the right lower quad, 2-3 out of 10 numeric scale, this writer producer ordered to give pain medication 1x and ambulate
[2019-02-17] MEDS: oxyCODONE/APAP 5/325MG (PERCOCET 5) TABLET PO PRN ×2 (14:31→20:38)
--- NOTE | 2019-02-17 15:11 | History & Physical ---
HPI History of Present Illness: 48 yo F that presented with worsening lower extremity swelling and redness. States that she was seen in the ER at [facility] and started on clindamycin 2 days ago. States that she has not seen any improvement with swelling or redness and the pain has got worse. Swelling and redness present on both legs. Denies any trauma other then her cats occasionally scratch her but she does not remember any specific area that started this. She was also given a 5 day course of lasix for the swelling that did not seem to help. Denies any generalize malaise or fever/chills. Denies ever having this type of episode in the past. States that she is pretty sure she has SAMEER but has never been tested due to cost. Mother states that she stops breathing often and patient states that she is always tired. Source: patient, family (mother) Exam Limitations: no limitations Date seen by provider: Feb 17, 2019 Time Seen by Provider: 12:15 Attending Physician Frank Quevedo MD [facility] [place],[facility] Consult Date of Admission Feb 17, 2019 at 08:06 Home Medications Home Medications Reviewed patient Home Medication Reconciliation performed by pharmacy medication reconciliations food service technician and/or nursing. Patients Allergies have been reviewed. Allergies Coded Allergies: gabapentin (Verified Allergy, Mild, 02/17/19) ondansetron (Verified Allergy, Mild, 03/27/17) Itching at injection site with injectable form only. Oral form well tolerated. Sulfa (Sulfonamide Antibiotics) (Verified Allergy, Unknown, 02/15/19) hydrocodone (Verified Allergy, Unknown, 03/27/17) prednisone (Verified Allergy, Unknown, 02/17/19) ZHL-Yezoms-Cyfaov Hx Patient Social History Alcohol Use: Denies Use Recreational Drug Use: No 2nd Hand Smoke Exposure: No Recent Foreign Travel: No Contact w/other who traveled: No Recent Hopitalizations: No Recent Infectious Disease Expo: No Immunizations Up To Date Tetanus Booster (TDap): Unknown Past Medical History Obesity Reflux Family Medical History Significant Family History: GI Disease Review of Systems ([facility]) Constitutional: No chills, No fever, No malaise; weakness EENTM: no symptoms reported Respiratory: no symptoms reported; No cough, No dyspnea on exertion, No orthopnea, No short of breath Cardiovascular: no symptoms reported; No chest pain, No edema, No palpitations Gastrointestinal: No abdominal pain; constipation; No loss of appetite, No nausea, No vomiting Genitourinary: no symptoms reported; No dysuria, No frequency, No hematuria Musculoskeletal: muscle pain Skin: other (tingling in LE bilatereally) Psychiatric/Neurological: Numbness, Paresthesia Reviewed Test Results Reviewed Test Results Lab Laboratory Tests Test 02/17/19 06:10 Range/Units White Blood Count 6.0 4.3-11.0 10^3/uL Red Blood Count 4.49 4.35-5.85 10^6/uL Hemoglobin 11.8 11.5-16.0 G/DL Hematocrit 39 35-52 % Mean Corpuscular Volume 86 80-99 FL Mean Corpuscular Hemoglobin 26 25-34 PG Mean Corpuscular Hemoglobin Concent 31 L 32-36 G/DL Red Cell Distribution Width 14.6 H 10.0-14.5 % Platelet Count 227 130-400 10^3/uL Mean Platelet Volume 10.8 H 7.4-10.4 FL Neutrophils (%) (Auto) 68 42-75 % Lymphocytes (%) (Auto) 23 12-44 % Monocytes (%) (Auto) 6 0-12 % Eosinophils (%) (Auto) 3 0-10 % Basophils (%) (Auto) 1 0-10 % Neutrophils # (Auto) 4.0 1.8-7.8 X 10^3 Lymphocytes # (Auto) 1.4 1.0-4.0 X 10^3 Monocytes # (Auto) 0.4 0.0-1.0 X 10^3 Eosinophils # (Auto) 0.2 0.0-0.3 10^3/uL Basophils # (Auto) 0.0 0.0-0.1 10^3/uL Sodium Level 136 135-145 MMOL/L Potassium Level 3.8 3.6-5.0 MMOL/L Chloride Level 92 L 98-107 MMOL/L Carbon Dioxide Level 28 21-32 MMOL/L Anion Gap 16 H 5-14 MMOL/L Blood Urea Nitrogen 22 H 7-18 MG/DL Creatinine 0.76 0.60-1.30 MG/DL Estimat Glomerular Filtration Rate > 60 BUN/Creatinine Ratio 29 Glucose Level 235 H 70-105 MG/DL Calcium Level 8.9 8.5-10.1 MG/DL Corrected Calcium 9.2 8.5-10.1 MG/DL Total Bilirubin 0.2 0.1-1.0 MG/DL Aspartate Amino Transf (AST/SGOT) 30 5-34 U/L Alanine Aminotransferase (ALT/SGPT) 41 0-55 U/L Alkaline Phosphatase 121 40-136 U/L Pro-B-Type Natriuretic Peptide 19.8 <75.0 PG/ML Total Protein 7.2 6.4-8.2 GM/DL Albumin 3.6 3.2-4.5 GM/DL Physical Exam-([facility]) Physical Exam Vital Signs VS - Last 72 Hours, by Label 02/17/19 02/17/19 02/17/19 02/17/19 05:58 08:25 09:18 09:18 Temp 98.3 97.5 97.6 97.6 Pulse 99 93 93 93 Resp 18 18 16 16 B/P (MAP) 143/76 (98) 137/71 (93) 119/76 119/76 (90) Pulse Ox 95 94 94 94 O2 Delivery Room Air Room Air Room Air Room Air 02/17/19 02/17/19 10:50 11:57 Temp 97.5 Pulse 92 Resp 16 B/P (MAP) 136/71 (92) Pulse Ox 93 O2 Delivery Room Air Room Air Capillary Refill : Less Than 3 Seconds General Appearance: WD/WN, no apparent distress, obese HEENT: PERRL/EOMI Neck: non-tender, full range of motion, supple, normal inspection Respiratory: chest non-tender, lungs clear, normal breath sounds, no respiratory distress, no accessory muscle use Cardiovascular: normal peripheral pulses, regular rate, rhythm, no murmur, other (2+ pitting edema bilaterally) Gastrointestinal: normal bowel sounds, non tender, soft, no organomegaly Back: no CVA tenderness, no vertebral tenderness Extremities: normal range of motion, non-tender, normal capillary refill, calf tenderness Neurologic/Psychiatric: 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 tested, no motor/sensory deficits, alert, normal mood/affect, oriented x 3 Skin: normal color, warm/dry; No rash Lymphatic: no adenopathy Assessment/Plan Assessment/Plan Admission Status: Inpatient Order (span 2 midnights) Reason for Inpatient Admission: Requires IV antibiotics (1) Bilateral cellulitis of lower leg Status: Acute Assessment & Plan: - Will continue IV antibiotics, redness has resolved, Will order bilateral dopplers to rule out DVT, BNP normal (2) Fecal impaction Status: Acute Assessment & Plan: - Start daily Senna-s (3) GERD with esophagitis Status: Acute Assessment & Plan: - Continue home meds (4) BMI 45.0-49.9, adult Status: Chronic Assessment & Plan: - Discussed the importance of weight loss, needs sleep study (5) DVT prophylaxis Status: Acute Assessment & Plan: lovenox Clinical Quality Measures DVT/VTE Risk/Contraindication: Risk Factor Score Per Nursin RFS Level Per Nursing on Admit: 4+=Very High FRANK QUEVEDO MD Feb 17, 2019 15:11
[2019-02-17] MEDS: SENNA W/DOCUSATE (SENOKOT S) TABLET PO SCH ×2 (15:52→20:16)
[2019-02-17 16:00] VITALS: BP 134/86
[2019-02-17 17:13] VITALS: BP 134/86
[2019-02-17] MEDS: PIPERACILLIN/TAZO 4.5 GM/NS 100 ML IV SCH ×2 (17:32)
[2019-02-17 20:13] VITALS: BP 141/86
[2019-02-17] MEDS: ENOXAPARIN 40 MG/0.4 ML (LOVENOX) SYR SQ SCH (20:16)
[2019-02-17] MEDS ORDERED: BISACODYL 10 MG SUPP (DULCOLAX) PR SCH (21:00)
[2019-02-17] MEDS ORDERED: VANCOMYCIN 2000 MG/NS 500 ML IVPB IV SCH ×2 (22:00)
[2019-02-18] VITALS: BP 136/85
[2019-02-18] MEDS: PIPERACILLIN/TAZO 4.5 GM/NS 100 ML IV SCH ×4 (00:27→09:06)
[2019-02-18] MEDS: oxyCODONE/APAP 5/325MG (PERCOCET 5) TABLET PO PRN ×2 (03:26→09:12)
[2019-02-18 04:00] VITALS: BP 141/93
[2019-02-18 05:11] LABS: BASOPHILS % (AUTO) 0 % (0-10); EOSINOPHILS # (AUTO) 0.3 10^3/uL (0.0-0.3); EOSINOPHILS % (AUTO) 4 % (0-10); HEMATOCRIT 35 % (35-52); HEMOGLOBIN 10.8 G/DL (11.5-16.0); LYMPHOCYTES # (AUTO) 1.1 X 10^3 (1.0-4.0); LYMPHOCYTES % (AUTO) 20 % (12-44); MEAN CORPUSCULAR HEMOGLOBIN 26 PG (25-34); MEAN CORPUSCULAR HGB CONC 31 G/DL (32-36); MEAN CORPUSCULAR VOLUME 85 FL (80-99); MEAN PLATELET VOLUME 10.5 FL (7.4-10.4); MONOCYTES # (AUTO) 0.4 X 10^3 (0.0-1.0); MONOCYTES % (AUTO) 7 % (0-12); NEUTROPHILS % (AUTO) 69 % (42-75); PLATELET COUNT 235 10^3/uL (130-400); RED CELL DISTRIBUTION WIDTH 14.9 % (10.0-14.5); WHITE BLOOD COUNT 5.8 10^3/uL (4.3-11.0)
[2019-02-18 05:34] LABS: CALCIUM 8.9 MG/DL (8.5-10.1); CREATININE SERUM 0.99 MG/DL (0.60-1.30); POTASSIUM 4.4 MMOL/L (3.6-5.0)
[2019-02-18] MEDS: ENOXAPARIN 40 MG/0.4 ML (LOVENOX) SYR SQ SCH (06:03)
[2019-02-18 08:00] VITALS: BP 132/89
[2019-02-18] MEDS ORDERED: TROUGH ORDER-PHARMACY XX NR (09:00)
[2019-02-18] MEDS: SENNA W/DOCUSATE (SENOKOT S) TABLET PO SCH (09:08)
--- NOTE | 2019-02-18 10:03 | Discharge Summary ---
Diagnosis/Chief Complaint Date of Admission Feb 17, 2019 at 08:06 Date of Discharge 02/18/19 Admission Diagnosis Admission Diagnosis See problem list Discharge Diagnosis See Below Problems/Diagnosis: (1) Bilateral cellulitis of lower leg Assessment & Plan: - Will continue IV antibiotics, redness has resolved, Will order bilateral dopplers to rule out DVT, BNP normal 02/18: Will send home with 5 days of PO antibiotics Status: Acute (2) Fecal impaction Assessment & Plan: - Start daily Senna-s Status: Acute (3) GERD with esophagitis Assessment & Plan: - Continue home meds Status: Acute (4) BMI 45.0-49.9, adult Assessment & Plan: - Discussed the importance of weight loss, needs sleep study Status: Chronic (5) DVT prophylaxis Assessment & Plan: lovenox Status: Acute Chief Complaint/HPI Chief Complaint/HPI 48 yo F that presented with worsening lower extremity swelling and redness. States that she was seen in the ER at [facility] and started on clindamycin 2 days ago. States that she has not seen any improvement with swelling or redness and the pain has got worse. Swelling and redness present on both legs. Denies any trauma other then her cats occasionally scratch her but she does not remember any specific area that started this. She was also given a 5 day course of lasix for the swelling that did not seem to help. Denies any generalize malaise or fever/chills. Denies ever having this type of episode in the past. States that she is pretty sure she has SAMEER but has never been tested due to cost. Mother states that she stops breathing often and patient states that she is always tired. Discharge Summary-Simple/Stand Consultations Discharge Physical Examination Allergies: Coded Allergies: gabapentin (Verified Allergy, Mild, 02/17/19) ondansetron (Verified Allergy, Mild, 03/27/17) Itching at injection site with injectable form only. Oral form well tolerated. Sulfa (Sulfonamide Antibiotics) (Verified Allergy, Unknown, 02/15/19) hydrocodone (Verified Allergy, Unknown, 03/27/17) prednisone (Verified Allergy, Unknown, 02/17/19) Vitals & I&Os Vital Sign - Last 12Hours Date Time Temp Pulse Resp B/P (MAP) Pulse Ox O2 Delivery O2 Flow Rate FiO2 02/18/19 08:40 95 Room Air 02/18/19 08:00 98.2 96 20 132/89 (103) Intake and Output 02/18/19 00:00 Intake Total 1875 ml Balance 1875 ml General Appearance: Alert, Oriented X3, Cooperative, No Acute Distress HEENT: Atraumatic, Mucous Memb Moist/[place] Respiratory: Clear to Auscultation, Normal Air Movement Cardiovascular: Regular Rate, No Murmurs Abdominal: Normal Bowel Sounds, Soft, No Tenderness, No Masses Extremities: Other (+ swelling, no erythema) Neuro: Normal Speech, Strength at 5/5 X4 Ext, Cranial Nerves 3-12 NL Psych/Mental Status: Mental Status NL, Mood NL Hospital Course Was the Problem List Reviewed?: Yes See final discharge diagnosis. Other pending tests NEEDS OUTPATIENT SLEEP STUDY Discussion & Recommendations 48 yo F that presented with bilateral LE swelling and erythema. Erythema resolved after 1 dose of antibiotics. Patient still having some swelling in her LE bilaterally. Recommend outpatient sleep study as patient likely has SAMEER. Will d/c with close f.u with PCP next week. Discharge Condition at discharge stable Instructions to patient/family Please see electronic discharge instructions given to patient. Discharge Medications Reviewed and agree with Discharge Medication list on patient's Discharge Instruction sheet Clinical Quality Measures DVT/VTE Risk/Contraindication: Risk Factor Score Per Nursin RFS Level Per Nursing on Admit: 4+=Very High Copy Copies To 1: Lorri ALMEIDA HOLLY R MD Feb 18, 2019 10:03
[2019-02-18] MEDS ORDERED: CLIN300C11 PO (10:05)
[2019-02-18] MEDS ORDERED: SENN-20 PO (10:05)
--- NOTE | 2019-02-18 10:08 | Discharge Instructions ---
Discharge Inst-[facility] Discharge Medications New, Converted or Re-Newed RX: Transmitted to Pharmacy New Medications: Clindamycin HCl (Clindamycin HCl) 300 Mg Capsule 300 MG PO BID for 5 Days, #10 CAP Sennosides/Docusate Sodium (Senna-Time S Tablet) 1 Each Tablet 1 EA PO BID, #60 TAB Continued Medications: Ketorolac Tromethamine (Ketorolac Tromethamine) 10 Mg Tablet 10 MG PO Q6H PRN for PAIN-MODERATE TO SEVERE, #20 TAB Oxycodone HCl/Acetaminophen (Percocet 5-325 mg Tablet) 1 Each Tablet 1 TAB PO Q4H PRN for PAIN-MILD TO MODERATE MDD 6 TABS for 7 Days, #14 TAB Discontinued Medications: Furosemide (Lasix) 40 Mg Tablet 40 MG PO DAILY for 5 Days, #5 TAB Patient Instructions Goal/Follow Up Appt: You will be called on Tuesday with a f.u appt with Lorri Yen Patient Instructions: - Make sure to complete your antibiotics - Low salt diet Activity & Diet Discharge Diet: Low Sodium Diet Activity as Tolerated: Yes Copy Copies To 1: Lorri ALMEIDA HOLLY R MD Feb 18, 2019 10:08
[2019-02-18 12:00] VITALS: BP 132/89
[2019-02-19] MEDS ORDERED: TROUGH ORDER-PHARMACY XX NR (09:00)
[2019-02-19] MEDS ORDERED: VANCOMYCIN 1500 MG/NS 500 ML IVPB IV SCH ×2 (10:00)
== END 2019-02-18 12:16 | disposition home or self-care (01) | DRG 603 ==
LOC: EDUNIT# 05:47 → ER FS 05:49 → 4TH 08:06
PROVIDERS: ADMIT Family Medicine; ATTEND Family Medicine
DX: L03.115 Cellulitis of right lower limb (principal); L03.116 Cellulitis of left lower limb; K21.0 Gastro-esophageal reflux disease with esophagitis; K56.41 Fecal impaction; E66.9 Obesity, unspecified; Z68.42 Body mass index [BMI] 45.0-49.9, adult; E11.9 Type 2 diabetes mellitus without complications; I10 Essential (primary) hypertension; F41.9 Anxiety disorder, unspecified; F32.9 Major depressive disorder, single episode, unspecified
CPT/HCPCS: 36415; 74022; 80048; 80053; 80202; 83036; 83880; 85025; 87040; 96365

== ENCOUNTER 2019-03-23 22:31 | Emergency (ER) | payer SELFPAY ==
[~2019-03-23] VITALS: Ht 165.1 cm; Wt 128.4 kg
[~2019-03-23 22:31] MED LIST changes: +SENN-20 PO
[2019-03-24] MEDS ORDERED: CYCLOBENZAPRINE 10 MG (FLEXERIL) TAB PO ONE (00:15)
[2019-03-24] MEDS ORDERED: KETOROLAC 30 MG/ML VIAL IM ONE (00:15)
--- NOTE | 2019-03-24 00:15 | ED Fall/Injury ---
General Chief Complaint: Trauma-Non Activation Stated Complaint: NECK AND LT WRIST PAIN Nursing Triage Note: PT FELL FROM STANDING POSITION AND INJURED NECK AND LEFT WRIST. NO LOC DURING FALL AND PT ALERT AND ORIENTED ON ARRIVAL . Source: patient Exam Limitations: no limitations History of Present Illness Date Seen by Provider: Mar 23, 2019 Time Seen by Provider: 23:10 Initial Comments This 48 from woman presents to the emergency room after falling at home. She was walking with a dark room when she tripped and fell on her left arm. She complains of left wrist pain as well as pain in the head and neck. She denies any loss of consciousness. Allergies and Home Medications Allergies Coded Allergies: gabapentin (Verified Allergy, Mild, 02/17/19) ondansetron (Verified Allergy, Mild, 03/27/17) Itching at injection site with injectable form only. Oral form well tolerated. Sulfa (Sulfonamide Antibiotics) (Verified Allergy, Unknown, 02/15/19) hydrocodone (Verified Allergy, Unknown, 03/27/17) prednisone (Verified Allergy, Unknown, 02/17/19) Home Medications Clindamycin HCl 300 Mg Capsule, 300 MG PO BID Prescribed by: FRANK VALDES on 02/18/19 1005 Ketorolac Tromethamine 10 Mg Tablet, 10 MG PO Q6H PRN for PAIN-MODERATE TO SEVERE Prescribed by: EDUARDO QUESADA MD on 02/11/19 1032 Oxycodone HCl/Acetaminophen 1 Each Tablet, 1 TAB PO Q4H PRN for PAIN-MILD TO MODERATE Prescribed by: EDUARDO QUESADA MD on 02/10/19 1711 Sennosides/Docusate Sodium 1 Each Tablet, 1 EA PO BID Prescribed by: FRANK VALDES on 02/18/19 1005 Patient Home Medication List Home Medication List Reviewed: Yes Review of Systems Review of Systems Constitutional: no symptoms reported Eyes: No Symptoms Reported Ears, Nose, Mouth, Throat: no symptoms reported Respiratory: no symptoms reported Cardiovascular: no symptoms reported Gastrointestinal: no symptoms reported Genitourinary: no symptoms reported : No Musculoskeletal: see HPI Skin: no symptoms reported Psychiatric/Neurological: No Symptoms Reported Past Lsryjyx-Pzwwjk-Fiouns Hx Past Med/Social Hx: Reviewed and Corrections made Patient Social History 2nd Hand Smoke Exposure: No Recent Foreign Travel: No Contact w/Someone Who Travel: No Recent Infectious Disease Expo: No Recent Hopitalizations: No Physical Abuse: No Sexual Abuse: No Immunizations Up To Date Tetanus Booster (TDap): Unknown Seasonal Allergies Seasonal Allergies: No Past Medical History Surgeries: Yes Tonsillectomy Respiratory: No Cardiac: Yes Hypertension Neurological: No Sexually Transmitted Disease: No HIV/AIDS: No Genitourinary: No Gastrointestinal: Yes Colitis, Chronic Constipation, Chronic Diarrhea Musculoskeletal: No Endocrine: Yes Diabetes, Non-Insulin dep HEENT: Yes (corrective lenses) Hearing Impairment: Denies Cancer: No Psychosocial: Yes Sleep Difficulties, Anxiety, PTSD, Depression Integumentary: No Blood Disorders: No Family Medical History GI Disease Physical Exam Vital Signs Vital Signs - First Documented 03/23/19 23:12 Temp 98.8 Pulse 104 Resp 18 B/P (MAP) 179/90 (119) Pulse Ox 96 O2 Delivery Room Air Capillary Refill : Less Than 3 Seconds Height, Weight, BMI Height: 5'5.00" Weight: 283lbs. 0.0oz. 128.578232nn; 45.9 BMI Method:Stated General Appearance: WD/WN, other (anxious) HEENT: PERRL/EOMI, normal ENT inspection, pharynx normal Neck: normal inspection Cardiovascular: regular rate, rhythm, no edema, no murmur Respiratory: lungs clear, normal breath sounds, no respiratory distress, no accessory muscle use Gastrointestinal: normal bowel sounds, non tender, soft Extremities: no pedal edema, other (tenderness of the distal forearm proximal to the wrist. Pain with flexion, extension, and rotation of the wrist. Range of motion intact. Radial pulse intact. Distal sensation and capillary refill intact. 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, no motor/sensory deficits, alert, normal mood/affect, oriented x 3 Skin: normal color, warm/dry [place] Coma Score Best Eye Response: (4) Open Spontaneously Best Verbal Response: (5) Oriented Best Motor Response: (6) Obeys Commands Krista Total: 15 Progress/Results/Core Measures Results/Orders My Orders Orders - LATIA ROYAL MD Ct Head/Cervical Spine Wo (03/23/19 23:21) Wrist 3 View Left (03/23/19 23:21) Ketorolac Injection (Toradol Injection) (03/24/19 00:15) Cyclobenzaprine Tablet (Flexeril Tablet) (03/24/19 00:15) Oxycodone/Apap 5/325mg Tablet (Percocet (03/24/19 00:45) Medications Given in ED Current Medications Medications Dose Ordered Sig/Angeles Route Start Time Stop Time Status Last Admin Dose Admin Cyclobenzaprine HCl 10 mg ONCE ONCE PO 03/24/19 00:15 03/24/19 00:16 DC 03/24/19 00:11 10 MG Ketorolac Tromethamine 30 mg ONCE ONCE IM 03/24/19 00:15 03/24/19 00:16 DC 03/24/19 00:11 30 MG Oxycodone/ Acetaminophen 1 tab ONCE ONCE PO 03/24/19 00:45 03/24/19 00:46 DC 03/24/19 00:50 1 TAB Vital Signs/I&O 03/23/19 03/24/19 23:12 01:01 Temp 98.8 Pulse 104 93 Resp 18 18 B/P (MAP) 179/90 (119) 156/74 (101) Pulse Ox 96 98 O2 Delivery Room Air Room Air Blood Pressure Mean: 119 Progress Progress Note : Time: 00:20 Progress Note Imaging studies were reviewed. No serious injuries were identified. Patient would like treatment for her pain. Toradol and cyclobenzaprine were ordered. We will ensure her pain is improving before discharge. Blood pressure also has been significantly elevated, likely secondary to pain and anxiety. We will monitor this until departure as well. Diagnostic Imaging Diagonstic Imaging: Xray Plain Films/CT/US/NM/MRI: other (left wrist) Comments X-ray of the left wrist viewed by me and report not yet available. No acute fracture or dislocation appreciated. Diagonstic Imaging: CT Plain Films/CT/US/NM/MRI: c-spine, head Comments CT head and C-spine viewed by me and [facility] report reviewed. No acute intracranial or bony injuries identified. Departure Impression Primary Impression: Fall on same level Qualified Codes: W18.30XA - Fall on same level, unspecified, initial encounter Additional Impressions: Wrist pain, left Neck strain Qualified Codes: S16.1XXA - Strain of muscle, fascia and tendon at neck level, initial encounter Hypertension Qualified Codes: I10 - Essential (primary) hypertension Disposition: HOME, SELF-CARE Condition: Improved Departure-Patient Inst. Decision time for Depature: 00:40 Referrals: [facility]/JARAD (PCP) Primary Care Physician FABIANO KUMAR APRN (Family) Primary Care Physician Patient Instructions: Cervical Muscle Strain Add. Discharge Instructions: Drink plenty of clear liquids. You may use ice in 20 minute intervals and/or gentle heat to affected areas to help with pain and promote relaxation. You may continue using Aleve twice daily. Add Tylenol (acetaminophen) up to 1000 mg every 6 hours as needed for additional pain relief. Follow-up with your primary care provider or return to care in the ER if you have worsening symptoms or are not improving as expected. Also follow-up with your primary care provider within the next couple weeks to have your blood pressure checked. All discharge instructions reviewed with patient and/or family. Voiced understanding. LATIA ROYAL MD Mar 24, 2019 00:15
[2019-03-24] MEDS ORDERED: oxyCODONE/APAP 5/325MG (PERCOCET 5) TABLET PO ONE (00:45)
[2019-03-24 01:01] VITALS: BP 156/74
--- NOTE | 2019-03-24 05:51 | Diagnostic Imaging Report ---
EXAMINATION: Left wrist at 1107 PM INDICATION: Injury, wrist pain 3 views were obtained. There are no prior studies available for comparison. There is no fracture, dislocation or acute bony abnormality evident. There is mild narrowing of the radiocarpal joint and there is ulnar plus variance. The soft tissues are unremarkable. IMPRESSION: There is no evidence for an acute bony abnormality. Dictated by: Dictated on workstation # [id number]
--- NOTE | 2019-03-24 06:04 | Diagnostic Imaging Report ---
PROCEDURE: CT head and CT cervical spine without contrast. TECHNIQUE: Multiple contiguous axial images were obtained through the brain and cervical spine without the use of intravenous contrast. Sagittal and coronal reformations through the cervical spine were then performed. Auto Exposure Controls were utilized during the CT exam to meet ALARA standards for radiation dose reduction. INDICATION: Fell, head and neck pain There are no prior studies available for comparison. CT head: There is no mass, shift of the midline or hemorrhage to suggest an acute intracranial abnormality. There is a 3.6 MM area of diminished density adjacent to the falx (image 22/30). The Hounsfield density of this finding is -24 and I suspect that this is a small lipoma. The ventricles are not abnormally dilated. The bone windows show no evidence for a fracture or for a destructive lesion. The orbits and sinuses were not visualized in their entirety. Where visualized, there is no acute abnormality. IMPRESSION: There is no evidence for an acute intracranial abnormality. CT cervical spine: Reconstructed parasagittal images show straightening of the cervical spine. This may be secondary to muscle spasm and/or positioning. There is degenerative disc and bony disease at C6-7. The disc space is narrowed and there is mild central stenosis on the left at this level due to bony overgrowth. There is also narrowing of the neural foramen on the left at C6-7. Similar but less severe degenerative changes are also seen on the left at C5-6. There is no fracture or acute bony abnormality appreciated. There is no sign of retropharyngeal edema. The thyroid gland, where visualized, is unremarkable. Only the very apex of the left lung was included on this exam. There is no abnormality in this area. IMPRESSION: 1. There is no evidence for an acute bony abnormality. 2. There is degenerative disc and bony disease at C6-7 and to a lesser degree at C5-6. There is spinal stenosis on the left and neural foraminal narrowing on the left at C6-7. Dictated by: Dictated on workstation # [id number]
== END 2019-03-24 01:01 | disposition home or self-care (01) ==
LOC: EDUNIT# 22:31 → ER FS 22:32
DX: S16.1XXA Strain of muscle, fascia and tendon at neck level, initial encounter (principal); M25.532 Pain in left wrist; I10 Essential (primary) hypertension; E11.9 Type 2 diabetes mellitus without complications; F43.10 Post-traumatic stress disorder, unspecified; F32.9 Major depressive disorder, single episode, unspecified; F41.9 Anxiety disorder, unspecified; Z88.8 Allergy status to other drugs, medicaments and biological substances; Z88.2 Allergy status to sulfonamides; Z88.5 Allergy status to narcotic agent; Z90.89 Acquired absence of other organs; Z87.19 Personal history of other diseases of the digestive system; W01.0XXA Fall on same level from slipping, tripping and stumbling without subsequent striking against object, initial encounter; Y92.009 Unspecified place in unspecified non-institutional (private) residence as the place of occurrence of the external cause
CPT/HCPCS: 70450; 72125; 73110

== ENCOUNTER 2019-04-04 11:59 | Emergency (ER) | payer SELFPAY ==
[~2019-04-04] VITALS: Ht 165.1 cm; Wt 124.7 kg
[2019-04-04] MEDS: ACETAMINOPHEN 500 MG TAB (TYLENOL) PO ONE (12:21)
--- NOTE | 2019-04-04 12:22 | ED Fall/Injury ---
General Chief Complaint: Trauma-Non Activation Stated Complaint: FALL; RT ANKLE/KATALINA WRIST INJ Source: patient Exam Limitations: no limitations History of Present Illness Date Seen by Provider: Apr 04, 2019 Time Seen by Provider: 12:07 Initial Comments The patient presents to ER by private conveyance with chief complaint that she got up from reading and walked across her floor stumbling over a pillow that was lying on the floor landing on outstretched hands and twisting her right ankle. She has pain on her lateral malleolus her right distal ulna and left old and radial heads. No swelling. No Tylenol ibuprofen ice wraps or first aid. She was able to walk out to the car and then had her friend bring her in in a wheelchair to the ER. She has no previous history of injury to these joints. Not on blood thinners. She denies striking her head or loss of consciousness. Allergies and Home Medications Allergies Coded Allergies: gabapentin (Verified Allergy, Mild, 02/17/19) ondansetron (Verified Allergy, Mild, 03/27/17) Itching at injection site with injectable form only. Oral form well tolerated. Sulfa (Sulfonamide Antibiotics) (Verified Allergy, Unknown, 02/15/19) hydrocodone (Verified Allergy, Unknown, 03/27/17) prednisone (Verified Allergy, Unknown, 02/17/19) Home Medications Clindamycin HCl 300 Mg Capsule, 300 MG PO BID Prescribed by: FRANK VALDES on 02/18/19 1005 Ketorolac Tromethamine 10 Mg Tablet, 10 MG PO Q6H PRN for PAIN-MODERATE TO SEVERE Prescribed by: EDUARDO QUESADA MD on 02/11/19 1032 Oxycodone HCl/Acetaminophen 1 Each Tablet, 1 TAB PO Q4H PRN for PAIN-MILD TO MODERATE Prescribed by: EDUARDO QUESADA MD on 02/10/19 1711 Sennosides/Docusate Sodium 1 Each Tablet, 1 EA PO BID Prescribed by: FRANK VALDES on 02/18/19 1005 Patient Home Medication List Home Medication List Reviewed: Yes Review of Systems Review of Systems Constitutional: No chills, No diaphoresis Eyes: Denies Blindness, Denies Blurred Vision Ears, Nose, Mouth, Throat: denies ear pain, denies ear discharge Respiratory: No cough, No short of breath Cardiovascular: No chest pain, No edema Gastrointestinal: No abdominal pain, No nausea Genitourinary: No discharge, No dysuria : No Past Rqwrgbk-Ojmnpz-Knsfbm Hx Patient Social History Alcohol Use: Denies Use Recreational Drug Use: No 2nd Hand Smoke Exposure: No Recent Hopitalizations: No Immunizations Up To Date Tetanus Booster (TDap): Unknown Seasonal Allergies Seasonal Allergies: No Past Medical History Surgeries: Yes Tonsillectomy Respiratory: No Cardiac: Yes Hypertension Neurological: No Sexually Transmitted Disease: No HIV/AIDS: No Genitourinary: No Gastrointestinal: Yes Colitis, Chronic Constipation, Chronic Diarrhea Musculoskeletal: No Endocrine: Yes Diabetes, Non-Insulin dep HEENT: Yes (corrective lenses) Hearing Impairment: Denies Cancer: No Psychosocial: Yes Sleep Difficulties, Anxiety, PTSD, Depression Integumentary: No Blood Disorders: No Family Medical History GI Disease Physical Exam Vital Signs Vital Signs - First Documented 04/04/19 12:04 Temp 98.0 Pulse 86 Resp 18 B/P (MAP) 161/89 (113) Pulse Ox 97 Capillary Refill : Height, Weight, BMI Height: 5'5.00" Weight: 283lbs. 0.0oz. 128.814643fq; 45.9 BMI Method:Stated General Appearance: no apparent distress, obese HEENT: PERRL/EOMI, pharynx normal Neck: full range of motion, normal inspection Cardiovascular: normal peripheral pulses, regular rate, rhythm Respiratory: no respiratory distress, no accessory muscle use Peripheral Pulses: 2+ Dorsalis Pedis (R), 2+ Left Dors-Pedis (L), 2+ Radial Pulses (R), 2+ Radial Pulses (L) Extremities: normal range of motion, normal capillary refill, other (tenderness over the ulnar styloid process on the right. TTP over distal ulnar and radial head and anatomic snuffbox on the left hand. Right lateral malleolus ankle tenderness to palpation. No swelling, ecchymoses, erythema or abrasion) Neurologic/Psychiatric: no motor/sensory deficits, alert, normal mood/affect, oriented x 3 Skin: normal color, warm/dry Krista Coma Score Best Eye Response: (4) Open Spontaneously Best Verbal Response: (5) Oriented Best Motor Response: (6) Obeys Commands Krista Total: 15 Progress/Results/Core Measures Results/Orders My Orders Orders - ZAINAB LANCE Acetaminophen Tablet (Tylenol Tablet) (8/28/19 12:15) Ankle 3 View Right (04/04/19 12:14) Wrist 2 View Bilateral (04/04/19 12:14) Medications Given in ED Current Medications Medications Dose Ordered Sig/Angeles Route Start Time Stop Time Status Last Admin Dose Admin Acetaminophen 1,000 mg ONCE ONCE PO 04/04/19 12:15 04/04/19 12:17 DC 04/04/19 12:21 1,000 MG Vital Signs/I&O 04/04/19 12:04 Temp 98.0 Pulse 86 Resp 18 B/P (MAP) 161/89 (113) Pulse Ox 97 Progress Progress Note : Time: :19 Progress Note X-ray right ankle and bilateral wrists. Tylenol and ice pack for pain. Diagnostic Imaging Diagonstic Imaging: Xray Plain Films/CT/US/NM/MRI: ankle (right) Comments NAME: KLEVER RODRIGUEZ [facility] REC#: [id number] PT STATUS: REG ER : 1970 PHYSICIAN: ZAINAB LANCE MD ADMIT DATE: 04/04/19/ER FS Draft Date of Exam:04/04/19 ANKLE 3 VIEW RIGHT PATIENT HISTORY: Right ankle injury. TECHNIQUE: 3 views of the right ankle COMPARISON: None FINDINGS: No acute fracture or dislocation is seen in the right ankle. Alignment appears normal. Ankle mortise is symmetric and the talar dome is intact. IMPRESSION: No acute osseous abnormality is seen in the right ankle. Dictated on workstation # [id number] Dict: 04/04/19 1252 Trans: 04/04/19 1253 [facility] [id number] Interpreted by: SIVAN ROLLINS MD Electronically signed by: Reviewed: Reviewed by Me Diagonstic Imaging: Xray Plain Films/CT/US/NM/MRI: other (bilateral wrists) Comments [facility] [place] NAME: KLEVER RODRIGUEZ [facility] REC#: [id number] PT STATUS: REG ER : 1970 PHYSICIAN: ZAINAB LANCE MD ADMIT DATE: 04/04/19/ER FS Draft Date of Exam:04/04/19 WRIST 2 VIEW BILATERAL PATIENT HISTORY: Fall, bilateral wrist pain. TECHNIQUE: Three views of the bilateral wrists. COMPARISON: 03/23/2019. FINDINGS: No acute fracture or dislocation is seen of the bilateral wrists. The alignment appears normal. The joint spaces are preserved. IMPRESSION: No acute osseous abnormality is seen in the bilateral wrists. Dictated on workstation # [id number] Dict: 04/04/19 1252 Trans: 04/04/19 1254 [id number] Interpreted by: SIVAN ROLLINS MD Electronically signed by: Reviewed: Reviewed by Me Departure Impression Primary Impression: Fall Qualified Codes: W19.XXXA - Unspecified fall, initial encounter Additional Impressions: Bilateral wrist pain Mild sprain of right ankle Qualified Codes: S93.401A - Sprain of unspecified ligament of right ankle, initial encounter Disposition: 01 HOME, SELF-CARE Condition: Stable Departure-Patient Inst. Decision time for Depature: 13:10 Referrals: [facility] (PCP) Primary Care Physician FABIANO KUMAR APRN (Family) Primary Care Physician Patient Instructions: Ankle Sprain, Wrist Sprain (DC) Add. Discharge Instructions: Ice pack for swelling or pain for the first 2-3 days every 4 hours. Tylenol 1000 mg every 8 hours as needed for pain. Ibuprofen 800 mg every 8 hours as needed for pain. If you are still having significant pain or swelling at 10 days it would be reasonable to follow up with primary care for reexamination. All discharge instructions reviewed with patient and/or family. Voiced understanding. ZAINAB LANCE Apr 04, 2019 12:22
--- NOTE | 2019-04-04 12:54 | Diagnostic Imaging Report ---
PATIENT HISTORY: Right ankle injury. TECHNIQUE: 3 views of the right ankle COMPARISON: None FINDINGS: No acute fracture or dislocation is seen in the right ankle. Alignment appears normal. Ankle mortise is symmetric and the talar dome is intact. IMPRESSION: No acute osseous abnormality is seen in the right ankle. Dictated by: Dictated on workstation # [id number]
--- NOTE | 2019-04-04 12:54 | Diagnostic Imaging Report ---
PATIENT HISTORY: Fall, bilateral wrist pain. TECHNIQUE: Three views of the bilateral wrists. COMPARISON: 03/23/2019. FINDINGS: No acute fracture or dislocation is seen of the bilateral wrists. The alignment appears normal. The joint spaces are preserved. IMPRESSION: No acute osseous abnormality is seen in the bilateral wrists. Dictated by: Dictated on workstation # [id number]
[2019-04-04 13:27] VITALS: BP 161/89
== END 2019-04-04 13:28 | disposition home or self-care (01) ==
LOC: EDUNIT# 11:59 → ER FS 12:00
DX: S93.401A Sprain of unspecified ligament of right ankle, initial encounter (principal); M25.531 Pain in right wrist; M25.532 Pain in left wrist; I10 Essential (primary) hypertension; E11.9 Type 2 diabetes mellitus without complications; F41.9 Anxiety disorder, unspecified; F43.10 Post-traumatic stress disorder, unspecified; F32.9 Major depressive disorder, single episode, unspecified; Z88.8 Allergy status to other drugs, medicaments and biological substances; Z88.5 Allergy status to narcotic agent; Z88.2 Allergy status to sulfonamides; Z90.89 Acquired absence of other organs; X50.1XXA Overexertion from prolonged static or awkward postures, initial encounter; W18.09XA Striking against other object with subsequent fall, initial encounter
CPT/HCPCS: 73610

== ENCOUNTER 2019-04-07 18:34 | Emergency (ER) | payer SELFPAY ==
[~2019-04-07] VITALS: Ht 165.1 cm; Wt 124.7 kg
[2019-04-07] MEDS ORDERED: ORPHENADRINE 60 MG/2 ML (NORFLEX) AMP IM STA (19:24)
[2019-04-07] MEDS ORDERED: KETOROLAC 60 MG/2 ML VIAL IM STA (19:24)
--- NOTE | 2019-04-07 19:31 | ED Fall/Injury ---
General Chief Complaint: Trauma-Non Activation Stated Complaint: FALL - BACK/NECK PAIN Nursing Triage Note: PT FELL AT HOME INJURING NECK, UPPER BACK, AND LEFT WRIST Source: patient Exam Limitations: no limitations History of Present Illness Date Seen by Provider: Apr 07, 2019 Time Seen by Provider: 19:07 Initial Comments Here with report of fall at home. She states that she tripped over her cat and fell backwards landing on her back. She reports hitting her head. Denies loss of consciousness. Denies nausea or vomiting since. Complains of some posterior head pain and neck pain. Also complains of left wrist pain. This is her third fall this month. She tried taking 2 ibuprofen at about 3 PM which was 2 hours after the fall at 1 PM. When that did not help she presented here for further evaluation. Denies other injury or concerns. She is able to move the left wrist and there is no obvious deformity, abrasions or contusions anywhere. Location Injury Occurred: HOME Occurred: this afternoon Severity: mild Injuries/Pain Location: head, neck, upper extremity Context: tripped Loss of Consciousness: no loss of consciousness Associated Symptoms (Fall): No Abdominal Pain, No Confusion; Headache; No Lightheadedness; Muscle Spasms; No Nausea/Vomiting; Neck Pain; No Shortness of Air, No Trouble Walking Allergies and Home Medications Allergies Coded Allergies: gabapentin (Verified Allergy, Mild, 02/17/19) ondansetron (Verified Allergy, Mild, 03/27/17) Itching at injection site with injectable form only. Oral form well tolerated. Sulfa (Sulfonamide Antibiotics) (Verified Allergy, Unknown, 02/15/19) hydrocodone (Verified Allergy, Unknown, 03/27/17) prednisone (Verified Allergy, Unknown, 02/17/19) Home Medications Clindamycin HCl 300 Mg Capsule, 300 MG PO BID Prescribed by: FRANK VALDES on 02/18/19 1005 Ketorolac Tromethamine 10 Mg Tablet, 10 MG PO Q6H PRN for PAIN-MODERATE TO SEVERE Prescribed by: EDUARDO QUESADA MD on 02/11/19 1032 Oxycodone HCl/Acetaminophen 1 Each Tablet, 1 TAB PO Q4H PRN for PAIN-MILD TO MO DERATE Prescribed by: EDUARDO QUESADA MD on 02/10/19 1711 Sennosides/Docusate Sodium 1 Each Tablet, 1 EA PO BID Prescribed by: FRANK VALDES on 02/18/19 1005 Patient Home Medication List Home Medication List Reviewed: Yes Review of Systems Review of Systems Constitutional: see HPI; No chills, No fever Eyes: No Symptoms Reported Ears, Nose, Mouth, Throat: no symptoms reported Respiratory: no symptoms reported Cardiovascular: no symptoms reported Gastrointestinal: no symptoms reported Musculoskeletal: see HPI, muscle pain, neck pain Psychiatric/Neurological: Denies Headache, Denies Weakness Past Hqpdczb-Wjgcra-Cgrryf Hx Past Med/Social Hx: Reviewed Nursing Past Med/Soc Hx Patient Social History Alcohol Use: Denies Use Recreational Drug Use: No Smoking Status: Never a Smoker 2nd Hand Smoke Exposure: No Recent Foreign Travel: No ( ) Contact w/Someone Who Travel: No Recent Infectious Disease Expo: No Recent Hopitalizations: No Physical Abuse: No Sexual Abuse: No Mistreated: No Fear: No Immunizations Up To Date Tetanus Booster (TDap): Unknown Seasonal Allergies Seasonal Allergies: No Past Medical History Surgeries: Yes Tonsillectomy Respiratory: No Cardiac: Yes Hypertension Neurological: No Sexually Transmitted Disease: No HIV/AIDS: No Genitourinary: No Gastrointestinal: Yes Colitis, Chronic Constipation, Chronic Diarrhea Musculoskeletal: No Endocrine: Yes Diabetes, Non-Insulin dep HEENT: Yes (corrective lenses) Hearing Impairment: Denies Cancer: No Psychosocial: Yes Sleep Difficulties, Anxiety, PTSD, Depression Integumentary: No Blood Disorders: No Family Medical History Reviewed Nursing Family Hx GI Disease Physical Exam Vital Signs Vital Signs - First Documented 04/07/19 18:50 Temp 98.9 Pulse 99 Resp 18 B/P (MAP) 165/99 (121) Pulse Ox 95 O2 Delivery Room Air Capillary Refill : Less Than 3 Seconds Height, Weight, BMI Height: 5'5.00" Weight: 275lbs. 0.0oz. 124.494962bf; 45.9 BMI Method:Stated General Appearance: WD/WN, no apparent distress HEENT: PERRL/EOMI, TMs normal Neck: full range of motion, supple, tender lateral (mild posterior bilateral), tender midline Cardiovascular: regular rate, rhythm, no murmur Respiratory: lungs clear, normal breath sounds Extremities: normal range of motion, other (no obvious deformity to the left wrist. Full range of motion of left wrist and bilateral hands with equal strength.) Neurologic/Psychiatric: alert, oriented x 3 Skin: normal color, warm/dry Progress/Results/Core Measures Results/Orders Vital Signs/I&O 04/07/19 18:50 Temp 98.9 Pulse 99 Resp 18 B/P (MAP) 165/99 (121) Pulse Ox 95 O2 Delivery Room Air Blood Pressure Mean: 121 Progress Progress Note : Progress Note Seen and evaluated. Reviewed previous history. She recently had CT scan of head and neck that was negative as well as x-rays of the wrist and ankle. She's had multiple radiological procedures. I did discuss with the patient regarding radiation risk and she has elected to forego CT of the head and neck due to concerns of that. We did discuss signs and symptoms for brain injury and return precautions. Patient preferred just pain medicine and we will give ice pack for the left wrist and she will manage at home with the understanding that she'll return if she has any problems. If she has to return then we will get CT of the head and neck without point. Toradol 60 mg IM and Norflex 60 mg IM. Discharged home with return precautions. Patient verbalize understanding instructions and agreement with plan. Departure Impression Primary Impression: Minor head injury without loss of consciousness Qualified Codes: S09.90XA - Unspecified injury of head, initial encounter Additional Impressions: Neck strain Qualified Codes: S16.1XXA - Strain of muscle, fascia and tendon at neck level, initial encounter Strain of left wrist Qualified Codes: S66.912A - Strain of unspecified muscle, fascia and tendon at wrist and hand level, left hand, initial encounter Disposition: 01 HOME, SELF-CARE Condition: Stable Departure-Patient Inst. Decision time for Depature: 19:32 Referrals: [facility]/ (PCP) Primary Care Physician FABIANO KUMAR APRN (Family) Primary Care Physician Patient Instructions: Closed Head Injury (DC), Neck Sprain (DC), Preventing Falls, Wrist Sprain (DC) Add. Discharge Instructions: All discharge instructions reviewed with patient and/or family. Voiced understanding. Please evaluate your home surroundings to decrease your fall hazards. You may use ice pack to the left wrist 20 minutes per hour as needed for swelling or pain for the next few days. You may take ibuprofen 800 mg every 8 hours as needed for pain. You may also take Tylenol/acetaminophen 1000 mg every 8 hours as needed for pain. Follow-up with your Dr. in a few days for recheck. Return for worse pain, weakness, vision or balance problems, vomiting or persistent vomiting or other concerns as needed. ANA ADKINS MD Apr 07, 2019 19:30
[2019-04-07 19:37] VITALS: BP 165/99
== END 2019-04-07 19:43 | disposition home or self-care (01) ==
LOC: EDUNIT# 18:34 → ER FS 18:35
DX: S09.90XA Unspecified injury of head, initial encounter (principal); S16.1XXA Strain of muscle, fascia and tendon at neck level, initial encounter; S66.912A Strain of unspecified muscle, fascia and tendon at wrist and hand level, left hand, initial encounter; I10 Essential (primary) hypertension; E11.9 Type 2 diabetes mellitus without complications; F41.9 Anxiety disorder, unspecified; F32.9 Major depressive disorder, single episode, unspecified; F43.10 Post-traumatic stress disorder, unspecified; Z87.19 Personal history of other diseases of the digestive system; Z88.8 Allergy status to other drugs, medicaments and biological substances; Z88.2 Allergy status to sulfonamides; Z88.5 Allergy status to narcotic agent; Z90.89 Acquired absence of other organs; W01.198A Fall on same level from slipping, tripping and stumbling with subsequent striking against other object, initial encounter; Y92.009 Unspecified place in unspecified non-institutional (private) residence as the place of occurrence of the external cause
CPT/HCPCS: 99284

== ENCOUNTER 2019-05-08 19:47 | Emergency (ER) | payer SELFPAY ==
[~2019-05-08] VITALS: Ht 165.1 cm; Wt 134.6 kg
[2019-05-08 20:55] VITALS: BP 158/113
[2019-05-08] MEDS ORDERED: ORPHENADRINE 60 MG/2 ML (NORFLEX) AMP IM ONE (21:00)
[2019-05-08] MEDS ORDERED: KETOROLAC 60 MG/2 ML VIAL IM ONE (21:00)
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
== END 2019-05-08 20:55 | disposition home or self-care (01) ==
LOC: EDUNIT# 19:47 → ER FS 19:49
DX: M54.2 Cervicalgia (principal); I10 Essential (primary) hypertension; E11.9 Type 2 diabetes mellitus without complications; F41.9 Anxiety disorder, unspecified; F43.10 Post-traumatic stress disorder, unspecified; F32.9 Major depressive disorder, single episode, unspecified; Z90.89 Acquired absence of other organs; Z87.39 Personal history of other diseases of the musculoskeletal system and connective tissue; Z88.2 Allergy status to sulfonamides; Z88.8 Allergy status to other drugs, medicaments and biological substances; Z88.5 Allergy status to narcotic agent
CPT/HCPCS: 99284

== ENCOUNTER 2019-05-10 02:40 | Emergency (ER) | payer SELFPAY ==
[~2019-05-10] VITALS: Ht 165 cm; Wt 125.0 kg
[2019-05-10] MEDS ORDERED: CYCL10TA9 PO (03:03)
--- NOTE | 2019-05-10 03:04 | ED Neck-Back Pain/Injury ---
General Chief Complaint: Head/Cervical Problems Stated Complaint: NECK PAIN Nursing Triage Note: AMBULATE TO ROOM FS02 W/O DIFFICULTY. PT STATES SHE HAS NECK PAIN FROM WATCHING TELEVISION WITH HER HEAD TURNED TO THE LEFT FOR TOO LONG. PT STATES THAT IS THE ONLY THING IT COULD BE. PT STATES IT HAPPENED TUESDAY EVENING. PT REPORTS THAT SHE HAS BEEN TAKING IBUPROFEN WITH NO RELIEF. PT REPORTS SHE DID NOT CONTACT HER PCP ON TUESDAY BECAUSE SHE WAS IN TOO MUCH PAIN TO DRIVE UP THERE. Nursing Sepsis Screen: No Definite Risk Source of Information: Patient Exam Limitations: No Limitations History of Present Illness Date Seen by Provider: May 10, 2019 Time Seen by Provider: 02:58 Initial Comments Neck pain States she hurt her neck last night watching TV. Seen in this ER last night for the same and was given "2 shots", but still hurting. No radiation of pain. Decreased movement of neck 2 to pain. Allergies and Home Medications Allergies Coded Allergies: gabapentin (Verified Allergy, Mild, 02/17/19) ondansetron (Verified Allergy, Mild, 03/27/17) Itching at injection site with injectable form only. Oral form well tolerated. Sulfa (Sulfonamide Antibiotics) (Verified Allergy, Unknown, 02/15/19) hydrocodone (Verified Allergy, Unknown, 03/27/17) prednisone (Verified Allergy, Unknown, 02/17/19) Home Medications Clindamycin HCl 300 Mg Capsule, 300 MG PO BID Prescribed by: FRANK VALDES on 02/18/19 1005 Ketorolac Tromethamine 10 Mg Tablet, 10 MG PO Q6H PRN for PAIN-MODERATE TO SEVERE Prescribed by: EDUARDO QUESADA MD on 02/11/19 1032 Oxycodone HCl/Acetaminophen 1 Each Tablet, 1 TAB PO Q4H PRN for PAIN-MILD TO MODERATE Prescribed by: EDUARDO QUESADA MD on 02/10/19 1711 Sennosides/Docusate Sodium 1 Each Tablet, 1 EA PO BID Prescribed by: FRANK VALDES on 02/18/19 1005 Patient Home Medication List Home Medication List Reviewed: Yes Review of Systems Constitutional: no symptoms reported; No dizziness, No fever, No malaise, No weakness EENTM: see HPI; No ear pain, No eye pain, No nose pain, No throat pain Respiratory: no symptoms reported Cardiovascular: no symptoms reported Musculoskeletal: see HPI; No back pain; muscle pain, muscle stiffness, neck pain Psychiatric/Neurological: See HPI; Denies Headache, Denies Numbness, Denies Paresthesia Past Sfhicxc-Eijjox-Yvkjwl Hx Past Med/Social Hx: Reviewed Nursing Past Med/Soc Hx Patient Social History Alcohol Use: Denies Use Recreational Drug Use: No Smoking Status: Never a Smoker 2nd Hand Smoke Exposure: No Recent Foreign Travel: No Contact w/Someone Who Travel: No Recent Infectious Disease Expo: No Recent Hopitalizations: No Physical Abuse: No Sexual Abuse: No Mistreated: No Immunizations Up To Date Tetanus Booster (TDap): Unknown Seasonal Allergies Seasonal Allergies: No Past Medical History Surgeries: Yes Tonsillectomy Respiratory: No Cardiac: Yes Hypertension Neurological: No Sexually Transmitted Disease: No HIV/AIDS: No Genitourinary: No Gastrointestinal: Yes Colitis, Chronic Constipation, Chronic Diarrhea Musculoskeletal: No Endocrine: Yes Diabetes, Non-Insulin dep HEENT: Yes (corrective lenses) Hearing Impairment: Denies Cancer: No Psychosocial: Yes Sleep Difficulties, Anxiety, PTSD, Depression Integumentary: No Blood Disorders: No Family Medical History GI Disease Physical Exam Vital Signs Vital Signs - First Documented 05/10/19 02:45 Temp 36.5 Pulse 95 Resp 17 B/P (MAP) 150/95 (113) Pulse Ox 97 O2 Delivery Room Air Capillary Refill : Less Than 3 Seconds Height, Weight, BMI Height: 5'5.00" Weight: 275lbs. 0.0oz. 124.539039km; 45.00 BMI Method:Stated General Appearance: No Apparent Distress, WD/WN HEENT: PERRL/EOMI, TMs Normal, Normal ENT Inspection, Pharynx Normal Neck: Limited Range of Motion, Tender Lateral, Other (Right lateral neck w TTP Upper Trapezius into lower lateral neck. No spinal TTP. Limited rotation.) Progress/Results/Core Measures Results/Orders Vital Signs/I&O 05/10/19 02:45 Temp 36.5 Pulse 95 Resp 17 B/P (MAP) 150/95 (113) Pulse Ox 97 O2 Delivery Room Air Blood Pressure Mean: 113 Departure Impression Primary Impression: Acute strain of neck muscle Qualified Codes: S16.1XXD - Strain of muscle, fascia and tendon at neck level, subsequent encounter Disposition: 01 HOME, SELF-CARE Condition: Unchanged Departure-Patient Inst. Referrals: [facility] (PCP) Primary Care Physician FABIANO KUMAR APRN (Family) Primary Care Physician Patient Instructions: Cervical Muscle Strain (DC) Add. Discharge Instructions: All discharge instructions reviewed with patient and/or family. Voiced understanding. Apply moist heat to neck 3 times daily for 15 minutes, then stretch gently. Once tolerated massage the muscles gently. See Your Primary Care Physician in 1 week for re-evaluation. Scripts Cyclobenzaprine HCl (Cyclobenzaprine HCl) 10 Mg Tablet 10 MG PO HS for Spasms, #14 TAB Prov: PATRICE ROBERSON DO 05/10/19 PATRICE ROBERSON DO May 10, 2019 03:04
[2019-05-10 03:10] VITALS: BP 171/88
== END 2019-05-10 03:10 | disposition home or self-care (01) ==
LOC: EDUNIT# 02:40 → ER FS 02:41
DX: S16.1XXD Strain of muscle, fascia and tendon at neck level, subsequent encounter (principal); I10 Essential (primary) hypertension; E11.9 Type 2 diabetes mellitus without complications; F41.9 Anxiety disorder, unspecified; F43.10 Post-traumatic stress disorder, unspecified; F32.9 Major depressive disorder, single episode, unspecified; Z90.89 Acquired absence of other organs; Z88.8 Allergy status to other drugs, medicaments and biological substances; Z88.5 Allergy status to narcotic agent; Z88.2 Allergy status to sulfonamides; X50.1XXA Overexertion from prolonged static or awkward postures, initial encounter
CPT/HCPCS: 99282

== ENCOUNTER 2019-05-17 14:40 | Emergency (ER) | payer SELFPAY ==
[~2019-05-17] VITALS: Ht 166.5 cm; Wt 136.7 kg
[2019-05-17] MEDS ORDERED: morphine INJ 10 MG/ML 1ML (SYR OR VIAL) IM STA (15:06)
--- NOTE | 2019-05-17 15:14 | ED Neck-Back Pain/Injury ---
General Chief Complaint: Head/Cervical Problems Stated Complaint: NECK PAIN; VOMITING Nursing Triage Note: Patient is complaining of neck pain rated at 8/10. States the pain has been there 4 days and was present on awakening. Is unable to turn head to the right due to pain and stiffness. Denies fevers or headaches. States she has vomited twice today and it hurt her neck to vomit. Nursing Sepsis Screen: No Definite Risk Source of Information: Patient Exam Limitations: No Limitations History of Present Illness Date Seen by Provider: May 17, 2019 Time Seen by Provider: 15:05 Initial Comments The patient is a 48-year-old female who presents for evaluation of nausea, v omiting, and diarrhea since this morning. She is also complaining of some neck pain which has been chronic and she reports has been improving. She has been seen multiple times in this emergency department for the neck pain in the past. She states the neck pain is in the right posterolateral neck and there is a muscle spasm there. She denies fevers or chills, headache, vision changes, focal weakness or numbness, confusion, difficulty speaking or walking. She also denies any abdominal or back discomfort. Her friend gave her a Zofran which helped. She denies rectal bleeding or pain. She is alert and oriented 4, calm, and appears to be no distress. Of note this is approximately the patient's 20th visit to the emergency department over the last year. Timing/Duration: 12 Hours Severity: Mild Allergies and Home Medications Allergies Coded Allergies: gabapentin (Verified Allergy, Mild, 02/17/19) ondansetron (Verified Allergy, Mild, 03/27/17) Itching at injection site with injectable form only. Oral form well tolerated. Sulfa (Sulfonamide Antibiotics) (Verified Allergy, Unknown, 02/15/19) hydrocodone (Verified Allergy, Unknown, 03/27/17) prednisone (Verified Allergy, Unknown, 02/17/19) Home Medications Clindamycin HCl 300 Mg Capsule, 300 MG PO BID Prescribed by: FRANK VALDES on 02/18/19 1005 Cyclobenzaprine HCl 10 Mg Tablet, 10 MG PO HS Prescribed by: PATRICE ROBERSON on 05/10/19 0303 Ketorolac Tromethamine 10 Mg Tablet, 10 MG PO Q6H PRN for PAIN-MODERATE TO SEVERE Prescribed by: EDUARDO QUESADA MD on 02/11/19 1032 Oxycodone HCl/Acetaminophen 1 Each Tablet, 1 TAB PO Q4H PRN for PAIN-MILD TO MODERATE Prescribed by: EDUARDO QUESADA MD on 02/10/19 1711 Sennosides/Docusate Sodium 1 Each Tablet, 1 EA PO BID Prescribed by: FRANK VALDES on 02/18/19 1005 Patient Home Medication List Home Medication List Reviewed: Yes Review of Systems Constitutional: no symptoms reported EENTM: no symptoms reported Respiratory: no symptoms reported Cardiovascular: no symptoms reported Gastrointestinal: diarrhea, nausea, vomiting Genitourinary: no symptoms reported Musculoskeletal: neck pain (chronic) Skin: no symptoms reported Psychiatric/Neurological: No Symptoms Reported All Other Systems Reviewed Negative Unless Noted: Yes Past Qnewctf-Rscjsk-Uonfsm Hx Past Med/Social Hx: Reviewed Nursing Past Med/Soc Hx Patient Social History Alcohol Use: Denies Use Recreational Drug Use: No Smoking Status: Never a Smoker 2nd Hand Smoke Exposure: No Recent Foreign Travel: No Contact w/Someone Who Travel: No Recent Infectious Disease Expo: No Recent Hopitalizations: No Immunizations Up To Date Tetanus Booster (TDap): Unknown Seasonal Allergies Seasonal Allergies: No Past Medical History Surgeries: Yes Tonsillectomy Respiratory: No Cardiac: Yes Hypertension Neurological: No Sexually Transmitted Disease: No HIV/AIDS: No Genitourinary: No Gastrointestinal: Yes Colitis, Chronic Constipation, Chronic Diarrhea Musculoskeletal: No Endocrine: Yes Diabetes, Non-Insulin dep HEENT: Yes (corrective lenses) Hearing Impairment: Denies Cancer: No Psychosocial: Yes Sleep Difficulties, Anxiety, PTSD, Depression Integumentary: No Blood Disorders: No Family Medical History GI Disease Physical Exam Vital Signs Vital Signs - First Documented 05/17/19 14:57 Temp 36.9 Pulse 95 Resp 16 B/P (MAP) 201/103 (135) Pulse Ox 95 Capillary Refill : Less Than 3 Seconds Height, Weight, BMI Height: 5'5.00" Weight: 275lbs. 0.0oz. 124.824935bz; 49.00 BMI Method:Stated General Appearance: No Apparent Distress, WD/WN, Obese, Other (calm) HEENT: PERRL/EOMI, Normal ENT Inspection, Pharynx Normal Neck: Full Range of Motion, Supple, Other (muslce spasm right posterolateral neck) Cardiovascular: Regular Rate, Rhythm, No Edema, No JVD Respiratory: Chest Non Tender, Lungs Clear, Normal Breath Sounds, No Accessory Muscle Use Gastrointestinal: Normal Bowel Sounds, Non Tender, Soft Back: Normal Inspection, No CVA Tenderness, No Vertebral Tenderness Extremity: Normal Capillary Refill, Non Tender Neurologic/Psychiatric: Alert, Oriented x3, No Motor/Sensory Deficits, Normal 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, 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 as Tested Skin: Normal Color, Warm/Dry Progress/Results/Core Measures Results/Orders My Orders Orders - JODY CROOKS DO Ketorolac Injection (Toradol Injection) (05/17/19 15:15) Ondansetron Oral Solution (Zofran Oral S (05/17/19 15:15) Diazepam Tablet (Valium Tablet) (05/17/19 15:15) Morphine Injection (Morphine Injection (05/17/19 15:06) Ondansetron Oral Dissolve Tab (Zofran (05/17/19 15:17) Ondansetron Oral Dissolve Tab (Zofran (05/17/19 15:39) Medications Given in ED Current Medications Medications Dose Ordered Sig/Angeles Route Start Time Stop Time Status Last Admin Dose Admin Diazepam 5 mg ONCE ONCE PO 05/17/19 15:15 05/17/19 15:16 DC 05/17/19 15:19 5 MG Ketorolac Tromethamine 60 mg ONCE ONCE IM 05/17/19 15:15 05/17/19 15:16 DC 05/17/19 15:18 60 MG Vital Signs/I&O 05/17/19 14:57 Temp 36.9 Pulse 95 Resp 16 B/P (MAP) 201/103 (135) Pulse Ox 95 Blood Pressure Mean: 135 Progress Progress Note : Progress Note @1550 - The patient reports feeling much better and is asking to go home. Workup does reveal any emergent pathology and she stable for discharge. Departure Impression Primary Impression: Nausea vomiting and diarrhea Additional Impression: Chronic neck pain Disposition: 01 HOME, SELF-CARE Condition: Stable Departure-Patient Inst. Decision time for Depature: 15:55 Referrals: [facility] (PCP) Primary Care Physician FABIANO KUMAR APRN (Family) Primary Care Physician Patient Instructions: Nausea and Vomiting, Adult, Chronic Neck Pain (DC), Neck Sprain (DC) Add. Discharge Instructions: Take the prescribed medicine as directed. Return to the emergency Department immediately for new or worsening symptoms. Take the prescribed medications as directed. Scripts Ondansetron (Ondansetron Odt) 4 Mg Tab.rapdis 4 MG PO Q6H for 7 Days, #20 TAB Prov: JODY CROOKS DO 05/17/19 JODY CROOKS DO May 17, 2019 15:14
[2019-05-17] MEDS ORDERED: DIAZEPAM 5 MG (VALIUM) TABLET PO ONE (15:15)
[2019-05-17] MEDS ORDERED: ONDANSETRON 4 MG/5 ML ORAL SOLN (ZOFRAN) 5 ML PO ONE (15:15)
[2019-05-17] MEDS ORDERED: KETOROLAC 60 MG/2 ML VIAL IM ONE (15:15)
[2019-05-17] MEDS ORDERED: ONDANSETRON 4 MG (ZOFRAN) ORAL DISSOLVE TAB ONE (15:17)
[2019-05-17] MEDS ORDERED: ONDANSETRON 4 MG (ZOFRAN) ORAL DISSOLVE TAB PO STA (15:39)
[2019-05-17] MEDS ORDERED: ONDA4TAB11 PO (15:57)
[2019-05-17 16:05] VITALS: BP 178/90
== END 2019-05-17 16:08 | disposition home or self-care (01) ==
LOC: EDUNIT# 14:40 → ER FS 14:42
DX: R19.7 Diarrhea, unspecified (principal); R11.2 Nausea with vomiting, unspecified; G89.29 Other chronic pain; M54.2 Cervicalgia; I10 Essential (primary) hypertension; E11.9 Type 2 diabetes mellitus without complications; F41.9 Anxiety disorder, unspecified; F43.10 Post-traumatic stress disorder, unspecified; F32.9 Major depressive disorder, single episode, unspecified; Z90.89 Acquired absence of other organs; Z88.2 Allergy status to sulfonamides; Z88.5 Allergy status to narcotic agent; Z88.8 Allergy status to other drugs, medicaments and biological substances
CPT/HCPCS: 96372; 99284

== ENCOUNTER 2019-05-19 00:03 | Emergency (ER) | payer SELFPAY ==
[~2019-05-19] VITALS: Ht 165 cm; Wt 124.0 kg
[~2019-05-19 00:03] MED LIST changes: +ONDA4TAB11 PO
[2019-05-19] MEDS ORDERED: NS IV 1000 ML 1,000 ML IV SCH (00:20)
[2019-05-19] MEDS ORDERED: METOCLOPRAMIDE INJ 10 MG/2 ML (REGLAN) IVP ONE (00:30)
--- NOTE | 2019-05-19 00:30 | ED Abdominal Pain ---
General Chief Complaint: Head/Cervical Problems Stated Complaint: NECK PAIN,N,V Nursing Triage Note: PT COMPLAINING OF CHRONIC NECK PAIN Sepsis Screen: No Definite Risk Source of Information: Patient Exam Limitations: No Limitations History of Present Illness Date Seen by Provider: May 19, 2019 Time Seen by Provider: 00:15 Initial Comments 48-year-old female presents with nausea vomiting. Patient reports that she's been having some nausea and vomiting for a couple days. She was seen here a couple days ago for similar symptoms. She comes in today because the vomiting is causing her to have worsening of her chronic back pain. Patient has numerous visits for chronic neck pain and reports that the vomiting is making the pain worse. Patient currently has Flexeril for this. She denies any fevers or chills. She does not complain of abdominal pain but thinks she might "have an ileus" Allergies and Home Medications Allergies Coded Allergies: gabapentin (Verified Allergy, Mild, 02/17/19) ondansetron (Verified Allergy, Mild, 03/27/17) Itching at injection site with injectable form only. Oral form well tolerated. Sulfa (Sulfonamide Antibiotics) (Verified Allergy, Unknown, 02/15/19) hydrocodone (Verified Allergy, Unknown, 03/27/17) prednisone (Verified Allergy, Unknown, 02/17/19) Home Medications Clindamycin HCl 300 Mg Capsule, 300 MG PO BID Prescribed by: FRANK VALDES on 02/18/19 1005 Cyclobenzaprine HCl 10 Mg Tablet, 10 MG PO HS Prescribed by: PATRICE ROBERSON on 05/10/19 0303 Ketorolac Tromethamine 10 Mg Tablet, 10 MG PO Q6H PRN for PAIN-MODERATE TO SEVERE Prescribed by: EDUARDO QUESADA MD on 02/11/19 1032 Ondansetron 4 Mg Tab.rapdis, 4 MG PO Q6H Prescribed by: JODY CROOKS on 05/17/19 1557 Oxycodone HCl/Acetaminophen 1 Each Tablet, 1 TAB PO Q4H PRN for PAIN-MILD TO MODERATE Prescribed by: EDUARDO QUESADA MD on 02/10/19 1711 Sennosides/Docusate Sodium 1 Each Tablet, 1 EA PO BID Prescribed by: FRANK VALDES on 02/18/19 1005 Patient Home Medication List Home Medication List Reviewed: Yes Review of Systems Review of Systems Constitutional: No chills, No dizziness, No fever EENTM: No Ear Pain, No Throat Pain Respiratory: Denies Cough, Denies Shortness of Air Cardiovascular: Denies Chest Pain, Denies Edema Gastrointestinal: Denies Diarrhea; Nausea, Vomiting Genitourinary: No Symptoms Reported Musculoskeletal: neck pain Skin: no symptoms reported Past Foucgcc-Rdspdz-Vnwkbz Hx Past Med/Social Hx: Reviewed Nursing Past Med/Soc Hx Patient Social History Alcohol Use: Denies Use Recreational Drug Use: No 2nd Hand Smoke Exposure: No Recent Foreign Travel: No Contact w/Someone Who Travel: No Recent Infectious Disease Expo: No Recent Hopitalizations: No Physical Abuse: No Sexual Abuse: No Fear: No Immunizations Up To Date Tetanus Booster (TDap): Unknown Seasonal Allergies Seasonal Allergies: No Past Medical History Surgeries: Yes Tonsillectomy Respiratory: No Cardiac: Yes Hypertension Neurological: No Sexually Transmitted Disease: No HIV/AIDS: No Genitourinary: No Gastrointestinal: Yes Colitis, Chronic Constipation, Chronic Diarrhea Musculoskeletal: No Endocrine: Yes Diabetes, Non-Insulin dep HEENT: Yes (corrective lenses) Hearing Impairment: Denies Cancer: No Psychosocial: Yes Sleep Difficulties, Anxiety, PTSD, Depression Integumentary: No Blood Disorders: No Family Medical History GI Disease Physical Exam Vital Signs Vital Signs - First Documented 05/19/19 00:08 Temp 36.7 Pulse 89 Resp 18 B/P (MAP) 177/98 (124) Pulse Ox 95 O2 Delivery Room Air Capillary Refill : Less Than 3 Seconds Height/Weight/BMI Height: 5'5.00" Weight: 275lbs. 0.0oz. 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, no motor/sensory deficits, alert, oriented x 3 Skin: normal color, warm/dry Progress/Results/Core Measures Results/Orders Lab Results Laboratory Tests Test 05/19/19 00:30 05/19/19 01:16 Range/Units White Blood Count 6.7 4.3-11.0 10^3/uL Red Blood Count 4.24 L 4.35-5.85 10^6/uL Hemoglobin 11.4 L 11.5-16.0 G/DL Hematocrit 37 35-52 % Mean Corpuscular Volume 88 80-99 FL Mean Corpuscular Hemoglobin 27 25-34 PG Mean Corpuscular Hemoglobin Concent 31 L 32-36 G/DL Red Cell Distribution Width 15.5 H 10.0-14.5 % Platelet Count 226 130-400 10^3/uL Mean Platelet Volume 10.4 7.4-10.4 FL Neutrophils (%) (Auto) 68 42-75 % Lymphocytes (%) (Auto) 23 12-44 % Monocytes (%) (Auto) 6 0-12 % Eosinophils (%) (Auto) 2 0-10 % Basophils (%) (Auto) 0 0-10 % Neutrophils # (Auto) 4.5 1.8-7.8 X 10^3 Lymphocytes # (Auto) 1.6 1.0-4.0 X 10^3 Monocytes # (Auto) 0.4 0.0-1.0 X 10^3 Eosinophils # (Auto) 0.2 0.0-0.3 10^3/uL Basophils # (Auto) 0.0 0.0-0.1 10^3/uL Sodium Level 135 135-145 MMOL/L Potassium Level 4.2 3.6-5.0 MMOL/L Chloride Level 101 98-107 MMOL/L Carbon Dioxide Level 23 21-32 MMOL/L Anion Gap 11 5-14 MMOL/L Blood Urea Nitrogen 16 7-18 MG/DL Creatinine 0.87 0.60-1.30 MG/DL Estimat Glomerular Filtration Rate > 60 BUN/Creatinine Ratio 18 Glucose Level 194 H 70-105 MG/DL Calcium Level 8.9 8.5-10.1 MG/DL Corrected Calcium 8.5-10.1 MG/DL Total Bilirubin 0.2 0.1-1.0 MG/DL Aspartate Amino Transf (AST/SGOT) 19 5-34 U/L Alanine Aminotransferase (ALT/SGPT) 20 0-55 U/L Alkaline Phosphatase 97 40-136 U/L Total Protein 7.0 6.4-8.2 GM/DL Albumin 3.6 3.2-4.5 GM/DL Lipase 33 8-78 U/L My Orders Orders - HAYS,MEMO L DO Cbc With Automated Diff (10/12/19 00:20) Comprehensive Metabolic Panel (05/19/19 00:20) Lipase (05/19/19 00:20) Ua Culture If Indicated (05/19/19 00:20) Abdomen Flat & Upright/Decub (05/19/19 00:20) Ed Iv/Invasive Line Start (05/19/19 00:20) Ns Iv 1000 Ml (Sodium Chloride 0.9%) (05/19/19 00:20) Metoclopramide Injection (Reglan Injecti (05/19/19 00:30) Medications Given in ED Current Medications Medications Dose Ordered Sig/Angeles Route Start Time Stop Time Status Last Admin Dose Admin Metoclopramide HCl 5 mg ONCE ONCE IVP 05/19/19 00:30 05/19/19 00:31 DC 05/19/19 00:34 5 MG Vital Signs/I&O 05/19/19 00:08 Temp 36.7 Pulse 89 Resp 18 B/P (MAP) 177/98 (124) Pulse Ox 95 O2 Delivery Room Air Blood Pressure Mean: 124 Progress Progress Note : Time: 00:44 Progress Note Reviewed patient's ER visits to [facility] along with multiple other ER visits the [facility]. Patient has had a chronic neck pain for quite a while with no acute injury. Patient also has had multiple visits due to nausea vomiting and abdominal discomfort. X-ray shows no signs of obstruction or ileus but does show quite a bit of fecal [place]. I discussed the patient that I will give her some IV fluids, then she will be discharged home. She should add some MiraLAX as needed for soft daily stool. Patient continues her home medication of Flexeril along with Tylenol ibuprofen for her chronic neck pain and if she needs further medication she should follow-up with her primary care provider. Departure Impression Primary Impression: Chronic neck pain Additional Impression: Nausea & vomiting Qualified Codes: R11.2 - Nausea with vomiting, unspecified Disposition: 01 HOME, SELF-CARE Condition: Stable Departure-Patient Inst. Referrals: [facility]/ (PCP) Primary Care Physician FABIANO KUMAR APRN (Family) Primary Care Physician Patient Instructions: Chronic Pain (DC), Chronic Neck Pain (DC), Nausea and Vomiting, Adult (DC) Add. 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 drink plenty of fluids. miralex as needed for soft daily stool. Follow up with PcP next week. All discharge instructions reviewed with patient and/or family. Voiced understanding. MEMO HAYS DO May 19, 2019 00:30
[2019-05-19 00:37] LABS: BASOPHILS % (AUTO) 0 % (0-10); EOSINOPHILS % (AUTO) 2 % (0-10); HEMATOCRIT 37 % (35-52); HEMOGLOBIN 11.4 G/DL (11.5-16.0); LYMPHOCYTES # (AUTO) 1.6 X 10^3 (1.0-4.0); LYMPHOCYTES % (AUTO) 23 % (12-44); MEAN CORPUSCULAR HEMOGLOBIN 27 PG (25-34); MEAN CORPUSCULAR HGB CONC 31 G/DL (32-36); MEAN CORPUSCULAR VOLUME 88 FL (80-99); MEAN PLATELET VOLUME 10.4 FL (7.4-10.4); MONOCYTES # (AUTO) 0.4 X 10^3 (0.0-1.0); MONOCYTES % (AUTO) 6 % (0-12); NEUTROPHILS # (AUTO) 4.5 X 10^3 (1.8-7.8); NEUTROPHILS % (AUTO) 68 % (42-75); PLATELET COUNT 226 10^3/uL (130-400); RED CELL DISTRIBUTION WIDTH 15.5 % (10.0-14.5); WHITE BLOOD COUNT 6.7 10^3/uL (4.3-11.0)
[2019-05-19 00:38] LABS: EOSINOPHILS # (AUTO) 0.2 10^3/uL (0.0-0.3)
[2019-05-19 00:59] LABS: CARBON DIOXIDE 23 MMOL/L (21-32); CHLORIDE 101 MMOL/L (98-107); POTASSIUM 4.2 MMOL/L (3.6-5.0); SODIUM 135 MMOL/L (135-145)
[2019-05-19 01:00] LABS: ALANINE AMINOTRANSFERASE 20 U/L (0-55); ALBUMIN 3.6 GM/DL (3.2-4.5); ALKALINE PHOSPHATASE 97 U/L (40-136); BILIRUBIN,TOTAL 0.2 MG/DL (0.1-1.0); BUN/CREATININE RATIO 18; CALCIUM 8.9 MG/DL (8.5-10.1); CREATININE SERUM 0.87 MG/DL (0.60-1.30); GFR ESTIMATED > 60; GLUCOSE 194 MG/DL (70-105); LIPASE 33 U/L (8-78)
[2019-05-19 01:26] VITALS: BP 157/86
[2019-05-19 01:33] LABS: BACTERIA,URINE MODERATE /HPF; BILIRUBIN,URINE NEGATIVE (NEGATIVE); CLARITY,URINE CLOUDY; COLOR,URINE YELLOW; GLUCOSE, URINE (UA) NEGATIVE (NEGATIVE); KETONES,URINE NEGATIVE (NEGATIVE); LEUKOCYTE ESTERASE ,URINE NEGATIVE (NEGATIVE); NITRITE,URINE NEGATIVE (NEGATIVE); PH,URINE 5.5 (5-9); PROTEIN,URINE NEGATIVE (NEGATIVE); RBC,URINE 0-2 /HPF; SQUAMOUS EPITHELIAL CELL,UR 25-50 /HPF; UROBILINOGEN,URINE 0.2 MG/DL (NORMAL)
--- NOTE | 2019-05-19 05:55 | Diagnostic Imaging Report ---
Clinical indication: Patient with nausea and vomiting. Exam: X-ray of the abdomen with multiple supine and upright views. Comparison: X-ray of the abdomen dated 02/07/2019. Findings: There is an air lucency overlying the left upper abdomen, likely representing artifact or skinfold. There is a nonobstructed bowel gas pattern. There is no evidence of abdominal free air. There is a small to moderate amount of stool throughout the abdomen. There are no focal calcifications overlying the expected regions/ pathways of both kidneys, ureters, and bladder regions. There are hypertrophic spurs involving the lumbar spine and visualized thoracic spine. Impression: There is no radiographic evidence for acute abdominal/ pelvic process or urinary tract stones. Dictated by: Dictated on workstation # [id number]
== END 2019-05-19 01:30 | disposition home or self-care (01) ==
LOC: EDUNIT# 00:03 → ER FS 00:05
DX: G89.29 Other chronic pain (principal); M54.2 Cervicalgia; R11.2 Nausea with vomiting, unspecified; I10 Essential (primary) hypertension; E11.9 Type 2 diabetes mellitus without complications; F43.10 Post-traumatic stress disorder, unspecified; F41.9 Anxiety disorder, unspecified; F32.9 Major depressive disorder, single episode, unspecified; Z88.2 Allergy status to sulfonamides; Z88.5 Allergy status to narcotic agent; Z88.8 Allergy status to other drugs, medicaments and biological substances; Z90.89 Acquired absence of other organs
CPT/HCPCS: 36415; 74019; 80053; 81000; 83690; 85025; 87088; 96361; 96374

== ENCOUNTER 2019-05-20 03:24 | Emergency (ER) | payer SELFPAY ==
[~2019-05-20] VITALS: Ht 165.1 cm; Wt 141.0 kg
[2019-05-20] MEDS ORDERED: KETOROLAC 60 MG/2 ML VIAL IM ONE (04:00)
[2019-05-20] MEDS ORDERED: ACETAMINOPHEN 325 MG TABLET PO ONE (04:00)
[2019-05-20] MEDS ORDERED: ORPHENADRINE 60 MG/2 ML (NORFLEX) AMP IM ONE (04:00)
--- NOTE | 2019-05-20 04:00 | ED Neck-Back Pain/Injury ---
General Chief Complaint: Head/Cervical Problems Stated Complaint: NECK PAIN Nursing Triage Note: Patient states that she is having neck pain so bad that she is vomiting. Patient has chronic neck pain issues. 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 Patient rates her pain at a 9. Nursing Sepsis Screen: No Definite Risk History of Present Illness Date Seen by Provider: May 20, 2019 Time Seen by Provider: 03:38 Initial Comments The patient is a 48-year-old female with a history of diabetes and chronic neck discomfort who presents with concern for chronic right lateral neck discomfort. Patient has been seen around 20 times since the beginning of the year for this issue in this emergency department and at [place]. She states nothing new is going on today, except that her neck is hurting as it usually is. No fevers, nausea or vomiting, headache, focal weakness, numbness, tingling, vision changes, shortness of breath or chest pain. No new injury. Patient was seen here yesterday and prescribed NSAIDs and Flexeril and states that they are not helping. I discussed with the patient that the only thing that I have to offer if her pain is truly uncontrolled with medication would be to attempt to transfer her to a center with neurosurgical coverage and MRI available given recurrent presentations for uncontrolled neck pain. Patient declines this and states that she is just here for pain medication to control her discomfort. Allergies and Home Medications Allergies Coded Allergies: gabapentin (Verified Allergy, Mild, 02/17/19) ondansetron (Verified Allergy, Mild, 03/27/17) Itching at injection site with injectable form only. Oral form well tolerated. Sulfa (Sulfonamide Antibiotics) (Verified Allergy, Unknown, 02/15/19) hydrocodone (Verified Allergy, Unknown, 03/27/17) prednisone (Verified Allergy, Unknown, 02/17/19) Home Medications Clindamycin HCl 300 Mg Capsule, 300 MG PO BID Prescribed by: FRANK VALDES on 02/18/19 1005 Cyclobenzaprine HCl 10 Mg Tablet, 10 MG PO HS Prescribed by: PATRICE ROBERSON on 05/10/19 0303 Ketorolac Tromethamine 10 Mg Tablet, 10 MG PO Q6H PRN for PAIN-MODERATE TO SEVERE Prescribed by: EDUARDO QUESADA MD on 02/11/19 1032 Ondansetron 4 Mg Tab.rapdis, 4 MG PO Q6H Prescribed by: JODY CROOKS on 05/17/19 1557 Oxycodone HCl/Acetaminophen 1 Each Tablet, 1 TAB PO Q4H PRN for PAIN-MILD TO MODERATE Prescribed by: EDUARDO QUESADA MD on 02/10/19 1711 Sennosides/Docusate Sodium 1 Each Tablet, 1 EA PO BID Prescribed by: FRANK VALDES on 02/18/19 1005 Patient Home Medication List Home Medication List Reviewed: Yes Review of Systems Constitutional: see HPI All Other Systems Reviewed Negative Unless Noted: Yes (Negative excepted noted.) Past Pffyhtq-Nsqfvw-Hamtxx Hx Past Med/Social Hx: Reviewed Nursing Past Med/Soc Hx Patient Social History 2nd Hand Smoke Exposure: No Recent Foreign Travel: No Contact w/Someone Who Travel: No Recent Infectious Disease Expo: No Recent Hopitalizations: No Physical Abuse: No Sexual Abuse: No Mistreated: No Fear: No Immunizations Up To Date Tetanus Booster (TDap): Unknown Seasonal Allergies Seasonal Allergies: No Past Medical History Surgeries: Yes Tonsillectomy Respiratory: No Cardiac: Yes Hypertension Neurological: No Sexually Transmitted Disease: No HIV/AIDS: No Genitourinary: No Gastrointestinal: Yes Colitis, Chronic Constipation, Chronic Diarrhea Musculoskeletal: No Endocrine: Yes Diabetes, Non-Insulin dep HEENT: Yes (corrective lenses) Hearing Impairment: Denies Cancer: No Psychosocial: Yes Sleep Difficulties, Anxiety, PTSD, Depression Integumentary: No Blood Disorders: No Family Medical History Reviewed Nursing Family Hx GI Disease Physical Exam Vital Signs Vital Signs - First Documented 05/20/19 03:38 Temp 36.9 Pulse 86 Resp 22 B/P (MAP) 166/96 (119) Pulse Ox 95 O2 Delivery Room Air Capillary Refill : Less Than 3 Seconds Height, Weight, BMI Height: 5'5.00" Weight: 275lbs. 0.0oz. [id number]; 51.00 BMI Method:Stated General Appearance: No Apparent Distress This is an older female, obese, appearing nontoxic and in no acute distress. Head is normocephalic and atraumatic. Neck is supple and with no midline tenderness noted; there is mild tenderness to the right lateral neck radiating down over the trapezius on the right without any erythema, warmth or swelling. Oropharynx is moist. Lungs are clear to auscultation in all stations. There is a normal S1 and S2 without rubs or gallops and capillary refill is appropriate, less than 2 seconds globally. Abdomen soft, nontender nondistended. Skin is warm and dry without cyanosis, clubbing or edema. Psychiatrically, the patient demonstrates appropriate mood and affect and is alert. Neurologically, patient moves all extremities equally and there are no lateralizing deficits noted and strength is 5 out of 5 and sensation intact to light touch in bilateral upper and lower extremities. Patient Ampligen to the emergency department with a narrow, steady gait. Examination of back reveals no erythema, warmth, swelling, step-offs, deformities or tenderness. Progress/Results/Core Measures Results/Orders My Orders Orders - GUANAKITO GLYNN MD Orphenadrine Injection (Norflex Injectio (05/20/19 04:00) Ketorolac Injection (Toradol Injection) (05/20/19 04:00) Acetaminophen Tablet/Caplet (Tylenol T (05/20/19 04:00) Vital Signs/I&O 05/20/19 03:38 Temp 36.9 Pulse 86 Resp 22 B/P (MAP) 166/96 (119) Pulse Ox 95 O2 Delivery Room Air Blood Pressure Mean: 119 Progress Progress Note : Time: 04:02 Progress Note Clinical examination reassuring. 48-year-old female with chronic neck pain who repeatedly presents to this and other emergency departments for her neck discomfort and has not seemed to follow up appropriately with primary care. I counseled her that she likely will need an outpatient MRI to further evaluate her neck and that this is not something we're able to obtain from the emergency department at this time. I have explained that she needs to follow up her chronic neck pain with her primary care provider and that all we have the ability to do here to definitively help is to try to arrange a transfer to a center with spine coverage to facilitate emergent MRI if the patient thinks she will be unable to control her pain at all at home. Patient declines transfer for neurosurgical attention and MRI at this time. I feel this is reasonable; emergent MRI is not clearly indicated in this case given long chronicity of symptoms, no new neurologic deficits and lack of appropriate outpatient follow- up for this issue. No emergency medical condition is identified. Patient will be given doses of NSAID, muscle relaxant and Tylenol and will be discharged. She is counseled to follow-up with her primary care provider on Tuesday. All questions are answered. Departure Impression Primary Impression: Chronic neck pain with normal neurological examination Disposition: HOME, SELF-CARE Condition: Improved Departure-Patient Inst. Referrals: [facility] (PCP) Primary Care Physician FABIANO KUMAR APRN (Family) Primary Care Physician Patient Instructions: Chronic Neck Pain (DC) Add. Discharge Instructions: It is very important that you follow up closely with your primary care physician in the next 1-2 days for your chronic neck pain. Return immediately to the emergency department with worsening symptoms or other new concerns. GUANAKITO GLYNN MD May 20, 2019 04:00
[2019-05-20 04:09] VITALS: BP 166/96
== END 2019-05-20 04:09 | disposition home or self-care (01) ==
LOC: EDUNIT# 03:24 → ER FS 03:26
DX: G89.29 Other chronic pain (principal); M54.2 Cervicalgia; E11.9 Type 2 diabetes mellitus without complications; I10 Essential (primary) hypertension; F43.10 Post-traumatic stress disorder, unspecified; F41.9 Anxiety disorder, unspecified; F32.9 Major depressive disorder, single episode, unspecified; Z88.8 Allergy status to other drugs, medicaments and biological substances; Z88.2 Allergy status to sulfonamides; Z88.5 Allergy status to narcotic agent; Z90.89 Acquired absence of other organs
CPT/HCPCS: 99284

== ENCOUNTER 2019-06-22 20:22 | Emergency (ER) | payer SELFPAY ==
[~2019-06-22] VITALS: Ht 165 cm; Wt 139.8 kg
[2019-06-22] MEDS ORDERED: ORPHENADRINE 60 MG/2 ML (NORFLEX) AMP IM STA (20:42)
[2019-06-22] MEDS ORDERED: KETOROLAC 60 MG/2 ML VIAL IM STA (20:42)
--- NOTE | 2019-06-22 21:14 | ED Back Pain ---
General Chief Complaint: Back Problems Stated Complaint: BACK PAIN Nursing Triage Note: pt states she was getting up off of the floor and twisted back Nursing Sepsis Screen: No Definite Risk Source of Information: Patient History of Present Illness Date Seen by Provider: Jun 22, 2019 Time Seen by Provider: 21:14 Initial Comments 48-year-old female presenting with complaints of low back pain. She states she was getting up off the floor and twisted her back causing it to pop and she suddenly had severe pain. She has had this happen several times in the last few weeks. Last weekend she had something similar happen and she spent all weekend on the floor trying to help her back. She has been using Voltaren gel and taking cyclobenzaprine to help with her pain. After 2-[address] days of treating [address] and try to rest on the floor her pain was doing better last weekend. However tonight she became concerned because it has been happening more frequently and with that having the popping sound and sensation she was concerned that maybe something more had happened to make her have such severe pain. She denies any loss of bowel or bladder control. She has no pain radiating into her legs. She also has been dealing with some plantar fasciitis. She states that she does not want any strong narcotics or medicines that would be addictive. She has had multiple visits to the emergency department for neck and back pain in the last year. Allergies and Home Medications Allergies Coded Allergies: gabapentin (Verified Allergy, Mild, 02/17/19) ondansetron (Verified Allergy, Mild, 03/27/17) Itching at injection site with injectable form only. Oral form well tolerated. Sulfa (Sulfonamide Antibiotics) (Verified Allergy, Unknown, 02/15/19) hydrocodone (Verified Allergy, Unknown, 03/27/17) prednisone (Verified Allergy, Unknown, 02/17/19) Home Medications Clindamycin HCl 300 Mg Capsule, 300 MG PO BID Prescribed by: FRANK VALDES on 02/18/19 1005 Cyclobenzaprine HCl 10 Mg Tablet, 10 MG PO HS Prescribed by: PATRICE ROBERSON on 05/10/19 0303 Ketorolac Tromethamine 10 Mg Tablet, 10 MG PO Q6H PRN for PAIN-MODERATE TO SEVERE Prescribed by: EDUARDO QUESADA MD on 02/11/19 1032 Ondansetron 4 Mg Tab.rapdis, 4 MG PO Q6H Prescribed by: JODY CROOKS on 05/17/19 1557 Oxycodone HCl/Acetaminophen 1 Each Tablet, 1 TAB PO Q6H PRN for PAIN-SEVERE (8- 10) Prescribed by: KIRSTIE CHAUDHARI on 06/22/19 2306 Sennosides/Docusate Sodium 1 Each Tablet, 1 EA PO BID Prescribed by: FRANK VALDES on 02/18/19 1005 Patient Home Medication List Home Medication List Reviewed: Yes Review of Systems Constitutional: No chills, No fever EENTM: no symptoms reported Respiratory: no symptoms reported Cardiovascular: no symptoms reported Gastrointestinal: no symptoms reported Genitourinary: No dysuria, No hematuria Musculoskeletal: see HPI Skin: no symptoms reported Psychiatric/Neurological: Anxiety Past Huusiat-Bysukd-Stqdnf Hx Past Med/Social Hx: Reviewed Nursing Past Med/Soc Hx Patient Social History Alcohol Use: Denies Use Recreational Drug Use: No 2nd Hand Smoke Exposure: No Recent Foreign Travel: No Contact w/Someone Who Travel: No Recent Infectious Disease Expo: No Recent Hopitalizations: No Physical Abuse: No Sexual Abuse: No Mistreated: No Fear: No Immunizations Up To Date Tetanus Booster (TDap): Unknown Seasonal Allergies Seasonal Allergies: No Past Medical History Surgeries: Yes Tonsillectomy Respiratory: No Cardiac: Yes Hypertension Neurological: No Sexually Transmitted Disease: No HIV/AIDS: No Genitourinary: No Gastrointestinal: Yes Colitis, Chronic Constipation, Chronic Diarrhea Musculoskeletal: No Endocrine: Yes Diabetes, Non-Insulin dep HEENT: Yes (corrective lenses) Hearing Impairment: Denies Cancer: No Psychosocial: Yes Sleep Difficulties, Anxiety, PTSD, Depression Integumentary: No Blood Disorders: No Family Medical History GI Disease Physical Exam Vital Signs Vital Signs - First Documented 06/22/19 20:41 Temp 36.5 Pulse 99 Resp 18 B/P (MAP) 189/98 (128) Pulse Ox 96 O2 Delivery Room Air Capillary Refill : Less Than 3 Seconds Height, Weight, BMI Height: 5'5.00" Weight: 275lbs. 0.0oz. 124.750025jx; 51.00 BMI Method:Stated General Appearance: WD/WN, Moderate Distress (complaining that she has to be on the exam table in room 2 and that she would prefer to be on a regular cot), Obese Cardiovascular: Regular Rate, Rhythm, Normal Peripheral Pulses Respiratory: Chest Non Tender, Lungs Clear, Normal Breath Sounds, No Accessory Muscle Use, No Respiratory Distress Back: No CVA Tenderness, Muscle Spasm, Vertebral Tenderness (lumbar spine around approximately L3 L4) Extremity: Normal Capillary Refill, Normal Range of Motion (limited range of motion due to her pain, but patient did walk into the emergency department), No Calf Tenderness, No Pedal Edema Neurologic/Psychiatric: Alert, Oriented x3 Skin: Normal Color, Warm/Dry Progress/Results/Core Measures Results/Orders My Orders Orders - KIRSTIE CHAUDHARI MD Ketorolac Injection (Toradol Injection) (06/22/19 20:42) Orphenadrine Injection (Norflex Injectio (06/22/19 20:42) Ct Lumbar Spine Wo (06/22/19 21:25) Fentanyl Injection (Sublimaze Injection (06/22/19 22:53) Rx-Oxycodone/Apap 5-325 Mg (Rx-Percocet (06/22/19 23:00) Vital Signs/I&O 06/22/19 06/22/19 20:41 23:15 Temp 36.5 36.5 Pulse 99 99 Resp 18 18 B/P (MAP) 189/98 (128) 189/98 (128) Pulse Ox 96 96 O2 Delivery Room Air Room Air Blood Pressure Mean: 128 POS Progress Progress Note #1: Progress Note Since she is reporting repeated episodes of low back pain and complains of severe pain and will order a Toradol and Norflex shot. No loss of bowel or bladder control. Order a CT scan of the lumbar spine to evaluate for possible compression fracture or acute bony abnormality. Progress Note #2: Progress Note Patient continues to complain of severe pain. No acute abnormality seen on the CT scan. She is still complaining of pain so will give fentanyl shot and discharged with a few Percocet. Counseled to check with clinic as she may want to do some physical therapy to help with her back. Diagnostic Imaging Diagonstic Imaging: CT Plain Films/CT/US/NM/MRI: other (lumbar spine) Comments NAME: ROMELIA LANIER MED REC#: [id number] PT STATUS: REG ER : 06/02/1936 PHYSICIAN: KIRSTIE CHAUDHARI MD ADMIT DATE: 06/22/19/ER FS Draft POSDate of Exam:06/22/19 CT THORACIC SPINE WO PROCEDURE: CT thoracic spine without contrast. TECHNIQUE: Multiple axial computerized tomography images were obtained from the base of the thoracic spine to the vertex without intravenous contrast. Auto Exposure Controls were utilized during the CT exam to meet ALARA standards for radiation dose reduction. INDICATION: Fell, back pain There are no prior CT examinations available for comparison. The plain film examination of the thoracic spine performed earlier today noted a moderate anterior wedge compression deformity of T7. That finding is again evident on the study. This injury may well be subacute in nature. There is no sign of a retropulsed fragment. There is no other fracture or acute bony abnormality identified. There is no sign of high-grade central stenosis. The lungs, where visualized, are clear. IMPRESSION: 1. There is a 30-40% compression deformity of superior endplate of T7. This injury may well be subacute in nature. Unfortunately, the patient does have a pacemaker in place and this would preclude further evaluation by MRI. 2. There is no acute bony abnormality noted otherwise. Dictated on workstation # [id number] Dict: 06/22/192107 Trans: 06/22/192113 [facility] [id number] Interpreted by: IKER KAPOOR MD Electronically signed by: Departure Impression Primary Impression: Lumbar sprain Qualified Codes: S33.5XXA - Sprain of ligaments of lumbar spine, initial encounter Additional Impression: Acute exacerbation of chronic low back pain Disposition: 01 HOME, SELF-CARE Condition: Stable Departure-Patient Inst. Decision time for Depature: 23:03 Referrals: [facility] [place]) Primary Care Physician Patient Instructions: Lumbar Muscle Strain (DC), Low Back Pain (DC) Add. Discharge Instructions: Follow up with clinic this upcoming week and they may want to refer you to Physical therapy to help with your back pain Continue on your Flexeril and Voltaren gel for your back. For severe pain take the Percocet. Alternate ice and heat to your back to help with pain as well. All discharge instructions reviewed with patient and/or family. Voiced understanding. Scripts Oxycodone HCl/Acetaminophen (Percocet 5-325 mg Tablet) 1 Each Tablet 1 TAB PO Q6H PRN for PAIN-SEVERE (8-10) MDD 6 TABS for 3 Days, #12 TAB 0 Refills Prov: KIRSTIE CHAUDHARI MD 06/22/19 KIRSTIE CHAUDHARI MD Jun 22, 2019 21:14 POS
--- NOTE | 2019-06-22 22:12 | Diagnostic Imaging Report ---
PROCEDURE: CT lumbar spine without contrast. TECHNIQUE: Multiple contiguous axial images were obtained through the lumbar spine without the use of intravenous contrast. Sagittal and coronal reformations were then performed. Auto Exposure Controls were utilized during the CT exam to meet ALARA standards for radiation dose reduction. INDICATION: Back pain The reconstructed parasagittal images show the vertebral body heights and alignment to be within normal limits and similar to the CT abdomen/pelvis exam of 12/14/2018. The intervertebral disc spaces are well maintained. The axial images failed to show any evidence for a high-grade central stenosis or neuroforaminal narrowing. There is no fracture or acute bony abnormality appreciated. There is no evidence for a paraspinal mass. IMPRESSION: 1. There is no evidence for an acute abnormality of the lumbar spine. 2. If clinical concern regarding an underlying abnormality persists, then MRI would be recommended for further evaluation. Dictated by: Dictated on workstation # [id number]
[2019-06-22] MEDS ORDERED: fentaNYL INJECTION 100 MCG/2 ML AMP IM STA (22:53)
[2019-06-22] MEDS ORDERED: RX-OXYCODONE/APAP 5-325 MG #4 TAB PK PO PRN (23:00)
[2019-06-22] MEDS ORDERED: OXYC1TAB87 PO (23:06)
[2019-06-22 23:15] VITALS: BP 189/98
[2019-06-23] MEDS ORDERED: OXYC1TAB87 PO (14:22)
== END 2019-06-22 23:14 | disposition home or self-care (01) ==
LOC: EDUNIT# 20:22 → ER FS 20:24
DX: S33.5XXA Sprain of ligaments of lumbar spine, initial encounter (principal); M54.5 Low back pain; G89.29 Other chronic pain; I10 Essential (primary) hypertension; E11.9 Type 2 diabetes mellitus without complications; F41.9 Anxiety disorder, unspecified; F43.10 Post-traumatic stress disorder, unspecified; F32.9 Major depressive disorder, single episode, unspecified; Z87.19 Personal history of other diseases of the digestive system; Z88.8 Allergy status to other drugs, medicaments and biological substances; Z88.5 Allergy status to narcotic agent; Z88.2 Allergy status to sulfonamides; Z90.89 Acquired absence of other organs; X50.1XXA Overexertion from prolonged static or awkward postures, initial encounter
CPT/HCPCS: 72131; 96372

== ENCOUNTER 2019-06-23 12:32 | Emergency (ER) | payer SELFPAY ==
[~2019-06-23] VITALS: Ht 164.4 cm; Wt 113.3 kg
[2019-06-23] MEDS ORDERED: KETOROLAC 60 MG/2 ML VIAL IM ONE (13:45)
[2019-06-23] MEDS ORDERED: ACETAMINOPHEN 325 MG TABLET PO ONE (13:45)
--- NOTE | 2019-06-23 14:19 | ED Neck-Back Pain/Injury ---
General Chief Complaint: Head/Cervical Problems Stated Complaint: NECK PAIN Nursing Triage Note: Patient reports she bent over to crab picker her hat that had fallen on the floor and strained her neck. Nursing Sepsis Screen: No Definite Risk History of Present Illness Date Seen by Provider: Jun 23, 2019 Time Seen by Provider: 12:35 Initial Comments The patient is a 48-year-old female with a history of xts-bggjdqg-prxwsjpik diabetes and chronic neck and back pain with Flexeril and Voltaren at home. She was just seen in this emergency department last night for thoracic midline back pain and CT imaging was unremarkable and the patient was discharged home with some Percocet for breakthrough pain and instructed to continue using her other home pain medications for discomfort. She returns today with her girlfriend who checked in for another medical problem. The patient states that she bent forward to pick her hat up off the ground and developed right sided paraspinal neck discomfort. She then elected to check in for evaluation of her own issue. Patient denies any midline neck pain, any specific injury or trauma, any weakness, numbness or tingling of her arms or her legs. No loss of bowel or bladder control, saddle anesthesia, new urinary retention. No other concerns today. States she is almost out of Percocet that she was prescribed last night. Allergies and Home Medications Allergies Coded Allergies: gabapentin (Verified Allergy, Mild, 02/17/19) ondansetron (Verified Allergy, Mild, 03/27/17) Itching at injection site with injectable form only. Oral form well tolerated. Sulfa (Sulfonamide Antibiotics) (Verified Allergy, Unknown, 02/15/19) hydrocodone (Verified Allergy, Unknown, 03/27/17) prednisone (Verified Allergy, Unknown, 02/17/19) Home Medications Clindamycin HCl 300 Mg Capsule, 300 MG PO BID Prescribed by: FRANK VALDES on 02/18/19 1005 Cyclobenzaprine HCl 10 Mg Tablet, 10 MG PO HS Prescribed by: PATRICE ROBERSON on 05/10/19 0303 Ketorolac Tromethamine 10 Mg Tablet, 10 MG PO Q6H PRN for PAIN-MODERATE TO SEVERE Prescribed by: EDUARDO QUESADA MD on 02/11/19 1032 Ondansetron 4 Mg Tab.rapdis, 4 MG PO Q6H Prescribed by: JODY CROOKS on 05/17/19 1557 Oxycodone HCl/Acetaminophen 1 Each Tablet, 1 TAB PO Q6H PRN for PAIN-SEVERE (8- 10) Prescribed by: KIRSTIE CHAUDHARI on 06/22/19 2306 Sennosides/Docusate Sodium 1 Each Tablet, 1 EA PO BID Prescribed by: FRANK VALDES on 02/18/19 1005 Patient Home Medication List Home Medication List Reviewed: Yes Review of Systems Constitutional: see HPI All Other Systems Reviewed Negative Unless Noted: Yes (Negative excepted noted.) Past Lcvjbiy-Ixvboc-Tqcxbq Hx Past Med/Social Hx: Reviewed Nursing Past Med/Soc Hx Patient Social History 2nd Hand Smoke Exposure: No Recent Foreign Travel: No Contact w/Someone Who Travel: No Recent Infectious Disease Expo: No Recent Hopitalizations: No Immunizations Up To Date Tetanus Booster (TDap): Unknown Seasonal Allergies Seasonal Allergies: No Past Medical History Surgeries: Yes Tonsillectomy Respiratory: No Cardiac: Yes Hypertension Neurological: No Sexually Transmitted Disease: No HIV/AIDS: No Genitourinary: No Gastrointestinal: Yes Colitis, Chronic Constipation, Chronic Diarrhea Musculoskeletal: No Endocrine: Yes Diabetes, Non-Insulin dep HEENT: Yes (corrective lenses) Hearing Impairment: Denies Cancer: No Psychosocial: Yes Sleep Difficulties, Anxiety, PTSD, Depression Integumentary: No Blood Disorders: No Family Medical History Reviewed Nursing Family Hx GI Disease Physical Exam Vital Signs Vital Signs - First Documented 06/23/19 12:40 Temp 36.5 Pulse 96 Resp 22 B/P (MAP) 146/99 (115) Pulse Ox 97 O2 Delivery Room Air Capillary Refill : Less Than 3 Seconds Height, Weight, BMI Height: 5'5.00" Weight: 275lbs. 0.0oz. 124.936049am; 41.00 BMI Method:Stated General Appearance: No Apparent Distress The patient is an older female appearing nontoxic and in no acute distress. Head is normocephalic and atraumatic. Neck is supple with no midline tenderness but with mild right lateral paraspinal tenderness to palpation without erythema, warmth or swelling. Discomfort extends inferiorly over the trapezius distribution on the right side. Oropharynx is moist. Lungs are clear to auscultation in all stations. There is a normal S1 and S2 without rubs or gallops and capillary refill is appropriate, less than 2 seconds globally. Abdomen is soft, nontender and nondistended. Skin is warm and dry without cyanosis, clubbing or edema. Psychiatrically, the patient given strict appropriate mood and affect and is alert. Bilateral upper and lower extremities are neurovascularly intact distally. Progress/Results/Core Measures Results/Orders My Orders Orders - GUANAKITO GLYNN MD Ketorolac Injection (Toradol Injection) (06/23/19 13:45) Acetaminophen Tablet/Caplet (Tylenol T (06/23/19 13:45) Medications Given in ED Current Medications Medications Dose Ordered Sig/Angeles Route Start Time Stop Time Status Last Admin Dose Admin Acetaminophen 975 mg ONCE ONCE PO 06/23/19 13:45 06/23/19 13:46 DC 06/23/19 13:51 975 MG Ketorolac Tromethamine 60 mg ONCE ONCE IM 06/23/19 13:45 06/23/19 13:46 DC 06/23/19 13:52 60 MG Vital Signs/I&O 06/23/19 12:40 Temp 36.5 Pulse 96 Resp 22 B/P (MAP) 146/99 (115) Pulse Ox 97 O2 Delivery Room Air Blood Pressure Mean: 115 POS Progress Progress Note : Time: 14:18 Progress Note Clinical examination reassuring. Overall clinical picture is suspicious for cervical muscle strain. Patient drove and so cannot have sedating medications here in the emergency department. We will give Toradol and Tylenol and discharged with a few more Percocet per patient's request. I did counselor marriage and family her that we would not be able to provide additional Percocet from the emergency department for this issue or for her chronic back or neck pain in the future. She is to follow-up with primary care at [facility] on Tuesday and to return emerged [facility] right away with worsening symptoms or other new concerns. She understands and agrees with this plan of care. Departure Impression Primary Impression: Cervical strain Qualified Codes: S16.1XXA - Strain of muscle, fascia and tendon at neck level, initial encounter Additional Impression: Cervical paraspinous muscle spasm Disposition: HOME, SELF-CARE Condition: Improved Departure-Patient Inst. Referrals: [facility]/JARAD (PCP) Primary Care Physician FABIANO KUMAR APRN (Family) Primary Care Physician Patient Instructions: Muscle Strain (DC), Cervical Muscle Strain Add. Discharge Instructions: Follow-up with your primary care physician on Tuesday. Return to the emergency department right away with worsen symptoms or other new concerns. Please keep in mind that we will not be able to refill additional narcotic pain medications from the emergency department for your chronic neck or back pain and you should discuss mistakes Elder care for pain control for her chronic pain with your primary care doctor when you see your PCP on Tuesday Scripts Oxycodone HCl/Acetaminophen (Percocet 5-325 mg Tablet) 1 Each Tablet 1 TAB PO Q4H for PAIN-MODERATE MDD 6 TABS for 7 Days, #7 TAB Prov: GUANAKITO GLYNN MD 06/23/19 GUANAKITO GLYNN MD Jun 23, 2019 14:19 POS
[2019-06-23] MEDS ORDERED: OXYC1TAB87 PO (14:22)
[2019-06-23 14:28] VITALS: BP 146/98
== END 2019-06-23 14:32 | disposition home or self-care (01) ==
LOC: EDUNIT# 12:32 → ER FS 12:33
DX: S16.1XXA Strain of muscle, fascia and tendon at neck level, initial encounter (principal); E11.9 Type 2 diabetes mellitus without complications; I10 Essential (primary) hypertension; F41.9 Anxiety disorder, unspecified; F43.10 Post-traumatic stress disorder, unspecified; F32.9 Major depressive disorder, single episode, unspecified; Z88.2 Allergy status to sulfonamides; Z88.5 Allergy status to narcotic agent; Z88.8 Allergy status to other drugs, medicaments and biological substances; Z90.89 Acquired absence of other organs; X50.1XXA Overexertion from prolonged static or awkward postures, initial encounter
CPT/HCPCS: 99284

== ENCOUNTER 2019-06-27 23:02 | Emergency (ER) | payer SELFPAY ==
[~2019-06-27] VITALS: Ht 165.1 cm; Wt 134.1 kg
--- NOTE | 2019-06-27 23:03 | ED General ---
General Stated Complaint: STIFF NECK Source of Information: Patient History of Present Illness Date Seen by Provider: Jun 27, 2019 Time Seen by Provider: 23:03 Initial Comments Patient is a 48 y/o female who presents to the ER this evening c/o pain and muscle spasm in the neck. She reports she has had this problem for many years but it has been worse this week. No new or acute injury. She was seen in this ER two days earlier for the same complaint. She was also in this ER on 06/22 when she was evaluated for back pain. At that time, she was given some percocet to use at home for severe pain. Tonight, she relates these symptoms to be exactly similar to her usual pain. No numbness, weakness, tingling in the upper extremities. No fever, chills, headache. Allergies and Home Medications Allergies Coded Allergies: gabapentin (Verified Allergy, Mild, 02/17/19) ondansetron (Verified Allergy, Mild, 03/27/17) Itching at injection site with injectable form only. Oral form well tolerated. Sulfa (Sulfonamide Antibiotics) (Verified Allergy, Unknown, 02/15/19) hydrocodone (Verified Allergy, Unknown, 03/27/17) prednisone (Verified Allergy, Unknown, 02/17/19) Home Medications Clindamycin HCl 300 Mg Capsule, 300 MG PO BID Prescribed by: FRANK VALDES on 02/18/19 1005 Cyclobenzaprine HCl 10 Mg Tablet, 10 MG PO HS Prescribed by: PATRICE ROBERSON on 05/10/19 0303 Cyclobenzaprine HCl 10 Mg Tablet, 10 MG PO TID Prescribed by: BERRY LIEBERMAN on 06/27/19 2315 Ibuprofen 800 Mg Tablet, 800 MG PO Q8H PRN for PAIN Prescribed by: BERRY LIEBERMAN on 06/27/19 2315 Ketorolac Tromethamine 10 Mg Tablet, 10 MG PO Q6H PRN for PAIN-MODERATE TO SEVERE Prescribed by: EDUARDO QUESADA MD on 02/11/19 1032 Ondansetron 4 Mg Tab.rapdis, 4 MG PO Q6H Prescribed by: JODY CROOKS on 05/17/19 1557 Oxycodone HCl/Acetaminophen 1 Each Tablet, 1 TAB PO Q6H PRN for PAIN-SEVERE (8- 10) Prescribed by: KIRSTIE CHAUDHARI on 06/22/19 2306 Oxycodone HCl/Acetaminophen 1 Each Tablet, 1 TAB PO Q4H Prescribed by: GUANAKITO GLYNN on 06/23/19 1422 Sennosides/Docusate Sodium 1 Each Tablet, 1 EA PO BID Prescribed by: FRANK VALDES on 02/18/19 1005 Patient Home Medication List Home Medication List Reviewed: Yes Review of Systems Review of Systems Constitutional: no symptoms reported Respiratory: no symptoms reported Cardiovascular: no symptoms reported Musculoskeletal: see HPI Skin: no symptoms reported Psychiatric/Neurological: No Symptoms Reported All Other Systems Reviewed Negative Unless Noted: Yes Physical Exam Vital Signs Vital Signs - First Documented 06/27/19 23:09 Temp 37.3 Pulse 116 Resp 20 B/P (MAP) 165/102 (123) Pulse Ox 96 O2 Delivery Room Air Capillary Refill : Height, Weight, BMI Height: '" Weight: lbs. oz. kg; BMI Method: General Appearance: WD/WN, Other (mild distress 2/2 muscle spasm in neck) Eyes: Bilateral Eye Normal Inspection, Bilateral Eye PERRL HEENT: PERRL/EOMI, Normal ENT Inspection Neck: Normal Inspection, Other (limited range of motion left and right. + TTP and muscle spasm present over cervical paraspinal muscles) Respiratory: Lungs Clear Cardiovascular: Regular Rate, Rhythm Extremity: Normal Capillary Refill, Normal Inspection Neurologic/Psychiatric: Alert, Oriented x3, Normal Mood/Affect Skin: Normal Color, Warm/Dry Progress/Results/Core Measures Suspected Sepsis SIRS Temperature: Pulse: Respiratory Rate: Blood Pressure / Mean: Results/Orders My Orders Orders - BERRY LIEBERMAN DO Diazepam Tablet (Valium Tablet) (06/27/19 23:15) Morphine Injection (Morphine Injection (06/27/19 23:12) Ketorolac Injection (Toradol Injection) (06/27/19 23:45) Medications Given in ED Current Medications Medications Dose Ordered Sig/Angeles Route Start Time Stop Time Status Last Admin Dose Admin Diazepam 5 mg ONCE ONCE PO 06/27/19 23:15 06/27/19 23:16 DC 06/27/19 23:22 5 MG Vital Signs/I&O 06/27/19 23:09 Temp 37.3 Pulse 116 Resp 20 B/P (MAP) 165/102 (123) Pulse Ox 96 O2 Delivery Room Air Capillary Refill : Progress Note : Time: 23:30 Progress Note Patient seen and examined immediately on arrival to her room. No midline PSP cervical neck pain. 5/5 motor strength and no subjective complaints of numbness/tingling in the UE's. Pain seems out of proportion as she denies any new injury. Review of EMR reveals 8 ER visits for MSK complaints over the last six weeks. Review of [facility] does not reveal excessive Rx for opiates (filled in CT). Only one Rx for percocet on 06/25/19 which is only documented opiate Rx in 2018. I discussed this with the patient and she relates that she fills medications in [place] b/c they cost less there. Subsequently, there is no available and accessible record of her Rx history over the last 12 months. No red flags on HPI or PE this evening. In the ER, patient is given IM morphine, Toradol, and PO valium. Following these, the patient was observed in the ER for 30 minutes during which time she did begin to feel mildly improved. She was discharged to home and strongly recommended to establish care with a PCP so she could stop coming to the ER for management of chronic pain symptoms. She was accompanied by family and was not driving home this evening. Departure Impression Primary Impression: Neck sprain Disposition: HOME, SELF-CARE Condition: Improved Departure-Patient Inst. Scripts Cyclobenzaprine HCl (Cyclobenzaprine HCl) 10 Mg Tablet 10 MG PO TID for Muscle Spasms, #21 TAB Prov: BERRY LIEBERMAN DO 06/27/19 Ibuprofen (Ibuprofen) 800 Mg Tablet 800 MG PO Q8H PRN for PAIN, #30 TAB 0 Refills Prov: BERRY LIEBERMAN DO 06/27/19 BERRY LIEBERMAN DO Jun 27, 2019 23:03 POS
[2019-06-27] MEDS ORDERED: morphine INJ 10 MG/ML 1ML (SYR OR VIAL) IM STA (23:12)
[2019-06-27] MEDS ORDERED: DIAZEPAM 5 MG (VALIUM) TABLET PO ONE (23:15)
[2019-06-27] MEDS ORDERED: IBUP-1780 PO (23:15)
[2019-06-27] MEDS ORDERED: CYCL10TA9 PO (23:15)
[2019-06-27] MEDS ORDERED: KETOROLAC 60 MG/2 ML VIAL IM ONE (23:45)
[2019-06-27 23:47] VITALS: BP 165/102
== END 2019-06-27 23:47 | disposition home or self-care (01) ==
LOC: EDUNIT# 23:02 → ER FS 23:04
DX: S13.9XXA Sprain of joints and ligaments of unspecified parts of neck, initial encounter (principal); Z88.8 Allergy status to other drugs, medicaments and biological substances; Z88.2 Allergy status to sulfonamides; X58.XXXA Exposure to other specified factors, initial encounter
CPT/HCPCS: 96372; 99284

== ENCOUNTER 2019-07-21 05:33 | Emergency (ER) | payer SELFPAY ==
[~2019-07-21] VITALS: Ht 165.1 cm; Wt 124.7 kg
[~2019-07-21 05:33] MED LIST changes: +IBUP-1780 PO
--- NOTE | 2019-07-21 05:54 | ED Lower Extremity ---
General Chief Complaint: Lower Extremity Stated Complaint: ROLLED ANKLE Nursing Triage Note: pt states she rolled right ankle when walking, pts significant other out to desk after pt went to xray stating pt has been taking to many of her xanax lately Nursing Sepsis Screen: No Definite Risk Source: patient Exam Limitations: no limitations History of Present Illness Date Seen by Provider: Jul 21, 2019 Time Seen by Provider: 05:30 Initial Comments twisted right ankle....getting out of bed. no swelling or bruising. able to bear weight. No Hx of previous right ankle fx or injury. Allergies and Home Medications Allergies Coded Allergies: gabapentin (Verified Allergy, Mild, 02/17/19) ondansetron (Verified Allergy, Mild, 03/27/17) Itching at injection site with injectable form only. Oral form well tolerated. Sulfa (Sulfonamide Antibiotics) (Verified Allergy, Unknown, 02/15/19) hydrocodone (Verified Allergy, Unknown, 03/27/17) prednisone (Verified Allergy, Unknown, 02/17/19) Home Medications Clindamycin HCl 300 Mg Capsule, 300 MG PO BID Prescribed by: FRANK VALDES on 02/18/19 1005 Cyclobenzaprine HCl 10 Mg Tablet, 10 MG PO HS Prescribed by: PATRICE ROBERSON on 05/10/19 0303 Cyclobenzaprine HCl 10 Mg Tablet, 10 MG PO TID Prescribed by: BERRY LIEBERMAN on 06/27/19 2315 Ibuprofen 800 Mg Tablet, 800 MG PO Q8H PRN for PAIN Prescribed by: BERRY LIEBERMAN on 06/27/19 2315 Ketorolac Tromethamine 10 Mg Tablet, 10 MG PO Q6H PRN for PAIN-MODERATE TO SEVERE Prescribed by: EDUARDO QUESADA MD on 02/11/19 1032 Ondansetron 4 Mg Tab.rapdis, 4 MG PO Q6H Prescribed by: JODY CROOKS on 05/17/19 1557 Oxycodone HCl/Acetaminophen 1 Each Tablet, 1 TAB PO Q6H PRN for PAIN-SEVERE (8- 10) Prescribed by: KIRSTIE CHAUDHARI on 06/22/19 2306 Oxycodone HCl/Acetaminophen 1 Each Tablet, 1 TAB PO Q4H Prescribed by: GUANAKITO GLYNN on 06/23/19 1422 Sennosides/Docusate Sodium 1 Each Tablet, 1 EA PO BID Prescribed by: FRANK VALDES on 02/18/19 1005 Patient Home Medication List Home Medication List Reviewed: Yes Review of Systems Constitutional: no symptoms reported; No fever, No weakness Musculoskeletal: see HPI; No back pain; joint pain; No joint swelling, No neck pain Skin: No change in color, No lumps, No rash Psychiatric/Neurological: Denies Numbness, Denies Paresthesia, Denies Pre- Existing Deficit Past Hdjdfeq-Uoyjrr-Lvghtz Hx Past Med/Social Hx: Reviewed Nursing Past Med/Soc Hx Patient Social History Alcohol Use: Denies Use Recreational Drug Use: No 2nd Hand Smoke Exposure: No Recent Foreign Travel: No Contact w/Someone Who Travel: No Recent Infectious Disease Expo: No Recent Hopitalizations: No Physical Abuse: No Sexual Abuse: No Mistreated: No Fear: No Immunizations Up To Date Tetanus Booster (TDap): Unknown Seasonal Allergies Seasonal Allergies: No Past Medical History Surgeries: Yes Tonsillectomy Respiratory: No Cardiac: Yes Hypertension Neurological: No Sexually Transmitted Disease: No HIV/AIDS: No Genitourinary: No Gastrointestinal: Yes Colitis, Chronic Constipation, Chronic Diarrhea Musculoskeletal: No Endocrine: Yes Diabetes, Non-Insulin dep HEENT: Yes (corrective lenses) Hearing Impairment: Denies Cancer: No Psychosocial: Yes Sleep Difficulties, Anxiety, PTSD, Depression Integumentary: No Blood Disorders: No Family Medical History GI Disease Physical Exam Vital Signs Vital Signs - First Documented 07/21/19 05:42 Temp 37.0 Pulse 88 Resp 18 B/P (MAP) 161/94 (116) Pulse Ox 96 O2 Delivery Room Air Capillary Refill : Less Than 3 Seconds Height, Weight, BMI Height: 5'5.00" Weight: 275lbs. 0.0oz. 124.244176mm; 45.00 BMI Method:Stated General Appearance: WD/WN, no apparent distress Knees: bilateral knee non-tender, bilateral knee normal inspection, bilateral knee normal range of motion, bilateral knee no evidence of injury Ankles: left ankle non-tender; bilateral ankle normal inspection, bilateral ankle normal range of motion, bilateral ankle no evidence of injury; right ankle pain, right ankle soft tissue tenderness Progress/Results/Core Measures Results/Orders My Orders Orders - PATRICE ROBERSON DO Ankle 2 View Right (07/21/19 05:36) Vital Signs/I&O 07/21/19 05:42 Temp 37.0 Pulse 88 Resp 18 B/P (MAP) 161/94 (116) Pulse Ox 96 O2 Delivery Room Air Blood Pressure Mean: 116 POS Departure Impression Primary Impression: Sprain and strain of ankle Disposition: 01 HOME, SELF-CARE Condition: Stable Departure-Patient Inst. Referrals: [facility]/JARAD (PCP) Primary Care Physician FABIANO KUMAR APRN (Family) Primary Care Physician Patient Instructions: Ankle Sprain (DC) PATRICE ROBERSON DO Jul 21, 2019 05:54 POS
[2019-07-21 06:00] VITALS: BP 161/94
--- NOTE | 2019-07-21 06:43 | Diagnostic Imaging Report ---
EXAMINATION: Right ankle radiographs, 2 views. COMPARISON: April 04, 2019. HISTORY: 48-year-old female, right ankle pain after injury. FINDINGS: There are limitations of the exam relating to the 2 view technique. There is mild degenerative type enthesopathy at the Achilles tendon insertion. There is a small calcaneal heel spur. There is no large tibiotalar joint effusion. There is no identified acute fracture. There is no gross malalignment of the ankle mortise. There is no identified radiopaque foreign body. IMPRESSION: No identified acute bony abnormality of the right ankle and 2 view examination. Dictated by: Dictated on workstation # [id number]
== END 2019-07-21 05:57 | disposition home or self-care (01) ==
LOC: EDUNIT# 05:33 → ER FS 05:35
DX: S93.401A Sprain of unspecified ligament of right ankle, initial encounter (principal); I10 Essential (primary) hypertension; E11.9 Type 2 diabetes mellitus without complications; F41.9 Anxiety disorder, unspecified; F43.10 Post-traumatic stress disorder, unspecified; F32.9 Major depressive disorder, single episode, unspecified; Z88.2 Allergy status to sulfonamides; Z88.5 Allergy status to narcotic agent; Z88.8 Allergy status to other drugs, medicaments and biological substances; Z90.89 Acquired absence of other organs; X50.1XXA Overexertion from prolonged static or awkward postures, initial encounter
CPT/HCPCS: 73600

== ENCOUNTER 2019-07-21 08:13 | Emergency (ER) | payer SELFPAY ==
[~2019-07-21] VITALS: Ht 165 cm; Wt 142.2 kg
--- NOTE | 2019-07-21 08:28 | ED Upper Extremity ---
General Chief Complaint: Trauma-Non Activation Stated Complaint: FALL History of Present Illness Date Seen by Provider: Jul 21, 2019 Time Seen by Provider: 08:10 Initial Comments The patient is a 48-year-old morbidly obese female with a history of non- insulin-dependent diabetes and chronic neck and back pain with Flexeril and Voltaren at home. She is very well-known to this emergency department and frequently presents for musculoskeletal issues. She was seen here just 2 hours ago for ankle discomfort after a fall. Plain films were negative at that time and the patient was discharged home. She returns via ambulance for evaluation of bilateral wrist discomfort and her right sided paraspinal neck discomfort with onset after a mechanical ground-level fall. Patient states she was having discomfort from her ankle and was walking and fell forward onto her bilateral outstretched hands. She states she minimally hit her face on the ground but denies loss of consciousness, nausea or vomiting or amnesia to events. She denies hitting or hurting any other part of her body but notes that her chronic neck discomfort is acting up. As above, she does have medicine at home for this issue. No other new concerns today. Allergies and Home Medications Allergies Coded Allergies: gabapentin (Verified Allergy, Mild, 02/17/19) ondansetron (Verified Allergy, Mild, 03/27/17) Itching at injection site with injectable form only. Oral form well tolerated. Sulfa (Sulfonamide Antibiotics) (Verified Allergy, Unknown, 02/15/19) hydrocodone (Verified Allergy, Unknown, 03/27/17) prednisone (Verified Allergy, Unknown, 02/17/19) Home Medications Clindamycin HCl 300 Mg Capsule, 300 MG PO BID Prescribed by: FRANK VALDES on 02/18/19 1005 Cyclobenzaprine HCl 10 Mg Tablet, 10 MG PO HS Prescribed by: PATRICE ROBERSON on 05/10/19 0303 Cyclobenzaprine HCl 10 Mg Tablet, 10 MG PO TID Prescribed by: BERRY LIEBERMAN on 06/27/19 2315 Ibuprofen 800 Mg Tablet, 800 MG PO Q8H PRN for PAIN Prescribed by: BERRY LIEBERMAN on 06/27/19 2315 Ketorolac Tromethamine 10 Mg Tablet, 10 MG PO Q6H PRN for PAIN-MODERATE TO SEVERE Prescribed by: EDUARDO QUESADA MD on 02/11/19 1032 Ondansetron 4 Mg Tab.rapdis, 4 MG PO Q6H Prescribed by: JODY CROOKS on 05/17/19 1557 Oxycodone HCl/Acetaminophen 1 Each Tablet, 1 TAB PO Q6H PRN for PAIN-SEVERE (8- 10) Prescribed by: KIRSTIE CHAUDHARI on 06/22/19 2306 Oxycodone HCl/Acetaminophen 1 Each Tablet, 1 TAB PO Q4H Prescribed by: GUANAKITO GLYNN on 06/23/19 1422 Sennosides/Docusate Sodium 1 Each Tablet, 1 EA PO BID Prescribed by: FRANK VALDES on 02/18/19 1005 Patient Home Medication List Home Medication List Reviewed: Yes Review of Systems Constitutional: see HPI All Other Systems Reviewed Negative Unless Noted: Yes (Negative excepted noted.) Past Piwodgf-Xkdcsj-Pxuvlr Hx Past Med/Social Hx: Reviewed Nursing Past Med/Soc Hx Patient Social History 2nd Hand Smoke Exposure: No Recent Hopitalizations: No Immunizations Up To Date Tetanus Booster (TDap): Unknown Seasonal Allergies Seasonal Allergies: No Past Medical History Surgeries: Yes Tonsillectomy Respiratory: No Cardiac: Yes Hypertension Neurological: No Sexually Transmitted Disease: No HIV/AIDS: No Genitourinary: No Gastrointestinal: Yes Colitis, Chronic Constipation, Chronic Diarrhea Musculoskeletal: No Endocrine: Yes Diabetes, Non-Insulin dep HEENT: Yes (corrective lenses) Hearing Impairment: Denies Cancer: No Psychosocial: Yes Sleep Difficulties, Anxiety, PTSD, Depression Integumentary: No Blood Disorders: No Family Medical History Reviewed Nursing Family Hx GI Disease Physical Exam Vital Signs Vital Signs - First Documented 07/21/19 08:15 Temp 36.0 Pulse 79 Resp 16 B/P (MAP) 151/76 (101) Pulse Ox 99 O2 Delivery Room Air Capillary Refill : Height, Weight, BMI Height: 5'5.00" Weight: 275lbs. 0.0oz. 124.176888mv; 45.00 BMI Method:Stated General Appearance: no apparent distress This is a morbidly obese middle-aged female appearing nontoxic and in no acute distress. Head is normocephalic and atraumatic. Neck is supple and with no midline tenderness, erythema, warmth, swelling, step-offs or deformities. There is very mild right-sided paraspinal neck tenderness to palpation over the trapezius distribution. Oropharynx is moist. No evidence of any facial injury. No instability of the midface. No malocclusion. No signs basilar fracture. Lungs clear to auscultation in all stations. There is a normal S1 and S2 without rubs or gallops and capillary refill is appropriate, less than 2 seconds globally. Abdomen is soft, nontender and nondistended. Skin is warm and dry without cya nosis, clubbing or edema. Psychiatrically, the patient demonstrates appropriate mood and affect and is alert. Progress/Results/Core Measures Results/Orders My Orders Orders - GUANAKITO GLYNN MD Cyclobenzaprine Tablet (Flexeril Tablet) (07/21/19 08:30) Acetaminophen Tablet/Caplet (Tylenol T (07/21/19 08:30) Wrist 3 View Bilateral (07/21/19 08:16) Accucheck Stat ONCE (07/21/19 08:16) Vital Signs/I&O 07/21/19 07/21/19 08:15 08:21 Temp 36.0 36.0 Pulse 79 79 Resp 16 16 B/P (MAP) 151/76 (101) 151/76 (101) Pulse Ox 99 99 O2 Delivery Room Air Room Air Progress Progress Note : Time: 08:25 Progress Note Minimal mechanism ground level fall with paraspinal neck discomfort and no indication for advanced spinal imaging by NEXXUS C-spine criteria. We will treat with Tylenol and cyclobenzaprine and we will image bilateral wrists and if imaging is unremarkable the patient will be dismissed to use her home pain medications and follow up closely in the next 1-2 days with primary care. She understands and agrees with this plan of care. Update 0840: Patient is resting comfortably in no acute distress. Plain films unremarkable. We will proceed with discharge home at this time. As above, patient is counseled to use her home medication for discomfort and spasm and to follow-up with primary care in the next 1-2 days. She is counseled to use caution when ambulating particularly when areas of her body hurt. She is ambulatory here in the emergency department with a narrow, steady gait. All questions are answered. Diagnostic Imaging Diagonstic Imaging: Xray Comments XR wrist L and R: no acute fracture, EP interp Departure Impression Primary Impression: Fall on same level from slipping, tripping and stumbling with subsequent striking against other object, initial encounter Additional Impressions: Other specified sprain of left wrist, initial encounter Other specified sprain of right wrist, initial encounter Trapezius muscle spasm Disposition: 01 HOME, SELF-CARE Condition: Improved Departure-Patient Inst. Referrals: [facility] (PCP) Primary Care Physician FABIANO KUMAR APRN (Family) Primary Care Physician Patient Instructions: Preventing Falls in the Older Adult Add. Discharge Instructions: Use your home medications for pain and spasm as prescribed. Follow up closely next 1-2 days with her primary care physician and return to the Emergency Department immediately if symptoms worsen or if other new symptoms of concern develop. GUANAKITO GLYNN MD Jul 21, 2019 08:28 POS
[2019-07-21] MEDS ORDERED: ACETAMINOPHEN 325 MG TABLET PO ONE (08:30)
[2019-07-21] MEDS ORDERED: CYCLOBENZAPRINE 10 MG (FLEXERIL) TAB PO SCH (08:30)
[2019-07-21 08:42] VITALS: BP 151/76
--- NOTE | 2019-07-21 09:02 | Diagnostic Imaging Report ---
EXAMINATION: Right wrist, 3 views. Left wrist, 3 views. COMPARISON: April 04, 2019 HISTORY: 48-year-old female, fall. Bilateral wrist pain. FINDINGS: There is no identified acute fracture. Bone mineralization and alignment is unremarkable. There is no identified unexpected radiopaque foreign body. Joint spaces are well preserved. IMPRESSION: No identified acute bony abnormality of the right or left wrist. Dictated by: Dictated on workstation # [id number]
== END 2019-07-21 08:58 | disposition home or self-care (01) ==
LOC: EDUNIT# 08:13 → ER FS 08:14
DX: S63.591A Other specified sprain of right wrist, initial encounter (principal); S63.592A Other specified sprain of left wrist, initial encounter; M62.838 Other muscle spasm; E11.9 Type 2 diabetes mellitus without complications; I10 Essential (primary) hypertension; F41.9 Anxiety disorder, unspecified; F43.10 Post-traumatic stress disorder, unspecified; F32.9 Major depressive disorder, single episode, unspecified; Z88.2 Allergy status to sulfonamides; Z88.8 Allergy status to other drugs, medicaments and biological substances; Z90.89 Acquired absence of other organs; W01.198A Fall on same level from slipping, tripping and stumbling with subsequent striking against other object, initial encounter
CPT/HCPCS: 82962

== ENCOUNTER 2019-07-23 19:55 | Emergency (ER) | payer SELFPAY ==
[~2019-07-23] VITALS: Ht 165.1 cm; Wt 144.9 kg
[2019-07-23] MEDS ORDERED: ACETAMINOPHEN 325 MG TABLET PO ONE (20:15)
[2019-07-23] MEDS ORDERED: KETOROLAC 30 MG/ML VIAL IVP ONE (20:15)
[2019-07-23] MEDS ORDERED: LORazepam 0.5 MG (ATIVAN) TABLET PO STA (20:15)
[2019-07-23] MEDS ORDERED: methylPREDNISolone 125 MG (Solu-MEDROL) VIAL IM ONE (20:30)
[2019-07-23 21:04] VITALS: BP 150/84
[2019-07-23] MEDS ORDERED: morphine INJ 10 MG/ML 1ML (SYR OR VIAL) IM STA (21:14)
--- NOTE | 2019-07-23 21:42 | Diagnostic Imaging Report ---
PROCEDURE: CT cervical spine without contrast. TECHNIQUE: Multiple contiguous axial images were obtained through the cervical spine without the use of intravenous contrast. Sagittal and coronal reformations were then performed. Auto Exposure Controls were utilized during the CT exam to meet ALARA standards for radiation dose reduction. INDICATION: Fall with neck pain COMPARISON: 03/23/2019 FINDINGS: There is reversal of the cervical lordosis centered at C5-C6. No spondylolisthesis is seen. There are mild degenerative changes at C5-C6 and C6-C7. Alignment otherwise appears normal. Vertebral body heights are preserved. No fracture is seen. No bony fragments or hyperdense fluid collections are seen in the spinal canal. The soft tissues about the cervical spine demonstrate no acute abnormality. IMPRESSION: 1. Mild degenerative changes in the cervical spine with no acute fracture seen. Dictated by: Dictated on workstation # [id number]
--- NOTE | 2019-07-23 22:02 | ED General ---
General Chief Complaint: Trauma-Non Activation Stated Complaint: NECK PAIN Nursing Triage Note: PT. FELL A COUPLE OF DAYS AGO. WHEN ATTEMPTING TO GET IN BED THIS EVENING SHE HURT HER RIGHT SIDE OF THE NECK. Nursing Sepsis Screen: No Definite Risk History of Present Illness Date Seen by Provider: Jul 23, 2019 Time Seen by Provider: 20:00 Initial Comments The patient is a 48-year-old female with a history of chronic neck and back pain who presents for the 18th time in the last 6 months for evaluation of neck discomfort. Patient had a ground-level fall a couple of days ago for which she was evaluated here, treated and discharged with medication and instructed to follow up with primary care. She returns stating that she turned her neck the wrong way this evening and had sudden onset of right-sided neck discomfort and so decided to come in for reevaluation. She states she took some tramadol prior to arrival without relief of symptoms. She denies fevers, nausea or vomiting, new weakness, numbness or tingling of face or upper or lower extremities, any other new symptoms of concern. Location Injury Occurred: HOME Allergies and Home Medications Allergies Coded Allergies: gabapentin (Verified Allergy, Mild, 02/17/19) ondansetron (Verified Allergy, Mild, 03/27/17) Itching at injection site with injectable form only. Oral form well tolerated. Sulfa (Sulfonamide Antibiotics) (Verified Allergy, Unknown, 02/15/19) hydrocodone (Verified Allergy, Unknown, 03/27/17) prednisone (Verified Allergy, Unknown, 02/17/19) Home Medications Clindamycin HCl 300 Mg Capsule, 300 MG PO BID Prescribed by: FRANK VALDES on 02/18/19 1005 Cyclobenzaprine HCl 10 Mg Tablet, 10 MG PO HS Prescribed by: PATRICE ROBERSON on 05/10/19 0303 Cyclobenzaprine HCl 10 Mg Tablet, 10 MG PO TID Prescribed by: BERRY LIEBERMAN on 06/27/19 231 Ibuprofen 800 Mg Tablet, 800 MG PO Q8H PRN for PAIN Prescribed by: BERRY LIEBERMAN on 06/27/19 2315 Ketorolac Tromethamine 10 Mg Tablet, 10 MG PO Q6H PRN for PAIN-MODERATE TO SEVERE Prescribed by: EDUARDO QUESADA MD on 02/11/19 1032 Ondansetron 4 Mg Tab.rapdis, 4 MG PO Q6H Prescribed by: JODY CROOKS on 05/17/19 1557 Oxycodone HCl/Acetaminophen 1 Each Tablet, 1 TAB PO Q6H PRN for PAIN-SEVERE (8- 10) Prescribed by: KIRSTIE CHAUDHARI on 06/22/19 2306 Oxycodone HCl/Acetaminophen 1 Each Tablet, 1 TAB PO Q4H Prescribed by: GUANAKITO GLYNN on 06/23/19 1422 Sennosides/Docusate Sodium 1 Each Tablet, 1 EA PO BID Prescribed by: FRANK VALDES on 02/18/19 1005 Patient Home Medication List Home Medication List Reviewed: Yes Review of Systems Review of Systems Constitutional: no symptoms reported All Other Systems Reviewed Negative Unless Noted: Yes (Negative excepted noted.) Past Ocgdjrp-Uvcofb-Qnmqwq Hx Past Med/Social Hx: Reviewed Nursing Past Med/Soc Hx Patient Social History 2nd Hand Smoke Exposure: No Recent Foreign Travel: No Contact w/Someone Who Travel: No Recent Infectious Disease Expo: No Recent Hopitalizations: No Physical Abuse: No Sexual Abuse: No Mistreated: No Fear: No Immunizations Up To Date Tetanus Booster (TDap): Unknown Seasonal Allergies Seasonal Allergies: No Past Medical History Surgeries: Yes Tonsillectomy Respiratory: No Cardiac: Yes Hypertension Neurological: No Sexually Transmitted Disease: No HIV/AIDS: No Genitourinary: No Gastrointestinal: Yes Colitis, Chronic Constipation, Chronic Diarrhea Musculoskeletal: No Endocrine: Yes Diabetes, Non-Insulin dep HEENT: Yes (corrective lenses) Hearing Impairment: Denies Cancer: No Psychosocial: Yes Sleep Difficulties, Anxiety, PTSD, Depression Integumentary: No Blood Disorders: No Family Medical History Reviewed Nursing Family Hx GI Disease Physical Exam Vital Signs Vital Signs - First Documented 07/23/19 20:05 Temp 36.7 Pulse 97 Resp 16 B/P (MAP) 150/84 (106) Pulse Ox 97 O2 Delivery Room Air Capillary Refill : Less Than 3 Seconds Height, Weight, BMI Height: 5'5.00" Weight: 275lbs. 0.0oz. 124.050033vo; 53.00 BMI Method:Stated General Appearance: No Apparent Distress Comments This is an older female appearing nontoxic and in no acute distress. Head is normocephalic and atraumatic. Neck is supple and nontender at midline but with mild right lateral tenderness to palpation without erythema, warmth, swelling, step-offs or deformities noted to the neck. Tenderness is in an upper trapezius distribution on the right. Oropharynx is moist. Lungs are clear to auscultation in all stations. There is a normal S1 and S2 without rubs or g allops and capillary refill is appropriate, less than 2 seconds globally. Abdomen is soft, nontender and nondistended. Skin is warm and dry without cyanosis, clubbing or edema. Psychiatrically, the patient was straights appropriate mood and affect and is alert. From a musculoskeletal standpoint, bilateral upper and lower extremities are neurovascularly intact. Progress/Results/Core Measures Suspected Sepsis Recent Fever Within 48 Hours: No Infection Criteria Present: None New/Unexplained Altered Menta: No Sepsis Screen: No Definite Risk SIRS Temperature: Pulse: 97 Respiratory Rate: 16 Blood Pressure 150 /84 Mean: 106 Results/Orders My Orders Orders - GUANAKITO GLYNN MD Lorazepam Tablet (Ativan Tablet) (07/23/19 20:15) Ketorolac Injection (Toradol Injection) (07/23/19 20:15) Acetaminophen Tablet/Caplet (Tylenol T (07/23/19 20:15) Methylprednisolone Sod Succ (Solu-Medrol (07/23/19 20:30) Ct Cervical Spine Wo (07/23/19 21:14) Morphine Injection (Morphine Injection (07/23/19 21:14) Medications Given in ED Current Medications Medications Dose Ordered Sig/Angeles Route Start Time Stop Time Status Last Admin Dose Admin Acetaminophen 975 mg ONCE ONCE PO 07/23/19 20:15 07/23/19 20:18 DC 07/23/19 20:29 975 MG Ketorolac Tromethamine 30 mg ONCE ONCE IVP 07/23/19 20:15 07/23/19 20:18 DC 07/23/19 20:24 30 MG Methylprednisolone Sodium Succinate 125 mg ONCE ONCE IM 07/23/19 20:30 07/23/19 20:31 DC 07/23/19 20:27 125 MG Vital Signs/I&O 07/23/19 07/23/19 20:05 21:04 Temp 36.7 36.7 Pulse 97 97 Resp 16 16 B/P (MAP) 150/84 (106) 150/84 (106) Pulse Ox 97 97 O2 Delivery Room Air Room Air Capillary Refill : Less Than 3 Seconds Blood Pressure Mean: 106 POS Progress Note : Time: 22:00 Progress Note Patient was initially treated with cyclobenzaprine and Toradol but complained of unchanged severe right-sided neck discomfort so in view of trauma 2 days ago, completed advanced imaging of the cervical spine which revealed no acute process. Patient received a dose of morphine which she states was effective in relieving her pain. She is feeling better and is ready to go home. I discussed with the patient that the emergency department is not the appropr iate venue in which to seek ongoing management of her chronic neck and back pain. I recommended that she pursue close follow-up both with her primary care physician in the next 1-2 days and with a spray painter helper of her choice within the next 1-2 weeks. She understands that if she feels worse is that of better or develops other new symptoms of concern that she should return immediately for reevaluation. Otherwise she is to continue taking her home pain medications and to follow-up as noted. All questions are answered. Diagnostic Imaging Comments CT CERVICAL SPINE WO PROCEDURE: CT cervical spine without contrast. TECHNIQUE: Multiple contiguous axial images were obtained through the cervical spine without the use of intravenous contrast. Sagittal and coronal reformations were then performed. Auto Exposure Controls were utilized during the CT exam to meet ALARA standards for radiation dose reduction. INDICATION: Fall with neck pain COMPARISON: 03/23/2019 FINDINGS: There is reversal of the cervical lordosis centered at C5-C6. No spondylolisthesis is seen. There are mild degenerative changes at C5-C6 and C6-C7. Alignment otherwise appears normal. Vertebral body heights are preserved. No fracture is seen. No bony fragments or hyperdense fluid collections are seen in the spinal canal. The soft tissues about the cervical spine demonstrate no acute abnormality. IMPRESSION: 1. Mild degenerative changes in the cervical spine with no acute fracture seen. Dictated on workstation # [id number] Departure Impression Primary Impression: Chronic neck pain Disposition: 01 HOME, SELF-CARE Condition: Improved Departure-Patient Inst. Referrals: [facility] [place] (PCP) Primary Care Physician FABIANO KUMAR APRN (Family) Primary Care Physician Patient Instructions: Chronic Neck Pain (DC) Add. Discharge Instructions: Follow-up closely with her primary care physician in the next one to two days as discussed. Please also seek follow-up with a spray painter helper in the next 1-2 weeks. Return to the emergency department right away with worsened symptoms or other new concerns. GUANAKITO GLYNN MD Jul 23, 2019 22:02 POS
== END 2019-07-23 21:45 | disposition home or self-care (01) ==
LOC: EDUNIT# 19:55 → ER FS 19:56
DX: G89.29 Other chronic pain (principal); M54.2 Cervicalgia; I10 Essential (primary) hypertension; E11.9 Type 2 diabetes mellitus without complications; F41.9 Anxiety disorder, unspecified; F43.10 Post-traumatic stress disorder, unspecified; F32.9 Major depressive disorder, single episode, unspecified; Z88.2 Allergy status to sulfonamides; Z88.5 Allergy status to narcotic agent; Z88.8 Allergy status to other drugs, medicaments and biological substances; Z90.89 Acquired absence of other organs
CPT/HCPCS: 72125

== ENCOUNTER 2019-10-17 23:55 | Emergency (ER) | payer SELFPAY ==
[~2019-10-17] VITALS: Ht 165.1 cm; Wt 109.0 kg
[~2019-10-17 23:55] MED LIST changes: -TRAM50TA2 PO; +TRM50T PO
[2019-10-18 00:11] VITALS: BP 146/73
[2019-10-18] MEDS ORDERED: methylPREDNISolone 80 MG/ML (DEPO MEDROL) VIAL IM STA (00:20)
[2019-10-18] MEDS ORDERED: DEXAMETHASONE 10 MG/ML (DECADRON) 1 ML VIAL IM STA (00:20)
[2019-10-18] MEDS ORDERED: ORPHENADRINE 60 MG/2 ML (NORFLEX) AMP IM STA (00:20)
[2019-10-18] MEDS ORDERED: CYCL10TA9 PO (00:29)
[2019-10-18] MEDS ORDERED: IBUP-1780 PO (00:29)
[2019-10-18] MEDS ORDERED: OXYC1TAB87 PO (00:29)
--- NOTE | 2019-10-18 00:29 | ED General ---
General Chief Complaint: Cough/Cold/Flu Symptoms Stated Complaint: NECK PAIN,COUGH Nursing Triage Note: pt states she is coughing and thinks she strained her neck while coughing. pt currently on a z-david for bronchitis Nursing Sepsis Screen: No Definite Risk Source of Information: Patient History of Present Illness Date Seen by Provider: Oct 17, 2019 Time Seen by Provider: 23:59 Initial Comments 49-year-old female presenting with complaints of cough complicating her chronic neck pain. She states that she has been coughing for the last week or 2. She is on a Z-David currently that she got from [facility] emergency department. She started this on Tuesday. She has been taking ibuprofen for her neck pain. She denies any numbness or tingling in her arms or legs. She is taking Mucinex and Robitussin for cough. She has continued pain and spasms to the right side of her neck. Allergies and Home Medications Allergies Coded Allergies: gabapentin (Verified Allergy, Mild, 02/17/19) ondansetron (Verified Allergy, Mild, 03/27/17) Itching at injection site with injectable form only. Oral form well tolerated. Sulfa (Sulfonamide Antibiotics) (Verified Allergy, Unknown, 02/15/19) hydrocodone (Verified Allergy, Unknown, 03/27/17) prednisone (Verified Allergy, Unknown, 02/17/19) Home Medications Clindamycin HCl 300 Mg Capsule, 300 MG PO BID Prescribed by: FRANK VALDES on 02/18/19 1005 Cyclobenzaprine HCl 10 Mg Tablet, 10 MG PO HS Prescribed by: PATRICE ROBERSON on 05/10/19 0303 Cyclobenzaprine HCl 10 Mg Tablet, 10 MG PO TID Prescribed by: KIRSTIE CHAUDHARI on 10/18/19 0029 Ibuprofen 800 Mg Tablet, 800 MG PO Q8H PRN for PAIN Prescribed by: KIRSTIE CHAUDHARI on 10/18/19 0029 Ketorolac Tromethamine 10 Mg Tablet, 10 MG PO Q6H PRN for PAIN-MODERATE TO SEVERE Prescribed by: EDUARDO QUESADA MD on 02/11/19 1032 Ondansetron 4 Mg Tab.rapdis, 4 MG PO Q6H Prescribed by: JODY CROOKS on 05/17/19 1557 Oxycodone HCl/Acetaminophen 1 Each Tablet, 1 TAB PO Q4H Prescribed by: GUANAKITO GLYNN on 06/23/19 1422 Oxycodone HCl/Acetaminophen 1 Each Tablet, 1 TAB PO Q8H PRN for PAIN-SEVERE (8- 10) Prescribed by: KIRSTIE CHAUDHARI on 10/18/19 0030 Sennosides/Docusate Sodium 1 Each Tablet, 1 EA PO BID Prescribed by: FRANK VALDES on 02/18/19 1005 Patient Home Medication List Home Medication List Reviewed: Yes Review of Systems Review of Systems Constitutional: No chills, No diaphoresis, No fever; malaise EENTM: hoarseness, nose congestion; No ear discharge, No blurred vision, No epistaxis Respiratory: cough, dyspnea on exertion, phlegm; No stridor; wheezing Cardiovascular: chest pain (from coughing) Gastrointestinal: no symptoms reported Genitourinary: no symptoms reported Musculoskeletal: see HPI Skin: no symptoms reported Psychiatric/Neurological: See HPI; Denies Numbness, Denies Paresthesia, Denies Weakness Past Ouxuqeu-Fdcixs-Byejvd Hx Past Med/Social Hx: Reviewed Nursing Past Med/Soc Hx Patient Social History Alcohol Use: Denies Use Recreational Drug Use: No Smoking Status: Never a Smoker 2nd Hand Smoke Exposure: No Recent Foreign Travel: No Contact w/Someone Who Travel: No Recent Infectious Disease Expo: No Recent Hopitalizations: No Physical Abuse: No Sexual Abuse: No Mistreated: No Fear: No Immunizations Up To Date Tetanus Booster (TDap): Unknown Seasonal Allergies Seasonal Allergies: No Past Medical History Surgeries: Yes Tonsillectomy Respiratory: No Cardiac: Yes Hypertension Neurological: No Sexually Transmitted Disease: No HIV/AIDS: No Genitourinary: No Gastrointestinal: Yes Colitis, Chronic Constipation, Chronic Diarrhea Musculoskeletal: No Endocrine: Yes Diabetes, Non-Insulin dep HEENT: Yes (corrective lenses) Hearing Impairment: Denies Cancer: No Psychosocial: Yes Sleep Difficulties, Anxiety, PTSD, Depression Integumentary: No Blood Disorders: No Family Medical History GI Disease Physical Exam Vital Signs Vital Signs - First Documented Capillary Refill : Less Than 3 Seconds Height, Weight, BMI Height: 5'5.00" Weight: 275lbs. 0.0oz. 124.320897ox; 39.00 BMI Method:Stated General Appearance: No Apparent Distress, WD/WN, Obese HEENT: PERRL/EOMI, Normal ENT Inspection, Pharynx Normal Neck: Full Range of Motion, Supple, Tender Lateral (right side with muscle spasm); No Tender Midline Respiratory: Chest Non Tender, Lungs Clear, Normal Breath Sounds, No Accessory Muscle Use, No Respiratory Distress Cardiovascular: Regular Rate, Rhythm, Normal Peripheral Pulses Neurologic/Psychiatric: Alert, Oriented x3, No Motor/Sensory Deficits Skin: Normal Color, Warm/Dry Progress/Results/Core Measures Suspected Sepsis Recent Fever Within 48 Hours: No Infection Criteria Present: None New/Unexplained Altered Menta: No Sepsis Screen: No Definite Risk SIRS Temperature: Pulse: 86 Respiratory Rate: 18 Blood Pressure 146 /73 Mean: 97 Results/Orders My Orders Orders - KIRSTIE CHAUDHARI MD Dexamethasone Injection (Decadron Inject (10/18/19 00:20) Methylprednisolone Acetate Inj (Depo-Med (10/18/19 00:20) Orphenadrine Injection (Norflex Injectio (10/18/19 00:20) Rx-Oxycodone/Apap 5-325 Mg (Rx-Percocet (10/18/19 00:30) Vital Signs/I&O 10/18/19 10/18/19 00:11 00:11 Temp 36.5 Pulse 86 Resp 18 B/P (MAP) 146/73 (97) Pulse Ox 96 O2 Delivery Room Air Room Air Capillary Refill : Less Than 3 Seconds Blood Pressure Mean: 97 Progress Note : Progress Note Will add in a steroid to help break up her congestion and cough as well as decrease inflammation to her muscles in her neck. Give Norflex for muscle spasms tonight. Prescribe a couple days of oxycodone/APAP for severe pain. Continue ibuprofen for inflammation. Prescribed Flexeril for home. Counseled to check back with primary provider Lorri Kumar in the clinic as well. Departure Impression Primary Impression: Neck pain on right side Additional Impressions: Muscle spasms of neck Chronic neck pain Upper respiratory infection with cough and congestion Disposition: 01 HOME, SELF-CARE Condition: Stable Departure-Patient Inst. Decision time for Depature: 00:25 Referrals: [facility] (PCP) Primary Care Physician FABIANO KUMAR APRN (Family) Primary Care Physician Patient Instructions: Chronic Neck Pain (DC), Cough, Adult (DC), Generalized Neck Pain (DC), Neck Sprain (DC) Add. Discharge Instructions: Alternate ice and heat to your neck to help with muscle spasm and pain. Check with Lorri Kumar in clinic about your neck pain and the cough you are having. Try the pain medicine and muscle relaxer to help with your symptoms All discharge instructions reviewed with patient and/or family. Voiced understanding. Scripts Cyclobenzaprine HCl (Cyclobenzaprine HCl) 10 Mg Tablet 10 MG PO TID for Muscle Spasms, #21 TAB Prov: KIRSTIE CHAUDHARI MD 10/18/19 Ibuprofen (Ibuprofen) 800 Mg Tablet 800 MG PO Q8H PRN for PAIN, #30 TAB 0 Refills Prov: KIRSTIE CHAUDHARI MD 10/18/19 Oxycodone HCl/Acetaminophen (Percocet 5-325 mg Tablet) 1 Each Tablet 1 TAB PO Q8H PRN for PAIN-SEVERE (8-10) MDD 6 TABS for 2 Days, #6 TAB 0 Refills Prov: KIRSTIE CHAUDHARI MD 10/18/19 KIRSTIE CHAUDHARI MD Oct 18, 2019 00:29
[2019-10-18] MEDS ORDERED: RX-OXYCODONE/APAP 5-325 MG #4 TAB PK PO PRN (00:30)
--- OUTSIDE RECORDS SUMMARY | 2019-10-20 00:54 | XMS REPORT | Clinical Summary ---
Author Author [facility] Organization [facility] Address Unknown Phone Unavailable Care Team Providers Care Diagnostic Cardiac Sonographer Name Role Phone Self, Referral PCP Unavailable Ariana Dempsey Unavailable [phone] Sanna Fields RN Unavailable Unavailable Puma Lyles RN Unavailable Unavailable Damaris Ragsdale RN Unavailable Unavailable Source Comments Some departments are not documenting in the electronic medical record. If you d o not see the information that you expected, contact Release of Information in [facility] Information Management department at [phone] for further assistan ce in locating additional records.[facility] Allergies Comments Active Allergy Reactions Severity [...] 06/19/2009 Mood disorder in conditions classified elsewhere 07/2009 Seizure disorder 06/19/2009 Overview: Likely Non-Epileptic Seizure vs. Comple x Partial Tremor 06/19/2009 Accidental falls 06/19/2009 Resolved Problems Problem Noted Date Resolved Date Cocaine dependence in remission 06/19/20092008 Alcohol dependence, in remission 06/19/200906/24 Nocturnal enuresis 06/19/2009 06/24/2009 Social History Date [...] Comments Vital Sign 137/76 08/05/2009 10:02 AM COFFEE URN ATTENDANT Blood Pressure 82 08/05/2009 10:02 AM COFFEE URN ATTENDANT Pulse 36.6 C (97.8 F) 08/05/2009 8:00 AM COFFEE URN ATTENDANT Temperature - - Respiratory Rate 94% 08/05/2009 10:02 AM COFFEE URN ATTENDANT Oxygen Saturation - - Inhaled Oxygen Concentration 120.5 kg (265 lb 10.5 oz) 06/17/2009 10:14 PM COFFEE URN ATTENDANT Weight 165.1 cm (5' 5") 06/17/2009 10:14 PM COFFEE URN ATTENDANT Height 44.21 06/17/2009 10:14 PM COFFEE URN ATTENDANT Body Mass Index Plan of Treatment Health Maintenance Due Date Last Done Comments DTAP/TDAP VACCINES (1 - 1983 Tdap) HIV SCREENING 1987 PHYSICAL (COMPREHENSIVE) 1990 EXAM CERVICAL CANCER SCREENING 2002 BREAST CANCER SCREENING 2012 INFLUENZA VACCINE 03/08/2019 Results Not on filefrom Last 3 Months
--- OUTSIDE RECORDS SUMMARY | 2019-10-20 00:55 | XMS REPORT | Continuity of Care Document ---
Author Author [facility] Organization [facility] [email or web address] [facility] Address Unknown Phone Unavailable Care Team Providers Care Regional Operations Director Name Role Phone [facility] Unavailable Unavailable Problems No Data Provided for This Section Medications Medication Details Route Status Patient Instructions Ordering Provider Order Date Source AlprazoLAM 0.25 mg oral tablet = 2 TAB, PO, Daily, TAB, 06/25/10 23:09:26 PO Ordered 06/26/2010 [facility] Depakote ER 1,250, PO, QHS (At bedtime), 09/04/09 8:37:58 PO Ordered 09/04/2009 [facility] Cymbalta 60 mg oral delayed release capsule 60 mg, PO, Daily, 08/30/09 8:51:02, (do not crush or chew)(do not crush or chew) PO Ordered 08/30/2009 [facility] Allergies, Adverse Reactions, Alerts Substance Category Reaction Severity Reaction type Status Date Reported Comments Source hydrocodone drug allergy Allergy Act johnie [facility] hydrocodone Assertion itching Drug allergy Active [facility] Immunizations No Data Provided for This Section Results No Data Provided for This Section Pathology Reports No Data Provided for This Section Diagnostic Reports No Data Provided for This Section Consultation Notes No Data Provided for This Section Discharge Summaries No Data Provided for This Section History and Physicals No Data Provided for This Section Vital Signs Vital Sign Value Date Comments Source Inet NIBP Systolic 141 mmHg 09/15/2010 [facility] Temperature 98.6 DegF 09/15/2010 [facility] Inet NIBP Diastolic 105 mmHg 09/15/2010 [facility] Temp Method Temporal (09/14/19 11 19:22:00) 09/15/2010 [facility] Heart Rate 99 bpm 09/15/2010 [facility] Respiratory Rate 18 br/min 09/15/2010 [facility] Inet NIBP Systolic 128 mmHg 06/26/2010 [facility] Inet NIBP Diastolic 97 mmHg 06/26/2010 [facility] Respiratory Rate 16 br/min 06/26/2010 [facility] Pulse Rate 82 bpm 06/26/2010 [facility] Heart Rate 98 bpm 06/26/2010 [facility] er Temp Method Oral (06/25/2010 2 1:34:00) 06/26/2010 [facility] Temperature 98.7 DegF 06/26/2010 [facility] Respiratory Rate 22 br/min 11/24/2009 [facility] Inet NIBP Systolic 130 mmHg 11/24/2009 [facility] Inet NIBP Diastolic 95 mmHg 11/24/2009 [facility] Temperature 97.9 DegF 11/24/2009 [facility] er Temp Method Oral (11/23/2009 1 9:53:00) 11/24/2009 [facility] Heart Rate 126 bpm 11/24/2009 [facility] Heart Rate Location Auto BP (0 10/25/2009 00:48:00) 10/25/2009 [facility] Respiratory Rate 20 br/min 10/25/2009 [facility] Pulse Rate 68 bpm 10/25/2009 [facility] Inet NIBP Diastolic 88 mmHg 10/25/2009 [facility] Inet NIBP Systolic 130 mmHg 10/25/2009 [facility] Pulse Equipment Auto BP (10/25 00:48:00) 10/25/2009 [facility] Temp Method Temporal (10/25/19 10 23:52:00) 10/25/2009 [facility] Heart Rate 60 bpm 10/25/2009 [facility] Temperature 96.8 DegF 10/25/2009 [facility] Respiratory Rate 16 br/min 10/24/2009 [facility] Inet NIBP Diastolic 87 mmHg 10/24/2009 [facility] Inet NIBP Systolic 118 mmHg 10/24/2009 [facility] Pulse Rate 92 bpm 10/24/2009 [facility] Temp Method Oral (10/24/2009 0 9:19:00) 10/24/2009 [facility] Temperature 98.2 DegF 10/24/2009 [facility] Heart Rate 107 bpm 10/24/2009 [facility] Respiratory Rate 18 br/min 09/12/2009 [facility] Heart Rate 96 bpm 09/12/2009 [facility] er Temp Method Oral (09/11/2009 1 9:24:00) 09/12/2009 [facility] Temperature 97.7 DegF 09/12/2009 [facility] Inet NIBP Diastolic 101 mmHg 09/12/2009 [facility] Inet NIBP Systolic 146 mmHg 09/12/2009 [facility] Inet NIBP Systolic 104 mmHg 09/04/2009 [facility] Inet NIBP Diastolic 62 mmHg 09/04/2009 [facility] Respiratory Rate 16 br/min 09/04/2009 [facility] Heart Rate 73 bpm 09/04/2009 [facility] er Temperature 97.5 DegF 09/04/2009 [facility] er Temp Method Oral (09/03/2009 1 6:00:00) 09/03/2009 [facility] NIBP MAP Calc 98 09/03/2009 [facility] er Heart Rate Location Auto BP (0 2009 18:00:00) 09/03/2009 [facility] BP Location Arm, right (2009 18:00:00) 09/03/2009 [facility] Pulse Equipment Auto BP (09/01 05:00:00) 09/01/2009 [facility] Heart Rate Location Auto BP (0 09/01/2009 05:00:00) 09/01/2009 [facility] Respiratory Rate 20 br/min 09/01/2009 [facility] Pulse Rate 80 bpm 09/01/2009 [facility] Inet NIBP Diastolic 68 mmHg 09/01/2009 [facility] Inet NIBP Systolic 122 mmHg 09/01/2009 [facility] Temp Method Oral (09/01/2009 0 1:31:00) 09/01/2009 [facility] Temperature 97.7 DegF 09/01/2009 [facility] er Heart Rate 92 bpm 09/01/2009 [facility] Respiratory Rate 18 br/min 08/30/2009 [facility] Pulse Rate 78 bpm 08/30/2009 [facility] Inet NIBP Diastolic 67 mmHg 08/30/2009 [facility] Inet NIBP Systolic 110 mmHg 08/30/2009 [facility] NIBP MAP Calc 82 08/30/2009 [facility] Heart Rate 104 bpm 08/30/2009 [facility] er Temperature 98.1 DegF 08/30/2009 [facility] er Temp Method Temporal (08/30/19 10 08:46:00) 08/30/2009 [facility] Respiratory Rate 19 br/min 08/29/2009 [facility] Inet NIBP Diastolic 93 mmHg 08/29/2009 [facility] Temp Method Temporal (08/29/19 10 16:27:00) 08/29/2009 [facility] Temperature 98.0 DegF 08/29/2009 [facility] er Heart Rate 107 bpm 08/29/2009 [facility] er Inet NIBP Systolic 130 mmHg 08/29/2009 [facility] Inet NIBP Diastolic 78 mmHg 08/08/2009 [facility] Inet NIBP Systolic 108 mmHg 08/08/2009 [facility] Pulse Rate 92 bpm 08/08/2009 [facility] er Heart Rate Location Auto BP (0 08/08/2009 02:32:00) 08/08/2009 [facility] Temp Method Oral (08/08/2009 0 2:32:00) 08/08/2009 [facility] Respiratory Rate 18 br/min 08/08/2009 [facility] Heart Rate 80 bpm 08/08/2009 [facility] Temperature 98.0 DegF 08/08/2009 [facility] Systolic Blood Pressure 120 mm Hg 07/13/2009 [facility] Mean Arterial Pressure 103 mmHg 07/13/2009 [facility] Diastolic Blood Pressure 95 mm Hg 07/13/2009 [facility] Respiratory Rate 18 br/min 07/13/2009 [facility] Pulse Rate 94 bpm 07/13/2009 [facility] er Temp Method Temporal (07/12/20 16:25:00) 07/12/2009 [facility] Temperature 98.4 DegF 07/12/2009 [facility] Mean Arterial Pressure 99 mmHg 07/12/2009 [facility] Diastolic Blood Pressure 92 mm Hg 07/12/2009 [facility] Systolic Blood Pressure 114 mm Hg 07/12/2009 [facility] Respiratory Rate 18 br/min 07/12/2009 [facility] Pulse Rate 79 bpm 07/12/2009 [facility] er Temp Method Oral (07/12/2009 1 1:27:00) 07/12/2009 [facility] Temperature 98.5 DegF 07/12/2009 [facility] Pulse Rate 95 bpm 06/13/2009 [facility] Respiratory Rate 18 br/min 06/13/2009 [facility] Temperature 97.5 DegF 06/13/2009 [facility] er Systolic Blood Pressure 107 mm Hg 06/13/2009 [facility] Diastolic Blood Pressure 69 mm Hg 06/13/2009 [facility] Mean Arterial Pressure 82 mmHg 06/13/2009 [facility] BP Equipment Auto BP (06/13/20 09 06:00:00) 06/13/2009 [facility] Temp Method Oral (06/13/2009 0 6:00:00) 06/13/2009 [facility] BP Location Arm, left ( 009 06:00:00) 06/13/2009 [facility] Pulse Equipment Auto BP (06/12 16:55:00) 06/12/2009 [facility] Heart Rate Location Auto BP (1 04:16:00) 06/05/2009 [facility] BP Location Arm, right (2008 04:16:00) 06/05/2009 [facility] BP Equipment Auto BP (06/05/20 04:16:00) 06/05/2009 [facility] Pulse Equipment Auto BP (06/05 04:16:00) 06/05/2009 [facility] Respiratory Rate 18 br/min 06/05/2009 [facility] Pulse Rate 75 bpm 06/05/2009 [facility] Diastolic Blood Pressure 75 mm Hg 06/05/2009 [facility] Mean Arterial Pressure 83 mmHg 06/05/2009 [facility] Systolic Blood Pressure 98 mmHg 06/05/2009 [facility] NIBP MAP 71 mmHg 06/05/2009 [facility] Inet NIBP Diastolic 68 mmHg 06/05/2009 [facility] Temp Method Oral (06/05/2009 0 0:13:00) 06/05/2009 [facility] Temperature 98.2 DegF 06/05/2009 [facility] Encounters Location Location Details Encounter Type Encounter Number Reason For Visit Attending Provider ADM Date DC Date Status Source [facility] Emergency [id number] DAVON MONREAL MD 11/04/2016 11/04/2016 [facility] Procedures Procedure Code Date Perfomer Comments Source Application of finger splint; static [id number] 10/24/2009 [facility] Application of splint [id number] 10/24/2009 [facility] Plan of Care No Data Provided for This Section Social History No Data Provided for This Section Assessment and Plan No Data Provided for This Section Family History No Data Provided for This Section Advance Directives No Data Provided for This Section Functional Status No Data Provided for This Section
--- OUTSIDE RECORDS SUMMARY | 2019-10-20 00:56 | XMS REPORT | Continuity of Care Document ---
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 POST-TRAUMATIC STRESS DISORDER, UNSPECIF 05/10/2019 ROVENSTINE DO, PATRICE L Ot I10 ESSENTIAL (PRIMARY) HYPERTENSION 05/10/2019 ROVENSTINE DO, PATRICE Rowan Ot M54.2 CERVICALGIA 05/10/2019 ROVENSTINE DO, PATRICE Donahue Ot S16.1XXD STRAIN OF MUSCLE, FASCIA AND TENDON AT N 05/10/2019 ROVENSTINE DO, PATRICE Rowan Ot X50.1XXA OVEREXERTION FROM PROLONGED STATIC OR AW 05/10/2019 ROVENSTINE DO, PATRICE L Ot Z88.2 ALLERGY STATUS TO SULFONAMIDES STATUS 05/10/2019 ROVENSTINE DO, PATRICE Donahue Ot Z88.5 ALLERGY STATUS TO NARCOTIC AGENT STATUS 05/10/2019 ROVENSTINE DO, PATRICE Donahue Ot Z88.8 ALLERGY STATUS TO OTH DRUG/MEDS/BIOL SUB 05/10/2019 ROVENSTINE DO, PATRICE Donahue Ot Z90.89 ACQUIRED ABSENCE OF OTHER ORGANS 05/10/2019 BENZ DO, WAQAS Ot E11.9 TYPE 2 DIABETES MELLITUS WITHOUT COMPLIC 05/10/2019 BENZ DOWAQAS Ot F32.9 MAJOR DEPRESSIVE DISORDER, SINGLE EPISOD 05/10/2019 BENZ DO, WAQAS Ot F41.9 ANXIETY DISORDER, UNSPECIFIED 05/10/2019 BENZ DO, WAQAS Ot F43.10 POST- TRAUMATIC STRESS DISORDER, UNSPECIF 05/10/2019 BENZ DO, WAQAS Ot I10 ESSENTIAL (PRIMARY) HYPERTENSION 05/10/2019 BENZ DO, WAQAS Ot M54.2 CERVICALGIA 05/10/2019 BENZ DO, WAQAS Ot Z87.39 PERSONAL HISTORY OF DISEASES OF THE MS S 05/10/2019 BENZ DO, WAQAS Ot Z88.2 ALLERGY STATUS TO SULFONAMIDES STATUS 05/10/2019 BENZ DO, WAQAS Ot Z88.5 ALLERGY STATUS TO NARCOTIC AGENT STATUS 05/10/2019 BENZ DO, WAQAS Ot Z88.8 ALLERGY STATUS TO OTH DRUG/MEDS/BIOL SUB 05/10/2019 BENZ DO, WAQAS Ot Z90.89 ACQUIRED ABSENCE OF OTHER ORGANS 05/12/2019 ROVENSTINE DO PATRICE Rowan Ot E11.9 TYPE 2 DIABETES MELLITUS WITHOUT COMPLIC 05/12/2019 ROVENSTINE DO PATRICE Rowan Ot F32.9 MAJOR DEPRESSIVE DISORDER, SINGLE EPISOD 05/12/2019 ROVENSTINE DO PATRICE Rowan Ot F41.9 ANXIETY DISORDER, UNSPECIFIED 05/12/2019 ROVENSTINE DO PATRICE Rowan Ot F43.10 POST-TRAUMATIC STRESS DISORDER, UNSPECIF 05/12/2019 ROVENSTINE DO PATRICE L Ot I10 ESSENTIAL (PRIMARY) HYPERTENSION 05/12/2019 ROVENSTINE DOPATRICE Ot M54.2 CERVICALGIA 05/12/2019 ROVENSTINE DO PATRICE Rowan Ot S16.1XXD STRAIN OF MUSCLE, FASCIA AND TENDON AT N 05/12/2019 CICIVENSTINE PATRICE WALLER Ot X50.1XXA OVEREXERTION FROM PROLONGED STATIC OR AW 05/12/2019 MIKALASTINE DO PATRICE Rowan Ot Z88.2 ALLERGY STATUS TO SULFONAMIDES STATUS 05/12/2019 ROVENSTINE DO PATRICE Rowan Ot Z88.5 ALLERGY STATUS TO NARCOTIC AGENT STATUS 05/12/2019 ROVENSTINE DO PATRICE Rowan Ot Z88.8 ALLERGY STATUS TO OTH DRUG/MEDS/BIOL SUB 05/12/2019 ROVENSTINE DO PATRICE Rowan Ot Z90.89 ACQUIRED ABSENCE OF OTHER ORGANS 05/17/2019 VALERIY VERA DO Ot E11. 9 TYPE 2 DIABETES MELLITUS WITHOUT COMPLIC 05/17/2019 VALERIY VERA DO Ot F32. 9 MAJOR DEPRESSIVE DISORDER, SINGLE EPISOD 05/17/2019 VALERIY VERA DO Ot F41. 9 ANXIETY DISORDER, UNSPECIFIED 05/17/2019 VALERIY VERA DO Ot F43. 10 POST-TRAUMATIC STRESS DISORDER, UNSPECIF 05/17/2019 VALERIY VERA DO Ot G89. 29 OTHER CHRONIC PAIN 05/17/2019 VALERIY VERA DO Ot I10 ESSENTIAL (PRIMARY) HYPERTENSION 05/17/2019 VALERIY VERA DO Ot M54. 2 CERVICALGIA 05/17/2019 VALERIY VERA DO Ot R11. 2 NAUSEA WITH VOMITING, UNSPECIFIED 05/17/2019 JODY DO, VALERIY B Ot R19. 7 DIARRHEA, UNSPECIFIED 05/17/2019 JODY WALLER, VALERIY B Ot Z88. 2 ALLERGY STATUS TO SULFONAMIDES STATUS 05/17/2019 JODY WALLER, VALERIY B Ot Z88. 5 ALLERGY STATUS TO NARCOTIC AGENT STATUS 05/17/2019 JODY DO, VALERIY B Ot Z88. 8 ALLERGY STATUS TO OTH DRUG/MEDS/BIOL SUB 05/17/2019 JODY WALLER, VALERIY B Ot Z90. 89 ACQUIRED ABSENCE OF OTHER ORGANS 05/19/2019 HAYS DO, MEMO L Ot E11.9 TYPE 2 DIABETES MELLITUS WITHOUT COMPLIC 05/19/2019 HAYS DO, MEMO L Ot F32.9 MAJOR DEPRESSIVE DISORDER, SINGLE EPISOD 05/19/2019 HAYS DO, MEMO L Ot F41.9 ANXIETY DISORDER, UNSPECIFIED 05/19/2019 HAYS DO, MEMO L Ot F43.1 0 POST-TRAUMATIC STRESS DISORDER, UNSPECIF 05/19/2019 HAYS DO, MEMO L Ot G89.2 9 OTHER CHRONIC PAIN 05/19/2019 HAYS DO, EMMO L Ot I10 ESSENTIAL (PRIMARY) HYPERTENSION 05/19/2019 HAYS DO, MEMO L Ot M54.2 CERVICALGIA 05/19/2019 HAYS DO, MEMO L Ot R11.2 NAUSEA WITH VOMITING, UNSPECIFIED 05/19/2019 HAYS DO, MEMO L Ot Z88.2 ALLERGY STATUS TO SULFONAMIDES STATUS 05/19/2019 HAYS DO, MEMO L Ot Z88.5 ALLERGY STATUS TO NARCOTIC AGENT STATUS 05/19/2019 HAYS DO, MEMO L Ot Z88.8 ALLERGY STATUS TO OTH DRUG/MEDS/BIOL SUB 05/19/2019 HAYS DO, MEMO L Ot Z90.8 9 ACQUIRED ABSENCE OF OTHER ORGANS 05/20/2019 GUANAKITO GLYNN MD Ot E11. 9 TYPE 2 DIABETES MELLITUS WITHOUT COMPLIC 05/20/2019 GUANAKITO GLYNN MD Ot F32. 9 MAJOR DEPRESSIVE DISORDER, SINGLE EPISOD 05/20/2019 GUANAKITO GLYNN MD Ot F41. 9 ANXIETY DISORDER, UNSPECIFIED 05/20/2019 GUANAKITO GLYNN MD Ot F43. 10 POST-TRAUMATIC STRESS DISORDER, UNSPECIF 05/20/2019 GUANAKITO GLYNN MD Ot G89. 29 OTHER CHRONIC PAIN 05/20/2019 GRETTA MD, GUANAKITO W Ot I10 ESSENTIAL (PRIMARY) HYPERTENSION 05/20/2019 GUANAKITO GLYNN MD Ot M54. 2 CERVICALGIA 05/20/2019 GUANAKITO GLYNN MD Ot Z88. 2 ALLERGY STATUS TO SULFONAMIDES STATUS 05/20/2019 GUANAKITO GLYNN MD Ot Z88. 5 ALLERGY STATUS TO NARCOTIC AGENT STATUS 05/20/2019 GUANAKITO GLYNN MD Ot Z88. 8 ALLERGY STATUS TO OTH DRUG/MEDS/BIOL SUB 05/20/2019 GUANAKITO GLYNN MD Ot Z90. 89 ACQUIRED ABSENCE OF OTHER ORGANS 05/22/2019 VALERIY VERA DO Ot E11. 9 TYPE 2 DIABETES MELLITUS WITHOUT COMPLIC 05/22/2019 VALERIY VERA DO Ot F32. 9 MAJOR DEPRESSIVE DISORDER, SINGLE EPISOD 05/22/2019 VALERIY VERA DO Ot F41. 9 ANXIETY DISORDER, UNSPECIFIED 05/22/2019 VALERIY VERA DO Ot F43. 10 POST-TRAUMATIC STRESS DISORDER, UNSPECIF 05/22/2019 VALERIY VERA DO Ot G89. 29 OTHER CHRONIC PAIN 05/22/2019 VALERIY VERA DO B Ot I10 ESSENTIAL (PRIMARY) HYPERTENSION 05/22/2019 VALERIY VERA DO Ot M54. 2 CERVICALGIA 05/22/2019 VALERIY VERA DO Ot R11. 2 NAUSEA WITH VOMITING, UNSPECIFIED 05/22/2019 VALERIY VERA DO Ot R19. 7 DIARRHEA, UNSPECIFIED 05/22/2019 VALERIY VERA DO Ot Z88. 2 ALLERGY STATUS TO SULFONAMIDES STATUS 05/22/2019 VALERIY VERA DO B Ot Z88. 5 ALLERGY STATUS TO NARCOTIC AGENT STATUS 05/22/2019 VALERIY VERA DO B Ot Z88. 8 ALLERGY STATUS TO OTH DRUG/MEDS/BIOL SUB 05/22/2019 VALERIY VERA DO Ot Z90. 89 ACQUIRED ABSENCE OF OTHER ORGANS 05/24/2019 GUANAKITO GLYNN MD Ot E11. 9 TYPE 2 DIABETES MELLITUS WITHOUT COMPLIC 05/24/2019 GUANAKITO GLYNN MD Ot F32. 9 MAJOR DEPRESSIVE DISORDER, SINGLE EPISOD 05/24/2019 GUANAKITO GLYNN MD Ot F41. 9 ANXIETY DISORDER, UNSPECIFIED 05/24/2019 GUANAKITO GLYNN MD Ot F43. 10 POST-TRAUMATIC STRESS DISORDER, UNSPECIF 05/24/2019 GRETTA ENG, GUANAKITO Owusu Ot G89. 29 OTHER CHRONIC PAIN 05/24/2019 GUANAKITO GLYNN MD Ot I10 ESSENTIAL (PRIMARY) HYPERTENSION 05/24/2019 GUANAKITO GLYNN MD Ot M54. 2 CERVICALGIA 05/24/2019 GUANAKITO GLYNN MD Ot Z88. 2 ALLERGY STATUS TO SULFONAMIDES STATUS 05/24/2019 GUANAKITO GLYNN MD Ot Z88. 5 ALLERGY STATUS TO NARCOTIC AGENT STATUS 05/24/2019 GUANAKITO GLYNN MD Ot Z88. 8 ALLERGY STATUS TO OTH DRUG/MEDS/BIOL SUB 05/24/2019 GUANAKITO GLYNN MD Ot Z90. 89 ACQUIRED ABSENCE OF OTHER ORGANS 05/25/2019 HAYS DO, MEMO L Ot E11.9 TYPE 2 DIABETES MELLITUS WITHOUT COMPLIC 05/25/2019 HAYS DO, MEMO L Ot F32.9 MAJOR DEPRESSIVE DISORDER, SINGLE EPISOD 05/25/2019 HAYS DO, MEMO L Ot F41.9 ANXIETY DISORDER, UNSPECIFIED 05/25/2019 HAYS DO, MEMO L Ot F43.1 0 POST-TRAUMATIC STRESS DISORDER, UNSPECIF 05/25/2019 HAYS DO, MEMO L Ot G89.2 9 OTHER CHRONIC PAIN 05/25/2019 HAYS DO, MEMO L Ot I10 ESSENTIAL (PRIMARY) HYPERTENSION 05/25/2019 HAYS DO, MEMO L Ot M54.2 CERVICALGIA 05/25/2019 HAYS DO, MEMO L Ot R11.2 NAUSEA WITH VOMITING, UNSPECIFIED 05/25/2019 HAYS DO, MEMO L Ot Z88.2 ALLERGY STATUS TO SULFONAMIDES STATUS 05/25/2019 HAYS DO, MEMO L Ot Z88.5 ALLERGY STATUS TO NARCOTIC AGENT STATUS 05/25/2019 HAYS DO, MEMO L Ot Z88.8 ALLERGY STATUS TO OTH DRUG/MEDS/BIOL SUB 05/25/2019 HAYS DO, MEMO L Ot Z90.8 9 ACQUIRED ABSENCE OF OTHER ORGANS 06/23/2019 GUANAKITO GLYNN MD Ot E11. 9 TYPE 2 DIABETES MELLITUS WITHOUT COMPLIC 06/23/2019 GUANAKITO GLYNN MD Ot F32. 9 MAJOR DEPRESSIVE DISORDER, SINGLE EPISOD 06/23/2019 GUANAKITO GLYNN MD Ot F41. 9 ANXIETY DISORDER, UNSPECIFIED 06/23/2019 GUANAKITO GLYNN MD, Ot F43. 10 POST-TRAUMATIC STRESS DISORDER, UNSPECIF 06/23/2019 GUANAKITO GLYNN MD, Ot I10 ESSENTIAL (PRIMARY) HYPERTENSION 06/23/2019 GUANAKITO GLYNN MD, Ot M54. 2 CERVICALGIA 06/23/2019 GUANAKITO GLYNN MD, Ot S16.1XXA STRAIN OF MUSCLE, FASCIA AND TENDON AT N 06/23/2019 GUANAKITO GLYNN MD, Ot X50.1XXA OVEREXERTION FROM PROLONGED STATIC OR AW 06/23/2019 UGANAKITO GLYNN MD, Ot Z88. 2 ALLERGY STATUS TO SULFONAMIDES STATUS 06/23/2019 GUANAKITO GLYNN MD, Ot Z88. 5 ALLERGY STATUS TO NARCOTIC AGENT STATUS 06/23/2019 GUANAKITO GLYNN MD, Ot Z88. 8 ALLERGY STATUS TO OTH DRUG/MEDS/BIOL SUB 06/23/2019 GUANAKITO GLYNN MD, Ot Z90. 89 ACQUIRED ABSENCE OF OTHER ORGANS 06/25/2019 KIRSTIE CHAUDHARI MD, Ot E11.9 TYPE 2 DIABETES MELLITUS WITHOUT COMPLIC 06/25/2019 KIRSTIE CHAUDHARI MD, Ot F32.9 MAJOR DEPRESSIVE DISORDER, SINGLE EPISOD 06/25/2019 KIRSTIE CHAUDHARI MD, Ot F41.9 ANXIETY DISORDER, UNSPECIFIED 06/25/2019 KIRSTIE CHAUDHARI MD, Ot F43.1 0 POST-TRAUMATIC STRESS DISORDER, UNSPECIF 06/25/2019 KIRSTIE CHAUDHARI MD, Ot G89.2 9 OTHER CHRONIC PAIN 06/25/2019 KIRSTIE CHAUDHARI MD, Ot I10 ESSENTIAL (PRIMARY) HYPERTENSION 06/25/2019 KIRSTIE CHAUDHARI MD, Ot M54.5 LOW BACK PAIN 06/25/2019 KIRSTIE CHAUDHARI MD, Ot S33.5XXA SPRAIN OF LIGAMENTS OF LUMBAR SPINE, INI 06/25/2019 KIRSTIE CHAUDHARI MD, Ot X50.1XXA OVEREXERTION FROM PROLONGED STATIC OR AW 06/25/2019 KIRSTIE CHAUDHARI MD, Ot Z87.1 9 PERSONAL HISTORY OF OTHER DISEASES OF TH 06/25/2019 KIRSTIE CHAUDHARI MD, Ot Z88.2 ALLERGY STATUS TO SULFONAMIDES STATUS 06/25/2019 KIRSTIE CHAUDHARI MD, Ot Z88.5 ALLERGY STATUS TO NARCOTIC AGENT STATUS 06/25/2019 KIRSTIE CHAUDHARI MD, Ot Z88.8 ALLERGY STATUS TO OTH DRUG/MEDS/BIOL SUB 06/25/2019 KIRSTIE CHAUDHARI MD, Ot Z90.8 9 ACQUIRED ABSENCE OF OTHER ORGANS 06/26/2019 GUANAKITO GLYNN MD Ot E11. 9 TYPE 2 DIABETES MELLITUS WITHOUT COMPLIC 06/26/2019 GUANAKITO GLYNN MD Ot F32. 9 MAJOR DEPRESSIVE DISORDER, SINGLE EPISOD 06/26/2019 GUANAKITO GLYNN MD Ot F41. 9 ANXIETY DISORDER, UNSPECIFIED 06/26/2019 GUANAKITO GLYNN MD, Ot F43. 10 POST-TRAUMATIC STRESS DISORDER, UNSPECIF 06/26/2019 GUANAKITO GLYNN MD Ot I10 ESSENTIAL (PRIMARY) HYPERTENSION 06/26/2019 GUANAKITO GLYNN MD, Ot M54. 2 CERVICALGIA 06/26/2019 GUANAKITO GLYNN MD Ot S16.1XXA STRAIN OF MUSCLE, FASCIA AND TENDON AT N 06/26/2019 GUANAKITO GLYNN MD, Ot X50.1XXA OVEREXERTION FROM PROLONGED STATIC OR AW 06/26/2019 GUANAKITO GLYNN MD, Ot Z88. 2 ALLERGY STATUS TO SULFONAMIDES STATUS 06/26/2019 GUANAKITO GLYNN MD, Ot Z88. 5 ALLERGY STATUS TO NARCOTIC AGENT STATUS 06/26/2019 GUANAKITO GLYNN MD, Ot Z88. 8 ALLERGY STATUS TO OTH DRUG/MEDS/BIOL SUB 06/26/2019 GUANAKITO GLYNN MD, Ot Z90. 89 ACQUIRED ABSENCE OF OTHER ORGANS 06/27/2019 BERRY LIEBERMAN DO Ot M54 .2 CERVICALGIA 06/27/2019 BERRY LIEBERMAN DO, Ot S13.9XXA SPRAIN OF JOINTS AND LIGAMENTS OF UNSP P 06/27/2019 BERRY LIEBERMAN DO Ot X58.XXXA EXPOSURE TO OTHER SPECIFIED FACTORS, INI 06/27/2019 BERRY LIEBERMAN DO, Ot Z88 .2 ALLERGY STATUS TO SULFONAMIDES STATUS 06/27/2019 BERRY LIEBERMAN DO, Ot Z88 .8 ALLERGY STATUS TO OTH DRUG/MEDS/BIOL SUB 06/29/2019 BERRY LIEBERMAN DO, Ot M54 .2 CERVICALGIA 06/29/2019 LIEBERMAN DO, BERRY L Ot S13.9XXA SPRAIN OF JOINTS AND LIGAMENTS OF UNSP P 06/29/2019 MIO WALLER BERRY Rowan Ot X58.XXXA EXPOSURE TO OTHER SPECIFIED FACTORS, INI 06/29/2019 MIO WALLERBERRY Ot Z88 .2 ALLERGY STATUS TO SULFONAMIDES STATUS 06/29/2019 MIO WALLER BERRY L Ot Z88 .8 ALLERGY STATUS TO OTH DRUG/MEDS/BIOL SUB 07/24/2019 ROVENSTINE DO, PATRICE Rowan Ot E11.9 TYPE 2 DIABETES MELLITUS WITHOUT COMPLIC 07/24/2019 ROVENSTINE DO, PATRICE Rowan Ot F32.9 MAJOR DEPRESSIVE DISORDER, SINGLE EPISOD 07/24/2019 ROVENSTINE DO, PATRICE Rowan Ot F41.9 ANXIETY DISORDER, UNSPECIFIED 07/24/2019 ROVENSTINE DO, PATRICE Rowan Ot F43.10 POST-TRAUMATIC STRESS DISORDER, UNSPECIF 07/24/2019 CICIVENSTINE DO PATRICE Rowan Ot I10 ESSENTIAL (PRIMARY) HYPERTENSION 07/24/2019 MIKALASTINE PATRICE Donahue Ot M25.571 PAIN IN RIGHT ANKLE AND JOINTS OF RIGHT 07/24/2019 ROVENSTINE DO, PATRICE Rowan Ot S93.401A SPRAIN OF UNSPECIFIED LIGAMENT OF RIGHT 07/24/2019 MIKALASTINE PATRICE Rowan Ot X50.1XXA OVEREXERTION FROM PROLONGED STATIC OR AW 07/24/2019 MIKALASTINE DO PATRICE Rowan Ot Z88.2 ALLERGY STATUS TO SULFONAMIDES STATUS 07/24/2019 CICIVENSTINE DO PATRICE Rowan Ot Z88.5 ALLERGY STATUS TO NARCOTIC AGENT STATUS 07/24/2019 MIKALASTINE DO PATRICE Rowan Ot Z88.8 ALLERGY STATUS TO OTH DRUG/MEDS/BIOL SUB 07/24/2019 ROVENSTINE DO, PATRICE Rowan Ot Z90.89 ACQUIRED ABSENCE OF OTHER ORGANS 07/29/2019 GRETTA ENG, GUANAKITO Owusu Ot E11. 9 TYPE 2 DIABETES MELLITUS WITHOUT COMPLIC 07/29/2019 GUANAKITO GLYNN MD Ot F32. 9 MAJOR DEPRESSIVE DISORDER, SINGLE EPISOD 07/29/2019 GUANAKITO GLYNN MD Ot F41. 9 ANXIETY DISORDER, UNSPECIFIED 07/29/2019 GUANAKITO GLYNN MD Ot F43. 10 POST-TRAUMATIC STRESS DISORDER, UNSPECIF 07/29/2019 GUANAKITO GLYNN MD, Ot G89. 29 OTHER CHRONIC PAIN 07/29/2019 GUANAKITO GLYNN MD, Ot I10 ESSENTIAL (PRIMARY) HYPERTENSION 07/29/2019 GUANAKITO GLYNN MD, Ot M54. 2 CERVICALGIA 07/29/2019 GUANAKITO GLYNN MD, Ot Z88. 2 ALLERGY STATUS TO SULFONAMIDES STATUS 07/29/2019 GUANAKITO GLYNN MD, Ot Z88. 5 ALLERGY STATUS TO NARCOTIC AGENT STATUS 07/29/2019 GUANAKITO GLYNN MD, Ot Z88. 8 ALLERGY STATUS TO OTH DRUG/MEDS/BIOL SUB 07/29/2019 GUANAKITO GLYNN MD, Ot Z90. 89 ACQUIRED ABSENCE OF OTHER ORGANS Procedures Code Description [place] [address] Ther apeutic, prophylactic, or diagnostic URSULA POLK 02/19/2017 99814 Ther apeutic, prophylactic, or diagnostic FELICITAS URSULA 02/19/2017 09441 Ther apeutic, prophylactic, or diagnostic FELICITAS URSULA 02/19/2017 75909 [facility] visit for the evalu FELICITAS URSULA 02/19/2017 59180 [facility] visit for the evalu FELICITAS URSULA 09/07/2017 44702 Ther apeutic, prophylactic, or diagnostic FELICITAS URSULA 09/30/2017 50823 [facility] visit for the evalu FELICITAS URSULA 09/30/2017 [id number] [facility] visit for the evalu URSULA POLK 05/02/2018 30865 [place] and/or debridement of partial- FELICITAS URSULA 05/10/2018 53866 Immu nization administration (includes pe URSULA POLK 05/10/2018 37894 Ther apeutic, prophylactic, or diagnostic FELICITAS URSULA 05/10/2018 97174 [facility] visit for the evalu FELICITAS URSULA 05/10/2018 Results Test Result Range Complete blood count (CBC) with automate d white blood cell (WBC) differential - 03/26/17 23:53 Blood leukocytes automated count (number/volume) 8.7 10*3/uL 4.3-11.0 Blood erythrocytes automated count (number/volume) 4.71 10*6/uL 4.35-5.85 Venous blood hemoglobin measurement (mass/volume) 12.7 g/dL 11.5-16.0 Blood hematocrit (volume fraction) 40 % 35-52 Automated erythrocyte mean corpuscular volume 85 [ foz_us] 80-99 Automated erythrocyte mean corpuscular h emoglobin (mass per erythrocyte) 27 pg 25-34 Automated erythrocyte mean corpuscular h emoglobin concentration measurement (mass/volume) 32 g/dL 32-36 Automated erythrocyte distribution width ratio 15. 1 % 10.0- 14.5 Automated blood platelet count [...] 10*3 1.0-4.0 Blood monocytes automated count (number/volume) 0. 5 10*3 0.0-1.0 Automated eosinophil count 0.2 10*3/uL 0 .0-0.3 Automated blood basophil count (count/volume) 0.0 10*3/uL 0.0-0.1 Comprehensive metabolic panel - 03/26/17 23:53 Serum or plasma sodium measurement (moles/volume) 137 mmol/L 135-145 Serum or plasma potassium measurement (moles/volume) 4.2 mmol/L 3.6-5.0 Serum or plasma chloride measurement (moles/volume) 103 mmol/L 98-107 Carbon dioxide 19 mmol/L 21-32 Serum or plasma anion gap determination (moles/volume) 15 mmol/L 5-14 Serum or plasma urea nitrogen measurement (mass/volume ) 16 mg/dL 7-18 Serum or plasma creatinine measurement (mass/volume) 0.77 mg/dL 0.60-1.30 Serum or plasma urea nitrogen/creatinine mass ratio 21 NRG Serum or plasma creatinine measurement w ith calculation of estimated glomerular filtration rate > NRG Serum or plasma glucose measurement (mass/volume) 100 mg/dL 70-105 Serum or plasma calcium measurement (mass/volume) 9.1 mg/dL 8.5-10.1 Serum or plasma total bilirubin measurement (mass/volu me) 0.2 mg/dL 0.1-1.0 Serum or plasma alkaline phosphatase lucy surement (enzymatic activity/volume) 91 U/L 40-136 Serum or plasma aspartate aminotransfera se measurement (enzymatic activity/volume) 26 U/L 5-34 Serum or plasma alanine aminotransferase measurement (enzymatic activity/volume) 38 U/L 0-55 Serum or plasma protein measurement (mass/volume) 7.5 g/dL 6.4-8.2 Serum or plasma albumin measurement (mass/volume) 3.9 g/dL 3.2-4.5 Magnesium - 03/26/17 23:53 Magnesium 2.0 mg/dL 1.8-2.4 Lipase - 03/26/17 23:53 Lipase 15 U/L 8-78 Serum or plasma C reactive protein measu rement (mass/volume) - 03/26/17 23:53 Serum or plasma C reactive protein measurement (mass/v olume) 2.27 mg/dL 0.00-0.50 Erythrocyte sedimentation rate by randal gren method - 03/26/17 23:53 Erythrocyte sedimentation rate by westergren method 23 mm 0- 20 C DIFFICILE AG + TOXIN A/B. - 03/27/17 0 1:15 RESULTS NEGATIVE FOR ANTIGEN AND TOXIN A/B NRG Stool leukocytes detection by light micr oscopy - 03/27/17 01:15 FECAL WBC RESULTS NO WBC'S OBSERVED ON DIRECT SMEA R NRG FECAL NOTE FECAL LEUKOCYTES MAY BE INTE RMITTENTLY PRESENT OR NRG FECAL NOTE UNEVENLY DISTRIBUTED IN STOO L SPECIMENS, AND WBC NRG FECAL NOTE MORPHOLOGY DEGRADES DURING TRANSPORT NRG FECAL NOTE NOTE: NRG Stool bacteria identification by culture - 03/27/17 01:15 Stool bacteria identification by culture N2 NRG Complete urinalysis with reflex to cultu re - 04/24/17 19:25 Urine color determination YELLOW NRG Urine clarity determination CLEAR NR G Urine pH measurement by test strip 5 5-9 Specific gravity of urine by test strip 1.025 1.016-1.022 Urine protein assay by test strip, semi-quantitative 1+ NEGATIVE Urine glucose detection by automated test strip NE GATIVE NEGATIVE Erythrocytes detection in urine sediment by light micr oscopy NEGATIVE NEGATIVE Urine ketones detection by automated test strip NE GATIVE NEGATIVE Urine nitrite detection by test strip NEGATIVE NEGATIVE Urine total bilirubin detection by test strip NEGA TIVE NEGATIVE Urine urobilinogen measurement by automated test strip (mass/volume) NORMAL NORMAL Urine leukocyte esterase detection by dipstick 1+ NEGATIVE Automated urine sediment erythrocyte cou nt by microscopy (number/high power field) NONE NRG Automated urine sediment leukocyte count by microscopy (number/high power field) [HPF] NRG Bacteria detection in urine sediment by light microsco py TRACE NRG Squamous epithelial cells detection in u rine sediment by light microscopy 5-10 NRG Crystals detection in urine sediment by light microsco py NONE NRG Casts detection in urine sediment by light microscopy NONE NRG Mucus detection in urine sediment by light microscopy NEGATIVE NRG Complete urinalysis with reflex to culture NO NRG Complete blood count (CBC) with automate d white blood cell (WBC) differential - 04/24/17 19:35 Blood leukocytes automated count (number/volume) 8.8 10*3/uL 4.3-11.0 Blood erythrocytes automated count (number/volume) 4.15 10*6/uL 4.35-5.85 Venous blood hemoglobin measurement (mass/volume) 11.3 g/dL 11.5-16.0 Blood hematocrit (volume fraction) 36 % 35-52 Automated erythrocyte mean corpuscular volume 86 [ foz_us] 80-99 Automated erythrocyte mean corpuscular h emoglobin (mass per erythrocyte) 27 pg 25-34 Automated erythrocyte mean corpuscular h emoglobin concentration measurement (mass/volume) 32 g/dL 32-36 Automated erythrocyte distribution width ratio 14. 5 % 10.0- 14.5 Automated blood platelet count [...] 10*3 1.0-4.0 Blood monocytes automated count (number/volume) 0. 6 10*3 0.0-1.0 Automated eosinophil count 0.2 10*3/uL 0 .0-0.3 Automated blood basophil count (count/volume) 0.0 10*3/uL 0.0-0.1 Comprehensive metabolic panel - 04/24/17 19:35 Serum or plasma sodium measurement (moles/volume) 138 mmol/L 135-145 Serum or plasma potassium measurement (moles/volume) 3.9 mmol/L 3.6-5.0 Serum or plasma chloride measurement (moles/volume) 103 mmol/L 98-107 Carbon dioxide 26 mmol/L 21-32 Serum or plasma anion gap determination (moles/volume) 9 mmol/L 5-14 Serum or plasma urea nitrogen measurement (mass/volume ) 21 mg/dL 7-18 Serum or plasma creatinine measurement (mass/volume) 0.88 mg/dL 0.60-1.30 Serum or plasma urea nitrogen/creatinine mass ratio 24 NRG Serum or plasma creatinine measurement w ith calculation of estimated glomerular filtration rate > NRG Serum or plasma glucose measurement (mass/volume) 131 mg/dL 70-105 Serum or plasma calcium measurement (mass/volume) 8.6 mg/dL 8.5-10.1 Serum or plasma total bilirubin measurement (mass/volu me) 0.2 mg/dL 0.1-1.0 Serum or plasma alkaline phosphatase lucy surement (enzymatic activity/volume) 82 U/L 40-136 Serum or plasma aspartate aminotransfera se measurement (enzymatic activity/volume) 28 U/L 5-34 Serum or plasma alanine aminotransferase measurement (enzymatic activity/volume) 52 U/L 0-55 Serum or plasma protein measurement (mass/volume) 6.6 g/dL 6.4-8.2 Serum or plasma albumin measurement (mass/volume) 3.5 g/dL 3.2-4.5 Lipase - 04/24/17 19:35 Lipase 25 U/L 8-78 Complete blood count (CBC) with automate d white blood cell (WBC) differential - 01/09/18 22:12 Blood leukocytes automated count (number/volume) 9.9 10*3/uL 4.3-11.0 Blood erythrocytes automated count (number/volume) 4.81 10*6/uL 4.35-5.85 Venous blood hemoglobin measurement (mass/volume) 14.0 g/dL 11.5-16.0 Blood hematocrit (volume fraction) 42 % 35-52 Automated erythrocyte mean corpuscular volume 87 [ foz_us] 80-99 Automated erythrocyte mean corpuscular h emoglobin (mass per erythrocyte) 29 pg 25-34 Automated erythrocyte mean corpuscular h emoglobin concentration measurement (mass/volume) 34 g/dL 32-36 Automated erythrocyte distribution width ratio 14. 9 % 10.0- 14.5 Automated blood platelet count [...] 10*3 1.0-4.0 Blood monocytes automated count (number/volume) 0. 5 10*3 0.0-1.0 Automated eosinophil count 0.3 10*3/uL 0 .0-0.3 Automated blood basophil count (count/volume) 0.0 10*3/uL 0.0-0.1 Blood lactic acid measurement (moles/vol ume) - 01/09/18 22:12 Blood lactic acid measurement (moles/volume) 1.64 mmol/L 0.50-2.00 Serum or plasma choriogonadotropin (preg jeevan test) detection - 01/09/18 22:12 Serum or plasma choriogonadotropin ( test) de tection NEGATIVE NEGATIVE Serum heterophile antibody titer - 01/09 22:12 Serum heterophile antibody titer NEGATIVE NEGATIVE Comprehensive metabolic panel - 01/09/18 22:12 Serum or plasma sodium measurement (moles/volume) 136 mmol/L 135-145 Serum or plasma potassium measurement (moles/volume) 4.0 mmol/L 3.6-5.0 Serum or plasma chloride measurement (moles/volume) 102 mmol/L 98-107 Carbon dioxide 21 mmol/L 21-32 Serum or plasma anion gap determination (moles/volume) 13 mmol/L 5-14 Serum or plasma urea nitrogen measurement (mass/volume ) 17 mg/dL 7-18 Serum or plasma creatinine measurement (mass/volume) 0.81 mg/dL 0.60-1.30 Serum or plasma urea nitrogen/creatinine mass ratio 21 NRG Serum or plasma creatinine measurement w ith calculation of estimated glomerular filtration rate > NRG Serum or plasma glucose measurement (mass/volume) 105 mg/dL 70-105 Serum or plasma calcium measurement (mass/volume) 9.5 mg/dL 8.5-10.1 Serum or plasma total bilirubin measurement (mass/volu me) 0.3 mg/dL 0.1-1.0 Serum or plasma alkaline phosphatase lucy surement (enzymatic activity/volume) 99 U/L 40-136 Serum or plasma aspartate aminotransfera se measurement (enzymatic activity/volume) 13 U/L 5-34 Serum or plasma alanine aminotransferase measurement (enzymatic activity/volume) 17 U/L 0-55 Serum or plasma protein measurement (mass/volume) 7.9 g/dL 6.4-8.2 Serum or plasma albumin measurement (mass/volume) 4.3 g/dL 3.2-4.5 Magnesium - 01/09/18 22:12 Magnesium 2.5 mg/dL 1.8-2.4 Lipase - 01/09/18 22:12 Lipase 42 U/L 8-78 Serum or plasma C reactive protein measu rement (mass/volume) - 01/09/18 22:12 Serum or plasma C reactive protein measurement (mass/v olume) 0.75 mg/dL 0.00-0.50 Urine drug screening test - 01/09/18 22: 14 Urine phencyclidine detection by screening method NEGATIVE NEGATIVE Urine benzodiazepines detection by screening method POSITIVE NEGATIVE Urine cocaine detection NEGATIVE NEGATI VE Urine amphetamines detection by screening method N EGATIVE NEGATIVE Urine methamphetamine detection by screening method NEGATIVE NEGATIVE Urine cannabinoids detection by screening method P OSITIVE NEGATIVE Urine opiates detection by screening method NEGATI VE NEGATIVE Urine barbiturates detection NEGATIVE N EGATIVE Screening urine tricyclic antidepressants detection NEGATIVE NEGATIVE Urine methadone detection by screening method NEGA TIVE NEGATIVE Urine oxycodone detection NEGATIVE NEGA TIVE Urine propoxyphene detection NEGATIVE N EGATIVE Complete urinalysis with reflex to cultu re - 06/04/18 22:14 Urine color determination YELLOW NRG Urine clarity determination SLIGHTLY CLOUDY NRG Urine pH measurement by test strip 6 5-9 Specific gravity of urine by test strip 1.015 1.016-1.022 Urine protein assay by test strip, semi-quantitative 1+ NEGATIVE Urine glucose detection by automated test strip NE GATIVE NEGATIVE Erythrocytes detection in urine sediment by light micr oscopy 5+ NEGATIVE Urine ketones detection by automated test strip NE GATIVE NEGATIVE Urine nitrite detection by test strip NEGATIVE NEGATIVE Urine total bilirubin detection by test strip NEGA TIVE NEGATIVE Urine urobilinogen measurement by automated test strip (mass/volume) NORMAL NORMAL Urine leukocyte esterase detection by dipstick 1+ NEGATIVE Automated urine sediment erythrocyte cou nt by microscopy (number/high power field) [HPF] NRG Automated urine sediment leukocyte count by microscopy (number/high power field) [HPF] NRG Bacteria detection in urine sediment by light microsco py FEW NRG Squamous epithelial cells detection in u rine sediment by light microscopy 25-50 NRG Crystals detection in urine sediment by light microsco py NONE NRG Casts detection in urine sediment by light microscopy NONE NRG Mucus detection in urine sediment by light microscopy NEGATIVE NRG Complete urinalysis with reflex to culture NO NRG Urine beta human chorionic gonadotropin (hCG) measurement - 10/25/18 17:50 Urine beta human chorionic gonadotropin (hCG) measurem ent NEGATIVE NEGATIVE Complete urinalysis with reflex to cultu re - 10/25/18 17:50 Urine color determination YELLOW NRG Urine clarity determination CLEAR NR G Urine pH measurement by test strip 5.5 5-9 Specific gravity of urine by test strip 1.010 1.016-1.022 Urine protein assay by test strip, semi-quantitative NEGATIVE NEGATIVE Urine glucose detection by automated test strip NE GATIVE NEGATIVE Erythrocytes detection in urine sediment by light micr oscopy 1+ NEGATIVE Urine ketones detection by automated test strip NE GATIVE NEGATIVE Urine nitrite detection by test strip NEGATIVE NEGATIVE Urine total bilirubin detection by test strip NEGA TIVE NEGATIVE Urine urobilinogen measurement by automated test strip (mass/volume) 0.2 mg/dL NORMAL Urine leukocyte esterase detection by dipstick NEG ATIVE NEGATIVE Automated urine sediment erythrocyte cou nt by microscopy (number/high power field) [HPF] NRG Automated urine sediment leukocyte count by microscopy (number/high power field) NONE NRG Bacteria detection in urine sediment by light microsco py NONE NRG Squamous epithelial cells detection in u rine sediment by light microscopy 5-10 NRG Crystals detection in urine sediment by light microsco py NONE NRG Casts detection in urine sediment by light microscopy NONE NRG Mucus detection in urine sediment by light microscopy NEGATIVE NRG Complete urinalysis with reflex to culture NO NRG Urine drug screening test - 10/25/18 17: 50 Urine phencyclidine detection by screening method NEGATIVE NEGATIVE Urine benzodiazepines detection by screening method POSITIVE NEGATIVE Urine cocaine detection NEGATIVE NEGATI VE Urine amphetamines detection by screening method N EGATIVE NEGATIVE Urine methamphetamine detection by screening method NEGATIVE NEGATIVE Urine cannabinoids detection by screening method N EGATIVE NEGATIVE Urine opiates detection by screening method NEGATI VE NEGATIVE Urine barbiturates detection NEGATIVE N EGATIVE Screening urine tricyclic antidepressants detection NEGATIVE NEGATIVE Urine methadone detection by screening method NEGA TIVE NEGATIVE Urine oxycodone detection NEGATIVE NEGA TIVE Urine propoxyphene detection NEGATIVE N EGATIVE Complete blood count (CBC) with automate d white blood cell (WBC) differential - 10/25/18 18:14 Blood leukocytes automated count (number/volume) 6.7 10*3/uL 4.3-11.0 Blood erythrocytes automated count (number/volume) 4.48 10*6/uL 4.35-5.85 Venous blood hemoglobin measurement (mass/volume) 12.2 g/dL 11.5-16.0 Blood hematocrit (volume fraction) 40 % 35-52 Automated erythrocyte mean corpuscular volume 88 [ foz_us] 80-99 Automated erythrocyte mean corpuscular h emoglobin (mass per erythrocyte) 27 pg 25-34 Automated erythrocyte mean corpuscular h emoglobin concentration measurement (mass/volume) 31 g/dL 32-36 Automated erythrocyte distribution width ratio 14. 2 % 10.0- 14.5 Automated blood platelet count [...] 10*3 1.0-4.0 Blood monocytes automated count (number/volume) 0. 4 10*3 0.0-1.0 Automated eosinophil count 0.3 10*3/uL 0 .0-0.3 Automated blood basophil count (count/volume) 0.1 10*3/uL 0.0-0.1 Comprehensive metabolic panel - 10/25/18 18:14 Serum or plasma sodium measurement (moles/volume) 136 mmol/L 135-145 Serum or plasma potassium measurement (moles/volume) 4.3 mmol/L 3.6-5.0 Serum or plasma chloride measurement (moles/volume) 101 mmol/L 98-107 Carbon dioxide 21 mmol/L 21-32 Serum or plasma anion gap determination (moles/volume) 14 mmol/L 5-14 Serum or plasma urea nitrogen measurement (mass/volume ) 7 mg/dL 7-18 Serum or plasma creatinine measurement (mass/volume) 0.68 mg/dL 0.60-1.30 Serum or plasma urea nitrogen/creatinine mass ratio 10 NRG Serum or plasma creatinine measurement w ith calculation of estimated glomerular filtration rate > NRG Serum or plasma glucose measurement (mass/volume) 121 mg/dL 70-105 Serum or plasma calcium measurement (mass/volume) 9.1 mg/dL 8.5-10.1 Serum or plasma total bilirubin measurement (mass/volu me) 0.2 mg/dL 0.1-1.0 Serum or plasma alkaline phosphatase lucy surement (enzymatic activity/volume) 98 U/L 40-136 Serum or plasma aspartate aminotransfera se measurement (enzymatic activity/volume) 21 U/L 5-34 Serum or plasma alanine aminotransferase measurement (enzymatic activity/volume) 23 U/L 0-55 Serum or plasma protein measurement (mass/volume) 7.2 g/dL 6.4-8.2 Serum or plasma albumin measurement (mass/volume) 4.1 g/dL 3.2-4.5 CALCIUM CORRECTED 9.0 mg/dL 8.5-10.1 Serum or plasma salicylates measurement (mass/volume) - 10/25/18 18:14 Serum or plasma salicylates measurement (mass/volume) 0.4 mg/dL 5.0-20.0 Serum or plasma acetaminophen measuremen t (mass/volume) - 10/25/18 18:14 Serum or plasma acetaminophen measurement (mass/volume ) < ug/mL 10-30 Serum or plasma ethanol measurement (mas s/volume) - 10/25/18 18:14 Serum or plasma ethanol measurement (mass/volume) < mg/dL <10 Serum or plasma thyrotropin measurement by detection limit <=0.05 miu/l (units/volume) - 10/25/18 18:14 Serum or plasma thyrotropin measurement by detection limit <=0.05 miu/l (units/volume) 1.54 u[iU]/mL 0.35-4.94 Complete urinalysis with reflex to cultu re - 12/14/18 02:00 Urine color determination YELLOW NRG Urine clarity determination SL CLOUDY N RG Urine pH measurement by test strip 6.0 5-9 Specific gravity of urine by test strip >= 1.016-1.022 Urine protein assay by test strip, semi-quantitative NEGATIVE NEGATIVE Urine glucose detection by automated test strip NE GATIVE NEGATIVE Erythrocytes detection in urine sediment by light micr oscopy 3+ NEGATIVE Urine ketones detection by automated test strip TR PAT NEGATIVE Urine nitrite detection by test strip NEGATIVE NEGATIVE Urine total bilirubin detection by test strip NEGA TIVE NEGATIVE Urine urobilinogen measurement by automated test strip (mass/volume) 0.2 mg/dL NORMAL Urine leukocyte esterase detection by dipstick NEG ATIVE NEGATIVE Automated urine sediment erythrocyte cou nt by microscopy (number/high power field) [HPF] NRG Automated urine sediment leukocyte count by microscopy (number/high power field) [HPF] NRG Bacteria detection in urine sediment by light microsco py FEW NRG Squamous epithelial cells detection in u rine sediment by light microscopy 25-50 NRG Crystals detection in urine sediment by light microsco py NONE NRG Casts detection in urine sediment by light microscopy NONE NRG Mucus detection in urine sediment by light microscopy LARGE NRG Complete urinalysis with reflex to culture NO NRG Complete blood count (CBC) with automate d white blood cell (WBC) differential - 12/14/18 03:03 Blood leukocytes automated count (number/volume) 5.9 10*3/uL 4.3-11.0 Blood erythrocytes automated count (number/volume) 4.01 10*6/uL 4.35-5.85 Venous blood hemoglobin measurement (mass/volume) 10.9 g/dL 11.5-16.0 Blood hematocrit (volume fraction) 35 % 35-52 Automated erythrocyte mean corpuscular volume 87 [ foz_us] 80-99 Automated erythrocyte mean corpuscular h emoglobin (mass per erythrocyte) 27 pg 25-34 Automated erythrocyte mean corpuscular h emoglobin concentration measurement (mass/volume) 31 g/dL 32-36 Automated erythrocyte distribution width ratio 14. 9 % 10.0- 14.5 Automated blood platelet count [...] 10*3 1.0-4.0 Blood monocytes automated count (number/volume) 0. 5 10*3 0.0-1.0 Automated eosinophil count 0.2 10*3/uL 0 .0-0.3 Automated blood basophil count (count/volume) 0.0 10*3/uL 0.0-0.1 Comprehensive metabolic panel - 12/14/18 03:03 Serum or plasma sodium measurement (moles/volume) 137 mmol/L 135-145 Serum or plasma potassium measurement (moles/volume) 4.0 mmol/L 3.6-5.0 Serum or plasma chloride measurement (moles/volume) 98 mmol/L 98-107 Carbon dioxide 21 mmol/L 21-32 Serum or plasma anion gap determination (moles/volume) 18 mmol/L 5-14 Serum or plasma urea nitrogen measurement (mass/volume ) 14 mg/dL 7-18 Serum or plasma creatinine measurement (mass/volume) 0.71 mg/dL 0.60-1.30 Serum or plasma urea nitrogen/creatinine mass ratio 20 NRG Serum or plasma creatinine measurement w ith calculation of estimated glomerular filtration rate > NRG Serum or plasma glucose measurement (mass/volume) 148 mg/dL 70-105 Serum or plasma calcium measurement (mass/volume) 8.9 mg/dL 8.5-10.1 Serum or plasma total bilirubin measurement (mass/volu me) 0.2 mg/dL 0.1-1.0 Serum or plasma alkaline phosphatase lucy surement (enzymatic activity/volume) 88 U/L 40-136 Serum or plasma aspartate aminotransfera se measurement (enzymatic activity/volume) 18 U/L 5-34 Serum [...] 7-25 CREATININE 0.76 mg/dL 0.50-1.10 eGFR NON-AFR. CHADIAN 94 mL/min/1.73m2 > OR = 60 eGFR 109 mL/min/1.73m2 > OR = 60 BUN/CREATININE RATIO NOT APPLICABLE (calc) 6-22 SODIUM 137 mmol/L 135-146 POTASSIUM 4.3 mmol/L 3.5-5.3 CHLORIDE 99 mmol/L 98-110 CARBON DIOXIDE 28 mmol/L 20-32 CALCIUM 9.8 mg/dL 8.6-10.2 Complete blood count (CBC) with automate d white blood cell (WBC) differential - 02/15/19 14:40 Blood leukocytes automated count (number/volume) 6.0 10*3/uL 4.3-11.0 Blood erythrocytes automated count (number/volume) 4.39 10*6/uL 4.35-5.85 Venous blood hemoglobin measurement (mass/volume) 11.8 g/dL 11.5-16.0 Blood hematocrit (volume fraction) 37 % 35-52 Automated erythrocyte mean corpuscular volume 85 [ foz_us] 80-99 Automated erythrocyte mean corpuscular h emoglobin (mass per erythrocyte) 27 pg 25-34 Automated erythrocyte mean corpuscular h emoglobin concentration measurement (mass/volume) 32 g/dL 32-36 Automated erythrocyte distribution width ratio 14. 9 % 10.0- 14.5 Automated blood platelet count [...] 10*3 1.0-4.0 Blood monocytes automated count (number/volume) 0. 4 10*3 0.0-1.0 Automated eosinophil count 0.1 10*3/uL 0 .0-0.3 Automated blood basophil count (count/volume) 0.0 10*3/uL 0.0-0.1 Comprehensive metabolic panel - 02/15/19 14:40 Serum or plasma sodium measurement (moles/volume) 136 mmol/L 135-145 Serum or plasma potassium measurement (moles/volume) 3.9 mmol/L 3.6-5.0 Serum or plasma chloride measurement (moles/volume) 91 mmol/L 98-107 Carbon dioxide 28 mmol/L 21-32 Serum or plasma anion gap determination (moles/volume) 17 mmol/L 5-14 Serum or plasma urea nitrogen measurement (mass/volume ) 14 mg/dL 7-18 Serum or plasma creatinine measurement (mass/volume) 0.70 mg/dL 0.60-1.30 Serum or plasma urea nitrogen/creatinine mass ratio 20 NRG Serum or plasma creatinine measurement w ith calculation of estimated glomerular filtration rate > NRG Serum or plasma glucose measurement (mass/volume) 298 mg/dL 70-105 Serum or plasma calcium measurement (mass/volume) 9.6 mg/dL 8.5-10.1 Serum or plasma total bilirubin measurement (mass/volu me) 0.2 mg/dL 0.1-1.0 Serum or plasma alkaline phosphatase lucy surement (enzymatic activity/volume) 120 U/L 40-136 Serum or plasma aspartate aminotransfera se measurement (enzymatic activity/volume) 28 U/L 5-34 Serum or plasma alanine aminotransferase measurement (enzymatic activity/volume) 42 U/L 0-55 Serum or plasma protein measurement (mass/volume) 7.4 g/dL 6.4-8.2 Serum or plasma albumin measurement (mass/volume) 3.9 g/dL 3.2-4.5 CALCIUM CORRECTED 9.7 mg/dL 8.5-10.1 PROBNP FS - 02/15/19 14:40 PROBNP FS 22.3 pg/mL <75.0 Complete urinalysis with reflex to cultu re - 02/15/19 16:24 Urine color determination YELLOW NRG Urine clarity determination CLEAR NR G Urine pH measurement by test strip 6.5 5-9 Specific gravity of urine by test strip 1.010 1.016-1.022 Urine protein assay by test strip, semi-quantitative NEGATIVE NEGATIVE Urine glucose detection by automated test strip 1+ NEGATIVE Erythrocytes detection in urine sediment by light micr oscopy NEGATIVE NEGATIVE Urine ketones detection by automated test strip NE GATIVE NEGATIVE Urine nitrite detection by test strip NEGATIVE NEGATIVE Urine total bilirubin detection by test strip NEGA TIVE NEGATIVE Urine urobilinogen measurement by automated test strip (mass/volume) 0.2 mg/dL NORMAL Urine leukocyte esterase detection by dipstick NEG ATIVE NEGATIVE Automated urine sediment erythrocyte cou nt by microscopy (number/high power field) NONE NRG Automated urine sediment leukocyte count by microscopy (number/high power field) NONE NRG Bacteria detection in urine sediment by light microsco py NONE NRG Squamous epithelial cells detection in u rine sediment by light microscopy 2-5 NRG Crystals detection in urine sediment by light microsco py NONE NRG Casts detection in urine sediment by light microscopy NONE NRG Mucus detection in urine sediment by light microscopy NEGATIVE NRG Complete urinalysis with reflex to culture NO NRG Complete blood count (CBC) with automate d white blood cell (WBC) differential - 02/17/19 06:10 Blood leukocytes automated count (number/volume) 6.0 10*3/uL 4.3-11.0 Blood erythrocytes automated count (number/volume) 4.49 10*6/uL 4.35-5.85 Venous blood hemoglobin measurement (mass/volume) 11.8 g/dL 11.5-16.0 Blood hematocrit (volume fraction) 39 % 35-52 Automated erythrocyte mean corpuscular volume 86 [ foz_us] 80-99 Automated erythrocyte mean corpuscular h emoglobin (mass per erythrocyte) 26 pg 25-34 Automated erythrocyte mean corpuscular h emoglobin concentration measurement (mass/volume) 31 g/dL 32-36 Automated erythrocyte distribution width ratio 14. 6 % 10.0- 14.5 Automated blood platelet count [...] 10*3 1.0-4.0 Blood monocytes automated count (number/volume) 0. 4 10*3 0.0-1.0 Automated eosinophil count 0.2 10*3/uL 0 .0-0.3 Automated blood basophil count (count/volume) 0.0 10*3/uL 0.0-0.1 Comprehensive metabolic panel - 02/17/19 06:10 Serum or plasma sodium measurement (moles/volume) 136 mmol/L 135-145 Serum or plasma potassium measurement (moles/volume) 3.8 mmol/L 3.6-5.0 Serum or plasma chloride measurement (moles/volume) 92 mmol/L 98-107 Carbon dioxide 28 mmol/L 21-32 Serum or plasma anion gap determination (moles/volume) 16 mmol/L 5-14 Serum or plasma urea nitrogen measurement (mass/volume ) 22 mg/dL 7-18 Serum or plasma creatinine measurement (mass/volume) 0.76 mg/dL 0.60-1.30 Serum or plasma urea nitrogen/creatinine mass ratio 29 NRG Serum or plasma creatinine measurement w ith calculation of estimated glomerular filtration rate > NRG Serum or plasma glucose measurement (mass/volume) 235 mg/dL 70-105 Serum or plasma calcium measurement (mass/volume) 8.9 mg/dL 8.5-10.1 Serum or plasma total bilirubin measurement (mass/volu me) 0.2 mg/dL 0.1-1.0 Serum or plasma alkaline phosphatase lucy surement (enzymatic activity/volume) 121 U/L 40-136 Serum or plasma aspartate aminotransfera se measurement (enzymatic activity/volume) 30 U/L 5-34 Serum or plasma alanine aminotransferase measurement (enzymatic activity/volume) 41 U/L 0-55 Serum or plasma protein measurement (mass/volume) 7.2 g/dL 6.4-8.2 Serum or plasma albumin measurement (mass/volume) 3.6 g/dL 3.2-4.5 CALCIUM CORRECTED 9.2 mg/dL 8.5-10.1 PROBNP FS - 02/17/19 06:10 PROBNP FS 19.8 pg/mL <75.0 Hemoglobin A1c - 02/17/19 06:10 Blood hemoglobin A1C measurement (mass/volume) 7.9 % 4.0-5.6 MEAN BLOOD GLUCOSE 180 % <=126 Bacterial blood culture - 02/17/19 07:25 Bacterial blood culture NG NRG Bacterial blood culture - 02/17/19 07:30 Bacterial blood culture NG NRG Complete blood count (CBC) with automate d white blood cell (WBC) differential - 02/18/19 04:58 Blood leukocytes automated count (number/volume) 5.8 10*3/uL 4.3-11.0 Blood erythrocytes automated count (number/volume) 4.09 10*6/uL 4.35-5.85 Venous blood hemoglobin measurement (mass/volume) 10.8 g/dL 11.5-16.0 Blood hematocrit (volume fraction) 35 % 35-52 Automated erythrocyte mean corpuscular volume 85 [ foz_us] 80-99 Automated erythrocyte mean corpuscular h emoglobin (mass per erythrocyte) 26 pg 25-34 Automated erythrocyte mean corpuscular h emoglobin concentration measurement (mass/volume) 31 g/dL 32-36 Automated erythrocyte distribution width ratio 14. 9 % 10.0- 14.5 Automated blood platelet count (count/volume) 235 10*3/uL 130-400 Automated blood platelet mean volume measurement 10.5 [foz_us] 7.4-10.4 Automated blood neutrophils/100 leukocytes 69 % 42-75 Automated blood lymphocytes/100 leukocytes 20 % 12-44 Blood monocytes/100 leukocytes 7 % 0-12 Automated blood eosinophils/100 leukocytes 4 % 0-10 Automated blood basophils/100 leukocytes 0 % 0-10 Blood neutrophils automated count (number/volume) 4.0 10*3 1.8-7.8 Blood lymphocytes automated count (number/volume) 1.1 10*3 1.0-4.0 Blood monocytes automated count (number/volume) 0. 4 10*3 0.0-1.0 Automated eosinophil count 0.3 10*3/uL 0 .0-0.3 Automated blood basophil count (count/volume) 0.0 10*3/uL 0.0-0.1 Whole blood basic metabolic panel - 02/05 11/24 04:58 Serum or plasma sodium measurement (moles/volume) 135 mmol/L 135-145 Serum or plasma potassium measurement (moles/volume) 4.4 mmol/L 3.6-5.0 Serum or plasma chloride measurement (moles/volume) 99 mmol/L 98-107 Carbon dioxide 24 mmol/L 21-32 Serum or plasma anion gap determination (moles/volume) 12 mmol/L 5-14 Serum or plasma urea nitrogen measurement (mass/volume ) 20 mg/dL 7-18 Serum or plasma creatinine measurement (mass/volume) 0.99 mg/dL 0.60-1.30 Serum or plasma urea nitrogen/creatinine mass ratio 20 NRG Serum or plasma creatinine measurement w ith calculation of estimated glomerular filtration rate 60 NRG Serum or plasma glucose measurement (mass/volume) 212 mg/dL 70-105 Serum or plasma calcium measurement (mass/volume) 8.9 mg/dL 8.5-10.1 Vancomycin trough - 02/18/19 09:00 Vancomycin trough 24.9 ug/mL 10.0-20.0 EXTRA LAVENDER-TOP TUBE - 02/20/19 15:00 EXTRA LAVENDER-TOP TUBE NRG Complete blood count (CBC) with automate d white blood cell (WBC) differential - 05/19/19 00:30 Blood leukocytes automated count (number/volume) 6.7 10*3/uL 4.3-11.0 Blood erythrocytes automated count (number/volume) 4.24 10*6/uL 4.35-5.85 Venous blood hemoglobin measurement (mass/volume) 11.4 g/dL 11.5-16.0 Blood hematocrit (volume fraction) 37 % 35-52 Automated erythrocyte mean corpuscular volume 88 [ foz_us] 80-99 Automated erythrocyte mean corpuscular h emoglobin (mass per erythrocyte) 27 pg 25-34 Automated erythrocyte mean corpuscular h emoglobin concentration measurement (mass/volume) 31 g/dL 32-36 Automated erythrocyte distribution width ratio 15. 5 % 10.0- 14.5 Automated blood platelet count (count/volume) 226 10*3/uL 130-400 Automated blood platelet mean volume measurement 10.4 [foz_us] 7.4-10.4 Automated blood neutrophils/100 leukocytes 68 % 42-75 Automated blood lymphocytes/100 leukocytes 23 % 12-44 Blood monocytes/100 leukocytes 6 % 0-12 Automated blood eosinophils/100 leukocytes 2 % 0-10 Automated blood basophils/100 leukocytes 0 % 0-10 Blood neutrophils automated count (number/volume) 4.5 10*3 1.8-7.8 Blood lymphocytes automated count (number/volume) 1.6 10*3 1.0-4.0 Blood monocytes automated count (number/volume) 0. 4 10*3 0.0-1.0 Automated eosinophil count 0.2 10*3/uL 0 .0-0.3 Automated blood basophil count (count/volume) 0.0 10*3/uL 0.0-0.1 Comprehensive metabolic panel - 05/19/19 00:30 Serum or plasma sodium measurement (moles/volume) 135 mmol/L 135-145 Serum or plasma potassium measurement (moles/volume) 4.2 mmol/L 3.6-5.0 Serum or plasma chloride measurement (moles/volume) 101 mmol/L 98-107 Carbon dioxide 23 mmol/L 21-32 Serum or plasma anion gap determination (moles/volume) 11 mmol/L 5-14 Serum or plasma urea nitrogen measurement (mass/volume ) 16 mg/dL 7-18 Serum or plasma creatinine measurement (mass/volume) 0.87 mg/dL 0.60-1.30 Serum or plasma urea nitrogen/creatinine mass ratio 18 NRG Serum or plasma creatinine measurement w ith calculation of estimated glomerular filtration rate > NRG Serum or plasma glucose measurement (mass/volume) 194 mg/dL 70-105 Serum or plasma calcium measurement (mass/volume) 8.9 mg/dL 8.5-10.1 Serum or plasma total bilirubin measurement (mass/volu me) 0.2 mg/dL 0.1-1.0 Serum or plasma alkaline phosphatase lucy surement (enzymatic activity/volume) 97 U/L 40-136 Serum or plasma aspartate aminotransfera se measurement (enzymatic activity/volume) 19 U/L 5-34 Serum or plasma alanine aminotransferase measurement (enzymatic activity/volume) 20 U/L 0-55 Serum or plasma protein measurement (mass/volume) 7.0 g/dL 6.4-8.2 Serum or plasma albumin measurement (mass/volume) 3.6 g/dL 3.2-4.5 Lipase - 05/19/19 00:30 Lipase 33 U/L 8-78 Complete urinalysis with reflex to cultu re - 05/19/19 01:16 Urine color determination YELLOW NRG Urine clarity determination CLOUDY NR G Urine pH measurement by test strip 5.5 5-9 Specific gravity of urine by test strip 1.025 1.016-1.022 Urine protein assay by test strip, semi-quantitative NEGATIVE NEGATIVE Urine glucose detection by automated test strip NE GATIVE NEGATIVE Erythrocytes detection in urine sediment by light micr oscopy NEGATIVE NEGATIVE Urine ketones detection by automated test strip NE GATIVE NEGATIVE Urine nitrite detection by test strip NEGATIVE NEGATIVE Urine total bilirubin detection by test strip NEGA TIVE NEGATIVE Urine urobilinogen measurement by automated test strip (mass/volume) 0.2 mg/dL NORMAL Urine leukocyte esterase detection by dipstick NEG ATIVE NEGATIVE Automated urine sediment erythrocyte cou nt by microscopy (number/high power field) [HPF] NRG Automated urine sediment leukocyte count by microscopy (number/high power field) [HPF] NRG Bacteria detection in urine sediment by light microsco py MODERATE NRG Squamous epithelial cells detection in u rine sediment by light microscopy 25-50 NRG Crystals detection in urine sediment by light microsco py NONE NRG Casts detection in urine sediment by light microscopy NONE NRG Mucus detection in urine sediment by light microscopy NEGATIVE NRG Complete urinalysis with reflex to culture YES NRG Bacterial urine culture - 05/19/19 01:16 Bacterial urine culture 3 OR MORE NRG COLONY COUNT 20,000 CFU/ML NRG FTX;REPORTABLE (GRAM POSITIVE) SUGGESTING PROBABLE NRG FREE TEXT ENTRY 2 COLLECTION CONTAMINATION WITH SK IN NRG FREE TEXT ENTRY 3 PAT. NO SUSCEPTIBILITY PERFOR MED NRG Capillary blood glucose measurement by g lucometer (mass/volume) - 07/21/19 08:37 Capillary blood glucose measurement by glucometer (mas s/volume) 213 mg/dL 70-110 Encounters ACCT No. Visit Date/Time Discharge Status Pt. Type Provider Facility Loc./Unit Complaint [id number] 03/14/2019 11:00:00 03/14/2019 23:59: 59 [id number] 02/20/2019 14:00:00 Document Registration [id number] 12/18/2018 10:20:00 Document Registration [id number] 10/17/2019 23:58:00 00:38:00 DIS Emergency KIRSTIE CHAUDHARI MD Via [facility] FS NECK PAIN,COUGH [id number] 07/23/2019 19:56:00 21:45:00 DIS Outpatient GUANAKITO GLYNN MD Via [facility] FS NECK PAIN [id number] 07/21/2019 08:14:00 08:58:00 DIS Emergency GUANAKITO GLYNN MD Via [facility] FS FALL [id number] 07/21/2019 05:35:00 05:57:00 DIS Outpatient ROVENSTPATRICE STRINGER DO Via [facility] FS ROLLED ANKLE [id number] 06/27/2019 23:04:00 23:47:00 DIS Emergency BERRY LIEBERMAN DO Via [facility] FS STIFF NECK [id number] 06/23/2019 12:33:00 14:32:00 DIS Emergency GUANAKITO GLYNN MD Via [facility] FS NECK PAIN [id number] 06/22/2019 20:24:00 23:14:00 DIS Outpatient KIRSTIE CHAUDHARI MD Via [facility] FS BACK PAIN [id number] 05/20/2019 03:26:00 04:09:00 DIS Emergency GUANAKITO GLYNN MD Via [facility] FS NECK PAIN [id number] 05/19/2019 00:05:00 01:30:00 DIS Emergency MEMO HAYS DO Via [facility] FS NECK PAIN,N,V [id number] 05/17/2019 14:42:00 16:08:00 DIS Emergency VALERIY VERA DO Via [facility] FS NECK PAIN; VOMITING [id number] 05/10/2019 02:41:00 03:10:00 DIS Emergency ROVENSTSIOMARA WALLER PATRICE Rowan Via [facility] FS NECK PAIN [id number] 05/08/2019 19:49:00 20:55:00 DIS Outpatient WAQAS BENZ DO Via [facility] FS NECK PAIN [id number] 04/07/2019 18:35:00 19:43:00 DIS Outpatient ANA ADKINS MD Via [facility] FS FALL - BACK/NEC K PAIN [id number] 04/04/2019 12:00:00 13:28:00 DIS Emergency ZAINAB LANCE MD Via [facility] FS FALL; RT ANKLE/KATALINA WRIS T INJ [id number] 03/23/2019 22:32:00 01:01:00 DIS Emergency GENNY ENG, LATIA Bernard [facility] FS NECK AND LT WRI ST PAIN [id number] 02/17/2019 08:06:00 12:16:00 DIS Inpatient KEISHA ENG, FRANK Moyer Via [facility] 4TH CELLULITIS BOTH LEGS [id number] 02/15/2019 14:15:00 17:19:00 DIS Emergency VALERIY VERA DO Via [facility] FS SWOLLEN FEET [id number] 02/11/2019 10:01:00 10:39:00 DIS Emergency EDUARDO QUESADA MD Via [facility] FS NECK PAIN [id number] 02/10/2019 15:21:00 17:41:00 DIS Outpatient EDUARDO QUESADA MD Via [facility] FS NECK PAIN [id number] 12/14/2018 01:08:00 019 05:50:00 DIS Emergency KIRSTIE CHAUDHARI MD Via [facility] FS LOWER BACK PAIN [id number] 10/25/2018 15:47:00 019 21:57:00 DIS Emergency CASI ENG, ZAINAB Alva Via [facility] FS PER PT MOTHER SUICIDAL THOUGHTS [id number] 09/28/2018 02:05:00 019 03:18:00 DIS Emergency TUYET WALLER WAQAS Via [facility] FS CONGESTION,SOA [id number] 08/25/2018 14:53:00 019 17:00:00 DIS Emergency CINDY NAYLOR Via [facility] NECK PAIN [id number] 01/09/2018 21:48:00 018 23:27:00 DIS Emergency ZAINAB LANCE MD Via [facility] GI PROBLEMS, KNOTS ON L SIDE [id number] 01/06/2018 11:35:00 018 23:59:59 CLS Outpatient EZEQUIEL CHAVIRA APRN Via [facility] RLQ ABD PAIN,RU Q ABD PAIN,LLEUS,CONSTIPATION [id number] 04/24/2017 18:36:00 017 20:50:00 DIS Emergency ZAINAB LANCE MD Via [facility] ER ABD/SIDE PAIN [id number] 03/26/2017 23:35:00 017 02:16:00 DIS Emergency GENNY ENG, LATIA Bernard [facility] AB PAIN DIARRHE A VOMTING [id number] 01/29/2017 22:24:00 017 22:43:00 DIS Emergency KRISH TERRELL DO a [facility] ER STOMACH ISSUES [id number] 05/10/2018 09:43:00 8 11:45:00 DIS Emergency Rommel Major [facility] ER Burn [id number] 05/02/2018 16:45:00 8 18:54:00 DIS Emergency KALIE SOTO [facility] ER Orthopedic [id number] 09/30/2017 05:07:00 8 07:12:00 DIS Emergency Deacon Bar [facility] ER General Medical [id number] 09/07/2017 21:53:00 8 02:12:00 DIS Emergency Luis Cuello [facility] ER General Medical [id number] 02/19/2017 05:35:00 7 08:40:00 DIS Emergency Jody Chua [facility] ER Back Pain [id number] 09/30/2017 05:33:28 Document Registration
== END 2019-10-18 00:38 | disposition home or self-care (01) ==
LOC: EDUNIT# 23:55 → ER FS 23:58
DX: M62.838 Other muscle spasm (principal); J06.9 Acute upper respiratory infection, unspecified; K59.09 Other constipation; Z88.8 Allergy status to other drugs, medicaments and biological substances; Z88.2 Allergy status to sulfonamides; Z88.5 Allergy status to narcotic agent
CPT/HCPCS: 99284

== ENCOUNTER 2020-02-20 23:31 | Emergency (ER) | payer SELFPAY ==
[~2020-02-20] VITALS: Ht 165.1 cm; Wt 120.2 kg
--- NOTE | 2020-02-21 00:22 | ED General ---
General Chief Complaint: Head/Cervical Problems Stated Complaint: NECK PAIN Nursing Triage Note: PT STATED SHE WAS LIFTING LUGGAGE AND HURT HER NECK. Nursing Sepsis Screen: No Definite Risk Source of Information: Patient Exam Limitations: No Limitations History of Present Illness Date Seen by Provider: Feb 21, 2020 Time Seen by Provider: 00:00 Initial Comments Patient is a 49-year-old female with history of chronic back pain who presents with exacerbation of chronic neck pain earlier this evening after lifting heavy items from car. Patient reports sharp left sided lateral neck pain which is nonradiating the reproducible with palpation and neck rotation. Patient took ibuprofen at home with limited relief. Denies extremity weakness, loss of sensation or midline neck pain. No other acute symptoms or complaints. Severity: Moderate Modifying Factors: improves with Medication, improves with Movement Associated Systoms: Denies Symptoms Allergies and Home Medications Allergies Coded Allergies: gabapentin (Verified Allergy, Mild, 02/17/19) ondansetron (Verified Allergy, Mild, 03/27/17) Itching at injection site with injectable form only. Oral form well tolerated. Sulfa (Sulfonamide Antibiotics) (Verified Allergy, Unknown, 02/15/19) hydrocodone (Verified Allergy, Unknown, 03/27/17) prednisone (Verified Allergy, Unknown, 02/17/19) Home Medications Clindamycin HCl 300 Mg Capsule, 300 MG PO BID Prescribed by: FRANK VALDES on 02/18/19 1005 Cyclobenzaprine HCl 10 Mg Tablet, 10 MG PO HS Prescribed by: PATRICE ROBERSON on 05/10/19 0303 Cyclobenzaprine HCl 10 Mg Tablet, 10 MG PO TID Prescribed by: KIRSTIE CHAUDHARI on 10/18/19 0029 Ibuprofen 800 Mg Tablet, 800 MG PO Q8H PRN for PAIN Prescribed by: KIRSTIE CHAUDHARI on 10/18/19 0029 Ketorolac Tromethamine 10 Mg Tablet, 10 MG PO Q6H PRN for PAIN-MODERATE TO SEVERE Prescribed by: EDUARDO QUESADA MD on 02/11/19 1032 Ondansetron 4 Mg Tab.rapdis, 4 MG PO Q6H Prescribed by: JODY CROOKS on 05/17/19 1557 Oxycodone HCl/Acetaminophen 1 Each Tablet, 1 TAB PO Q4H Prescribed by: GUANAKITO GLYNN on 06/23/19 1422 Oxycodone HCl/Acetaminophen 1 Each Tablet, 1 TAB PO Q8H PRN for PAIN-SEVERE (8- 10) Prescribed by: KIRSTIE CHAUDHARI on 10/18/19 0030 Sennosides/Docusate Sodium 1 Each Tablet, 1 EA PO BID Prescribed by: FRANK VALDES on 02/18/19 1005 Patient Home Medication List Home Medication List Reviewed: Yes Review of Systems Review of Systems Constitutional: no symptoms reported EENTM: no symptoms reported Respiratory: no symptoms reported Cardiovascular: no symptoms reported Gastrointestinal: no symptoms reported Genitourinary: no symptoms reported Musculoskeletal: see HPI Skin: no symptoms reported Psychiatric/Neurological: No Symptoms Reported Past Jqomqvq-Bykqnt-Shmesk Hx Past Med/Social Hx: Reviewed Nursing Past Med/Soc Hx Patient Social History 2nd Hand Smoke Exposure: No Recent Foreign Travel: No Contact w/Someone Who Travel: No Recent Infectious Disease Expo: No Recent Hopitalizations: No Physical Abuse: No Sexual Abuse: No Mistreated: No Fear: No Immunizations Up To Date Tetanus Booster (TDap): Unknown Seasonal Allergies Seasonal Allergies: No Past Medical History Surgeries: Yes Tonsillectomy Respiratory: No Cardiac: Yes Hypertension Neurological: No Sexually Transmitted Disease: No HIV/AIDS: No Genitourinary: No Gastrointestinal: Yes Colitis, Chronic Constipation, Chronic Diarrhea Musculoskeletal: No Endocrine: Yes Diabetes, Non-Insulin dep HEENT: Yes (corrective lenses) Hearing Impairment: Denies Cancer: No Psychosocial: Yes Sleep Difficulties, Anxiety, PTSD, Depression Integumentary: No Blood Disorders: No Family Medical History GI Disease Physical Exam Vital Signs Vital Signs - First Documented 02/20/20 23:43 Temp 35.7 Pulse 104 Resp 16 B/P (MAP) 150/91 (110) Pulse Ox 94 O2 Delivery Room Air Capillary Refill : Less Than 3 Seconds Height, Weight, BMI Height: 5'5.00" Weight: 275lbs. 0.0oz. 124.168269rn; 44.00 BMI Method:Stated General Appearance: No Apparent Distress, WD/WN Eyes: Bilateral Eye Normal Inspection, Bilateral Eye PERRL, Bilateral Eye EOMI HEENT: PERRL/EOMI Neck: Supple, Limited Range of Motion, Tender Lateral Respiratory: Lungs Clear, Normal Breath Sounds Cardiovascular: Regular Rate, Rhythm Neurologic/Psychiatric: Alert, Oriented x3, No Motor/Sensory Deficits Focused Exam Sepsis Stage: Ruled Out Progress/Results/Core Measures Suspected Sepsis Recent Fever Within 48 Hours: No Infection Criteria Present: None New/Unexplained Altered Menta: No Sepsis Screen: No Definite Risk SIRS Temperature: Pulse: 104 Respiratory Rate: 16 Blood Pressure 150 /91 Mean: 110 Results/Orders My Orders Orders - WAQAS BENZ DO Ketorolac Injection (Toradol Injection) (02/21/20 00:30) Orphenadrine Inj (Ed Only) (Norflex Inje (02/21/20 00:30) Vital Signs/I&O 02/20/20 23:43 Temp 35.7 Pulse 104 Resp 16 B/P (MAP) 150/91 (110) Pulse Ox 94 O2 Delivery Room Air Capillary Refill : Less Than 3 Seconds Blood Pressure Mean: 110 Departure Communication (Admissions) Exacerbation of chronic neck pain without radicuclar symptoms or neurological deficits. Pseudomonal Risk: No known risk Impression Primary Impression: Neck pain Disposition: 01 HOME, SELF-CARE Condition: Stable Departure-Patient Inst. Referrals: [facility] (PCP) Primary Care Physician FRAN RAUSCH APRN (Family) Primary Care Physician Patient Instructions: Neck Pain Exercises Add. Discharge Instructions: Continue Relafen for neck pain take Flexeril as needed for additional relief. Follow-up with your PCP for reevaluation. All discharge instructions reviewed with patient and/or family. Voiced understanding. Scripts Cyclobenzaprine HCl (Cyclobenzaprine HCl) 10 Mg Tablet 10 MG PO Q8H PRN for SPASMS, #15 TAB 0 Refills Prov: WAQAS BENZ DO 02/21/20 WAQAS BENZ DO Feb 21, 2020 00:22
[2020-02-21] MEDS ORDERED: CYCL10TA9 PO (00:26)
[2020-02-21 00:28] VITALS: BP 150/91
[2020-02-21] MEDS ORDERED: ORPHENADRINE 60 MG/2 ML (NORFLEX) AMP (ED ONLY) IM ONE (00:30)
[2020-02-21] MEDS ORDERED: KETOROLAC 60 MG/2 ML VIAL IM ONE (00:30)
--- OUTSIDE RECORDS SUMMARY | 2020-02-21 02:44 | XMS REPORT | Clinical Summary ---
Author Author [facility] Organization [facility] Address Unknown Phone Unavailable Care Team Providers Care Credit Cashier Name Role Phone Self, Referral PCP Unavailable Ariana Dempsey Unavailable [phone] Sanna Fields RN Unavailable Unavailable Puma Lyles RN Unavailable Unavailable Damaris Ragsdale RN Unavailable Unavailable Source Comments Some departments are not documenting in the electronic medical record. If you d o not see the information that you expected, contact Release of Information in [facility] [employer] Information [employer] department at [phone] for further assistan ce in locating additional records.[facility] Allergies Comments Active Allergy Reactions Severity [...] Comments Vital Sign 137/76 08/05/2009 10:02 AM [employer] Blood Pressure 82 08/05/2009 10:02 AM [employer] Pulse 36.6 C (97.8 F) 08/05/2009 8:00 AM [employer] Temperature - - Respiratory Rate 94% 08/05/2009 10:02 AM [employer] Oxygen Saturation - - Inhaled Oxygen Concentration 120.5 kg (265 lb 10.5 oz) 06/17/2009 10:14 PM [employer] Weight 165.1 cm (5' 5") 06/17/2009 10:14 PM [employer] Height 44.21 06/17/2009 10:14 PM [employer] Body Mass Index Plan of Treatment Health Maintenance Due Date Last Done Comments HIV SCREENING 1987 DTAP/TDAP VACCINES (1 - 1990 Tdap) HEPATITIS C SCREENING 1990 PHYSICAL (COMPREHENSIVE) 1990 EXAM CERVICAL CANCER SCREENING 1993 BREAST CANCER SCREENING 2012 INFLUENZA VACCINE 05/08/2020 Results Not on filefrom Last 3 Months
--- OUTSIDE RECORDS SUMMARY | 2020-02-21 02:44 | XMS REPORT | Continuity of Care Document ---
Author Author OnaroNEREYDA Organization [facility] Address Unknown Phone Unavailable Care Team Providers Care Medical Operations Supervisor Name Role Phone [facility] Unavailable Unavailable Problems No Data Provided for This Section Medications Medication Details Route Status Patient Instructions Ordering Provider Order Date Source AlprazoLAM 0.25 mg oral tablet = 2 TAB, PO, Daily, TAB, 06/25/10 23:09:26 PO Ordered 06/26/2010 [facility] Depakote ER 1,250, PO, QHS (At bedtime), 09/04/09 8:37:58 PO Ordered 09/04/2009 [facility] Cymbalta 60 mg oral delayed release capsule 60 mg, PO, Daily, 08/30/09 8:51:02, (do not crush or chew)(do not crush or chew) PO Ordered 08/30/2009 [facility] Allergies, Adverse Reactions, Alerts Substance Category Reaction Severity Reaction type Status Date Reported Comments Source hydrocodone drug allergy Allergy Act johnie [facility] hydrocodone Assertion itching Drug allergy Active [facility] Immunizations No Data Provided for This Section [...] Source Inet NIBP Systolic 141 mmHg 09/15/2010 [facility] Temperature 98.6 DegF 09/15/2010 [facility] er Inet NIBP Diastolic 105 mmHg 09/15/2010 [facility] Temp Method Temporal (09/14/19 11 19:22:00) 09/15/2010 [facility] Heart Rate 99 bpm 09/15/2010 [facility] er Respiratory Rate 18 br/min 09/15/2010 [facility] Inet NIBP Systolic 128 mmHg 06/26/2010 [facility] Inet NIBP Diastolic 97 mmHg 06/26/2010 [facility] Respiratory Rate 16 br/min 06/26/2010 [facility] Pulse Rate 82 bpm 06/26/2010 [facility] er Heart Rate 98 bpm 06/26/2010 [facility] er Temp Method Oral (06/25/2010 2 1:34:00) 06/26/2010 [facility] Temperature 98.7 DegF 06/26/2010 [facility] er Respiratory Rate 22 br/min 11/24/2009 [facility] Inet NIBP Systolic 130 mmHg 11/24/2009 [facility] Inet NIBP Diastolic 95 mmHg 11/24/2009 [facility] Temperature 97.9 DegF 11/24/2009 [facility] er Temp Method Oral (11/23/2009 1 9:53:00) 11/24/2009 [facility] Heart Rate 126 bpm 11/24/2009 [facility] er Heart Rate Location Auto BP (0 10/25/2009 00:48:00) 10/25/2009 [facility] Respiratory Rate 20 br/min 10/25/2009 [facility] Pulse Rate 68 bpm 10/25/2009 [facility] er Inet NIBP Diastolic 88 mmHg 10/25/2009 [facility] Inet NIBP Systolic 130 mmHg 10/25/2009 [facility] Pulse Equipment Auto BP (10/25 00:48:00) 10/25/2009 [facility] Temp Method Temporal (10/25/19 10 23:52:00) 10/25/2009 [facility] Heart Rate 60 bpm 10/25/2009 [facility] er Temperature 96.8 DegF 10/25/2009 [facility] er Respiratory Rate 16 br/min 10/24/2009 [facility] Inet NIBP Diastolic 87 mmHg 10/24/2009 [facility] Inet NIBP Systolic 118 mmHg 10/24/2009 [facility] Pulse Rate 92 bpm 10/24/2009 [facility] er Temp Method Oral (10/24/2009 0 9:19:00) 10/24/2009 [facility] Temperature 98.2 DegF 10/24/2009 [facility] er Heart Rate 107 bpm 10/24/2009 [facility] er Respiratory Rate 18 br/min 09/12/2009 [facility] Heart Rate 96 bpm 09/12/2009 [facility] er Temp Method Oral (09/11/2009 1 9:24:00) 09/12/2009 [facility] Temperature 97.7 DegF 09/12/2009 [facility] er Inet NIBP Diastolic 101 mmHg 09/12/2009 [facility] Inet NIBP Systolic 146 mmHg 09/12/2009 [facility] Inet NIBP Systolic 104 mmHg 09/04/2009 [facility] Inet NIBP Diastolic 62 mmHg 09/04/2009 [facility] Respiratory Rate 16 br/min 09/04/2009 [facility] Heart Rate 73 bpm 09/04/2009 [facility] er Temperature 97.5 DegF 09/04/2009 [facility] er Temp Method Oral (09/03/2009 1 6:00:00) 09/03/2009 [facility] NIBP MAP Calc 98 09/03/2009 [facility] er Heart Rate Location Auto BP (0 2009 18:00:00) 09/03/2009 [facility] BP Location Arm, right (2009 18:00:00) 09/03/2009 [facility] Pulse Equipment Auto BP (09/01 05:00:00) 09/01/2009 [facility] Heart Rate Location Auto BP (0 09/01/2009 05:00:00) 09/01/2009 [facility] Respiratory Rate 20 br/min 09/01/2009 [facility] Pulse Rate 80 bpm 09/01/2009 [facility] er Inet NIBP Diastolic 68 mmHg 09/01/2009 [facility] Inet NIBP Systolic 122 mmHg 09/01/2009 [facility] Temp Method Oral (09/01/2009 0 1:31:00) 09/01/2009 [facility] Temperature 97.7 DegF 09/01/2009 [facility] er Heart Rate 92 bpm 09/01/2009 [facility] er Respiratory Rate 18 br/min 08/30/2009 [facility] Pulse Rate 78 bpm 08/30/2009 [facility] er Inet NIBP Diastolic 67 mmHg 08/30/2009 [facility] Inet NIBP Systolic 110 mmHg 08/30/2009 [facility] NIBP MAP Calc 82 08/30/2009 [facility] er Heart Rate 104 bpm 08/30/2009 [facility] er Temperature 98.1 DegF 08/30/2009 [facility] er Temp Method Temporal (08/30/19 10 08:46:00) 08/30/2009 [facility] Respiratory Rate 19 br/min 08/29/2009 [facility] Inet NIBP Diastolic 93 mmHg 08/29/2009 [facility] Temp Method Temporal (08/29/19 10 16:27:00) 08/29/2009 [facility] Temperature 98.0 DegF 08/29/2009 [facility] er Heart Rate 107 bpm 08/29/2009 [facility] er Inet NIBP Systolic 130 mmHg 08/29/2009 [facility] Inet NIBP Diastolic 78 mmHg 08/08/2009 [facility] Inet NIBP Systolic 108 mmHg 08/08/2009 [facility] Pulse Rate 92 bpm 08/08/2009 [facility] er Heart Rate Location Auto BP (0 08/08/2009 02:32:00) 08/08/2009 [facility] Temp Method Oral (08/08/2009 0 2:32:00) 08/08/2009 [facility] Respiratory Rate 18 br/min 08/08/2009 [facility] Heart Rate 80 bpm 08/08/2009 [facility] er Temperature 98.0 DegF 08/08/2009 [facility] er Systolic Blood Pressure 120 mm Hg 07/13/2009 [facility] Mean Arterial Pressure 103 mmHg 07/13/2009 [facility] Diastolic Blood Pressure 95 mm Hg 07/13/2009 [facility] Respiratory Rate 18 br/min 07/13/2009 [facility] Pulse Rate 94 bpm 07/13/2009 [facility] er Temp Method Temporal (07/12/20 16:25:00) 07/12/2009 [facility] Temperature 98.4 DegF 07/12/2009 [facility] er Mean Arterial Pressure 99 mmHg 07/12/2009 [facility] Diastolic Blood Pressure 92 mm Hg 07/12/2009 [facility] Systolic Blood Pressure 114 mm Hg 07/12/2009 [facility] Respiratory Rate 18 br/min 07/12/2009 [facility] Pulse Rate 79 bpm 07/12/2009 [facility] er Temp Method Oral (07/12/2009 1 1:27:00) 07/12/2009 [facility] Temperature 98.5 DegF 07/12/2009 [facility] er Pulse Rate 95 bpm 06/13/2009 [facility] er Respiratory Rate 18 br/min 06/13/2009 [facility] Temperature 97.5 DegF 06/13/2009 [facility] er Systolic Blood Pressure 107 mm Hg 06/13/2009 [facility] Diastolic Blood Pressure 69 mm Hg 06/13/2009 [facility] Mean Arterial Pressure 82 mmHg 06/13/2009 [facility] BP Equipment Auto BP (06/13/20 09 06:00:00) 06/13/2009 [facility] Temp Method Oral (06/13/2009 0 6:00:00) 06/13/2009 [facility] BP Location Arm, left ( 009 06:00:00) 06/13/2009 [facility] Pulse Equipment Auto BP (06/12 16:55:00) 06/12/2009 [facility] Heart Rate Location Auto BP (1 04:16:00) 06/05/2009 [facility] BP Location Arm, right (2008 04:16:00) 06/05/2009 [facility] BP Equipment Auto BP (06/05/20 04:16:00) 06/05/2009 [facility] Pulse Equipment Auto BP (06/05 04:16:00) 06/05/2009 [facility] Respiratory Rate 18 br/min 06/05/2009 [facility] Pulse Rate 75 bpm 06/05/2009 [facility] er Diastolic Blood Pressure 75 mm Hg 06/05/2009 [facility] Mean Arterial Pressure 83 mmHg 06/05/2009 [facility] Systolic Blood Pressure 98 mmHg 06/05/2009 [facility] NIBP MAP 71 mmHg 06/05/2009 [facility] er Inet NIBP Diastolic 68 mmHg 06/05/2009 [facility] Temp Method Oral (06/05/2009 0 0:13:00) 06/05/2009 [facility] Temperature 98.2 DegF 06/05/2009 [facility] er Encounters Location Location Details Encounter Type Encounter Number Reason For Visit Attending Provider ADM Date DC Date Status Source [facility] Emergency [id number] DAVON MONREAL MD 11/04/2016 11/04/2016 [facility] Procedures Procedure Code Date Perfomer Comments Source Application of finger splint; static [id number] 10/24/2009 [facility] Application of splint [id number] 10/24/2009 [facility] Plan of Care No Data Provided for This Section Social History No Data Provided for This Section Assessment and Plan No Data Provided for This Section Family History No Data Provided for This Section Advance Directives No Data Provided for This Section Functional Status No Data Provided for This Section
--- OUTSIDE RECORDS SUMMARY | 2020-02-21 02:46 | XMS REPORT | Continuity of Care Document ---
Author Organization Unknown Address Unknown Phone Unavailable Allergies Active Description Code Type Severity Reaction Onset Reported/Identified Relationship to Patient Clinical Status Yes HYDROcodone Drug N/A N/A Yes Zofran Drug N/A N/A Yes ondansetron [id number] Drug Aller gy Mild N/A 03/27/2017 Yes hydrocodone [id number] Drug Aller gy Unknown N/A 03/27/2017 Yes Sulfa (Sulfonamide Antibiotics) [id number] Drug Allergy Unknown N/A 019 Yes gabapentin [id number] Drug Allerg y Mild N/A 02/17/2019 Yes prednisone [id number] Drug Allerg y Unknown N/A 02/17/2019 Medications [...] R10. 9 UNSPECIFIED ABDOMINAL PAIN 04/29/2017 ZAINAB LNACE MD Ot Z87. 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 Ot K56.7 ILEUS, UNSPECIFIED 01/10/2018 EZEQUIEL [...] initial encounter 05/10/2018 [facility] use 05/15/2018 EZEQUIEL CHAVIRA APRN Ot K56.7 ILEUS, UNSPECIFIED 05/15/2018 EZEQUIEL CHAVIRA MASH PROCESSING OPERATOR Ot K76.0 FATTY (CHANGE OF) LIVER, NOT ELSEWHERE C 05/15/2018 EZEQUIEL CHAVIRA MASH PROCESSING OPERATOR Ot K56.7 ILEUS, UNSPECIFIED 05/15/2018 EZEQUIEL CHAVIRA MASH PROCESSING OPERATOR Ot K76.0 FATTY (CHANGE OF) LIVER, NOT ELSEWHERE C 05/15/2018 EZEQUIEL CHAVIRA MASH PROCESSING OPERATOR Ot K56.7 ILEUS, UNSPECIFIED 05/15/2018 EZEQUIEL CHAVIRA MASH PROCESSING OPERATOR Ot K76.0 FATTY (CHANGE OF) LIVER, [...] FACTORS, INI 08/25/2018 CINDY NAYLOR Ot Z79.52 HALF-WAY (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 STER 08/25/2018 CINDY NAYLOR Ot Z87.19 PERSONAL HISTORY OF OTHER DISEASES OF TH 08/25/2018 CINDY NAYLOR Ot Z88.5 ALLERGY STATUS TO NARCOTIC AGENT STATUS 08/25/2018 CINDY NAYLOR Ot Z88.8 ALLERGY STATUS TO OTH DRUG/MEDS/BIOL SUB 08/25/2018 CINDY NAYLOR Ot Z90.89 ACQUIRED ABSENCE OF OTHER ORGANS 08/25/2018 EZEQUIEL CHAVIRA MASH PROCESSING OPERATOR Ot K56.7 ILEUS, UNSPECIFIED 08/25/2018 EZEQUIEL CHAVIRA MASH PROCESSING OPERATOR Ot K76.0 FATTY (CHANGE OF) LIVER, [...] FACTORS, INI 08/28/2018 CINDY NAYLOR Ot Z79.52 HALF-WAY (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 STER 08/28/2018 CINDY NAYLOR Ot Z87.19 PERSONAL HISTORY OF OTHER DISEASES OF TH 08/28/2018 CINDY NAYLOR Ot Z88.5 ALLERGY STATUS TO NARCOTIC AGENT STATUS 08/28/2018 CINDY NAYLOR Ot Z88.8 ALLERGY STATUS TO OTH DRUG/MEDS/BIOL SUB 08/28/2018 JARED NAYLORIS Ot Z90.89 ACQUIRED ABSENCE OF OTHER ORGANS 09/28/2018 EZEQUIEL CHAVIRA MASH PROCESSING OPERATOR Ot K56.7 ILEUS, UNSPECIFIED 09/28/2018 EZEQUIEL CHAVIRA MASH PROCESSING OPERATOR Ot K76.0 FATTY (CHANGE OF) LIVER, [...] PAIN 09/28/2018 BENZ DO, WAQAS Ot 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 52 HALF-WAY (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 STER 10/25/2018 ZAINAB [...] 11/26/2018 ZAINAB LANCE MD Ot Z79. 52 HALF-WAY (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 STER 11/26/2018 ZAINAB [...] 11/30/2018 ZAINAB LANCE MD Ot Z79. 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 52 HALF-WAY (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 STER 12/01/2018 ZAINAB [...] 12/06/2018 ZAINAB LANCE MD Ot Z79. 52 HALF-WAY (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 STER 12/06/2018 ZAINAB [...] 12/14/2018 KIRSTIE CHAUDHARI MD, Ot Z79.5 2 PNEUMATIC DEICER INSPECTOR (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 STER 12/14/2018 KIRSTIE [...] 12/19/2018 KIRSTIE CHAUDHARI MD Ot Z79.5 2 PNEUMATIC DEICER INSPECTOR (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 STER 12/19/2018 KIRSTIE [...] L03.116 CELLULITIS OF LEFT LOWER LIMB 02/15/2019 JODY WALLER VALERIY B Ot M79. 89 OTHER [...] MUSCLE, FASCIA AND TENDON AT N 03/24/2019 ALTIA ROYAL MD, Ot W01.0XXA FALL SAME LEV FROM SLIP/TRIP W/O STRIKE 03/24/2019 LATIA ROYAL MD Ot Y92.[address] IN [facility] NON-INSTITUT (PRIVATE 03/24/2019 LATIA ROYAL MD, [...] ROYAL MD Ot Y92.[address] IN [facility] NON-INSTITUT ([facility] 03/26/2019 LATIA ROYAL MD, Ot Z87.19 PERSONAL [...] ANA ADKINS MD, Ot S66.912A [facility]/TEND AT WRS/HND 04/11/2019 ANA ADKINS MD, Ot W01.198A FALL SAME LEV FROM SLIP/TRIP W STRIKE AG 04/11/2019 ANA ADKINS MD, Ot Y92.[address] IN [facility] NON-INSTITUT (PRIVATE 04/11/2019 ANA ADKINS MD, [...] 9 OTHER CHRONIC PAIN 05/19/2019 HAYS DO, MEMO L Ot I10 ESSENTIAL (PRIMARY) HYPERTENSION 05/19/2019 [...] OVEREXERTION FROM PROLONGED STATIC OR AW 06/23/2019 GUANAKITO GLYNN MD, Ot Z88. 2 ALLERGY [...] Code Description [place] [address] Ther apeutic, prophylactic, or diagnostic URSULA POLK 02/19/2017 48473 Ther apeutic, prophylactic, or diagnostic FELICITAS URSULA 02/19/2017 30649 Ther apeutic, prophylactic, or diagnostic FELICITAS URUSLA 02/19/2017 76116 [facility] visit for the evalu FELICITAS URSULA 02/19/2017 47079 [facility] visit for the evalu FELICITAS URSULA 09/07/2017 60902 Ther apeutic, prophylactic, or diagnostic FELICITAS URSULA 09/30/2017 29505 [facility] visit for the evalu FELICITAS URSULA 09/30/2017 11548 [facility] visit for the evalu URSULA POLK 05/02/2018 72021 [place] and/or debridement of partial- FELICITAS URSULA 05/10/2018 30953 Immu nization administration (includes pe URSULA POLK 05/10/2018 71180 Ther apeutic, prophylactic, or diagnostic FELICITAS URSULA 05/10/2018 30874 [facility] visit for the evalu [...] 7-25 CREATININE 0.76 mg/dL 0.50-1.10 eGFR NON-AFR. [place] 94 mL/min/1.73m2 > OR = 60 eGFR [...] Status Pt. Type Provider Facility Loc./Unit Complaint [id number] 03/14/2019 11:00:00 03/14/2019 23:59: 59 [facility] [id number] 02/20/2019 14:00:00 Document Registration [id number] 12/18/2018 10:20:00 Document Registration [id number] 10/17/2019 23:58:00 00:38:00 DIS Emergency KIRSTIE CHAUDHARI MD Via [facility] ER FS NECK PAIN,COUGH [id number] 07/23/2019 19:56:00 21:45:00 DIS Outpatient GUANAKITO GLYNN MD Via [facility] ER FS NECK PAIN [id number] 07/21/2019 08:14:00 08:58:00 DIS Emergency GUANAKITO GLYNN MD Via [facility] ER FS FALL [id number] 07/21/2019 05:35:00 05:57:00 DIS Outpatient ROVENSTPATRICE STRINGER DO Via [facility] ER FS ROLLED ANKLE [id number] 06/27/2019 23:04:00 23:47:00 DIS Emergency BERRY LIEBERMAN DO Via [facility] ER FS STIFF NECK [id number] 06/23/2019 12:33:00 14:32:00 DIS Emergency GUANAKITO GLYNN MD Via [facility] ER FS NECK PAIN [id number] 06/22/2019 20:24:00 23:14:00 DIS Outpatient KIRSTIE CHAUDHARI MD Via [facility] ER FS BACK PAIN [id number] 05/20/2019 03:26:00 04:09:00 DIS Emergency GUANAKITO GLYNN MD Via [facility] ER FS NECK PAIN [id number] 05/19/2019 00:05:00 01:30:00 DIS Emergency MEMO HAYS DO Via [facility] ER FS NECK PAIN,N,V [id number] 05/17/2019 14:42:00 16:08:00 DIS Emergency VALERIY VERA DO Via [facility] ER FS NECK PAIN; VOMITING [id number] 05/10/2019 02:41:00 03:10:00 DIS Emergency ROVENSTSIOMARA WALLER PATRICE Rowan Via [facility] ER FS NECK PAIN [id number] 05/08/2019 19:49:00 20:55:00 DIS Outpatient WAQAS BENZ DO Via [facility] ER FS NECK PAIN [id number] 04/07/2019 18:35:00 19:43:00 DIS Outpatient ANA ADKINS MD Via [facility] ER FS FALL - BACK/NEC K PAIN [id number] 04/04/2019 12:00:00 13:28:00 DIS Emergency ZAINAB LANCE MD Via [facility] ER FS FALL; RT ANKLE/KATALINA WRIS T INJ [id number] 03/23/2019 22:32:00 01:01:00 DIS Emergency GENNY ENG, LATIA Bernard [facility] ER FS NECK AND LT WRI ST PAIN [id number] 02/17/2019 08:06:00 12:16:00 DIS Inpatient KEISHA ENG, FRANK Moyer [facility] 4TH CELLULITIS BOTH LEGS [id number] 02/15/2019 14:15:00 17:19:00 DIS Emergency VALERIY VERA DO Via [facility] ER FS SWOLLEN FEET [id number] 02/11/2019 10:01:00 10:39:00 DIS Emergency EDUARDO QUESADA MD Via [facility] ER FS NECK PAIN [id number] 02/10/2019 15:21:00 17:41:00 DIS Outpatient EDUARDO QUESADA MD Via [facility] ER FS NECK PAIN [id number] 12/14/2018 01:08:00 019 05:50:00 DIS Emergency KIRSTIE CHAUDHARI MD Via [facility] ER FS LOWER BACK PAIN [id number] 10/25/2018 15:47:00 019 21:57:00 DIS Emergency CASI ENG, ZAINAB Alva Via [facility] ER FS PER PT MOTHER SUICIDAL THOUGHTS [id number] 09/28/2018 02:05:00 019 03:18:00 DIS Emergency TUYET WALLER WAQAS Via [facility] ER FS CONGESTION,SOA [id number] 08/25/2018 14:53:00 019 17:00:00 DIS Emergency CINDY NAYLOR [facility] ER NECK PAIN [id number] 01/09/2018 21:48:00 018 23:27:00 DIS Emergency ZAINAB LANCE MD Via [facility] ER GI PROBLEMS, KNOTS ON L SIDE [id number] 01/06/2018 11:35:00 018 23:59:59 CLS Outpatient EZEQUIEL CHAVIRA APRN Via [facility] RAD RLQ ABD PAIN,RU Q ABD PAIN,LLEUS,CONSTIPATION [id number] 04/24/2017 18:36:00 017 20:50:00 DIS Emergency ZAINAB LANCE MD Via [facility] ER ABD/SIDE PAIN [id number] 03/26/2017 23:35:00 017 02:16:00 DIS Emergency GENNY ENG, LATIA Bernard [facility] ER AB PAIN DIARRHE A VOMTING [id number] 01/29/2017 22:24:00 017 22:43:00 DIS Emergency KRISH TERRELL DO a [facility] ER STOMACH ISSUES [id number] 05/10/2018 09:43:00 8 11:45:00 DIS Emergency Rommel Major [facility] ER Burn [id number] 05/02/2018 16:45:00 8 18:54:00 DIS Emergency KALIE SOTO [facility] ER Orthopedic [id number] 09/30/2017 05:07:00 8 07:12:00 DIS Emergency [facility] ER General Medical [id number] 09/07/2017 21:53:00 8 02:12:00 DIS Emergency Luis Cuello [facility] ER General Medical [id number] 02/19/2017 05:35:00 7 08:40:00 DIS Emergency Jody Chua [facility] ER Back Pain [id number] 09/30/2017 05:33:28 Document Registration
== END 2020-02-21 00:29 | disposition home or self-care (01) ==
LOC: EDUNIT# 23:31 → ER FS 23:35
DX: M54.2 Cervicalgia (principal); G89.29 Other chronic pain; I10 Essential (primary) hypertension; K59.09 Other constipation; Z88.2 Allergy status to sulfonamides; Z88.5 Allergy status to narcotic agent; Z88.8 Allergy status to other drugs, medicaments and biological substances; X50.0XXA Overexertion from strenuous movement or load, initial encounter
CPT/HCPCS: 99284

== ENCOUNTER 2021-01-16 00:33 | Emergency (ER) | payer SELFPAY ==
[~2021-01-16] VITALS: Ht 165.1 cm; Wt 83.0 kg
[~2021-01-16 00:33] MED LIST changes: -CLIN300C11 PO; +CLIN300C12 PO
[2021-01-16 00:44] VITALS: BP 147/122
[2021-01-16] MEDS ORDERED: IBUP-1780 PO (00:55)
--- NOTE | 2021-01-16 00:55 | ED Upper Extremity ---
General Chief Complaint: Upper Extremity Stated Complaint: RIGHT SHOULDER INJURY Nursing Triage Note: PT AMBULATE TO ROOM FS02 WITH C/O RIGHT SHOULDER PAIN. PT STATES THAT SHE WAS ARRANGING PILLOWS ON HER BED AND FELL OFF. PT REPORTS TAKING IBUPROFEN FOR PAIN. 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 Nursing Sepsis Screen: No Definite Risk History of Present Illness Date Seen by Provider: Jan 16, 2021 Time Seen by Provider: 00:51 Initial Comments 50-year-old female rolled over in bed and states she fell on the floor on outstretched arm causing pain in her arm. Denies directly hitting her shoulder or arm on the floor. Denies any head or neck injury or other injury. Patient came back to the ER, did not take anything for pain, did not ice her shoulder. Complains of limited range of motion and discomfort with that movement. Allergies and Home Medications Allergies Coded Allergies: gabapentin (Verified Allergy, Mild, 02/17/19) ondansetron (Verified Allergy, Mild, 03/27/17) Itching at injection site with injectable form only. Oral form well tolerated. Sulfa (Sulfonamide Antibiotics) (Verified Allergy, Unknown, 02/15/19) hydrocodone (Verified Allergy, Unknown, 03/27/17) prednisone (Verified Allergy, Unknown, 02/17/19) Home Medications Clindamycin HCl 300 Mg Capsule, 300 MG PO BID Prescribed by: FRANK VALDES on 02/18/19 1005 Cyclobenzaprine HCl 10 Mg Tablet, 10 MG PO HS Prescribed by: PATRICE ROBERSON on 05/10/19 0303 Cyclobenzaprine HCl 10 Mg Tablet, 10 MG PO TID Prescribed by: KIRSTIE CHAUDHARI on 10/18/19 0029 Cyclobenzaprine HCl 10 Mg Tablet, 10 MG PO Q8H PRN for SPASMS Prescribed by: WAQAS BENZ on 02/21/20 0026 Ibuprofen 800 Mg Tablet, 800 MG PO Q8H PRN for PAIN Prescribed by: KIRSTIE CHAUDHARI on 10/18/19 0029 Ibuprofen 800 Mg Tablet, 800 MG PO Q8H PRN for PAIN Prescribed by: PATRICE ROBERSON on 01/16/21 0055 Ketorolac Tromethamine 10 Mg Tablet, 10 MG PO Q6H PRN for PAIN-MODERATE TO SEVERE Prescribed by: EDUARDO QUESADA MD on 02/11/19 1032 Ondansetron 4 Mg Tab.rapdis, 4 MG PO Q6H Prescribed by: JODY CROOKS on 05/17/19 1557 Oxycodone HCl/Acetaminophen 1 Each Tablet, 1 TAB PO Q4H Prescribed by: GUANAKITO GLYNN on 06/23/19 1422 Oxycodone HCl/Acetaminophen 1 Each Tablet, 1 TAB PO Q8H PRN for PAIN-SEVERE (8- 10) Prescribed by: KIRSTIE CHAUDHARI on 10/18/19 0030 Sennosides/Docusate Sodium 1 Each Tablet, 1 EA PO BID Prescribed by: FRANK VALDES on 02/18/19 1005 Patient Home Medication List Home Medication List Reviewed: Yes Review of Systems Constitutional: No dizziness, No fever, No malaise, No weakness Respiratory: No cough, No short of breath Cardiovascular: No chest pain, No palpitations, No syncope Musculoskeletal: No back pain; joint pain, muscle pain; No neck pain Skin: No change in color, No rash Psychiatric/Neurological: Denies Numbness, Denies Paresthesia, Denies Tingling Past Msrhnxy-Lndhco-Dnumfn Hx Past Med/Social Hx: Reviewed Nursing Past Med/Soc Hx Patient Social History Alcohol Use: Denies Use Drug of Choice: POT Smoking Status: Never a Smoker 2nd Hand Smoke Exposure: No Recent Infectious Disease Expo: No Recent Hopitalizations: No Immunizations Up To Date Tetanus Booster (TDap): Unknown Seasonal Allergies Seasonal Allergies: No Past Medical History Surgeries: Yes Tonsillectomy Respiratory: No Cardiac: Yes Hypertension Neurological: No Sexually Transmitted Disease: No HIV/AIDS: No Genitourinary: No Gastrointestinal: Yes Colitis, Chronic Constipation, Chronic Diarrhea Musculoskeletal: No Endocrine: Yes Diabetes, Non-Insulin dep HEENT: Yes (corrective lenses) Hearing Impairment: Denies Cancer: No Psychosocial: Yes Sleep Difficulties, Anxiety, PTSD, Depression Integumentary: No Blood Disorders: No Family Medical History GI Disease Physical Exam Vital Signs Vital Signs - First Documented 01/16/21 00:44 Temp 36.6 Pulse 94 Resp 18 B/P (MAP) 147/122 (130) O2 Delivery Room Air Capillary Refill : Less Than 3 Seconds Height, Weight, BMI Height: 5'5.00" Weight: 275lbs. 0.0oz. 124.296018og; 30.00 BMI Method:Stated General Appearance: WD/WN, no apparent distress Neck: non-tender, supple Cardiovascular: normal peripheral pulses, regular rate, rhythm, no edema, no gallop, no JVD Respiratory: chest non-tender, lungs clear, normal breath sounds, no respiratory distress Shoulder: normal inspection, no evidence of injury; No asymmetry; bone tenderness; No deformity, No ecchymosis; limited ROM, pain, soft tissue tenderness; No swelling Progress/Results/Core Measures Results/Orders My Orders Orders - PATRICE ROBERSON DO Shoulder 3 View Right (01/16/21 00:50) Vital Signs/I&O 01/16/21 00:44 Temp 36.6 Pulse 94 Resp 18 B/P (MAP) 147/122 (130) O2 Delivery Room Air 2 Blood Pressure Mean: 130 Diagnostic Imaging Diagonstic Imaging: Xray Comments normal R shoulder without RAD abnormality Departure Impression Primary Impression: Right shoulder strain Qualified Codes: S46.911A - Strain of unspecified muscle, fascia and tendon at shoulder and upper arm level, right arm, initial encounter Disposition: HOME, SELF-CARE Condition: Stable Departure-Patient Inst. Decision time for Depature: 01:01 Referrals: [facility] (PCP) Primary Care Physician FRAN RAUSCH APRN (Family) Primary Care Physician Patient Instructions: Muscle Strain ED Add. Discharge Instructions: Apply an ice pack to your shoulder 4 times daily for 20 minutes for pain. Wear a sling for comfort for a few days then discontinue use so you don't lose range of motion. See your PCP in 1 week for re-evaluation of your shoulder injury. All discharge instructions reviewed with patient and/or family. Voiced understanding. Scripts Ibuprofen (Ibuprofen) 800 Mg Tablet 800 MG PO Q8H PRN for PAIN, #30 TAB 0 Refills Prov: PATRICE ROBERSON DO 01/16/21 PATRICE ROBERSON DO Jan 16, 2021 00:55
--- NOTE | 2021-01-16 06:42 | Diagnostic Imaging Report ---
CLINICAL INDICATION: Patient was arranging pillows on her bed and fell off. EXAM: X-ray of the right shoulder, 3 views. COMPARISON: None. FINDINGS: There is no acute fracture or dislocation. There is moderately hypertrophic spurs involving the right acromioclavicular interval. There is minimal spurring of the right glenoid region. 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 Dictated by: Dictated on workstation # [id number]
== END 2021-01-16 01:13 | disposition home or self-care (01) ==
LOC: EDUNIT# 00:33 → ER FS 00:37
DX: S46.911A Strain of unspecified muscle, fascia and tendon at shoulder and upper arm level, right arm, initial encounter (principal); I10 Essential (primary) hypertension; E11.9 Type 2 diabetes mellitus without complications; W18.30XA Fall on same level, unspecified, initial encounter
CPT/HCPCS: 73030; 99283; A4565

== ENCOUNTER 2021-01-19 22:36 | Emergency (ER) | payer SELFPAY ==
[~2021-01-19] VITALS: Ht 165 cm; Wt 83.0 kg
[2021-01-20] MEDS ORDERED: NAPR500T8 PO (00:06)
--- NOTE | 2021-01-20 00:06 | ED Upper Extremity ---
General Chief Complaint: Upper Extremity Stated Complaint: R SHOULDER INJ Nursing Triage Note: PATIENT VERBALIZED SHE HURT HER RIGHT SHOULDER TUESDAY, TRIPPED ON A BOX LAST NIGHT, FELL, CAUGHT HERSELF ON RT ARM, STATES REINJURED ARM. PATIENT VERBALIZED SHE HAS BEEN SEEN AT [facility], [facility], AND AT HER PHYSICIANS OFFICE. PATIENT STATES SHE WAS TOLD TO FOLLOW UP WITH ORTHO PHYSICIAN FOR POSSIBLE TORN LIGAMENT Nursing Sepsis Screen: No Definite Risk Source: patient (GIVES CONVOLUTED AND CONFLICTING INFORMATION) History of Present Illness Date Seen by Provider: Jan 19, 2021 Time Seen by Provider: 23:18 Initial Comments PT ARRIVES VIA POV WITH FEMALE--DROVE HERE FROM [place] C/O RIGHT SHOULDER PAIN STATES SHE HURT IT ON Tuesday01/16/21 AND AGAIN ON 01/17/21, AND THEN AGAIN LAST NIGHT STATES THE FIRST TIME, ON TUESDAY, SHE HAS BEEN MOVING AND TRIPPED OVER A BOX AND CAUGHT HERSELF ON OUTSTRETCHED RIGHT ARM WENT TO [facility] ON 01/16/21 STATES SHE WENT THERE AGAIN THE NEXT DAY FOR THE SAME THING STATES LAST NIGHT SHE GOT UP TO GO TO THE BATHROOM AND TRIPPED AND CAUGHT HERSELF WITH OUTSTRETCHED RIGHT ARM AGAIN STATES SHE WENT TO [facility] LAST NIGHT STATES SHE WENT TO [facility] TODAY FOR THIS AND GOT A SHOT OF STEROIDS, STATES NO RX GIVEN STATES SHE WAS TOLD AT [facility] THAT THEY WOULD REFER HER TO ORTHOPEDIC SURGEON FOR POSSIBLE TORN LIGAMENT IN HER SHOULDER PT HAS NOT TAKEN ANYTHING FOR PAIN PT ARRIVES WEARING A SLING ON RIGHT ARM NO PARESTHESIAS OR MOTOR DEFICITS NO RADIATION OF PAIN PT IS RIGHT HANDED PT WITH A MULTITUDE OF VISITS, NEARLY ALL FOR VARIOUS PAIN COMPLAINTS, ESPECIALLY CHRONIC NECK PAIN PCP:[facility] Allergies and Home Medications Allergies Coded Allergies: gabapentin (Verified Allergy, Mild, 02/17/19) ondansetron (Verified Allergy, Mild, 03/27/17) Itching at injection site with injectable form only. Oral form well tolerated. Sulfa (Sulfonamide Antibiotics) (Verified Allergy, Unknown, 02/15/19) hydrocodone (Verified Allergy, Unknown, 03/27/17) prednisone (Verified Allergy, Unknown, 02/17/19) Home Medications Clindamycin HCl 300 Mg Capsule, 300 MG PO BID Prescribed by: FRANK VALDES on 02/18/19 1005 Cyclobenzaprine HCl 10 Mg Tablet, 10 MG PO HS Prescribed by: PATRICE ROBERSON on 05/10/19 0303 Cyclobenzaprine HCl 10 Mg Tablet, 10 MG PO TID Prescribed by: KIRSTIE CHAUDHARI on 10/18/19 0029 Cyclobenzaprine HCl 10 Mg Tablet, 10 MG PO Q8H PRN for SPASMS Prescribed by: WAQAS BENZ on 02/21/20 0026 Ibuprofen 800 Mg Tablet, 800 MG PO Q8H PRN for PAIN Prescribed by: KIRSTIE CHAUDHARI on 10/18/19 0029 Ibuprofen 800 Mg Tablet, 800 MG PO Q8H PRN for PAIN Prescribed by: PATRICE ROBERSON on 01/16/21 0055 Ketorolac Tromethamine 10 Mg Tablet, 10 MG PO Q6H PRN for PAIN-MODERATE TO SEVERE Prescribed by: EDUARDO QUESADA MD on 02/11/19 1032 Naproxen 500 Mg Tablet.dr, 500 MG PO BID Prescribed by: KRISH TERRELL on 01/20/21 0006 Ondansetron 4 Mg Tab.rapdis, 4 MG PO Q6H Prescribed by: JODY CROOKS on 05/17/19 1557 Oxycodone HCl/Acetaminophen 1 Each Tablet, 1 TAB PO Q4H Prescribed by: GUANAKITO GLYNN on 06/23/19 1422 Oxycodone HCl/Acetaminophen 1 Each Tablet, 1 TAB PO Q8H PRN for PAIN-SEVERE (8- 10) Prescribed by: KIRSTIE CHAUDHARI on 10/18/19 0030 Sennosides/Docusate Sodium 1 Each Tablet, 1 EA PO BID Prescribed by: FRANK VALDES on 02/18/19 1005 Patient Home Medication List Home Medication List Reviewed: Yes Review of Systems Constitutional: no symptoms reported Respiratory: no symptoms reported Cardiovascular: no symptoms reported Musculoskeletal: see HPI Skin: no symptoms reported Psychiatric/Neurological: See HPI Past Ihtlgib-Bpktjy-Oibuab Hx Past Med/Social Hx: Reviewed and Corrections made Patient Social History Drug of Choice: POT 2nd Hand Smoke Exposure: No Recent Infectious Disease Expo: No Recent Hopitalizations: No Immunizations Up To Date Tetanus Booster (TDap): Unknown Seasonal Allergies Seasonal Allergies: No Past Medical History Surgeries: Yes Tonsillectomy Respiratory: No Cardiac: Yes Hypertension Neurological: No Sexually Transmitted Disease: No HIV/AIDS: No Genitourinary: No Gastrointestinal: Yes Colitis, Chronic Constipation, Chronic Diarrhea Musculoskeletal: Yes (CHRONIC NECK PAIN ) Endocrine: Yes (MORBID OBESITY) Diabetes, Non-Insulin dep HEENT: Yes (corrective lenses) Hearing Impairment: Denies Cancer: No Psychosocial: Yes Sleep Difficulties, Anxiety, PTSD, Depression Integumentary: No Blood Disorders: No Family Medical History GI Disease Physical Exam Vital Signs Vital Signs - First Documented 01/19/21 23:11 Temp 36.8 Pulse 118 Resp 20 B/P (MAP) 204/108 (140) Pulse Ox 97 O2 Delivery Room Air Capillary Refill : Less Than 3 Seconds Height, Weight, BMI Height: 5'5.00" Weight: 275lbs. 0.0oz. 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, no motor/sensory deficits, alert, normal mood/affect, oriented x 3 Skin: normal color, warm/dry; No ecchymosis, No rash Progress/Results/Core Measures Results/Orders My Orders Orders - KRISH TERRELL DO Shoulder, Right, 3 Views (01/19/21 23:33) Rx-Naproxen (Rx-Naprosyn) (01/20/21 00:10) Vital Signs/I&O 01/19/21 01/20/21 23:11 00:24 Temp 36.8 36.8 Pulse 118 104 Resp 20 20 B/P (MAP) 204/108 (140) 173/102 (140) Pulse Ox 97 97 O2 Delivery Room Air Room Air Blood Pressure Mean: 140 Diagnostic Imaging Comments XRAYS RIGHT SHOULDER--NO ACUTE PROCESS, PENDING RADIOLOGIST REVIEW Reviewed: Reviewed by Me Departure Impression Primary Impression: Right shoulder strain Disposition: 01 HOME, SELF-CARE Condition: Stable Departure-Patient Inst. Referrals: [facility] (PCP) Primary Care Physician FRAN RAUSCH APRN (Family) Primary Care Physician ANGELIA COLLIER MD Patient Instructions: How to Use a Shoulder Sling, Shoulder Sprain (DC) Add. Discharge Instructions: WEAR SLING AT ALL TIMES ICE TO AREA AT 20 MINUTE INTERVALS FOLLOW UP WITH DR. COLLIER THIS WEEK FOR FURTHER CARE All discharge instructions reviewed with patient and/or family. Voiced understanding. Scripts Naproxen (Naproxen) 500 Mg Tablet. 500 MG PO BID, #20 TAB Prov: KRISH TERRELL DO 01/20/21 KRISH TERRELL DO Jan 20, 2021 00:06
[2021-01-20] MEDS ORDERED: RX-NAPROXEN (NAPROSYN) 250 MG TAB PPK#4 PO STA (00:10)
[2021-01-20 00:24] VITALS: BP 173/102
--- NOTE | 2021-01-20 08:02 | Diagnostic Imaging Report ---
INDICATION: Right shoulder pain AP, oblique, and transscapular views of the right shoulder are obtained No fracture or acute bony abnormality is seen. There is mild degenerative change of the AC joint. IMPRESSION: No acute abnormality in the right shoulder. Dictated by: Dictated on workstation # [id number]
== END 2021-01-20 00:25 | disposition home or self-care (01) ==
LOC: EDUNIT# 22:36 → ER 22:38
DX: S46.911A Strain of unspecified muscle, fascia and tendon at shoulder and upper arm level, right arm, initial encounter (principal); E66.01 Morbid (severe) obesity due to excess calories; I10 Essential (primary) hypertension; E11.9 Type 2 diabetes mellitus without complications; G89.29 Other chronic pain; M54.2 Cervicalgia; Z68.30 Body mass index [BMI] 30.0-30.9, adult; Z88.5 Allergy status to narcotic agent; Z79.891 Long term (current) use of opiate analgesic; W23.1XXA Caught, crushed, jammed, or pinched between stationary objects, initial encounter
CPT/HCPCS: 73030

== ENCOUNTER 2021-01-23 22:48 | Emergency (ER) | payer SELFPAY ==
[~2021-01-23] VITALS: Ht 165 cm; Wt 120.0 kg
[~2021-01-23 22:48] MED LIST changes: +NAPR500T8 PO
[2021-01-23 23:09] LABS: BASOPHILS % (AUTO) 0 % (0-10); EOSINOPHILS # (AUTO) 0.2 10^3/uL (0.0-0.3); EOSINOPHILS % (AUTO) 2 % (0-10); HEMATOCRIT 40 % (35-52); HEMOGLOBIN 12.8 g/dL (11.5-16.0); LYMPHOCYTES # (AUTO) 1.9 10^3/uL (1.0-4.0); LYMPHOCYTES % (AUTO) 20 % (12-44); MEAN CORPUSCULAR HEMOGLOBIN 27 pg (25-34); MEAN CORPUSCULAR HGB CONC 32 g/dL (32-36); MEAN CORPUSCULAR VOLUME 84 fL (80-99); MEAN PLATELET VOLUME 10.6 fL (9.0-12.2); MONOCYTES # (AUTO) 0.5 10^3/uL (0.0-1.0); MONOCYTES % (AUTO) 5 % (0-12); NEUTROPHILS # (AUTO) 7.2 10^3/uL (1.8-7.8); NEUTROPHILS % (AUTO) 73 % (42-75); PLATELET COUNT 256 10^3/uL (130-400); WHITE BLOOD COUNT 9.8 10^3/uL (4.3-11.0)
[2021-01-23] MEDS ORDERED: ASPIRIN 81 MG CHEW (CHILDREN'S ASA) PO ONE (23:15)
[2021-01-23 23:20] LABS: BILIRUBIN,URINE NEGATIVE (NEGATIVE); CLARITY,URINE SL CLOUDY; COLOR,URINE YELLOW; GLUCOSE, URINE (UA) 1+ (NEGATIVE); KETONES,URINE TRACE (NEGATIVE); LEUKOCYTE ESTERASE ,URINE NEGATIVE (NEGATIVE); NITRITE,URINE NEGATIVE (NEGATIVE); PROTEIN,URINE NEGATIVE (NEGATIVE)
[2021-01-23 23:27] LABS: BACTERIA,URINE FEW /HPF; RBC,URINE RARE /HPF; WBC,URINE 0-2 /HPF
[2021-01-23 23:27] LABS: ALANINE AMINOTRANSFERASE 21 U/L (0-55); ALBUMIN 3.8 GM/DL (3.2-4.5); ALKALINE PHOSPHATASE 111 U/L (40-136); AMYLASE 29 U/L (25-125); BILIRUBIN,TOTAL 0.2 MG/DL (0.1-1.0); BUN/CREATININE RATIO 15; CALCIUM 8.6 MG/DL (8.5-10.1); CARBON DIOXIDE 24 MMOL/L (21-32); CHLORIDE 101 MMOL/L (98-107); CREATINE KINASE 60 U/L (29-168); CREATININE SERUM 0.93 MG/DL (0.60-1.30); GFR ESTIMATED > 60; GLUCOSE 263 MG/DL (70-105); LIPASE 49 U/L (8-78); MAGNESIUM 2.1 MG/DL (1.6-2.4); POTASSIUM 3.9 MMOL/L (3.6-5.0); SODIUM 134 MMOL/L (135-145); TOTAL PROTEIN 7.4 GM/DL (6.4-8.2)
[2021-01-23 23:33] LABS: CREATINE KINASE MB 0.6 NG/ML (<6.6)
[2021-01-23 23:34] LABS: AMPHETAMINE SCREEN, URINE POSITIVE (NEGATIVE); BARBITURATE SCREEN URINE NEGATIVE (NEGATIVE); BENZODIAZEPINES SCREEN URINE NEGATIVE (NEGATIVE); CANNABINOID SCREEN, URINE POSITIVE (NEGATIVE); COCAINE SCREEN URINE NEGATIVE (NEGATIVE); METHADONE STAT NEGATIVE (NEGATIVE); METHAMPHETAMINE SCREEN URINE S NEGATIVE (NEGATIVE); OPIATE SCREEN URINE NEGATIVE (NEGATIVE); OXYCODONE STAT NEGATIVE (NEGATIVE); PROPOXYPHENE STAT NEGATIVE (NEGATIVE); TRICYCLIC ANTIDEPRESSANTS SCRE NEGATIVE (NEGATIVE)
[2021-01-23 23:59] LABS: INR 0.9 (0.8-1.4); PROTHROMBIN TIME PATIENT 12.9 SEC (12.2-14.7)
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
[2021-01-24 00:09] VITALS: BP 143/96
[2021-01-24] MEDS ORDERED: diphenhydrAMINE 25 MG TAB (BENADRYL) PO ONE (00:15)
--- NOTE | 2021-01-24 07:50 | Diagnostic Imaging Report ---
Indication: Chest pain. Time of exam: 11:24 PM Comparison is made with prior chest from 02/17/2019. The heart size is normal. The pulmonary vascularity is unremarkable. The lungs are clear. No infiltrate, effusion or pneumothorax is detected. Impression: No acute cardiopulmonary process is detected. Dictated by: Dictated on workstation # [id number]
== END 2021-01-24 00:09 | disposition home or self-care (01) ==
LOC: EDUNIT# 22:48 → ER 22:49
DX: F41.9 Anxiety disorder, unspecified (principal); R07.89 Other chest pain; E66.01 Morbid (severe) obesity due to excess calories; I10 Essential (primary) hypertension; G89.29 Other chronic pain; M54.2 Cervicalgia; E11.9 Type 2 diabetes mellitus without complications; Z68.41 Body mass index [BMI] 40.0-44.9, adult; Z79.891 Long term (current) use of opiate analgesic; Z79.899 Other long term (current) drug therapy
CPT/HCPCS: 71045; 80053; 80306; 81000; 82150; 82550; 82553; 83690; 83735; 83874; 83880; 84484; 84703; 85027; 85610; 85730; 87088; 93041; 99284; G0480; 36415; 80320; 93005